=== PATIENT | female | born 1950 | race Caucasian/White ===

== ENCOUNTER → 2018-01-04 08:09 | Outpatient (CLI) | payer MEDICARE, OTHER, SELFPAY ==
--- NOTE | 2018-01-04 08:15 | RAD_ITS ---
STUDY: X-RAY - ESOPHAGUS (BARIUM SWALLOW) WITH FLUOROSCOPY REASON FOR EXAM: Female, 67 years old. Dysphagia. Hiatal hernia. TECHNIQUE: 15 view(s) of the esophagus were obtained following swallowing of barium. FLUOROSCOPY TIME (if supplied): (0:37) minutes/seconds COMPARISON: None. FINDINGS: There is no demonstrated esophageal foreign body. There is no demonstrated stricture or mucosal abnormality. Normal gastroesophageal junction, without a demonstrated hiatal hernia. The patient ingested a 12 mm tablet of barium without any difficulty. There is atherosclerotic calcification of the aortic arch with tortuosity of the descending aorta. Normal visualized pulmonary parenchyma. Normal visualized osseous structures of the thorax. RAD/Esophagus Only IMPRESSION: Normal plain film x-ray examination (barium swallow) of the esophagus. Electronically Signed: Jono Venegas MD at 9:40 EST Tel [phone], Service support ,
== END ==
PROVIDERS: Family Provider Family Medicine; PCP Family Medicine; Visit Provider Otolaryngology Otolaryngology/Facial Plastic Surgery
DX: R13.10 Dysphagia, unspecified (principal)
CPT/HCPCS: 74220

== ENCOUNTER → 2018-04-07 09:43 | Outpatient (CLI) | payer MEDICARE, OTHER, SELFPAY ==
--- NOTE | 2018-04-07 14:06 | PFTCOMP ---
COMPLETE PULMONARY FUNCTION TEST INTERPRETATION Brief HPI: Patient is a 67 year old female, currently under the care of myself, who presents to [facility] for complete pulmonary function tests secondary to diagnosis of abnormal PFT. Respiratory therapist reports good effort and reproducible results. Interpretation: Forced expiration spirometry shows no large airways obstructive ventilatory defect with an FEV1 of 102% predicted. There is no significant bronchodilator response by ATS criteria. Spirograms are of good quality and plateau normally. The respiratory flow volume loop shows a normal pattern. Lung volumes by body plethysmography show a normal total lung capacity at 4.44 L, 100% predicted. All other lung volumes are within normal limits. Diffusion capacity by carbon monoxide is at the lower limit of normal at 66% predicted. The airway resistance is elevated. Compared to previous pulmonary function tests from 09/15/2017, there has been no significant change. Impression: These pulmonary function tests are grossly within normal limits. Lung function has been stable over the last 6 months.
--- NOTE | 2018-04-07 14:09 | PFTCOMP_ITS ---
COMPLETE PULMONARY FUNCTION TEST INTERPRETATION Brief HPI: Patient is a 67 year old female, currently under the care of myself, who presents to [facility] for complete pulmonary function tests secondary to diagnosis of abnormal PFT. Respiratory therapist reports good effort and reproducible results. Interpretation: Forced expiration spirometry shows no large airways obstructive ventilatory defect with an FEV1 of 102% predicted. There is no significant bronchodilator response by ATS criteria. Spirograms are of good quality and plateau normally. The respiratory flow volume loop shows a normal pattern. Lung volumes by body plethysmography show a normal total lung capacity at 4.44 L , 100% predicted. All other lung volumes are within normal limits. Diffusion capacity by carbon monoxide is at the lower limit of normal at 66% predicted. The airway resistance is elevated. Compared to previous pulmonary function tests from 09/15/2017, there has been no significant change. Impression: These pulmonary function tests are grossly within normal limits. Lung function has been stable over the last 6 months.
== END ==
PROVIDERS: Family Provider Family Medicine; PCP Family Medicine; Visit Provider Internal Medicine Critical Care Medicine
DX: R94.2 Abnormal results of pulmonary function studies (principal)
CPT/HCPCS: 94060; 94726; 94729

== ENCOUNTER → 2018-07-28 14:54 | Outpatient (CLI) | payer MEDICARE, OTHER, SELFPAY | PROVIDERS: Family Provider Family Medicine; PCP Family Medicine; Visit Provider Orthopaedic Surgery | DX: M25.551 Pain in right hip (principal) | CPT/HCPCS: 73502 ==

== ENCOUNTER 2018-08-25 08:30 | Outpatient (RCR) | payer MEDICARE, OTHER, SELFPAY ==
--- NOTE | 2018-07-29 12:50 | HP.PTEVAL ---
Patient's Visit Information VERONICA ZULUAGA is a 67 year old F referred to Physical Therapy by Roula Torres DO with a diagnosis of RIGHT PROXIMAL LATERAL LEG PAIN/ITB.. Date of Evaluation: 07/29/18 Physical Therapist: Elise Hirsch - Visit Plan Frequency: 2-3x /Week Duration: 4-6 Weeks Plan: US TO LUMBAR/SI REGION TENDER AREAS. CP/MH NEEDED. POSTURE CORRECTION/STRENGTHENING, INSTRUCTION IN APPROPRIATE BODY MECHANICS AND ACTIVITY MODIFICATIONS. CORE STRENGTHENING. RUBIN LE ROM, STRETCHING AND STRENGTHENING (ESPECIALLY RIGHT LE). ITB STICK ROLL OUT. HEP INSTRUCTION INCLUDING FOAM ROLL. - Subjective Subjective: Work/Leisure: RETIRED. 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 Disability: NO. Present symptoms: RUBIN LBP, RIGHT BUTTOCK, HIP AND THIGH. PATIENT DENIES RUBIN LE NUMBNESS OR TINGLING. (CHRONIC RUBIN KNEE PAIN TOO L>R). Present since: ABOUT 3 MONTHS AGO AND WORSENING. RUBIN LOW BACK PAIN WITH PROLONGED STANDING AND THAT STARTED A FEW MONTHS AGO TOO. Pain Scale: WORST 8/10, LEAST 2/10. Currently: 2/10. 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 HE IN NOV 2017. 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 THIS WAS PHYSICAL WORK TOO. Symptoms at onset: FRONT OF RIGHT HIP. Worse: WALKING. THE WORST IS GOING UP OR DOWN STEPS. CARRYING GROCERIES. HIKING. BENDING. LIFTING. TRYING TO TAKE PANTS OFF. Better: SITTING. LYING DOWN WITH PILLOW UNDER RIGHT KNEE. EXCEDRIN. Disturbed sleep: YES. Previous history/Previous treatment: NO HISTORY OF LOW BACK PAIN OR PROBLEMS UNTIL A FEW MONTHS AGO. PATIENT ISN'T SURE IF BACK OR THIGH PAIN STARTED FIRST BUT SHE THINKS IT STARTED IN THE FRONT OF HER RIGHT HIP. Coughing/sneezing/straining: WHEN I COUGH IT HURTS. Gait: PATIENT REPORTS SHE HAS BEEN HAVING TROUBLE WITH HER KNEES (ESPECIALLY THE LEFT KNEE) FOR ABOUT 3 YEARS NOW AND SO SHE HAS BEEN LIMPING OFF AND ON FOR A LONG TIME BUT HER RIGHT THIGH PAIN ALSO CAUSES HER TO LIMP. Difficulty initiating urinatin: SLOW SOMETIMES. HAS HAD BLADDER TIED UP. Accidents: LONG TIME AGO. Unexplained weight loss: NO. Imaging: X-RAY YESTERDAY OF RIGHT HIP SHOWING CALCIUM BUILD UP POSSIBLY FROM OLD INJURY. PMH: SLEEPING PILL. MIGRAINES. H/O RUBIN SHOULDER PAIN AND POSSIBLE TEARS RIGHT > LEFT. CHRONIC COUGH. Recent major surgery: NONE RECENT. OTHER: HAS ONLY HAD ONE PHYSICIAN VISIT FOR THIS AND IT WAS YESTERDAY WITH DR. TORRES. - Objective Sitting/Standing Posture: POOR. STANDS WITH DECREASED WEIGHT BEARING ON RIGHT LE. Lordosis: MILDLY DECREASED. Lateral shift: NO. Relevant shift: N/A. Active Correction of posture: BETTER. Other Observations: THIS PATIENT AMBULATES INDEP''LY INTO PT LIMPING ON RUBIN LE'S WITH INCRASED TRUNK FLEXION. VERY SLOW ANTALGIC GAIT PATTERN. UNABLE TO TRANSFER FROM SIT TO STAND WITHOUT UE ASSIST. INDEP TRANSFERS ON/OFF TABLE, SIT TO SUPINE AND REVERSE, SUPINE TO PRONE AND REVERSE BUT MVMTS ARE SLOW AND GUARDED AND SHE USES HER UE TO ASSIT THE RIGHT LE. Motor deficit: RUBIN LE STRENGTH 5/5 WITH MMT'ING EXCEPT RIGHT HIP: FLEX 3-/5, ABD 3/5, EXT 3-/5. RIGHT KNEE EXT 4/5, KNEE FLEX 4/5, ANKLE DORSIFLEX 5/5. RUBIN EHL 5/5. Sensory deficit: RUBIN LE LIGHT TOUCH SENSATION IS INTACT AND SYMMETRICAL. ROM deficit: TIGHT RUBIN HS'S, GASTROC SOLEUS COMPLEX'S AND HIP FLEXORS. PAINFUL RIGHT HIP WITH ROM TESTING AND ONLY ABLE TO PASSIVELY FLEX RIGHT HIP TO ABOUT 90 DEG. SHE HAS ABOUT 5 DEG OF IR AND 25 DEG OF ER AND IT IS PAINFUL. HIP EXTENSION TO NEUTRAL. Reflexes: UNABLE TO ELICIT RUBIN LE DTR'S. Dural Signs: NEGATIVE RUBIN LE'S WITH SLUMP TEST. Lumbar mvmt loss: flex - MOD - RIGHT LOW BACK AND HIP PAIN GOING FORWARD AND COMING BACK UP. ALSO PROVOKES INCREASED LEFT KNEE PAIN. ext - KATHERIN - PROVOKES CENTRAL LBP AND RIGHT ANTERIOR PROX THIGH PAIN. R SG - MOD - PROVOKES RIGHT PROX ANTERIOR THIGH MARCELO AND CENTRAL LBP. L SG - MOD - PROVOKES RIGHT PROX ANTERIOR THIGH PAIN. Core strength: POOR. Palpation: RIGHT THIGH IS NOT TENDER TO THE TOUCH THROUGHOUT. RIGHT LATERAL HIP AND RIGHT BUTTOCK IS ALSO NOT TENDER TO PALPATION. SHE HAS MILD TENDERNESS OF L45S1 REGION AND MORE TENDERNESS OF THE RIGHT SI JOINT AND THERE IS INCREASED MUSCLE TONE OF RUBIN LUMBAR PARASPINALS. OTHER: RECOMMENDED CANE OR WALKER TO DECREASE WEIGHT BEARING AND PAIN ON RIGHT LE. - Goals Goal 1:: DECREASE C/O RIGHT BUTTOCK, HIP AND THIGH PAIN Goal Time Frame: 4-6 Weeks Goal 2:: IMPROVE PERSONAL CARE, LIFTING, WALKING, SITTING, STANDING, SLEEP, SOCIAL LIFE/RECREATIONAL, TRAVEL AND HOMEMAKING FUNCTION Goal Time Frame: 4-6 Weeks Goal 3:: INSTRUCT IN PROPHYLAXIS Goal Time Frame: 4-6 Weeks - Rehabilitation Potential Rehabilitation Potential: Fair - Anticipated Interventions Patient/Client Instruction: Educate patient on: Condition, Plan of Care, Risk Factors, Benefits of Fitness Program For the Purpose of:: To improve self management Therapeutic Exercise to Include: Strength training, Body mechanics, Postural training, Flexibilty training, Gait and locomotor training, In an aquatic setting, Passive ROM, Active ROM, Dynamic Lumbar Stabilization Comment: ITB STICK ROLL OUT. FOAM ROLL. For the Purpose of:: To decrease pain, To increase ROM, To improve muscle performance and motor function, To increase tolerance to activity/condition/position, To improve performance and independence with ADL's, To improve ability of physical actions for home/community/work/leisure, To improve gait and locomotor functions Cryotherapy (ice pack, ice massage): Yes Thermo therapy (hot pack): Yes Ultrasound (thermal/non thermal): Yes - BACK, RIGHT SI REGION AND/OR ITB NEEDED. For the Purpose of:: To decrease pain, To decrease swelling/inflammation, To increase ROM, To improve nutrient delivery to tissue Thank you for the opportunity to evaluate your patient. For Medicare and Medicare HMO plans, please review the plan of care and approve it. It will need to be FAXED BACK to us at [phone] for Medicare purposes. Please let me know if there are questions or concerns regarding this plan of care. Physician Signature: Date:
--- NOTE | 2018-08-25 09:29 | HP.PTREVAL ---
Roula Torres, DO, It has been my pleasure to treat VERONICA ZULUAGA over the last 10 visits for RIGHT PROXIMAL LATERAL LEG PAIN/ITB.. Please see the progress note below for an update on the physical therapy plan of care! Subjective: PATIENT REPORTS USING THE CANE REALLY HELPS THE PAIN AND SHE IS AFRAID TO STOP USING IT BECAUSE SHE THINKS THE PAIN WILL COME BACK BAD AGAIN. SHE REPORTS HER PAIN IS LESS NOW THAN BEFORE SHE CAME TO THERAPY BUT WITH LIMITED NORMAL ACTIVITY. PATIENT REPORTS SHE IS STILL GETTING UP TO 8/10 PAIN IN RIGHT RIGHT BUTTOCK AND HIP. INTERMITTENT LOW BACK ACHING WITH PROLONGED STANDING. HAS TO LEAN ON CART TO GROCERY SHOP. SHE CAN GET HER PAIN DOWN TO 2/10 IN THE DEEP END OF THE POOL AND SHE CAN'T DO ANYTHING ELSE TO GET THAT MUCH RELEIF. PATIENT REPORTS SHE HAS IMPROVED SINCE STARTING THERAPY BUT THINKS SHE MIGHT BE PLATEAUING. FOLLOW UP WITH DR. TORRES SCHEDULED 09/13/18. CURRENTLY SHE GETS INCREASED PAIN WHEN SHE TRIES TO DO HER HEP. Objective/Function: THIS PATIENT AMBULATES INDEP''LY INTO PT MODERATELY LIMPING ON RUBIN LE'S WITH INCRASED TRUNK FLEXION EVEN WITH THE USE OF CANE. SHE STILL HAS A VERY SLOW ANTALGIC GAIT PATTERN WITH MINIMAL IMPROVEMENT SINCE INITIAL EVAL. WITHOUT THE CANE HER LIMP ON THE RIGHT LE IS MUCH WORSE. SHE IS NOW ABLE TO TRANSFER FROM SIT TO STAND WITHOUT UE ASSIST. INDEP TRANSFERS ON/OFF TABLE, SIT TO SUPINE AND REVERSE, SUPINE TO PRONE AND REVERSE BUT MVMTS ARE SLOW AND GUARDED AND SHE USES HER UE TO ASSIT THE RIGHT LE. Motor deficit: RUBIN LE STRENGTH 5/5 WITH MMT'ING EXCEPT RIGHT HIP: FLEX 3-/5 AND TESTING GREATLY INCREASES RIGHT ANTERIOR HIP AND PROX THIGH PAIN. RIGHT KNEE EXT 4/5, KNEE FLEX 4/5, ANKLE DORSIFLEX 5/5. RUBIN EHL 5/5. Sensory deficit: RUBIN LE LIGHT TOUCH SENSATION IS INTACT AND SYMMETRICAL. ROM deficit: TIGHT RUBIN HS'S, GASTROC SOLEUS COMPLEX'S AND HIP FLEXORS. PAINFUL RIGHT HIP WITH ROM TESTING AND ONLY ABLE TO PASSIVELY FLEX RIGHT HIP TO ABOUT 98 DEG. SHE HAS ABOUT 10 DEG OF IR AND 50 DEG OF ER AND IT IS PAINFUL. HIP EXTENSION TO NEUTRAL. Dural Signs: NEGATIVE RUBIN LE'S WITH SLUMP TEST. Lumbar mvmt loss: flex - MOD - RIGHT LOW BACK AND HIP PAIN GOING FORWARD AND COMING BACK UP. DOES NOT INCREASE LEFT KNEE PAIN TODAY. ext - KATHERIN - PROVOKES SACRAL AREA PAIN. R SG - MOD - PROVOKES RIGHT PROX ANTERIOR THIGH MARCELO. L SG - MOD - PROVOKES RIGHT PROX ANTERIOR THIGH PAIN. Core strength: POOR. Palpation: RIGHT THIGH IS NOT TENDER TO THE TOUCH THROUGHOUT. RIGHT LATERAL HIP AND RIGHT BUTTOCK IS ALSO NOT TENDER TO PALPATION. SHE IS REALLY NOT TENDER IN THE LOW BACK OR RIGHT SI JOINT REGION TODAY BUT THERE IS INCREASED MUSCLE TONE OF RUBIN LUMBAR PARASPINALS. OTHER: RECOMMENDED CONTINUED USE OF CANE OR WALKER TO DECREASE WEIGHT BEARING AND PAIN ON RIGHT LE. THERE IS NO SIGNIFICANT CHANGE IN BACK OSWESTRY SCORE AND THERE ARE ONLY MINIMAL IMPROVEMENT IN OBJECTIVE TESTING TODAY. Plan Plan: RECOMMEND PHYSICIAN RE-ASSESSMENT. PATIENT MAY BENEFIT FROM FURTHER AQUATIC THERAPY IF CLEARED AFTER PHYSICIAN RE-ASSESSMENT. HOLD PT. PATEINT AGREEABLE. RECOMMEND FOLLOW UP WITH THIS PT ON LAND IF CLEARED TO RESUME PT. Goals Goal 1:: DECREASE C/O RIGHT BUTTOCK, HIP AND THIGH PAIN Goal Time Frame: 4-6 Weeks Goal 2:: IMPROVE PERSONAL CARE, LIFTING, WALKING, SITTING, STANDING, SLEEP, SOCIAL LIFE/RECREATIONAL, TRAVEL AND HOMEMAKING FUNCTION Goal Time Frame: 4-6 Weeks Goal 3:: INSTRUCT IN PROPHYLAXIS Goal Time Frame: 4-6 Weeks Anticipated Interventions Patient/Client Instruction: Educate patient on: Condition, Plan of Care, Risk Factors, Benefits of Fitness Program For the Purpose of:: To improve self management Therapeutic Exercise to Include: Strength training, Body mechanics, Postural training, Flexibilty training, Gait and locomotor training, In an aquatic setting, Passive ROM, Active ROM, Dynamic Lumbar Stabilization Comment: ITB STICK ROLL OUT. FOAM ROLL. For the Purpose of:: To decrease pain, To increase ROM, To improve muscle performance and motor function, To increase tolerance to activity/condition/position, To improve performance and independence with ADL's, To improve ability of physical actions for home/community/work/leisure, To improve gait and locomotor functions Cryotherapy (ice pack, ice massage): Yes Thermo therapy (hot pack): Yes Ultrasound (thermal/non thermal): Yes - BACK, RIGHT SI REGION AND/OR ITB NEEDED. For the Purpose of:: To decrease pain, To decrease swelling/inflammation, To increase ROM, To improve nutrient delivery to tissue Please do not hesitate to contact me at [phone] by phone or if you have questions or concerns regarding this new plan of care! Sincerely, Elise Hirsch
--- NOTE | 2019-01-19 17:01 | HP.PT.NRP ---
HP - Discharge Summary (1) - Patient Information VERONICA ZULUAGA was seen in my office for initial evaluation on 07/29/18. The following Plan of Care was established for this patient: Initial Frequency: 2-3x /Week Initial Duration: 4-6 Weeks - Anticipated Interventions Patient/Client Instruction: Educate patient on: Condition, Plan of Care, Risk Factors, Benefits of Fitness Program For the Purpose of:: To improve self management Therapeutic Exercise to Include: Strength training, Body mechanics, Postural training, Flexibilty training, Gait and locomotor training, In an aquatic setting, Passive ROM, Active ROM, Dynamic Lumbar Stabilization For the Purpose of:: To decrease pain, To increase ROM, To improve muscle performance and motor function, To increase tolerance to activity/condition/position, To improve performance and independence with ADL's, To improve ability of physical actions for home/community/work/leisure, To improve gait and locomotor functions Cryotherapy (ice pack, ice massage): Yes Thermo therapy (hot pack): Yes Ultrasound (thermal/non thermal): Yes - BACK, RIGHT SI REGION AND/OR ITB NEEDED. For the Purpose of:: To decrease pain, To decrease swelling/inflammation, To increase ROM, To improve nutrient delivery to tissue This patient was last seen in our office 08/25/18. Pertinent comments regarding their Physical therapy will appear below: This patient has not returned to Physical Therapy and is appropriate to return to MD for further follow-up as needed. At this point I will be discontinuing this patient from physical therapy. I would be happy to see this patient again in the future if found appropriate by the physician. Thank you! Elise Hirsch, PT, Cert MDT
== END 2018-08-25 19:00 | disposition home or self-care (01) ==
LOC: PT 08:30
PROVIDERS: Family Provider Family Medicine; PCP Family Medicine; Visit Provider Orthopaedic Surgery
DX: M79.604 Pain in right leg (principal); M76.31 Iliotibial band syndrome, right leg
CPT/HCPCS: 97035; 97110; 97113; 97116; 97140; 97162; 97164; 97530

== ENCOUNTER → 2018-09-07 07:04 | Outpatient (CLI) | payer MEDICARE, OTHER, SELFPAY ==
--- NOTE | 2018-09-07 07:25 | MRI_ITS ---
STUDY: MRI RIGHT HIP REASON FOR EXAM: Right hip and anterior thigh pain. TECHNIQUE: Standardized fat and water weighted pulse sequences were obtained in all 3 orthogonal planes. # of Images: 209 COMPARISON: Radiographs 07/28/2018. FINDINGS: There is mild right hip arthrosis with mild chondral thinning (proton-density sagittal image 16). There is bone edema of the lateral aspect of the right acetabulum (inversion recovery coronal images 15-19), a stress phenomenon. Normal labrum. There is a small subchondral stress fracture of the posterior superior aspect of the right femoral head with bone edema (inversion recovery coronal image 15). Normal femoral neck and intratrochanteric region. Normal gluteus minimus, medius and iliopsoas tendons and distal insertions. There is no trochanteric, iliopsoas or iliopectineal bursitis. Normal superior and inferior pubic rami. Normal pubic symphysis. Normal ischial tuberosity. Normal origin of the hamstring tendons. Normal visualized iliac wing, sacroiliac joint, and sacral ala. Normal visualized soft tissue structures of the pelvis. MRI/Lower Ext Joint Only (Routine) IMPRESSION: Small subchondral stress fracture of the right femoral head. Subchondral bone edema of the right acetabulum, a stress phenomenon. Mild right hip arthrosis. No demonstrated labral tear. Electronically Signed: Ricardo Sherman MD at 12:14 EDT Tel , Service support ,
== END ==
PROVIDERS: Family Provider Family Medicine; PCP Family Medicine; Referring Provider Orthopaedic Surgery; Visit Provider Orthopaedic Surgery
DX: M16.11 Unilateral primary osteoarthritis, right hip (principal)
CPT/HCPCS: 73721

== ENCOUNTER → 2018-09-13 08:25 | Outpatient (CLI) | payer MEDICARE, OTHER, SELFPAY ==
--- NOTE | 2018-09-13 08:23 | RAD_ITS ---
STUDY: X-RAY - LUMBAR SPINE REASON FOR EXAM: Female, 68 years old. Back pain. TECHNIQUE: 6 view(s) of the lumbar spine including lateral flexion and extension were obtained. COMPARISON: None FINDINGS: There is generalized osteopenia. Normal lumbar lordosis. There is no substantial scoliosis. There is 7 mm of anterolisthesis of L4 on L5. There is limited flexion and extension with no abnormal motion. Normal vertebral bodies and endplates. There is mild intervertebral disc space narrowing most marked at L3-4 with small osteophytes. There is diffuse uncovertebral and facet sclerosis. There is an injection granuloma in the right gluteal region. RAD/L/S Spine Comp/w Bending Views IMPRESSION: Osteopenia with moderate lumbar spondylosis as described. Limited flexion and extension with no abnormal motion. Electronically Signed: Orlando Ng MD at 10:37 EDT , Service support ,
== END ==
PROVIDERS: Family Provider Family Medicine; PCP Family Medicine; Referring Provider Orthopaedic Surgery; Visit Provider Orthopaedic Surgery
DX: M25.551 Pain in right hip (principal)
CPT/HCPCS: 72114

== ENCOUNTER → 2018-09-19 06:29 | Outpatient (CLI) | payer MEDICARE, OTHER, SELFPAY ==
--- NOTE | 2018-09-19 06:30 | MRI_ITS ---
STUDY: MRI LUMBAR SPINE WITHOUT CONTRAST REASON FOR EXAM: Female, 68 years old. Radicular syndrome, right hip and thigh pain TECHNIQUE: Standardized fat and water weighted pulse sequences were obtained in the sagittal and axial planes. COMPARISON: None FINDINGS: T12-L1: Normal endplates. Normal disc height, hydration and morphology. Normal bilateral facet joints. Normal central canal and bilateral lateral recesses. Normal bilateral intervertebral neural foramina. Normal lumbar lordosis. There is no substantial scoliosis. Normal conus medullaris that terminates at the L1-2 level. Multiple incidental vertebral body hemangiomata. L1-2: Bulging annulus without compressive sequelae. L2-3: Bulging annulus with superimposed cranially migrating left subarticular disc extrusion. Moderate left lateral recess stenosis and mild right foraminal stenosis. L3-4: Bulging annulus and bilateral facet hypertrophy with moderate to severe central canal stenosis and moderate bilateral foraminal stenoses. L4-5: Bulging annulus and bilateral facet hypertrophy with moderate central canal stenosis and bilateral foraminal stenoses. Moderate to severe bilateral lateral recess stenoses. Facet disease is associated with contact of both transiting L5 nerve roots. L5-S1: Bulging annulus and bilateral facet hypertrophy with mild central canal stenosis and moderate right and mild left foraminal stenoses. Normal visualized sacral ala. Normal visualized paraspinous soft tissue structures. MRI/Spine Lumbar (Routine) IMPRESSION: Multilevel degenerative disease as described. At L2-3, a cranially migrating left-sided disc extrusion is noted with moderate left lateral recess stenosis. Moderate to severe central canal stenosis at L3-4. Moderate to severe bilateral lateral recess stenoses at L4-5. L4-5 facet disease with contact of the bilateral transiting L5 nerve roots. Electronically Signed: Ulises Stafford MD at 7:32 EDT Tel , Service support ,
== END ==
PROVIDERS: Family Provider Family Medicine; PCP Family Medicine; Referring Provider Orthopaedic Surgery; Visit Provider Orthopaedic Surgery
DX: M54.16 Radiculopathy, lumbar region (principal)
CPT/HCPCS: 72148

== ENCOUNTER → 2018-12-29 11:00 | Outpatient (CLI) | payer MEDICARE, OTHER, SELFPAY ==
[2018-12-29 10:57] VITALS: BMI 28.8
--- NOTE | 2018-12-29 11:02 | RAD_ITS ---
STUDY: X-RAY - LEFT SHOULDER REASON FOR EXAM: Female, 68 years old. Pain. TECHNIQUE: 4 view(s) of the shoulder. COMPARISON: None. FINDINGS: Normal glenohumeral articulation. There is degenerative arthrosis of the acromioclavicular joint without inferior osseous spur formation. Normal acromion. Normal humeral head and visualized proximal humerus. The soft tissue structures are unremarkable. There is no demonstrated fracture. Normal visualized pulmonary apex. RAD/Shoulder min 2 Views IMPRESSION: Degenerative changes. No acute abnormality. Electronically Signed: Abe Allen MD at 15:56 EST , Service support ,
== END ==
PROVIDERS: Family Provider Family Medicine; PCP Family Medicine; Referring Provider Orthopaedic Surgery; Visit Provider Orthopaedic Surgery
DX: M25.512 Pain in left shoulder (principal)
CPT/HCPCS: 73030

== ENCOUNTER 2019-01-08 10:46 | Emergency (ER) | payer MEDICARE, OTHER, SELFPAY ==
[2019-01-06 11:17] VITALS: BMI 28.8
[2019-01-08 10:47] VITALS: BP 128/76; PULSE 83; RESP 18; TEMP 36.6; O2SAT 97; BMI 30.2
--- NOTE | 2019-01-08 11:42 | RAD_ITS ---
STUDY: X-RAY - RIGHT HIP REASON FOR EXAM: Female, 68 years old. Fall yesterday, right hip pain TECHNIQUE: 2 views of the hip. AP pelvis COMPARISON: None. FINDINGS: Bilateral injection granulomata noted. There are osteoarthritic changes of the femoral head with marginal osteophyte formation. There is osteoarthritic spur formation of the acetabular rim. There is mild articular joint space narrowing. Pelvic ring is intact. Pubic symphysis and sacroiliac joints are normally aligned. There are degenerative changes of the lower lumbar spine. RAD/HIP, UNI W/ Pelvis 2-3 Views IMPRESSION: No fracture or malalignment. Degenerative changes. Electronically Signed: Jamari Bartlett MD at 12:44 EST , Service support ,
--- NOTE | 2019-01-08 11:42 | RAD_ITS ---
STUDY: X-RAY - LEFT KNEE REASON FOR EXAM: Female, 68 years old. Fall yesterday on ice, left knee pain TECHNIQUE: 4 view(s) of the knee. COMPARISON: None. FINDINGS: Normal visualized distal femur. Normal visualized proximal tibia and fibula. Normal proximal tibiofibular articulation. There is moderate degenerative arthrosis of the medial femorotibial compartment with moderate joint space narrowing. Normal lateral femorotibial compartment. There is mild degenerative arthrosis of the patellofemoral articulation. There is a soft tissue prominence in the suprapatellar region suggesting a small volume joint effusion. The soft tissue structures are unremarkable. RAD/Knee 4 or More Views IMPRESSION: 1. No fracture or malalignment. 2. Small joint effusion. 3. Mild degenerative changes. Electronically Signed: Jamari Bartlett MD at 12:43 EST , Service support ,
--- NOTE | 2019-01-08 12:37 | ED.VISSUMM ---
- ER Visit Summary Date of Service: 01/08/19 Chief Complaint: Fall History of Present Illness: The patient is a 68 F presenting after fall on ice. This occurred yesterday. She fell directly onto her left knee. She did not hit her head or lose consciousness. She states she twisted and is now having right hip pain. She is able to ambulate. She has been having pain in her right hip for several months. She denies other injury. Physical Examination: Vitals are stable. Patient is afebrile. Alert no acute distress. HEENT exam is unremarkable. Neck is nontender Lungs are clear and equal bilaterally. Heart is regular rate and rhythm. Extremities left anterior knee tenderness with full range of motion. Mild right anterior hip tenderness with active full range of motion. Skin is warm and dry. No focal neurologic deficit. Remainder of exam is unremarkable. Emergency Department Course and Treatment: Left knee xray shows no fracture or malalignment. Small joint effusion. Mild degenerative changes. Right hip xray shows no fracture or malalignment. Degenerative changes. She was given Volcano x1 in the ED. Advised to follow-up with her primary care physician. Advised return to the ED for worsening complaints. Disposition: Discharge home Impression: Left knee contusion, right hip pain, status post mechanical fall This note was generated with [employer] dictation software. It may contain incorrect words, spelling, and punctuation that were not noted in review of the chart prior to signing ED Disposition - Plan for ED Patient: Instructions: ED Contusion Lower Ext Prescriptions: Hydrocodone Bitart/Apap 5-325 [Volcano 5MG-325MG] 1 tablet PO Q6H PRN PRN 3 Days #10 tablet PRN Reason: Pain Referrals: Dwight Parnell DO [Primary Care Provider] -
--- NOTE | 2019-01-08 13:44 | ED.DEP ---
ED Disposition - Plan for ED Patient: Instructions: ED Contusion Lower Ext Prescriptions: Hydrocodone Bitart/Apap 5-325 [Winigan 5MG-325MG] 1 tablet PO Q6H PRN PRN 3 Days #10 tablet PRN Reason: Pain Referrals: Dwight Parnell DO [Primary Care Provider] -
[2019-01-08] MEDS: HYDROcodone Bitartrate/Apap 5/325 Tablet PO (13:58)
[2019-01-08 14:00] VITALS: BP 158/91; PULSE 67; RESP 18; O2SAT 97
[2019-01-08 14:11] VITALS: BP 132/78; PULSE 80; RESP 16; O2SAT 98
== END 2019-01-08 14:13 | disposition home or self-care (01) ==
PROVIDERS: Emergency Provider Emergency Medicine; Family Provider Family Medicine; PCP Family Medicine
DX: S80.02XA Contusion of left knee, initial encounter (principal); M25.551 Pain in right hip; W00.9XXA Unspecified fall due to ice and snow, initial encounter; Y93.9 Activity, unspecified; Y92.9 Unspecified place or not applicable
CPT/HCPCS: 73502; 73564; 99282

== ENCOUNTER → 2019-04-13 | Outpatient (CLI) | payer MEDICARE, OTHER, SELFPAY ==
[2018-12-29 10:57] VITALS: BMI 28.8
--- NOTE | 2019-04-13 07:17 | MRI_ITS ---
STUDY: MRI LEFT SHOULDER REASON FOR EXAM: Shoulder pain and decreased range of motion for approximately 4-5 years, injury 3 years ago. TECHNIQUE: Standardized fat and water weighted pulse sequences were obtained in all 3 orthogonal planes. COMPARISON: Radiographs 12/29/2018. FINDINGS: There is supraspinatus tendinosis and a full-thickness tear of the supraspinatus tendon (T2 coronal images 15, 16; T2 sagittal image 15) measuring approximately 1.3 cm in length and width. There is infraspinatus tendinosis (T2 coronal image 9) without discrete tendon tear. There is subscapularis tendinosis (proton density axial images 8-10) without discrete tendon tear. Normal teres minor tendon. There is atrophy with partial fat replacement of the supraspinatus muscle (T2 sagittal images 1-6). There is a cyst at the infraspinatus musculotendinous junction extending into the tendon (T2 coronal images 7, 8). Normal subscapularis muscle. Normal teres minor muscle. There is a small glenohumeral joint effusion with fluid extending into the bicipital tendon sheath. There is cystic change of the greater tuberosity. Normal biceps labral complex. There is tendinosis of the intracapsular long biceps tendon (T2 coronal images 17, 18). Normal labrum. There is synovitis in the axillary bursa (T2 coronal images 9, 10). There is acromioclavicular arthrosis with a small undersurface osteophyte of the distal clavicle (T2 sagittal image 11). There is a Type II morphology (curved), with a neutral orientation. There is a small volume of subacromial-subdeltoid bursal fluid. Normal visualized coracohumeral and coracoacromial ligaments. Normal deltoid muscle. Normal trapezius muscle. MRI/Upper Ext Joint Only(Routine) IMPRESSION: Full-thickness tear and tendinosis of the supraspinatus tendon. Infraspinatus and subscapularis tendinosis. Atrophy of the supraspinatus muscle. Tendinosis of the long biceps tendon. Acromioclavicular arthrosis. Glenohumeral joint fluid communicating with the subacromial-subdeltoid bursa. Electronically Signed: Ricardo Sherman MD at 9:15 EDT Tel , Service support ,
== END | disposition home or self-care (01) ==
LOC: MRI 07:16
PROVIDERS: Family Provider Family Medicine; PCP Family Medicine; Referring Provider Orthopaedic Surgery; Visit Provider Orthopaedic Surgery
DX: M75.102 Unspecified rotator cuff tear or rupture of left shoulder, not specified as traumatic (principal); R42 Dizziness and giddiness
CPT/HCPCS: 73221

== ENCOUNTER 2019-04-25 07:33 | Day surgery (SDC) | payer MEDICARE, OTHER, SELFPAY ==
[2019-04-19 10:25] VITALS: BMI 30.2
--- NOTE | 2019-04-19 12:59 | HP_ITS ---
Intake Vital Signs 04/19/19 Body Mass Index (BMI) 30.2 Intake Visit Reasons: LEFT SHOULDER Allergies acetaminophen [From Tylenol-Codeine] Adverse Reaction (Verified 01/08/19 10:49) Vomiting codeine phosphate [From Tylenol-Codeine] Adverse Reaction (Verified 01/08/19 10:49) Vomiting Medications trazodone 100 mg tablet 200 mg PO HS 30 Days #60 tab 04/12/18 [History Confirmed 01/06/19] fluticasone propionate 50 mcg/actuation nasal spray,suspension 2 spray INTRANASAL DAILY #18.2 g 01/06/19 [Rx Confirmed 01/06/19] PFSH Medical History Sleep apnea (Chronic) Vertigo (Chronic) Allergic rhinitis (Chronic) Chronic cough (Chronic) Hiatal hernia with gastroesophageal reflux (Chronic) Abnormal pulmonary function test (Chronic) Asthma, moderate persistent (Resolved) UTI (urinary tract infection) (Acute) Pyelonephritis (Acute) Flank pain (Acute) Nausea & vomiting (Acute) Surgical History History of tubal ligation (Resolved) History of tonsillectomy (Resolved) History of cholecystectomy (Resolved) History of hysterectomy (Resolved) History of appendectomy (Resolved) Family History Mother Cancer Diabetes Father Cancer Grandfather Diabetes Grandmother Glaucoma Social History Smoking Status: Never smoker second hand exposure: No alcohol intake: never substance use type: does not use caffeine: Yes what type of physical activity do you participate in: none HPI LEFT SHOULDER: Chief Complaint: left shoulder Surgical H&P: Yes Details: Parts of this documentation were recorded by a scribe, this documentation accurately reflects the service provided and the decisions made by , Femi Bowen DO 04/19/19 0754. VERONICA ZULUAGA is a 68 year old F here today for MRI review of the shoulder and she continues to have pain with certain motions. She is trying to alter her motions to relieve pain. Patient has decreased rom and pain in all ranges. She has failed to gain rom with PT and injections. Denies numbness, tingling or other associated symptoms. Ortho Exam Left Shoulder Testing: No AROM-Forward Elevation 0-180 (80), No AROM-External Rotation at side 0-60 (50) Internal Rotation: Hip Supplemental Info 04/13/2019 MRI left shoulder: Full-thickness tear and tendinosis of anterior supraspinatus tear is near musculotendinous junction with a large footprint remaining attached to the greater tube Assessment & Plan Problems 1. Rotator cuff syndrome of left shoulder M75.102 Plan Explained that she has a torn RTC. Explained location and age of tear may prohibit it from being repairable and if so debridement of the tear would be performed, she has atrophy noted as well and that can make risk of not repairing. Explained that it may also require an open procedure and that there is a risk of retear. She will need to be in a sling for 6wks and have 6 months of recovery with rehab. She has failed all conservative care, PT , injections and rest and will consent for surgery. Demonstrated her prom exercises for post op. Reviewed the pre-operative plans with the patient. Risks and benefits of the procedure were fully explained, including but not limited to infection, neurovascular injury, continued pain, arthritis, stiffness, need for further surgery, re-injury, DVT, PE, general risks of anesthesia, and loss of limb or life. The patient understands all the risks and does wish to proceed with written consent. Follow up post op or sooner if pain, swelling, numbness or associated symptoms, or concerns develop. All questions answered. Patient in agreement of plan. Coding Level of Care Code Off vis,est,level 3 Diagnoses Rotator cuff syndrome of left shoulder M75.102 04/19/19 7062 <Electronically signed by Femi Bowen DO> Date Femi Bowen DO
--- NOTE | 2019-04-21 15:24 | EKG12_ITS ---
Test Reason : PREOP Blood Pressure : / mmHG Vent. Rate : 075 BPM Atrial Rate : 075 BPM P-R Int : 178 ms QRS Dur : 100 ms QT Int : 382 ms P-R-T Axes : 026 -40 032 degrees QTc Int : 426 ms Normal sinus rhythm Left axis deviation Low voltage QRS Poor R wave progression Abnormal ECG Confirmed by ADELE LOPEZ, STELLA ([id number]), editorial specialist HI DELGADO ([id number]) on 04/24/2019 1:35:37 PM Referred By: Femi Bowen Confirmed By:STELLA ANGULO MD
[2019-04-21 16:41] LABS: Hemoglobin 13.8 g/dl (12.0-15.0); Mean Corp Hgb Conc 34.5 g/gl (32-36); Mean Corpuscular Hgb 29.9 pg (27.0-32.0); Mean Corpuscular Volume 86.6 fL (81-99); Mean Platelet Vol. 10.1 fl (6.2-12.0); Platelet Count 216 K/mm3 (150-450); RBC Distribution Width CV 12.8 % (11.6-14.6); RBC Distribution Width SD 39.3 fl (35.1-43.9); Red Blood Count 4.62 M/mm3 (4.2-5.4); White Blood Count 6.6 K/mm3 (4.4-11.0)
[2019-04-21 16:44] LABS: Scan Indicated on CBC? Y/N NO
[2019-04-21 16:49] LABS: Hemoglobin A1c 6.8 % (4.2-6.3); International Normalized Ratio 1.1; Partial Thromboplast Time 29.5 Seconds (24.1-36.2)
[2019-04-21 17:07] LABS: AST(SGOT) 15 U/L (15-37); Alanine Aminotransfer ALT/SGPT 22 U/L (13-56); Albumin, Serum 3.7 g/dL (3.2-5.0); Alkaline Phosphatase 66 U/L (45-117); Anion Gap 7 (5-15); BUN 11 mg/dL (7-18); BUN/Creat Ratio 9.5 RATIO (10-20); Bilirubin, Direct 0.08 mg/dL (0.00-0.30); Calcium,Total 9.3 mg/dL (8.5-10.1); Chloride 104 mmol/L (98-107); Creatinine, Serum 1.16 mg/dL (0.55-1.02); EST Glomerular Filtration Rate 49 mL/min (>60); Est Glom Filt Rate - Afr Amer 60 mL/min (>60); Glucose 104 mg/dL (74-106); Potassium 4.3 mmol/L (3.5-5.1); Protein, Total 7.7 g/dL (6.4-8.2); Sodium Level 140 mmol/L (136-145)
[2019-04-25] VITALS (10 sets, daily range): BP systolic 137–175; BP diastolic 72–91; PULSE 61–80; RESP 14–116; TEMP 35.8–36.8; O2SAT 91–100; BMI 29.2
[2019-04-25 08:21] LABS: Bedside Glucose 132 mg/dL (70-110)
--- NOTE | 2019-04-25 09:50 | PCM.HP.BLA ---
History and Physical Date of Admission: 04/25/19 MR#:[id number] Name: VERONICA ZULUAGA Rep #: [id number] : 1950 Provider: Femi Bwoen DO Age/Sex: 68/F Location: [facility] [place] Status: Signed Intake Vital Signs 04/19/19 Body Mass Index (BMI) 30.2 Intake Visit Reasons: LEFT SHOULDER Allergies acetaminophen [From Tylenol-Codeine] Adverse Reaction (Verified 01/08/19 10:49) Vomiting codeine phosphate [From Tylenol-Codeine] Adverse Reaction (Verified 01/08/19 10:49) Vomiting Medications trazodone 100 mg tablet 200 mg PO HS 30 Days #60 tab 04/12/18 [History Confirmed 01/06/19] fluticasone propionate 50 mcg/actuation nasal spray,suspension 2 spray INTRANASAL DAILY #18.2 g 01/06/19 [Rx Confirmed 01/06/19] PFSH Medical History Sleep apnea (Chronic) Vertigo (Chronic) Allergic rhinitis (Chronic) Chronic cough (Chronic) Hiatal hernia with gastroesophageal reflux (Chronic) Abnormal pulmonary function test (Chronic) Asthma, moderate persistent (Resolved) UTI (urinary tract infection) (Acute) Pyelonephritis (Acute) Flank pain (Acute) Nausea & vomiting (Acute) Surgical History History of tubal ligation (Resolved) History of tonsillectomy (Resolved) History of cholecystectomy (Resolved) History of hysterectomy (Resolved) History of appendectomy (Resolved) Family History Mother Cancer Diabetes Father Cancer Grandfather Diabetes Grandmother Glaucoma Social History Smoking Status: Never smoker second hand exposure: No alcohol intake: never substance use type: does not use caffeine: Yes what type of physical activity do you participate in: none HPI LEFT SHOULDER: Chief Complaint: left shoulder Surgical H&P: Yes Details: Parts of this documentation were recorded by a scribe, this documentation accurately reflects the service provided and the decisions made by me, Femi Bowen DO 04/19/19 0754Shlomo ZULUAGA is a 68 year old F here today for MRI review of the shoulder and she continues to have pain with certain motions. She is trying to alter her motions to relieve pain. Patient has decreased rom and pain in all ranges. She has failed to gain rom with PT and injections. Denies numbness, tingling or other associated symptoms. Ortho Exam Left Shoulder Testing: No AROM-Forward Elevation 0-180 (80), No AROM-External Rotation at side 0-60 (50) Internal Rotation: Hip Supplemental Info 04/13/2019 MRI left shoulder: Full-thickness tear and tendinosis of anterior supraspinatus tear is near musculotendinous junction with a large footprint remaining attached to the greater tube Assessment & Plan Problems 1. Rotator cuff syndrome of left shoulder M75.102 Plan Explained that she has a torn RTC. Explained location and age of tear may prohibit it from being repairable and if so debridement of the tear would be performed, she has atrophy noted as well and that can make risk of not repairing. Explained that it may also require an open procedure and that there is a risk of retear. She will need to be in a sling for 6wks and have 6 months of recovery with rehab. She has failed all conservative care, PT , injections and rest and will consent for surgery. Demonstrated her prom exercises for post op. Reviewed the pre-operative plans with the patient. Risks and benefits of the procedure were fully explained, including but not limited to infection, neurovascular injury, continued pain, arthritis, stiffness, need for further surgery, re-injury, DVT, PE, general risks of anesthesia, and loss of limb or life. The patient understands all the risks and does wish to proceed with written consent. Follow up post op or sooner if pain, swelling, numbness or associated symptoms, or concerns develop. All questions answered. Patient in agreement of plan. Coding Level of Care Code Off vis,est,level 3 Diagnoses Rotator cuff syndrome of left shoulder M75.102 04/19/19 2349 <Electronically signed by Femi Bowen DO> Date Fmei Bowen DO I have re-examined the patient. There are no clinical changes since date of exam
--- NOTE | 2019-04-25 10:13 | HP.PCM_ITS ---
History and Physical Date of Admission: 04/25/19 MR#:[id number] Name: VERONICA ZULUAGA Rep #: [id number] : 1950 Provider: Femi Bowen DO Age/Sex: 68/F Location: [facility] [place] Status: Signed Intake Vital Signs 04/19/19 Body Mass Index (BMI) 30.2 Intake Visit Reasons: LEFT SHOULDER Allergies acetaminophen [From Tylenol-Codeine] Adverse Reaction (Verified 01/08/19 10:49) Vomiting codeine phosphate [From Tylenol-Codeine] Adverse Reaction (Verified 01/08/19 10:49) Vomiting Medications trazodone 100 mg tablet 200 mg PO HS 30 Days #60 tab 04/12/18 [History Confirmed 01/06/19] fluticasone propionate 50 mcg/actuation nasal spray,suspension 2 spray INTRANASAL DAILY #18.2 g 01/06/19 [Rx Confirmed 01/06/19] PFSH Medical History Sleep apnea (Chronic) Vertigo (Chronic) Allergic rhinitis (Chronic) Chronic cough (Chronic) Hiatal hernia with gastroesophageal reflux (Chronic) Abnormal pulmonary function test (Chronic) Asthma, moderate persistent (Resolved) UTI (urinary tract infection) (Acute) Pyelonephritis (Acute) Flank pain (Acute) Nausea & vomiting (Acute) Surgical History History of tubal ligation (Resolved) History of tonsillectomy (Resolved) History of cholecystectomy (Resolved) History of hysterectomy (Resolved) History of appendectomy (Resolved) Family History Mother Cancer Diabetes Father Cancer Grandfather Diabetes Grandmother Glaucoma Social History Smoking Status: Never smoker second hand exposure: No alcohol intake: never substance use type: does not use caffeine: Yes what type of physical activity do you participate in: none HPI LEFT SHOULDER: Chief Complaint: left shoulder Surgical H&P: Yes Details: Parts of this documentation were recorded by a scribe, this documentation accurately reflects the service provided and the decisions made by me, Femi Bowen DO 04/19/19 0754Shlomo ZULUAGA is a 68 year old F here today for MRI review of the shoulder and she continues to have pain with certain motions. She is trying to alter her motions to relieve pain. Patient has decreased rom and pain in all ranges. She has failed to gain rom with PT and injections. Denies numbness, tingling or other associated symptoms. Ortho Exam Left Shoulder Testing: No AROM-Forward Elevation 0-180 (80), No AROM-External Rotation at side 0-60 (50) Internal Rotation: Hip Supplemental Info 04/13/2019 MRI left shoulder: Full-thickness tear and tendinosis of anterior supraspinatus tear is near musculotendinous junction with a large footprint remaining attached to the greater tube Assessment & Plan Problems 1. Rotator cuff syndrome of left shoulder M75.102 Plan Explained that she has a torn RTC. Explained location and age of tear may prohibit it from being repairable and if so debridement of the tear would be performed, she has atrophy noted as well and that can make risk of not repairing. Explained that it may also require an open procedure and that there is a risk of retear. She will need to be in a sling for 6wks and have 6 months of recovery with rehab. She has failed all conservative care, PT , injections and rest and will consent for surgery. Demonstrated her prom exercises for post op. Reviewed the pre-operative plans with the patient. Risks and benefits of the procedure were fully explained, including but not limited to infection, neurovascular injury, continued pain, arthritis, stiffness, need for further surgery, re-injury, DVT, PE, general risks of anesthesia, and loss of limb or life. The patient understands all the risks and does wish to proceed with written consent. Follow up post op or sooner if pain, swelling, numbness or associated symptoms, or concerns develop. All questions answered. Patient in agreement of plan. Coding Level of Care Code Off vis,est,level 3 Diagnoses Rotator cuff syndrome of left shoulder M75.102 04/19/19 6459 <Electronically signed by Femi Bowen DO> Date Femi Bowen DO I have re-examined the patient. There are no clinical changes since date of exam
[2019-04-25] MEDS: Cefazolin 2 GM in 0.9% Normal Saline 100 ML IV (10:25)
[2019-04-25] MEDS: Epinephrine (1 mg/ml) 1 MG/ML VIAL (11:00)
[2019-04-25] MEDS: Bupiv/Epi 0.5% Mpf 30 ML Vial (11:00)
[2019-04-25] MEDS: Bupivacaine Mpf 0.5% 30 ML VIAL (12:04)
[2019-04-25] MEDS: Morphine 4 MG/ML Syringe (12:04)
--- NOTE | 2019-04-25 12:16 | PCM.DC.ORTHO ---
Discharge Diet: No Restrictions Additional Activity Instructions:: Leave the dressing on and intact for 48 hours. ice shoulder 15 min on and 15 mins off next 72 hrs. Then may remove and shower with warm water and antibacterial soap. But do not submerge in tub for 3 weeks. May remove sling for elbow range of motion and pendulum exercises only then replace sling. no active shoulder motion. Encourage finger and wrist range of motion. If any concerns call Dr. Bowen's office. Call your doctor if you observe: Shortness of breath, Chest pain Allergies/Adverse Reactions: Allergies acetaminophen [From Tylenol-Codeine] Adverse Reaction (Verified 04/25/19 07:54) Vomiting codeine phosphate [From Tylenol-Codeine] Adverse Reaction (Verified 04/25/19 07:54) Vomiting Medications to take at Discharge trazodone 100 mg tablet 200 mg PO HS 30 Days #60 tab 04/12/18 Biotin 1,000 mcg PO DAILY 04/21/19 Cyanocobalamin (Vitamin B-12) [Vitamin B-12] 5,000 mcg PO DAILY 04/21/19 Fluticasone Propionate [Flonase Allergy Relief] 2 spray INTRANASAL DAILY PRN 04/21/19 Oxycodone HCl/Acetaminophen [Percocet 5/325] 1 - 2 tablet PO Q4H PRN PRN 7 Days #50 tablet 04/25/19 The following prescriptions were given: Oxycodone HCl/Acetaminophen [Percocet 5/325] 1 - 2 tablet PO Q4H PRN PRN 7 Days #50 tablet PRN Reason: Pain Orders to be completed after discharge: 12 Lead EKG [[facility]] Time Frame: 04/21/19, Facility: [facility], Location: Cardiovascular Services Partial Thromboplast Time Time Frame: 04/21/19, Location: Laboratory Hemoglobin A1c Time Frame: 04/21/19, Location: Laboratory Basic Metabolic Profile (BMP) Time Frame: 04/21/19, Location: Laboratory CBC-Complete Blood Cnt No Diff Time Frame: 04/21/19, Location: Laboratory Liver Profile Time Frame: 04/21/19, Location: Laboratory Prothrombin Time w/INR Time Frame: 04/21/19, Location: Laboratory Primary Care Physician: Dwight Parnell DO [Primary Care Provider] - Test Results: Test results from this visit will be discussed in further detail at your follow-up appointment, if applicable. Please Follow Up With: Femi Bowen DO - 2 weeks
--- NOTE | 2019-04-25 12:22 | OP.PCM_ITS ---
Report of Operation Date of Procedure: 04/25/19 Description of Surgical Findings:: Preoperative diagnosis: [Left chronic rotator cuff tear supra spinatus] Postoperative diagnosis: [Full-thickness supraspinatus cuff tear with retraction and tendinopathy biceps tendinopathy, grade III chondromalacia posterior humeral head] Procedure: Arthroscopic [rotator cuff repair and biceps tenotomy] Implants: Arthrex 5.5 corkscrew medial anchor double loaded 4.5 push lock lateral anchor Anesthesia: General [with interscalane block] EBL: [25 ] cc Complications [None] Indication for procedure: This is a 68-year-old female patient with chronic rotator cuff tear she did have MRI evidence of this. Risks benefits and altern atives of the procedure were reviewed including risk of bleeding infection nerve artery tissue damage need for further surgery continued pain postoperative stiffness and need for postoperative physical therapy and continued pain and retear. Procedure: Patient was met in the preoperative holding area the operative extremity was identified by both the patient and the physician and was marked. Patient was met by anesthesia and brought back to the operating room on a wheeled cart. Patient was transferred to the operating table in the supine position. Anesthesia was started. Patient was then positioned in the beach chair configuration. Bony prominences were well-padded. The patient was prepped and draped in the usual sterile fashion. A timeout was called to ensure the proper patient procedure and extremity were being contemplated. Anatomic landmarks were palpated and marked with a marking pen. A 0.25% Marcaine with epinephrine was injected into the planned portal sites. An 11 blade scalpel was used to make a stab incision in the posterior lateral portal. Arthroscope was inserted into the glenohumeral space with ease. Inflow and outflow tubes were attached and arthroscopic visualization began. An anterior portal was established with an 18-gauge spinal needle. There was noted to be partial biceps tearing degenerative labral tearing and some grade 3 cartilage wear of th e posterior humeral head with the use of Thad scopic shaver and ArthroCare wand biceps tenotomy labral debridement were performed the retracted rotator cuff was evaluated it was mobilized on both the inferior and superior surface as it was retracted. The axillary pouch was investigated and was [free of loose bodies]. The subscapularis was small intrasubstance tearing of the upper border. The arthroscope was then repositioned into the subacromial space and a lateral portal was established. A subacromial decompression with an ArthroCare wand and shaver was performed. There was noted to be [anterior spurring of the acromion which was burred to create a flat surface. Performing an anterior acromioplasty.] [The bursal side of the rotator cuff was evaluated . We prepared the footprint of the anterior supraspinatus with a shaver and bur we did medialize the articular surface about 4 mm we then placed a 5.5 corkscrew anchor and passed for individual limbs tied to the limbs with 2 kn stacks with a knot pusher and then used these for details to secured to a lateral 4.5 push lock anchor. Excellent repair was achieved. The wound was thoroughly irrigated through the scope followed by a subacromial injection with 4 mg of morphine and 8 cc of 0.5% Marcaine plain. Suture portals were closed with 3-0 nylon arthroscopic stitches followed by Xeroform 4 x 4 ABD and a Ioban dressing. A [abduction sling and pillow] was placed. Anesthesia was reversed and patient tolerated the procedure well was and was transferred to the PACU. All counts were correct patient will follow-up in the office in 2 weeks . Patient [ may begin active elbow and wrist range of motion and pendulums of the shoulder but no active shoulder motion, dressing is to be left on for 48 hours before being changed daily after showering]
[2019-04-25 12:40] LABS: Bedside Glucose 129 mg/dL (70-110)
[2019-04-25 13:11] LABS: Bedside Glucose 150 mg/dL (70-110)
[2019-04-25] MEDS: Acetaminophen 325 MG Tablet 650 MG PO (14:58)
[2019-04-25] MEDS: oxyCODONE 5 MG Tablet PO (14:58)
== END 2019-04-25 15:38 | disposition home or self-care (01) ==
LOC: SDC 07:34 → AC 07:35
PROVIDERS: Family Provider Family Medicine; PCP Family Medicine; Referring Provider Orthopaedic Surgery; Visit Provider Orthopaedic Surgery
PROC: (CPT 29827; principal; 2019-04-25 09:00)
DX: M75.102 Unspecified rotator cuff tear or rupture of left shoulder, not specified as traumatic (principal); E10.9 Type 1 diabetes mellitus without complications; G47.30 Sleep apnea, unspecified; K44.9 Diaphragmatic hernia without obstruction or gangrene; K21.9 Gastro-esophageal reflux disease without esophagitis; Z79.899 Other long term (current) drug therapy; R94.31 Abnormal electrocardiogram [ECG] [EKG]; I10 Essential (primary) hypertension
CPT/HCPCS: 29827; 29828; 36415; 80048; 80076; 82962; 83036; 85027; 85610; 85730; 93005; J7120; C1713; J2405

== ENCOUNTER → 2019-07-19 | Outpatient (CLI) | payer MEDICARE, OTHER, SELFPAY ==
[2019-07-19 11:12] VITALS: BMI 29.2
--- NOTE | 2019-07-19 11:17 | RAD_ITS ---
STUDY: X-RAY - PELVIS AND RIGHT HIP REASON FOR EXAM: Female, 68 years old. Right hip pain TECHNIQUE: 2 views of the pelvis and hip. COMPARISON: 01/08/2019 FINDINGS: Iliac crests are excluded by collimation. Pelvic phleboliths. Progressing moderate to severe right hip osteoarthritis. Stable mild left hip osteoarthritis. No fractures or osteolytic lesions. RAD/HIP, UNI W/ Pelvis 2-3 Views IMPRESSION: Progressing moderate to severe right hip osteoarthritis. Electronically Signed: Ulises Stafford MD at 12:07 EDT Tel , Service support ,
== END | disposition home or self-care (01) ==
LOC: HPRAD 11:16
PROVIDERS: Family Provider Family Medicine; PCP Family Medicine; Referring Provider Orthopaedic Surgery; Visit Provider Orthopaedic Surgery
DX: M25.551 Pain in right hip (principal)
CPT/HCPCS: 73502

== ENCOUNTER → 2019-07-25 | Outpatient (CLI) | payer MEDICARE, OTHER, SELFPAY ==
[2019-07-21 11:08] VITALS: BMI 29.2
--- NOTE | 2019-07-25 08:32 | BD_ITS ---
STUDY: DUAL ENERGY X-RAY ABSORPTIOMETRY / DXA REASON FOR EXAM: Female, 68 years old. Early menopause. Loss of height. TECHNIQUE: Bone Mineral Density (BMD) measurements of lumbar spine and left hip were obtained. COMPARISON: None. FINDINGS: Lumbar Spine (L1-L4): g/cm2 (1.087) / T-score (-0.6) / Z-score (1.0) Findings are suggestive of normal bone density with a low fracture risk. Left Femur Total: g/cm2 (1.023) / T-score (0.1) / Z-score (1.5) Left Femoral Neck: g/cm2 (0.951) / T-score (-0.6) / Z-score (1.0) BD/Dexa Bone Density Study IMPRESSION: The patient is considered normal as outlined below according to World Ty Organization (WHO) criteria with a low fracture risk. Reference Information: The T-score is the number of standard deviations above or below the standard which is normal for young adults at their peak bone mineral density. The World Health Organization (WHO) interprets the T-scores as follows: Above -1 Normal bone density Between -1 and -2.5 Osteopenia Equal to / or below -2.5 Osteoporosis As a practical clinical guideline, osteopenia may be graded as follows: Mild -1 through -1.5 Moderate -1.6 through -2.0 Severe -2.1 through -2.4 The Z-score is the number of standard deviations above or below age-matched controls. A Z-score of less than -1.5 would be considered abnormal. References: 1. NIH Osteoporosis and Related Bone Diseases http://www.osteo.org 2. International Society for Clinical Densitometry http://www.iscd.org 3. National Osteoporosis Foundation http://www.nof.org Electronically Signed: Jono Venegas, at 14:07 EDT , Service support ,
== END | disposition home or self-care (01) ==
LOC: OPBD 08:27
PROVIDERS: Family Provider Family Medicine; PCP Family Medicine; Referring Provider Nurse Practitioner Family; Visit Provider Nurse Practitioner Family
DX: Z78.0 Asymptomatic menopausal state (principal)
CPT/HCPCS: 77080

== ENCOUNTER → 2019-07-28 09:00 | Outpatient (CLI) | payer MEDICARE, OTHER, SELFPAY ==
[2019-07-28 09:01] VITALS: BMI 29.2
[2019-07-28 12:17] LABS: Hematocrit 42.4 % (37-47); Mean Corpuscular Hgb 29.4 pg (27.0-32.0); Mean Corpuscular Volume 89.1 fL (81-99); Mean Platelet Vol. 9.9 fl (6.2-12.0); Platelet Count 208 K/mm3 (150-450); RBC Distribution Width CV 12.5 % (11.6-14.6); RBC Distribution Width SD 40.9 fl (35.1-43.9); Red Blood Count 4.76 M/mm3 (4.2-5.4); White Blood Count 6.2 K/mm3 (4.4-11.0)
[2019-07-28 12:39] LABS: Hemoglobin A1c 6.1 % (4.2-6.3)
[2019-07-28 12:56] LABS: ALB/GLOB Ratio 1.1 RATIO (0.9-2.4); AST(SGOT) 21 U/L (15-37); Alanine Aminotransfer ALT/SGPT 25 U/L (13-56); Alkaline Phosphatase 71 U/L (45-117); Anion Gap 8 (5-15); BUN 14 mg/dL (7-18); BUN/Creat Ratio 12.4 RATIO (10-20); Calcium,Total 9.3 mg/dL (8.5-10.1); Chloride 103 mmol/L (98-107); Creatinine, Serum 1.13 mg/dL (0.55-1.02); EST Glomerular Filtration Rate 51 mL/min (>60); Est Glom Filt Rate - Afr Amer 62 mL/min (>60); Globulin 3.8 g/dL (2.2-4.2); Glucose 111 mg/dL (74-106); Potassium 4.4 mmol/L (3.5-5.1); Protein, Total 7.8 g/dL (6.4-8.2); Sodium Level 140 mmol/L (136-145)
== END ==
PROVIDERS: Family Provider Family Medicine; PCP Family Medicine; Visit Provider Nurse Practitioner Family
DX: Z01.818 Encounter for other preprocedural examination (principal); I10 Essential (primary) hypertension; E11.9 Type 2 diabetes mellitus without complications; G47.30 Sleep apnea, unspecified
CPT/HCPCS: 36415; 80053; 83036; 84443; 85027

== ENCOUNTER 2019-08-08 05:17 | Inpatient (IN) | payer MEDICARE, OTHER, SELFPAY ==
[2019-07-19 11:12] VITALS: BMI 29.2
[2019-07-28 09:01] VITALS: BMI 29.2
[2019-08-01 13:07] VITALS: BP 137/90; PULSE 72; RESP 16; TEMP 37; O2SAT 98; BMI 31.2
--- NOTE | 2019-08-07 14:24 | HP.PCM_ITS ---
History and Physical Date of Admission: 08/08/19 Intake Vital Signs 07/19/19 Body Mass Index (BMI) 29.2 Intake Visit Reasons: LEFT SHOULDER Chief Complaint: Cough Allergies acetaminophen [From Tylenol-Codeine] Adverse Reaction (Verified 04/25/19 07:54) Vomiting codeine phosphate [From Tylenol-Codeine] Adverse Reaction (Verified 04/25/19 07:54) Vomiting [facility] Medical History (Updated 04/25/19 @ 12:23 by Femi Bowen DO) Sleep apnea (Chronic) Vertigo (Chronic) Allergic rhinitis (Chronic) Chronic cough (Chronic) Hiatal hernia with gastroesophageal reflux (Chronic) Abnormal pulmonary function test (Chronic) Asthma, moderate persistent (Resolved) UTI (urinary tract infection) (Acute) Pyelonephritis (Acute) Flank pain (Acute) Nausea & vomiting (Acute) Surgical History (Updated 04/25/19 @ 12:23 by Femi Bowen DO) History of tubal ligation (Resolved) History of tonsillectomy (Resolved) History of cholecystectomy (Resolved) History of hysterectomy (Resolved) History of appendectomy (Resolved) Family History (Updated 12/28/17 @ 11:07 by Jessica Musa) Mother Cancer Diabetes Father Cancer Grandfather Diabetes Grandmother Glaucoma Social History (Updated 07/19/19 @ 14:04 by Femi Bowen DO) Smoking Status: Never smoker second hand exposure: No alcohol intake: never substance use type: does not use caffeine: Yes what type of physical activity do you participate in: none HPI LEFT SHOULDER: Chief Complaint: right hip pain and left shoulder f/u Details: Parts of this documentation were recorded by a scribe, this documentation accurately reflects the service provided and the decisions made by me, Femi Bowen DO 07/19/19 1547. VERONICA ZULUAGA is a 68 year old F here today for 12 week post op left shoulder Arthroscopic rotator cuff repair and biceps tenotomy. Patient has been doing AROM but is still very limited with ROM. Denies numbness, tingling or other associated symptoms. Is having pain over her posterior shoulder. Feels that her left shoulder is not getting any better. Patient is have right groin and lateral sided hip pain with any movement of her right hip. Does have right hip MRI in system but no recent hip x-rays. Denies numbness, tingling or other associated symptoms. Ortho Exam Left Shoulder Date of Surgery: 04/25/19 Skin/Wound: No ecchymosis, No erythema, No swelling Testing: No AROM-Forward Elevation 0-180, No AROM-External Rotation at 90 0-60, No AROM-External Rotation at side 0-60, Yes PROM-Forward Elevation 0-180, Yes PROM-External Rotation at side 0-60, Yes PROM-External Rotation at 90 0-60 Supplemental Info 07/11/2019 x-ray right hip [id number] DJD Assessment & Plan Problems 1. Orthopedic aftercare Z47.89 2. Primary osteoarthritis of right hip M16.11 Plan Patient educated that she should continue to work on ROM in PT. Recommended to take Mobic daily for the inflammation. Patient educated that she can start phase 3 in PT. Patient cant have a steroid injection of the left shoulder for another 4 weeks if she is still having pain. Obtained X-rays of patient's right hip x-rays. Personally reviewed x-rays. There is no obvious fracture, dislocation, or lucency noted. Patient educated that she does have bone on bone OA of her right hip. Recommended PT which she has already tried or right RAINA. Patient wishes to discuss total hip replacement. Reviewed the pre-operative plans with the patient. Risks and benefits of the procedure were fully explained, including but not limited to infection, neurovascular injury, continued pain, arthritis, stiffness, need for further surgery, re- injury, DVT, PE, general risks of anesthesia, and loss of limb or life. The patient understands all the risks and does wish to proceed with written consent. Patient educated that she will be on blood thinners 2 weeks post op and she will have strict hip precautions for 6 weeks. Educated that she wont be able to drive until about 6 weeks post op. DOS sent for 08/08/19 Follow up in 4 weeks if still having pain of left shoulder or 2 weeks post op or sooner if pain, swelling, numbness or associated symptoms, or concerns develop. All questions answered. Patient in agreement of plan. Orders Orders: HIP, UNI W/ Pelvis 2-3 Views Today M25.551 Medications New: meloxicam (Mobic) do not take with other NSAIDs and stop 7 days prior to surgery 15 mg PO DAILY 30 tabs 1RF Coding Level of Care Code Off vis,est,level 3 Diagnoses Orthopedic aftercare Z47.89 Primary osteoarthritis of right hip M16.11 I have re-examined the patient. There are no clinical changes since date of exam
[2019-08-08] VITALS (13 sets, daily range): BP systolic 96–157; BP diastolic 44–128; PULSE 59–85; RESP 14–18; TEMP 35.6–36.9; O2SAT 96–100; BMI 31.2
[2019-08-08] MEDS: Scopolamine 1mg/72hr Patch 1 PATCH TRANSDERM. (06:07)
[2019-08-08] MEDS: Acetaminophen 500 MG Tablet 1000 MG PO ×3 (06:07→21:52)
[2019-08-08] MEDS: Gabapentin 600 MG Tablet PO (06:07)
[2019-08-08] MEDS: Lactated Ringers 1,000 ML 100 ML IV ×2 (06:24→10:27)
[2019-08-08] MEDS: Magnesium Sulfate 4gm/100mL 4 GM/100 ML IV.SOLN. IV (06:24)
[2019-08-08 06:55] LABS: Bedside Glucose 143 mg/dL (70-110)
[2019-08-08] MEDS: Cefazolin 2 GM in 0.9% Normal Saline 100 ML IV ×3 (07:27→22:56)
--- NOTE | 2019-08-08 09:39 | RAD_ITS ---
STUDY: X-RAY - PELVIS AND RIGHT HIP REASON FOR EXAM: Female, 68 years old. Total hip replacement. TECHNIQUE: 2 views of the pelvis and hip. COMPARISON: Comparison is made with prior study dated July 19, 2019. FINDINGS: The patient is status post total hip replacement. There is good alignment. Postoperative soft tissue changes. RAD/Hip Min 2 Views (Portable) IMPRESSION: Status post total hip replacement. There is good alignment. Postoperative soft tissue changes. Electronically Signed: Jono Venegas, at 13:25 EDT , Service support ,
--- NOTE | 2019-08-08 09:43 | OP.PCM_ITS ---
Report of Operation Date of Procedure: 08/08/19 Description of Surgical Findings:: Preoperative diagnosis: DJD right hip Postoperative diagnosis: Same Procedure: Right total hip arthroplasty Implants: Ringgold Accolade II stem size 2 132 degree neck angle +4 neck length 50 mm cup with 25 mm cancellous screw 32 mm ceramic head Anesthesia: Enteral EBL: 150 cc Complications: None Condition: Stable to PACU Indication for procedure: This is a... Who has had long-standing arthrosis of the hip who has failed conservative treatment and wished to undergo total hip arthroplasty. We did discuss operative versus nonoperative intervention including risks of bleeding, infection , nerve artery tissue damage, need for f urther surgery, fracture, leg length discrepancy dislocation blood clot and need for postoperative physical therapy and postoperative expectations. An informed consent was signed. Procedure: Patient was met in the preoperative holding area once again the operative extremity was identified by both patient and physician and was marked. Patient was met by anesthesia spinal was attempted but unsuccessful and converted to general. A Gorman catheter was placed patient was then positioned in the lateral decubitus position on a well-padded pegboard with an axillary roll. All bony prominences were checked and padded. The patient was prepped and draped in the usual sterile fashion. A timeout was called to ensure the proper patient procedure and extremity were being contemplated. Anatomic land sifuentes were palpated and marked for a standard posterior lateral approach. A 10 blade scalpel was used to make a posterior incision through the skin and subcutaneous tissue. In retractors were used and electrocautery was used to maintain meticulous hemostasis and dissect full-thickness flaps until the gluteal fascia was reached. The gluteal fascia was incised in line with the gluteal fibers. The bursal tissue was then freed from the underside and a Charnley retractor was placed. The fat pad was elevated off of the external rotators with electrocautery and the external rotators were dissected off of the greater trochanter including the piriformis and were tagged with #1 Ethibond for later repair. The joint capsule opened with posterior trapdoor technique. The hip was surgically dislocated. Hohmann was placed around the lesser trochanter. A neck cutting guide was used to daina the neck with a Bovie and an oscillating saw was used complete the femoral neck cut. The femoral head was then removed and sized. We then turned our attention to the acetabulum. A Bovie was used to make a perforation in the anterior joint capsule and a pointed Hohmann was placed this was repeated in the 6 o'clock position a wide alyssa was placed there. With a long handled knife the labral and pulvinar tissue were removed. We then began sequential reaming until the appropriate size was achieved. We then fit the acetabular shell in place with good technology strategist to the acetabulum. We then proceeded to place a posterior superior screw by drilling first measuring and inserting the screw. We then inserted a trial liner. And turned our attention back to the femur at this point a femoral elevator was used. As well as a pointed wide Hohmann around the lesser trochanter and a Hohmann to help retract the gluteus medius. A box chisel was used to remove excess lateral neck followed by a canal finder and a lateralizing reamer. This was followed by sequential broaches. Attention was made of the version within the canal. Once the final broach was seated we then trialed reduced the hip it was determined that a 132 degree neck angle with a +4 neck length was the appropriate size. We then checked ability with shuck testing as well as flexion and internal rotation. then proceeded with hip extension and checked leg lengths at the knees and heels. At this point trials were removed. A posterior lipped liner was inserted to the cup. The femoral stem was inserted. We re-trialed and then proceeded to impact the femoral head onto the Nic taper. We then surgically reduce the hip check stability again and leg lengths and were satisfied. Betadine rinse was allowed to sit for 5 minutes while everyone changed their gloves. Thorough irrigation was performed. Followed by closure of the external rotators with #2 FiberWire followed by closure of gluteal fascia with #1 Ethibond. 0 Vicryl fat stitches and 2-0 Vicryl subcutaneous stitches and francisco in the skin. Dressing was applied Mepilex Ag and an abduction pillow was placed. Patient tolerated the procedure well there was no intraoperative complications all counts were correct and the patient was brought back to the PACU in stable condition
[2019-08-08] MEDS: Ondansetron 4 MG/2 ML Vial IV (13:10)
[2019-08-08] MEDS: 0.9% NaCl Peripheral Flush Adult/Peds IV (15:05)
[2019-08-08] MEDS: proMETHazine 25 MG/ML Syringe 12.5 MG IV (15:05)
[2019-08-08] MEDS: APIXABAN 2.5 MG TABLET PO ×2 (15:42→21:51)
[2019-08-08] MEDS: hydroCHLOROthiazide 6.25mg TAB 12.5 MG PO (15:43)
[2019-08-08] MEDS: Lactated Ringers 1,000 ML 125 ML IV (18:42)
[2019-08-08] MEDS: traZODone 100 MG Tablet 200 MG PO (21:51)
[2019-08-08] MEDS: Senna/Docusate Sodium 1 Tablet 2 TABLET PO (21:52)
[2019-08-09] VITALS (7 sets, daily range): BP systolic 98–140; BP diastolic 52–77; PULSE 67–77; RESP 16–18; TEMP 36.7–37.9; O2SAT 96–99
[2019-08-09] MEDS: Lactated Ringers 1,000 ML 125 ML IV (03:31)
[2019-08-09] MEDS: oxyCODONE 5 MG Tablet PO ×4 (03:36→19:50)
[2019-08-09] MEDS: Acetaminophen 500 MG Tablet 1000 MG PO ×3 (05:29→22:15)
[2019-08-09 06:16] LABS: Hematocrit 31.9 % (37-47); Mean Corp Hgb Conc 34.5 g/dL (32-36); Mean Corpuscular Hgb 30.1 pg (27.0-32.0); Mean Corpuscular Volume 87.4 fL (81-99); Mean Platelet Vol. 9.4 fl (6.2-12.0); Platelet Count 188 K/mm3 (150-450); RBC Distribution Width CV 12.2 % (11.6-14.6); Red Blood Count 3.65 M/mm3 (4.2-5.4); White Blood Count 13.2 K/mm3 (4.4-11.0)
[2019-08-09 06:35] LABS: Anion Gap 7 (5-15); BUN 10 mg/dL (7-18); BUN/Creat Ratio 10.5 RATIO (10-20); Calcium,Total 8.2 mg/dL (8.5-10.1); Chloride 102 mmol/L (98-107); Creatinine, Serum 0.95 mg/dL (0.55-1.02); EST Glomerular Filtration Rate 62 mL/min (>60); Est Glom Filt Rate - Afr Amer 75 mL/min (>60); Estimated Creatinine Clearance 43.36 ml/min; Glucose 162 mg/dL (74-106); Potassium 3.9 mmol/L (3.5-5.1); Sodium Level 138 mmol/L (136-145)
[2019-08-09] MEDS: 0.9% NaCl Peripheral Flush Adult/Peds IV ×2 (08:18→12:13)
[2019-08-09] MEDS: Senna/Docusate Sodium 1 Tablet 2 TABLET PO ×2 (09:40→22:15)
[2019-08-09] MEDS: hydroCHLOROthiazide 6.25mg TAB 12.5 MG PO (09:40)
[2019-08-09] MEDS: APIXABAN 2.5 MG TABLET PO ×2 (09:40→22:15)
--- NOTE | 2019-08-09 10:35 | CASEMGMT ---
ORION MCCONNELL Face to Face with patient for initial transition planning/care coordination assessment. ORION MCCONNELL introduced self and role at [facility]. Patient sitting in chair, alert and oriented. Patient willing to participate in assessment and is able to answer all questions appropriately. Care providers, pharmacy, and demographics verified. Patient wishes to discharge home and would like outpatient therapy setup at [facility]. Patient states she has no further needs or concerns at this time. CM to follow for discharge planning needs that may arise. PCP: Parmjit Specialists: sarai Bowen Preferred Pharmacy: [facility] Insurance: [facility], MMO Prescription Benefit: yes Living Will/HPOA: none LNOK: , grandson Living Arrangements: patient lives with and children in 2 story home with bed and bath to enter the home. Patient has lift to enter the home. Transportation: DME/HHC: Patient has shower chair and cane. Patient needs front wheeled walker. Patient has therapy at [facility] previously. ORION MCCONNELL called [facility] and scheduled appointment for Saturday 08/11 at 0900. ORION MCCONNELL will assist in setting up walker. Disposition Plan: Patient to discharge home with family support and follow-up plans in place. Anel OLSON, RN, CM
--- NOTE | 2019-08-09 11:43 | DCINST_ITS ---
Discharge Diet: No Restrictions Weight Bearing Status: Weight bearing as tolerated Call your doctor if you observe: Fever of 101 or Higher, Shortness of breath, Chest pain Additional Instructions: Begin daily showering warm water antibacterial soap postop day #3 and then daily. Change dressing daily until no drainage for 2 consecutive days then may leave open to air. Follow hip precautions as reviewed by hospital physical therapist. Call with any concerns Allergies/Adverse Reactions: Allergies codeine phosphate [From Tylenol-Codeine] Adverse Reaction (Verified 08/01/19 13:04) Vomiting Medications to take at Discharge trazodone 100 mg tablet 200 mg PO HS 30 Days #60 tab 04/12/18 Fluticasone Propionate [Flonase Allergy Relief] 2 spray INTRANASAL DAILY PRN 04/21/19 Acetaminophen [Tylenol] 1,000 mg PO Q8 #100 tab 08/09/19 Apixaban [Eliquis] 2.5 mg PO BID #42 tab 08/09/19 Oxycodone [Oxyir] 2.5 - 10 mg PO Q4H PRN PRN #60 tablet 08/09/19 Primary Care Physician: Dwight Parnell DO [Primary Care Provider] - Test Results: Test results from this visit will be discussed in further detail at your follow- up appointment, if applicable. Please Follow Up With: Femi Bowen DO - 2 weeks
--- NOTE | 2019-08-09 11:48 | PCM.PN.ORT ---
Subjective: Seen and examined doing okay. Nausea and vomiting last night improved after Zofran and Phenergan none today feeling fatigued slight lightheadedness when ambulating with PT. - Physical Exam General: Alert, Oriented x3, Cooperative, No apparent distress Extremities: - - Dressing clean dry and intact compartment soft thigh and calf neurovascular intact EHL tibialis anterior gastrocsoleus intact sensation light touch 2 out of 4 pedal pulse Vital Signs Temp Pulse Resp BP Pulse Ox 98.8 F 68 16 98/52 L 96 08/09/19 09:39 08/09/19 09:45 08/09/19 09:39 08/09/19 09:39 08/09/19 09:39 Oxygen Flow Rate (L/min) 6 Oxygen Delivery Method Room Air Weight: 165 lb 9.074 oz Body Mass Index (BMI) 31.2 Finger Stick Blood Glucose 139 Intake and Output for Last 24 Hours 08/07/19 08/08/19 08/09/19 23:59 23:59 23:59 Intake Total 3504.17 / 4504.17 2570.84 / 2570.84 Output Total 1475 / 2425 2300 / 2300 Balance 2029.17 / 2079.17 270.84 / 270.84 Laboratory Tests Past 24 Hrs 08/09/19 08/09/19 06:00 06:00 WBC 13.2 H RBC 3.65 L Hgb 11.0 L Hct 31.9 L MCV 87.4 MCH 30.1 MCHC 34.5 RDW Std Deviation 39.0 RDW Coeff of Anju 12.2 Plt Count 188 MPV 9.4 Sodium 138 Potassium 3.9 Chloride 102 Carbon Dioxide 29.0 Anion Gap 7 BUN 10 Creatinine 0.95 Estim Creat Clear Calc 43.36 Est GFR (MDRD) Af Amer 75 Est GFR (MDRD) Non-Af 62 BUN/Creatinine Ratio 10.5 Glucose 162 H Calcium 8.2 L Medical Necessity - Tobacco Use Smoking Status: Never smoker Tobacco Use: Non-smoker Assessment/Plan All Active Problems (Last Reviewed 07/21/19 @ 11:07 by Caroline Terry) History of tubal ligation (Resolved) History of tonsillectomy (Resolved) History of cholecystectomy (Resolved) History of hysterectomy (Resolved) History of appendectomy (Resolved) Asthma, moderate persistent (Resolved) UTI (urinary tract infection) (Acute) Pyelonephritis (Acute) Flank pain (Acute) Nausea & vomiting (Acute) Postop day #1 right total hip arthroplasty Low blood pressure will continue IV fluids until tomorrow recheck H&H in a.m. Nausea resolved DC planning home health care tomorrow DVT prophylaxis Madie ENGs SHELLI patel
[2019-08-09] MEDS: Lactated Ringers 1,000 ML 100 ML IV ×2 (12:14→22:17)
--- NOTE | 2019-08-09 14:30 | CASEMGMT ---
ORION MCCONNELL received script for FWW. ORION MCCONNELL updated patient and provided list of DME companies and prefers [employer]. Ref[place] [facility] and arranged for walker to be delivered tomorrow to patient's room prior to discharge.
[2019-08-09] MEDS: traZODone 100 MG Tablet 200 MG PO (22:15)
[2019-08-10 01:29] VITALS: BP 111/54; PULSE 77; RESP 18; TEMP 36.8; O2SAT 97
[2019-08-10] MEDS: oxyCODONE 5 MG Tablet PO ×4 (01:29→13:31)
[2019-08-10] MEDS: Acetaminophen 500 MG Tablet 1000 MG PO ×2 (05:47→13:31)
[2019-08-10 06:59] LABS: Hematocrit 30.9 % (37-47); Hemoglobin 10.3 g/dL (12.0-15.0); Mean Corp Hgb Conc 33.3 g/dL (32-36); Mean Corpuscular Hgb 29.7 pg (27.0-32.0); Mean Platelet Vol. 9.8 fl (6.2-12.0); Platelet Count 171 K/mm3 (150-450); RBC Distribution Width CV 13.1 % (11.6-14.6); RBC Distribution Width SD 42.5 fl (35.1-43.9); Red Blood Count 3.47 M/mm3 (4.2-5.4); White Blood Count 10.6 K/mm3 (4.4-11.0)
--- NOTE | 2019-08-10 09:06 | NURSING ---
Dr. Bowen called and this nurse asked if we could leave IV out since it went bad and pt was possibly leaving today. Informed of recent BP. Order to leave IV out.
[2019-08-10 09:30] VITALS: BP 103/55; PULSE 76; PULSE 77; RESP 18; TEMP 36.9; O2SAT 98
[2019-08-10] MEDS: APIXABAN 2.5 MG TABLET PO (09:30)
[2019-08-10] MEDS: Senna/Docusate Sodium 1 Tablet 2 TABLET PO (09:30)
--- NOTE | 2019-08-10 13:30 | CASEMGMT ---
OROIN CM in to patient room to confirm delivery of walker. Walker was delivered to patient's room and is using it with therapy. Patient voiced no further needs or concerns for discharge.
[2019-08-10 14:44] VITALS: BP 106/56; PULSE 85; RESP 16; TEMP 37.1; O2SAT 95
== END 2019-08-10 16:05 | disposition home or self-care (01) | DRG 470 ==
LOC: ACINP 05:18 → MS3 08-09 09:56
PROVIDERS: Admitting Provider Orthopaedic Surgery; Family Provider Family Medicine; PCP Family Medicine; Referring Provider Orthopaedic Surgery; Visit Provider Orthopaedic Surgery
PROC: 0SR90JZ Replacement of Right Hip Joint with Synthetic Substitute, Open Approach (ICD-10-PCS; CPT 27130; principal; 2019-08-08 07:05)
DX: M16.11 Unilateral primary osteoarthritis, right hip (principal); Z98.890 Other specified postprocedural states
CPT/HCPCS: 36415; 73502; 80048; 82962; 85027; 87081; 97110; 97116; 97162; 97166; 97530; 97535; C1776; J7120; A4216; J2405

== ENCOUNTER → 2019-09-11 12:00 | Outpatient (CLI) | payer MEDICARE, OTHER, SELFPAY ==
[2019-08-21 09:20] VITALS: BMI 31.2
--- NOTE | 2019-09-11 12:08 | RAD_ITS ---
STUDY: X-RAY - PELVIS AND RIGHT HIP REASON FOR EXAM: Female, 69 years old. Pain TECHNIQUE: 3 views of the pelvis and hip. COMPARISON: None. FINDINGS: There is a non-specific bowel gas pattern. Normal visualized soft tissue structures. There is narrowing with cortical sclerosis and osteophyte formation of the sacroiliac joint consistent with degenerative osteoarthritic changes. Normal bilateral superior and inferior pubic rami. Normal pubic symphysis. Normal bilateral ischial tuberosities. Replaced right hip joint demonstrates anatomic alignment. No plain film evidence of hardware complication, failure, or acute traumatic abnormality. RAD/HIP, UNI W/ Pelvis 2-3 Views IMPRESSION: Replaced right hip joint free of complication, no acute abnormalities noted Electronically Signed: Efraín Hermosillo MD at 14:52 EDT , Service support ,
== END ==
PROVIDERS: Family Provider Family Medicine; PCP Family Medicine; Referring Provider Orthopaedic Surgery; Visit Provider Orthopaedic Surgery
DX: M25.551 Pain in right hip (principal)
CPT/HCPCS: 73502

== ENCOUNTER 2019-11-03 08:30 | Outpatient (RCR) | payer MEDICARE, OTHER, SELFPAY ==
[2019-05-09 09:43] VITALS: BMI 29.2
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
--- NOTE | 2019-06-16 09:34 | HP.PTREVAL ---
BILL Solares, It has been my pleasure to treat VERONICA ZULUAGA over the last 9 visits for L rot cuff repair. Please see the progress note below for an update on the physical therapy plan of care! Subjective: Pt reports no pain at this time since she has started wearing her brace again. Objective/Function: L shoulder pain 0/10. L shoulder AROM: flex= 55, abd= 50, ER= 10, IR= moderately limited Plan Plan: Phase 2 rot cuff ex's Goals Goal 1:: Decrease L shoulder pain x 50% to aid with sleep Goal Time Frame: 4-6 Weeks Goal Progress: Progressing Goal 2:: Increase L shoulder ROM flex and ext x 40 degrees to aid with overhead activity Goal Time Frame: 4-6 Weeks Goal Progress: Progressing Goal 3:: Increase L shoulder strength x 1 grade to aid with IADL's Goal Time Frame: 4-6 Weeks Goal Progress: Progressing Goal 4:: I with hEP Goal Time Frame: 4-6 Weeks Goal Progress: Progressing Anticipated Interventions Patient/Client Instruction: Educate patient on: Condition, Plan of Care For the Purpose of:: To improve self management Therapeutic Exercise to Include: Strength training, Endurance training, Flexibilty training, Passive ROM, Active ROM, Scapular Strength/Stabilization For the Purpose of:: To decrease pain, To increase ROM, To improve muscle performance and motor function Please do not hesitate to contact me at [phone] by phone or if you have questions or concerns regarding this new plan of care! Sincerely, Florentino Fountain, PT, ATC
--- NOTE | 2019-07-21 10:35 | HP.PTREVAL ---
BILL Solares, It has been my pleasure to treat VERONICA ZULUAGA over the last 21 visits for L rot cuff repair. Please see the progress note below for an update on the physical therapy plan of care! Subjective: No pain this date Objective/Function: L shoulder pain ranges 0-4/10. L shoulder ROM: flex= 135, abd= 135, ER= 40, IR WNL. L shoulder MMT: 3/5 and painful with testing. Progressing well toward Rx goals Plan Plan: Cont with phase 3 rot cuff Goals Goal 1:: Decrease L shoulder pain x 50% to aid with sleep Goal Time Frame: 4-6 Weeks Goal Progress: Progressing Goal 2:: Increase L shoulder ROM flex and ext x 40 degrees to aid with overhead activity Goal Time Frame: 4-6 Weeks Goal Progress: Progressing Goal 3:: Increase L shoulder strength x 1 grade to aid with IADL's Goal Time Frame: 4-6 Weeks Goal Progress: Progressing Goal 4:: I with hEP Goal Time Frame: 4-6 Weeks Goal Progress: Progressing Anticipated Interventions Patient/Client Instruction: Educate patient on: Condition, Plan of Care For the Purpose of:: To improve self management Therapeutic Exercise to Include: Strength training, Endurance training, Flexibilty training, Passive ROM, Active ROM, Scapular Strength/Stabilization For the Purpose of:: To decrease pain, To increase ROM, To improve muscle performance and motor function Please do not hesitate to contact me at [phone] by phone or if you have questions or concerns regarding this new plan of care! Sincerely, Florentino Fountain, PT, ATC
--- NOTE | 2019-08-11 13:45 | HP.PTEVAL2_ITS ---
Patient's Visit Information VERONICA ZULUAGA is a 68 year old F referred to Physical Therapy by BILL Solares with a diagnosis of R RAINA. Date of Evaluation: 08/11/19 Physical Therapist: Anders Moody DPT - Visit Plan Frequency: 2-3x /Week Duration: 4-6 Weeks Plan: Start with ROM exercises as tolerated, Initiate isometric exercises. Progress to functional exercises adn gait progression as tolerated. May use ice for pain control. - Subjective Findings: Pt. is here today for her initial evaluation with diagnosis of R RAINA. DOS: 08/08/19 with posterior/lateral approach. Pt. reports getting home from hospital last night. She has been able to walk in home with minimal issues. She reports having 5/10 pain this date. She slept last night in reclining chair for comfort. She is wearing her compression stockings as indicated. She denies N/T, no fever, no chills, no dyspnea. Pt. is doing exercises as indicated, including isometrics and circulation exercises. Pt is to see physician in 2 weeks for follow up. Pt. is having some increased L shoulder pain, she has a RTC repair ~3 months prior and is now using her arm more with her crutches. Pt. is hopeful to get back to all recreational activities without limitations. - Pain L hip Intensity: 5 Pain Intensity Range: 3, 6 - Objective Objective: POSTURE: Pt. has slight flexed posture in stance with use of FWW to off load RLE. Pt. tends to keep LLE in hip ER in stance. PALPATION: Pt. has aquacell bandage in place without signs of drainage or infection. Pt. has tenderness at anterior thigh. Negative alyssa's signs. NEURO: Normal throughout. ROM: R hip- PROM: flexion 90deg, abd 30deg, ext 10deg. Tightness noted in HS. MMT: RLE- ankle 5/5 throughout; knee- ext 4/5, flexion 4/5 mild increase NW; hip- flexion- 3-/5 with SLR, abd 3/5 and 3/5. Core strength- poor+. GAIT: Pt. is able to ambulate throughout gym ~350' BRAN. Pt. has heavy use of UEs on AD. Pt. has slight step through pattern on RLE. Pt. has decreased knee flexion on R side as well. STIARS: Pt. is able to complete 4 steps with step to pattern with use of BHR with laoding LLE only. - Goals Goal 1:: Pt. to be I with HEP. Goal Time Frame: 4-6 Weeks Goal 2:: Pt. to have increase R HIP ROM to precautions without increased symptoms. Goal Time Frame: 4-6 Weeks Goal 3:: Pt. to ambulate with least restrictive device unlimited distances w ithout increase in symptoms and normal gait pattern. Goal Time Frame: 4-6 Weeks Goal 4:: Pt. to having increased RLE strength by 1/2 grade of all effected musculature. Goal Time Frame: 4-6 Weeks Goal 5:: Pt. to sleep throughout the night without increase in symptoms. Goal Time Frame: 4-6 Weeks Goal 6:: Pt. to negotiate 1 flight of steps with 1 HR with reciprocal pattern withotu increase in symptoms. - Rehabilitation Potential Physical Therapy Diagnosis: Pt. has signs and symptoms consistent with hypompobility, weakness, difficulty with gait and increased pain after having R RAINA. Pt. would benefit from PT to work on the above limiations progressing back to all recreational and ADLs household work without limitations. Rehabilitation Potential: Excellent - Anticipated Interventions Patient/Client Instruction: Educate patient on: Condition, Plan of Care, Risk Factors, Benefits of Fitness Program For the Purpose of:: To facilitate caregiver knowledge, To improve self management, To prevent re-injury, To improve ability to perform tasks related to life management, To improve tolerance to ADL's Therapeutic Exercise to Include: Strength training, Power training, Endurance training, Balance training, Body mechanics, Postural training, Flexibilty training, Gait and locomotor training, Passive ROM, Dynamic Lumbar Stabilization For the Purpose of:: To decrease pain, To decrease swelling/inflammation, To increase ROM, To improve nutrient delivery to tissue, To improve muscle performance and motor function, To improve ability to perform ADL's, To increase tolerance to activity/condition/position, To improve ability of physical actions for home/community/work/leisure, To improve gait and locomotor functions, To improve health of tissue, To decrease soft tissue restriction, To increase flexibility/ROM, To improve endurance, To improve balance, To improve safety with gait, To assume or resume ADL's, To improve safety Cryotherapy (ice pack, ice massage): Yes For the Purpose of:: To decrease pain, To decrease swelling/inflammation, To increase ROM Thank you for the opportunity to evaluate your patient. For Medicare and Medicare HMO plans, please review the plan of care and approve it. It will need to be FAXED BACK to us at [phone] for Medicare purposes. For Medicare only, by signing this I certify the plan of care. Please let me know if there are questions or concerns regarding this plan of care. Physician Signature: Date:
--- NOTE | 2019-09-11 11:57 | HP.PTRE(2)_ITS ---
BILL Solares, It has been my pleasure to treat VERONICA ZULUAGA over the last 12 visits for R RAINA 08/08 (post approach).. Please see the progress note below for an update on the physical therapy plan of care! Subjective: Pt. arrives today. I had difficulty with gait, walking back to treatment area. Pt. lacks a lot of extension during gait. Pt. reports ahving increased pain, but did not report a large change since falling ~12 days ago. Pt. reports 3-4/10 pain in R lateral/posterior hip this date. Objective/Function/Assessment: Pt. is able to ambulate with single point cane. She lacks hip extension during gait on R side. Pt. reprots increased pain during stance phase of gait. Pt. reports pain at lateral/posterior hip. Pt. reports I don't feel like this is muscular. Pt. did fall ~12 days ago. I think, like I told her before when she fell a follow up with her physician would be a good idea. She is walking on her hip, but with her fall I would recommend a follow up. Plan Plan: Focus on pain controll, ambulation and functional movements. I sent her back to her physician after having a fall ~12 days ago. Goals - Goals Goal 1:: Pt. to be I with HEP. Goal Time Frame: 4-6 Weeks Goal 2:: Pt. to have increase R HIP ROM to precautions without increased symptoms. Goal Time Frame: 4-6 Weeks Goal 3:: Pt. to ambulate with least restrictive device unlimited distances without increase in symptoms and normal gait pattern. Goal Time Frame: 4-6 Weeks Goal 4:: Pt. to having increased RLE strength by 1/2 grade of all effected musculature. Goal Time Frame: 4-6 Weeks Goal 5:: Pt. to sleep throughout the night without increase in symptoms. Goal Time Frame: 4-6 Weeks Goal 6:: Pt. to negotiate 1 flight of steps with 1 HR with reciprocal pattern withotu increase in symptoms. Anticipated Interventions Patient/Client Instruction: Educate patient on: Condition, Plan of Care, Risk Factors, Benefits of Fitness Program For the Purpose of:: To facilitate caregiver knowledge, To improve self management, To prevent re-injury, To improve ability to perform tasks related to life management, To improve tolerance to ADL's Therapeutic Exercise to Include: Strength training, Power training, Endurance training, Balance training, Body mechanics, Postural training, Flexibilty kayleigh michael, Gait and locomotor training, Passive ROM, Dynamic Lumbar Stabilization For the Purpose of:: To decrease pain, To decrease swelling/inflammation, To increase ROM, To improve nutrient delivery to tissue, To improve muscle performance and motor function, To improve ability to perform ADL's, To increase tolerance to activity/condition/position, To improve ability of physical actions for home/community/work/leisure, To improve gait and locomotor functions, To improve health of tissue, To decrease soft tissue restriction, To increase flexibility/ROM, To improve endurance, To improve balance, To improve safety with gait, To assume or resume ADL's, To improve safety Cryotherapy (ice pack, ice massage): Yes For the Purpose of:: To decrease pain, To decrease swelling/inflammation, To increase ROM Please do not hesitate to contact me at [phone] by phone or if you have questions or concerns regarding this new plan of care! Sincerely, Anders Moody DPT
--- NOTE | 2019-11-06 07:08 | HP.PT.NRP(2) ---
HP - Discharge Summary (2) - Patient Information VERONICA ZULUAGA was seen in my office for initial evaluation on 08/11/19. The following Plan of Care was established for this patient: Initial Frequency: 2-3x /Week Initial Duration: 4-6 Weeks Plan from Re-Evaluation: Focus on pain controll, ambulation and functional movements. Pt wondering if we should go back to 30min appt only to work hip and d/c shoudler chart? talk to PT about this next visit. - Anticipated Interventions Patient/Client Instruction: Educate patient on: Condition, Plan of Care, Risk Factors, Benefits of Fitness Program For the Purpose of:: To facilitate caregiver knowledge, To improve self management, To prevent re-injury, To improve ability to perform tasks related to life management, To improve tolerance to ADL's Therapeutic Exercise to Include: Strength training, Power training, Endurance training, Balance training, Body mechanics, Postural training, Flexibilty training, Gait and locomotor training, Passive ROM, Dynamic Lumbar Stabilization For the Purpose of:: To decrease pain, To decrease swelling/inflammation, To increase ROM, To improve nutrient delivery to tissue, To improve muscle performance and motor function, To improve ability to perform ADL's, To increase tolerance to activity/condition/position, To improve ability of physical actions for home/community/work/leisure, To improve gait and locomotor functions, To improve health of tissue, To decrease soft tissue restriction, To increase flexibility/ROM, To improve endurance, To improve balance, To improve safety with gait, To assume or resume ADL's, To improve safety Cryotherapy (ice pack, ice massage): Yes For the Purpose of:: To decrease pain, To decrease swelling/inflammation, To increase ROM This patient was last seen in our office . Pertinent comments regarding their Physical therapy will appear below: Pt. was treated for her R RAINA. Pt. is in no longer need of PT and will be DC from PT at this point in time. At this point I will be discontinuing this patient from physical therapy. I would be happy to see this patient again in the future if found appropriate by the physician. Thank you! OSCAR FerraroT
== END 2019-11-03 19:00 | disposition home or self-care (01) ==
LOC: PT 08:30
PROVIDERS: Family Provider Family Medicine; PCP Family Medicine; Referring Provider Physician Assistant; Visit Provider Physician Assistant
DX: Z98.890 Other specified postprocedural states (principal)
CPT/HCPCS: 73502; 97110; 97116; 97140; 97161; 97530

== ENCOUNTER 2019-12-01 08:30 | Outpatient (RCR) | payer MEDICARE, OTHER, SELFPAY ==
[2019-10-23 09:22] VITALS: BMI 31.2
--- NOTE | 2019-12-04 09:44 | HP.PTREVAL ---
BILL Solares, It has been my pleasure to treat VERONICA ZULUAGA over the last 44 visits for L shoulder RTC repair, with subsequent tendonitis/inflammation. Please see the progress note below for an update on the physical therapy plan of care! Subjective: Pt. reports that she is still having pain at medial boarder of L scapulea, L infraspinatus region and teres minor region, but also has symptoms that radiated to lateral aspect of her shoulder. Pt. reports worst pain is with crossing her arms adn with reaching out. Pt. reports I just can not get comfortable. Objective/Function: Pt. continues to be PTT at medial boarder of scapulea, infraspinatus muscle belly and along teres minor. Pt. reports having lateral deltoid like symptoms, but not painful to the touch. Pt. has marked weakness wtih flexion and abduction, but does not result in symptoms. Pt. has greatest increase in symptoms with bearhug like motions. Pt. denies N/T. At this point in time we have used modalities for pain control, we have does stretching, joint mobilizations and shoulder stability exercises. She reports beign compliant, but is not progressing as expected. After talking with her we decided to go back to physician at this point in time. Plan Plan: Refer back to physician due to limited progress. Goals Goal 1:: Pt. to be I with HEP. Goal Time Frame: 2-4 Weeks Goal Progress: Progressing Goal 2:: Pt. to have full L shoulder AROM without increase in symptoms. Goal Time Frame: 4-6 Weeks Goal Progress: Progressing Goal 3:: Pt. to sleep throughout the night without increase in symptoms. Goal Time Frame: 4-6 Weeks Goal Progress: Progressing Goal 4:: Pt. to have increased strength of LUE by 1/2 grade of all effected musculature. Goal Time Frame: 4-6 Weeks Goal Progress: Progressing Goal 5:: Pt. to resume all recreational activities and ADLs with 0-1/10 pain in L shoulder. Goal Time Frame: 4-6 Weeks Goal Progress: Not Progressing Anticipated Interventions Patient/Client Instruction: Educate patient on: Condition, Plan of Care, Risk Factors, Benefits of Fitness Program For the Purpose of:: To improve decision making, To facilitate caregiver knowledge, To improve self management, To prevent re-injury, To improve ability to perform tasks related to life management, To improve tolerance to ADL's Therapeutic Exercise to Include: Strength training, Power training, Body mechanics, Postural training, Flexibilty training, Passive ROM, Active ROM For the Purpose of:: To decrease pain, To decrease swelling/inflammation, To increase ROM, To improve nutrient delivery to tissue, To increase oxygenation perfusion, To improve muscle performance and motor function, To improve ability to perform ADL's Ultrasound (thermal/non thermal): Yes For the Purpose of:: To decrease pain, To decrease swelling/inflammation, To increase ROM Please do not hesitate to contact me at [phone] by phone or if you have questions or concerns regarding this new plan of care! Sincerely, OSCAR FerraroT
== END 2019-12-01 19:00 | disposition home or self-care (01) ==
LOC: PT 08:30
PROVIDERS: Family Provider Family Medicine; PCP Family Medicine; Referring Provider Physician Assistant; Visit Provider Physician Assistant
DX: Z98.890 Other specified postprocedural states (principal)
CPT/HCPCS: 97035; 97110; 97140

== ENCOUNTER → 2020-08-21 | Outpatient (CLI) | payer MEDICARE, OTHER, SELFPAY ==
[2020-08-21 17:22] VITALS: BMI 31.2
[2020-08-22 10:34] LABS: Bacteria 0 SEEN /hpf (None Seen); Mucous, Urine 0 SEEN /hpf (<or=2+)
[2020-08-22 12:50] LABS: Color, Urine Yellow (Yellow); Glucose, Dipstick Normal (Normal); Ketone-Dipstick Negative (Negative); Leukocyte Esterase-Dipstick 500 /ul (Negative); Nitrite-Dipstick Negative (Negative); Occult Blood-Urine 50 /ul (Negative); Protein-Dipstick 15 mg/dl (Negative); Urine Bilirubin Dipstick Negative (Negative); Urine Clarity Sl. Cloudy (Clear); Urine Urobilinogen Normal (Normal); Urine pH 6.5 (5.0 - 8.0)
[2020-08-22 13:02] LABS: Red Blood Cells-Urine 0 SEEN /hpf (0-5); Squamous Epithelial Cells - UA 5-10 SEEN /hpf (5-10); White Blood Cells 50-100 SEEN /hpf (0-5)
== END | disposition home or self-care (01) ==
LOC: LABSPEC 08-22 10:33
PROVIDERS: PCP Family Medicine; Referring Provider Nurse Practitioner Family; Visit Provider Nurse Practitioner Family
DX: N39.0 Urinary tract infection, site not specified (principal)
CPT/HCPCS: 81001; 87086; 87088; 87186

== ENCOUNTER 2020-10-01 07:46 | Day surgery (SDC) | payer MEDICARE, OTHER, SELFPAY ==
[2020-09-02 08:16] VITALS: BMI 31.2
[2020-10-01] VITALS (7 sets, daily range): BP systolic 141–162; BP diastolic 70–83; PULSE 67–90; RESP 16–18; TEMP 36.3–36.9; O2SAT 98–100; BMI 30.4
--- NOTE | 2020-10-01 | GASB_PTH ---
PATIENT: VERONICA ZULUAGA GERALDINE LOC: EN U#:[id number] AGE/SX: 70/F ROOM: RE10/01/[address]: Dr. Solomon Spence MD : 1950 BED: DIS: 10/01/2020 SPEC #: [id number] RECD: 10/01/20 10:56 STATUS: BERTRAM HEIKE #: [id number] TICO: 10/01/20 00:[address]: Solomon Spence DEPT: SURGICAL PATHOLOGY RECD BY: Gaurang Rodriguez ENTERED: 10/01/20 10:57 SP TYPE: Gastric Bx OTHR DR: Dr. Dwight Parnell DO Tissues: A - Gastric mucous membrane B - Gastric mucous membrane C - Descending colon D - Rectum, NOS Procedures: Special Stain Group II Surgery Specimen Level IV Alcian Blue/PAS (control) HEADER OPERATION: Colonoscopy, EGD ([facility]) PRE-OP DIAGNOSIS: Screen for colon cancer; GERD; esophagitis TISSUE SUBMITTED: A - Antrum biopsy for H. pylori and path, B - GE junction biopsy, C - Descending colon polyp, D - Rectum biopsy MICROSCOPIC DIAGNOSIS A. Antrum, biopsy: Mild gastritis. See microscopic description and comment. B. GE junction, biopsy: Fragments of gastroesophageal mucosa with mild chronic inflammation. Intestinal metaplasia (goblet cell metaplasia) is not identified. See comment. C. Descending colon polyp, biopsy: Tubular adenoma. D. Rectum, biopsy: Fragments of colonic mucosa with mild hemorrhage. Negative for colitis. SJ:hadley 10/02/20 COMMENT A. The results of immunohistochemistry for Helicobacter pylori will be reported separately ([id number]). B. Alcian blue/PAS stain with matched control is used in the evaluation of the specimen. MICROSCOPIC DESCRIPTION Slides are reviewed. A. The specimen shows fragments of gastric mucosa with chronic inflammatory cell infiltrates in the lamina propria consisting of lymphocytes and plasma cells, consistent with mild chronic gastritis. GROSS DESCRIPTION A - Received in fixative is one container labeled with the patient's name and designated antrum biopsy. The specimen consists of two irregular fragments of light marcano soft tissue that in aggregate measure 1.2 x 0.2 x 0.1 cm. The specimen is totally submitted in one cassette. B - Received in fixative is one container labeled with the patient's name and designated GE junction biopsy. The specimen consists of two irregular fragments of light marcano soft tissue that in aggregate measure 0.4 x 0.2 x 0.1 cm. The specimen is totally submitted in one cassette. C - Received in fixative is one container labeled with the patient's name and designated descending colon polyp. The specimen consists of a piece of marcano-pink polyp measuring 0.5 x 0.5 x 0.2 cm. The specimen is totally submitted in one cassette. D - Received in fixative is one container labeled with the patient's name and designated rectum biopsy. The specimen consists of multiple irregular fragments of light marcano soft tissue that in aggregate measure 0.4 x 0.3 x 0.1 cm. The specimen is totally submitted in one cassette. / SJ:rg 10/01/20 TC:1 CPT: 57876 x4, 58790
--- NOTE | 2020-10-01 06:00 | HP_ITS ---
Intake Vital Signs 09/02/20 BMI 31.2 09/02/20 Height 5 ft 2.5 in 09/02/20 Weight: 160 lb 09/02/20 BMI 28.8 09/02/20 BP 162/83 H 09/02/20 Blood Pressure Location Rt brachial 09/02/20 Position Sitting 09/02/20 Respiration 18 Intake Visit Reasons: CSCOPE, BLOATING Chief Complaint: bloating,gerd Millinery Blocker Required: No Is patient in pain?: No Allergies codeine phosphate [From Tylenol-Codeine] Adverse Reaction (Verified 09/02/20 08:16) Vomiting Medications trazodone 100 mg tablet 200 mg PO HS 30 Days #60 tab 04/12/18 [History Confirmed 09/02/20] Fluticasone Propionate [Flonase Allergy Relief] 2 spray INTRANASAL DAILY PRN 04/21/19 [History Confirmed 09/02/20] meloxicam 15 mg tablet 15 mg PO DAILY #30 tab 10/25/19 [Rx Confirmed 09/02/20] hydrochlorothiazide 12.5 mg tablet 12.5 mg PO DAILY #90 tab 08/29/20 [Rx Confirmed 09/02/20] omeprazole 40 mg capsule,delayed release 40 mg PO DAILY #60 cap 09/02/20 [Rx Confirmed 09/02/20] [facility] Medical History Sleep apnea (Chronic) Vertigo (Chronic) Allergic rhinitis (Chronic) Chronic cough (Chronic) Hiatal hernia with gastroesophageal reflux (Chronic) Abnormal pulmonary function test (Chronic) Asthma, moderate persistent (Resolved) UTI (urinary tract infection) (Acute) Pyelonephritis (Acute) Flank pain (Acute) Nausea & vomiting (Acute) Surgical History History of tubal ligation (Resolved) History of tonsillectomy (Resolved) History of cholecystectomy (Resolved) History of hysterectomy (Resolved) History of appendectomy (Resolved) History of right hip replacement (Acute) Family History Mother Cancer Diabetes Father Cancer Grandfather Diabetes Grandmother Glaucoma Social History (Updated 09/02/20 @ 08:[address] Solomon Spence MD) Smoking Status: Never smoker second hand exposure: No alcohol intake: never substance use type: does not use caffeine: Yes what type of physical activity do you participate in: none HPI HPI HPI: VERONICA ZULUAGA, is a 69 F who presents to the office today for HPI HPI HPI: VERONICA ZULUAGA, is a 69 F who presents to the office today for Bloating and screening colonoscopy. The patient reports that she has been having a lot of abdominal bloating and acid reflux. She was on a PPI years ago but did not continue that. She said it did mildly help. She says she has a known hiatal hernia. Patient is also due for screening colonoscopy. She denies any blood in her stool or abdominal pain beyond the bloating. She reports her last colonoscopy was over 10 years ago. She has no family history of colon cancer. ROS General General: No weight change or fatigue Cardio Cardiovascular: No murmur, pacemaker, heart disease, atrial fibrillation, high blood pressure, heart attack, heart stent, palpitations, shortness of breat with exertion or chest pain Psych Psychiatric: No depression or anxiety Resp Respiratory: No shortness of breath, Yes sleep apnea, Yes cough, No COPD, No asthma, No emphysema, No wheezing Gastro Gastrointestinal: No abdominal pain, No nausea or vomiting, No diarrhea, No constipation, No blood in stool, Yes acid reflux, No hemorrhoids, No ulcers, No gallbladder problem, No black,tarry stools Ethan Hematologic: No blood thinners Exam Const General: cooperative Orientation: alert, oriented x3 Resp Effort & Inspection: normal respiratory effort Auscultation: clear to auscultation bilaterally Cardio Rate: regular rate Rhythm: regular rhythm Heart Sounds: no murmurs GI Inspection: non-distended Palpation: soft, nontender Assessment & Plan Problems 1. Screen for colon cancer Z12.11 2. Gastroesophageal reflux disease, unspecified whether esophagitis present K21.9 Plan Patient has GERD and is need of screening colonoscopy. Plan for EGD and colonoscopy. I will also start her on omeprazole. I explained endoscopy in detail to the patient. I explained the risks including but not limited to stroke or heart attack with anesthesia, perforation of the GI tract, bleeding, infection. I explained that any of these could necessitate further emergency surgery. The patient understands and all questions were answered sufficiently. The patient wishes to proceed with procedure. Solomon Spence MD Pager: [facility] [address] [place] [address], [address] [place] [address] Office: Orders Orders: Colonoscopy Today Z12.11 EGD Today K21.9 Medications New: omeprazole 40 mg PO DAILY 60 caps 1RF Coding Level of Care Code Off vis,new,level 3 Diagnoses Screen for colon cancer Z12.11 Gastroesophageal reflux disease, unspecified whether esophagitis present K21.9 ??Esophagitis presence: esophagitis presence not specified I have re-examined the patient. There are no clinical changes since date of exam.
[2020-10-01] MEDS: Lactated Ringers 1,000 ML 100 ML IV (08:26)
[2020-10-01 08:36] LABS: Bedside Glucose 154 mg/dL (70-110)
--- NOTE | 2020-10-01 09:00 | IMM_PTH ---
PATIENT: VERONICA ZULUAGA GERALDINE LOC: EN U#:[id number] AGE/SX: 70/F ROOM: RE10/01/[address]: Dr. Solomon Spence MD : 1950 BED: DIS: 10/01/2020 SPEC #: [id number] RECD: 10/01/20 13:28 STATUS: BERTRAM REKeena #: [id number] TICO: 10/01/20 09:[address]: Solomon Spence DEPT: IMMUNOHISTOCHEMISTRY RECD BY: Emerita Magana ENTERED: 10/01/20 13:29 SP TYPE: IMMUNO OTHR DR: Dr. Dwight Parnell, DO Tissues: A - Stomach, NOS Procedures: H Pylori (initial) PHYSICIAN & INSTITUTION [place] [address] SPECIMEN INFORMATION: Tissue Source: A - Antrum biopsy Clinical Info: Screen for colon cancer, GERD, esophagitis Specimen Number: [id number] CPT code: 43018 METHODOLOGY: Deparaffinized sections of prefer/formalin-fixed tissue or PAP/DQ stained slides are incubated with monoclonal/polyclonal antibodies/oligonucleotide probes. Localization is made via biotin free immunoperoxidase method. Appropriate controls are performed and reacted as expected. Results on target cell population are indicated in the following table: RESULTS: ANTIBODY / CLONE RESULT Block A H Pylori (polyclonal) negative These tests were developed and their performance characteristics determined by [facility]. They may not have been cleared or approved by the U.S. Food and Drug Administration. The FDA has determined that such clearance or approval is not necessary. INTERPRETATION: A. Antrum biopsy: Negative for Helicobacter pylori organisms. SJ:hadley 10/02/20
--- NOTE | 2020-10-01 09:28 | OP.EGD_ITS ---
Patient Name: Katarina Hebert Procedure Date: 10/01/2020 8:52 AM Date of : 1950 Age: 70 Procedure: Upper GI endoscopy Indications: Epigastric abdominal pain, Suspected esophageal reflux Providers: Solomon Spence MD Referring MD: Solomon Spence MD Medicines: Monitored Anesthesia Care Patient Profile: This is a 70 year old female. Refer to note in patient chart for documentation of history and physical. Complications: No immediate complications. Estimated blood loss: Minimal. Procedure: Pre-Anesthesia Assessment: - Prior to the procedure, a History and Physical was performed, and patient medications and allergies were reviewed. The patient's tolerance of previous anesthesia was also reviewed. The risks and benefits of the procedure and the sedation options and risks were discussed with the patient. All questions were answered, and informed consent was obtained. Prior Anticoagulants: The patient has taken no previous anticoagulant or antiplatelet agents. After reviewing the risks and benefits, the patient was deemed in satisfactory condition to undergo the procedure. After obtaining informed consent, the endoscope was passed under direct vision. Throughout the procedure, the patient's blood pressure, pulse, and oxygen saturations were monitored continuously. The Endoscope was introduced through the mouth, and advanced to the second part of duodenum. The upper GI endoscopy was accomplished without difficulty. The patient tolerated the procedure well. Scope In: 8:57:07 AM Scope Out: 9:02:08 AM Total Procedure Duration Time 0 hours 5 minutes 1 second Findings: [place]-colored mucosa was present. Biopsies were taken with a cold forceps for histology. [Site] was. Biopsies were taken with a cold forceps in the gastric antrum for Helicobacter pylori testing. The examined duodenum was normal. Impression: - [place]-colored mucosa suspicious for short-segment Real's esophagus. Biopsied. - Normal stomach. - Normal examined duodenum. - Biopsies were taken with a cold forceps for Helicobacter pylori testing. Recommendation: - Discharge patient to home. - Resume previous diet. - Continue present medications. - Await pathology results. Procedure Code(s): --- Professional --- 84140, Esophagogastroduodenoscopy, flexible, transoral; with biopsy, single or multiple Diagnosis Code(s): --- Professional --- K22.8, Other specified diseases of esophagus R10.13, Epigastric pain CPT copyright 2017 [employer]. All rights reserved. The codes documented in this report are preliminary and upon yard rigger review may be revised to meet current compliance requirements. Solomon Spence MD 10/01/2020 9:27:46 AM This report has been signed electronically. Number of Addenda: 0 Note Initiated On: 10/01/2020 8:52 AM
--- NOTE | 2020-10-01 09:28 | OP.CCLET_ITS ---
10/01/2020 Dwight Parnell Re : Upper GI endoscopy procedure for Katarina Hebert Dear Dr. Parnell This procedure was performed on Thursday, October 01, 2020. My impressions and recommendations are as follows: Impressions : - [place]-colored mucosa suspicious for short-segment Real's esophagus. Biopsied. - Normal stomach. - Normal examined duodenum. - Biopsies were taken with a cold forceps for Helicobacter pylori testing. Recommendations : - Discharge patient to home. - Resume previous diet. - Continue present medications. - Await pathology results. My findings are described in the full procedure note, which is enclosed. If I can be of further assistance, please feel free to contact me at Doctor phone number(s): , Work: . Sincerely, Solomon Spence MD 10/01/2020 9:27:46 AM This report has been signed electronically.
--- NOTE | 2020-10-01 09:31 | OP.COLON_ITS ---
Patient Name: Katarina Hebert Procedure Date: 10/01/2020 9:04 AM Date of : 1950 Age: 70 Procedure: Colonoscopy Indications: Screening for colorectal malignant neoplasm Providers: Solomon Spence MD Referring MD: Solomon Spence MD Medicines: Monitored Anesthesia Care Patient Profile: This is a 70 year old female. Refer to note in patient chart for documentation of history and physical. Last Colonoscopy: 10 years ago. Complications: No immediate complications. Estimated blood loss: Minimal. Procedure: Pre-Anesthesia Assessment: - Prior to the procedure, a History and Physical was performed, and patient medications and allergies were reviewed. The patient's tolerance of previous anesthesia was also reviewed. The risks and benefits of the procedure and the sedation options and risks were discussed with the patient. All questions were answered, and informed consent was obtained. Prior Anticoagulants: The patient has taken no previous anticoagulant or antiplatelet agents. After reviewing the risks and benefits, the patient was deemed in satisfactory condition to undergo the procedure. After I obtained informed consent, the scope was passed under direct vision. Throughout the procedure, the patient's blood pressure, pulse, and oxygen saturations were monitored continuously. The Colonoscope was introduced through the anus and advanced to the cecum, identified by appendiceal orifice and ileocecal valve. The colonoscopy was performed without difficulty. The patient tolerated the procedure well. The quality of the bowel preparation was good. Scope In: 9:06:54 AM Scope Withdrawal Time 0 hours 8 minutes 34 seconds Scope Out: 9:20:29 AM Total Procedure Duration Time 0 hours 13 minutes 35 seconds Findings: A polyp was found in the descending colon. The polyp was removed with a hot snare. Resection and retrieval were complete. To prevent bleeding after the polypectomy, two hemostatic clips were successfully placed. There was no bleeding at the end of the procedure. A few small-mouthed diverticula were found in the sigmoid colon. A diffuse area of moderately erythematous mucosa was found in the rectum. This was biopsied with a cold forceps for histology. No additional abnormalities were found on retroflexion. Impression: - One polyp in the descending colon, removed with a hot snare. Resected and retrieved. - Diverticulosis in the sigmoid colon. - Erythematous mucosa in the rectum. Biopsied. Recommendation: - Discharge patient to home. - Resume previous diet. - Continue present medications. - Await pathology results. - Repeat colonoscopy in 5 years for surveillance. Procedure Code(s): --- Professional --- 98864, Colonoscopy, flexible; with removal of tumor(s), polyp(s), or other lesion(s) by snare technique 80212, 59, Colonoscopy, flexible; with biopsy, single or multiple Diagnosis Code(s): --- Professional --- Z12.11, Encounter for screening for malignant neoplasm of colon D12.4, Benign neoplasm of descending colon K62.89, Other specified diseases of anus and rectum K57.30, Diverticulosis of large intestine without perforation or abscess without bleeding CPT copyright 2017 [employer]. All rights reserved. The codes documented in this report are preliminary and upon edge grinder review may be revised to meet current compliance requirements. Solomon Spence MD 10/01/2020 9:30:35 AM This report has been signed electronically. Number of Addenda: 0 Note Initiated On: 10/01/2020 9:04 AM
--- NOTE | 2020-10-01 09:31 | OP.CCLET_ITS ---
10/01/2020 Dwight Parnell Re : Colonoscopy procedure for Katarina Hebert Dear Dr. Parnell This procedure was performed on Thursday, October 01, 2020. My impressions and recommendations are as follows: Impressions : - One polyp in the descending colon, removed with a hot snare. Resected and retrieved. - Diverticulosis in the sigmoid colon. - Erythematous mucosa in the rectum. Biopsied. Recommendations : - Discharge patient to home. - Resume previous diet. - Continue present medications. - Await pathology results. - Repeat colonoscopy in 5 years for surveillance. My findings are described in the full procedure note, which is enclosed. If I can be of further assistance, please feel free to contact me at Doctor phone number(s): , Work: . Sincerely, Solomon Spence MD 10/01/2020 9:30:35 AM This report has been signed electronically.
== END 2020-10-01 10:17 | disposition home or self-care (01) ==
LOC: EN 07:47 → AC 07:47
PROVIDERS: PCP Family Medicine; Referring Provider Surgery; Visit Provider Surgery
PROC: 0DJD8ZZ Inspection of Lower Intestinal Tract, Via Natural or Artificial Opening Endoscopic (ICD-10-PCS; CPT 45378; principal; 2020-10-01 08:55)
DX: Z12.11 Encounter for screening for malignant neoplasm of colon (principal); D12.4 Benign neoplasm of descending colon; K57.30 Diverticulosis of large intestine without perforation or abscess without bleeding; K29.70 Gastritis, unspecified, without bleeding; K21.9 Gastro-esophageal reflux disease without esophagitis; K22.8 Other specified diseases of esophagus; Z11.59 Encounter for screening for other viral diseases; I10 Essential (primary) hypertension; G47.30 Sleep apnea, unspecified; Z78.0 Asymptomatic menopausal state; Z87.19 Personal history of other diseases of the digestive system; Z87.440 Personal history of urinary (tract) infections; Z90.49 Acquired absence of other specified parts of digestive tract; Z79.899 Other long term (current) drug therapy
CPT/HCPCS: 43239; 45380; 45385; 82962; 87426; 88305; 88313; 88342; C9803; J7120; J2405

== ENCOUNTER → 2021-02-06 08:33 | Outpatient (CLI) | payer MEDICARE, OTHER, SELFPAY ==
[2021-01-01 09:19] VITALS: BMI 31.2
--- NOTE | 2021-02-06 08:36 | US_ITS ---
STUDY: ABDOMINAL ULTRASOUND REASON FOR EXAM: Female, 70 years old. Right upper quadrant swelling TECHNIQUE: Transabdominal ultrasound was performed with real-time and static golden scale imaging. TECHNICAL QUALITY: Limited. Examination limited due to a combination of factors including obesity and bowel gas. COMPARISON: None. FINDINGS: Liver: The liver measures 14.8 cm. There is increased echogenicity consistent with fatty infiltration. The bile ducts are within normal limits. There is hepatic color flow. The direction of portal flow is hepatopetal. There is no demonstrated mass lesion. Portal vein measurement: Gallbladder: The patient is status post cholecystectomy. Common Bile Duct (C.B.D.): The common bile duct measures 7 mm. Pancreas: Normal size of the head, body of the pancreas. The tail portion is obscured due to overlying bowel gas. There is normal echogenicity of the pancreas. There is no demonstrated pancreatic mass or cyst. Spleen: Normal size of the spleen. The spleen measures 11.8 cm x 4.1 cm x 3.9 cm. Right Kidney: Normal size of the right kidney. The right kidney measures 9.5 cm x 4.4 cm x 3.8 cm. Normal renal cortex. The right cortex measures 1 cm. There is no demonstrated renal mass or cyst. There is no right hydronephrosis. Left Kidney: Normal size of the left kidney. The left kidney measures 9.7 cm x 4.4 cm x 4.5 cm. Normal renal cortex. The left cortex measures 1.3 cm. There is no demonstrated renal mass or cyst. There is no left hydronephrosis. Aorta: Unremarkable. I.V.C.: The IVC is patent. There is no ascites. US/Abdomen Complete IMPRESSION: Fatty infiltration of the liver. Electronically Signed: Jono Venegas MD at 10:48 EDT , Service support ,
== END ==
PROVIDERS: PCP Family Medicine; Referring Provider Family Medicine; Visit Provider Family Medicine
DX: R19.07 Generalized intra-abdominal and pelvic swelling, mass and lump (principal)
CPT/HCPCS: 76700

== ENCOUNTER → 2021-03-21 | Outpatient (CLI) | payer MEDICARE, OTHER, SELFPAY ==
[2021-03-21 08:31] VITALS: BMI 31.2
[2021-03-21 08:47] LABS: Mucous, Urine 0 SEEN /hpf (<or=2+)
[2021-03-21 12:51] LABS: Color, Urine Yellow (Yellow); Glucose, Dipstick Normal (Normal); Ketone-Dipstick Negative (Negative); Leukocyte Esterase-Dipstick 500 /ul (Negative); Nitrite-Dipstick Positive (Negative); Occult Blood-Urine 150 /ul (Negative); Protein-Dipstick 30 mg/dl (Negative); Specific Gravity, Urine 1.015 (1.002-1.030); Urine Bilirubin Dipstick Negative (Negative); Urine Clarity Cloudy (Clear); Urine Urobilinogen Normal (Normal)
[2021-03-21 13:01] LABS: Red Blood Cells-Urine 0-5 SEEN /hpf (0-5); Squamous Epithelial Cells - UA 0-5 SEEN /hpf (5-10); White Blood Cells 50-100 SEEN /hpf (0-5)
[2021-03-21 13:02] LABS: Bacteria 4+ /hpf (None Seen)
== END | disposition home or self-care (01) ==
LOC: BIMLAB 08:46 → LABSPEC 08:46
PROVIDERS: PCP Family Medicine; Referring Provider Nurse Practitioner Family; Visit Provider Nurse Practitioner Family
DX: N39.0 Urinary tract infection, site not specified (principal); R30.0 Dysuria
CPT/HCPCS: 81001; 87086; 87088; 87186

== ENCOUNTER → 2021-03-24 08:58 | Outpatient (CLI) | payer MEDICARE, OTHER, SELFPAY ==
[2021-03-21 08:31] VITALS: BMI 31.2
--- NOTE | 2021-03-24 09:01 | BI_ITS ---
MAMMOGRAPHY - BILATERAL DIAGNOSTIC REASON FOR EXAM: Female, 70 years old. Right upper lateral breast pain for 6 months. PERTINENT HISTORY: Non-contributory. TECHNIQUE: Digital bilateral breast ben (3D mammographic acquisition) in the CC and MLO projections. 2-D mediolateral oblique (MLO) and craniocaudad (CC) views of both breasts were obtained. CAD: Full Field Digital Mammography with Computer Added Detection was performed. COMPARISON: Comparison is made with prior examination dated 03/21/2012. FINDINGS: Breast Composition: The breasts are almost entirely fatty. There is a new 5.3 mm well-defined nodule in the upper deep central portion of the left breast. No other significant abnormalities are identified. BI/DIAG MAMM W/CAD, BILAT IMPRESSION: 5.3 mm well-defined nodule in the upper deep central portion of the left breast. Correlation with ultrasound of both breasts is recommended for further evaluation. ASSESSMENT CATEGORY: BIRADS Category 0: Incomplete. Need additional imaging evaluation. A letter regarding these results will be sent to the patient by the facility within 30 days. Approximately 10% of breast cancers are not detected by mammography. A normal mammogram should not delay biopsy of a clinically suspicious abnormality. Electronically Signed: Jono Venegas MD at 9:56 EDT , Service support ,
--- NOTE | 2021-03-24 09:01 | US_ITS ---
STUDY: ULTRASOUND BREAST - RIGHT REASON FOR EXAM: Female, 70 years old. Pain in the right breast. TECHNIQUE: Axial and longitudinal images of the RIGHT breast were performed with a high resolution ultrasound transducer. # OF IMAGES: 37 COMPARISON: Comparison is made with prior mammogram done earlier in the day. FINDINGS: RIGHT Breast: The upper outer quadrant of the right breast was examined by ultrasound. No sonographic abnormality is seen. IMPRESSION: No sonographic abnormality is seen. ASSESSMENT CATEGORY: BIRADS Category 1: Negative. A letter regarding these results will be sent to the patient by the facility within 30 days. Electronically Signed: Jono Venegas MD at 10:48 EDT , Service support , STUDY: ULTRASOUND BREAST - LEFT REASON FOR EXAM: Female, 70 years old. Abnormal screening mammogram. TECHNIQUE: Axial and longitudinal images of the LEFT breast were performed with a high resolution ultrasound transducer. # OF IMAGES: 37 COMPARISON: Comparison is made with prior mammogram done earlier in the day. FINDINGS: LEFT Breast: The mammographic abnormality corresponds to a 3 mm x 5 mm x 5 mm well-defined hypoechoic solid nodule at the 11 o''clock position of the breast at 5 cm from nipple. A biopsy is recommended. US/Breast Limited Unilateral IMPRESSION: 3 mm x 5 mm x 5 mm well-defined hypoechoic solid nodule at the 11 o''clock position of the breast at 5 cm from nipple. A biopsy is recommended. ASSESSMENT CATEGORY: BIRADS Category 4: Suspicious - Biopsy Should Be Considered. A letter regarding these results will be sent to the patient by the facility within 30 days. Electronically Signed: Jono Venegas MD at 10:49 EDT , Service support ,
== END ==
PROVIDERS: PCP Family Medicine; Referring Provider Nurse Practitioner Family; Visit Provider Nurse Practitioner Family
DX: N64.4 Mastodynia (principal)
CPT/HCPCS: 76642; 77062; 77066; G0279

== ENCOUNTER → 2021-04-01 | Outpatient (CLI) | payer MEDICARE, OTHER, SELFPAY ==
--- NOTE | 2021-04-01 | IMM_PTH ---
PATIENT: VERONICA ZULUAGA LOC: [facility] U#:[id number] AGE/SX: 70/F ROOM: RE04/01/[address]: Dr. Solomon Spence MD : 1950 BED: DIS: 04/01/2021 SPEC #: [id number] RECD: 04/02/21 12:56 STATUS: BERTRAM REQ #: [id number] TICO: 04/01/21 00:[address]: Solomon Spence DEPT: IMMUNOHISTOCHEMISTRY RECD BY: Emerita Magana ENTERED: 04/02/21 12:57 SP TYPE: IMMUNO OTHR DR: Dr. Dwight Parnell, DO Tissues: Left breast, NOS Procedures: CALPONIN-1 (add) CK5-6 (add) CK8 (add) E-CAD (add) HER2 SHELBIE (add) KI-67 (add) P53 (add) AK (add) P40 (add) ER (initial) PHYSICIAN [facility] INSTITUTION [address] [address] SPECIMEN INFORMATION: Tissue Source: Left breast Clinical Info: Left breast mass Specimen Number: [id number] CPT code: 62363, 58433 x6, 59537 x3 METHODOLOGY: Deparaffinized sections of prefer/formalin-fixed tissue or PAP/DQ stained slides are incubated with monoclonal/polyclonal antibodies/oligonucleotide probes. Localization is made via biotin free immunoperoxidase method. Appropriate controls are performed and reacted as expected. Results on target cell population are indicated in the following table: RESULTS: ANTIBODY / CLONE RESULT E-Cad (ECH-6) positive CK8 (84qfktA69) positive Calponin-1 (OG351S) negative CK5-6 (D5 & 1684) negative P40 (BC28) negative P53 (DO-7) positive, rare cells Ki-67 (30-9) positive, low to moderate MORPHOMETRIC ANALYSIS ER (clone 6F11) >95%, strong AK (clone 16/1E2) 43%, weak Her-2Neu (clone CB11) 1+ The prognostic test for HER2 is performed on formalin-fixed paraffin embedded tissue. A 3+ (positive) staining pattern is defined as intense, homogeneous, complete, circumferential membranous staining in >10% of contiguous tumor cells. A similar weak (2+) staining pattern is interpreted as equivocal. CIERRA follow-up testing is recommended for all equivocal cases. Positivity/negativity for ER/AK is reported if > or < 1% of the tumor cells are immuno- reactive, respectively. The ASCO/CAP criteria is used for scoring. Reference: Journal of Clinical Oncology, 2013; 31:5393-0241 & 2010; 16:9110-5199. Duration of fixation: 8 Hrs; Sample Adequate: Yes. These assays have not been validated on decalcified tissues. Results should be interpreted with caution given the likelihood of false negativity on decalcified specimens. These tests were developed and their performance characteristics determined by [facility]. They may not have been cleared or approved by the U.S. Food and Drug Administration. The FDA has determined that such clearance or approval is not necessary. The above immunohistochemical/dualISH markers are ordered and reviewed by the Pathologist. INTERPRETATION: Left breast, biopsy: Invasive ductal carcinoma, nuclear grade 1. Positive for estrogen receptors (favorable prognostic indicator). Positive for progesterone receptors (favorable prognostic indicator). Negative for overexpression of MWO8icb. SJ:hadley 04/03/2021
[2021-04-01 11:28] VITALS: BMI 31.2
--- NOTE | 2021-04-01 11:30 | BRBX_PTH ---
PATIENT: VERONICA ZULUAGA GERALDINE LOC: [facility] U#:[id number] AGE/SX: 70/F ROOM: RE04/01/[address]: Dr. Solomon Spence MD : 1950 BED: DIS: 04/01/2021 SPEC #: [id number] RECD: 04/01/21 11:54 STATUS: BERTRAM REQ #: [id number] TICO: 04/01/21 11:[address]: Solomon Spence DEPT: SURGICAL PATHOLOGY RECD BY: Catarina Russell ENTERED: 04/01/21 12:33 SP TYPE: BREAST BX OTHR DR: Dr. Dwight Parnell, DO Tissues: Left breast, NOS Procedures: Surgery Specimen Level IV HEADER OPERATION: Left breast biopsy PRE-OP DIAGNOSIS: Left breast mass TISSUE SUBMITTED: Left breast tissue MICROSCOPIC DIAGNOSIS Left breast mass, core biopsy: Invasive ductal carcinoma, nuclear grade 1 (0.5 cm in greatest length). See comment. SJ:hadley 04/02/2021 COMMENT Immunohistochemistry ([id number]) supports the above diagnosis. ER/WY/Den2srm studies are being performed on sections of tumor and the results from this study will be reported separately ([id number]). MICROSCOPIC DESCRIPTION Slides are reviewed. GROSS DESCRIPTION Received in fixative is one container labeled with the patient name and designated left breast. The specimen consists of multiple elongated fragments of marcano-yellow fibroadipose tissue that in aggregate measure 1 x 0.6 x 0.1 cm. The entire specimen is submitted in one cassette. / BRYAN:hadley 04/01/21 TC:0 CPT: 36002
== END | disposition home or self-care (01) ==
LOC: LABSPEC 11:59
PROVIDERS: PCP Family Medicine; Referring Provider Surgery; Visit Provider Surgery
DX: N63.20 Unspecified lump in the left breast, unspecified quadrant (principal)
CPT/HCPCS: 88305; 88341; 88342

== ENCOUNTER → 2021-05-05 06:43 | Outpatient (CLI) | payer MEDICARE, OTHER, SELFPAY ==
[2021-04-30 10:58] VITALS: BMI 31.8
--- NOTE | 2021-05-05 06:45 | ECHOCS_ITS ---
Reason For Study: Chest Pain Procedure This was a 2D Doppler, Color Flow transthoracic echocardiogram. Technically difficult study, unable to perform STRAIN Analysis due to needed use of Definity. Exam performed in department. Left Ventricle Normal LV size. Left ventricular systolic function is normal. The estimated ejection fraction is 65 %. Stage 1 diastolic dysfunction. No regional wall motion abnormalities noted. Right Ventricle Normal RV size. Normal systolic function. Atria Normal left atrium. Normal right atrium. Mitral Valve Normal mitral valve. Tricuspid Valve Normal tricuspid valve. Aortic Valve Normal aortic valve. Pulmonic Valve The pulmonic valve is not well visualized. Great Vessels Normal aortic root. Pericardium/Pleural No pericardial effusion. Medication 22 gauge I.V. with prn adaptor inserted into left arm. Diluted definity 3ml given slow IV push to enhance endocardial definition. MMode/2D Measurements & Calculations LVIDd: 4.2 cm IVSd: 1.1 cm Ao root diam: 3.5 cm LVIDs: 2.8 cm LVPWd: 0.88 cm LA dimension: 3.3 cm FS: 33.4 % LAV(MOD-bp): 31.6 ml LA A4 area: 12.5 cm2 RA A4 area: 10.5 cm2 LAV(MOD-bp) Indexed: 17.4 ml/m2 LAV(MOD-sp2): 30.2 ml LAV(MOD-sp4): 29.0 ml Time Measurements MV dec time: 0.26 sec Doppler Measurements & Calculations MV E max avel: 61.9 cm/sec Lat Peak E' Avel: 9.7 cm/sec Med Peak E' Avel: 5.9 cm/sec MV A max avel: 95.5 cm/sec E/E' lat: 6.4 E/E' med: 10.4 MV E/A: 0.65 MV V2 max: 86.8 cm/sec MV P1/2t max avel: 57.7 cm/sec Ao V2 max: 103.3 cm/sec MV max P.0 mmHg MV P1/2t: 81.6 msec Ao max P.3 mmHg MV V2 mean: 48.3 cm/sec MV dec slope: 207.1 cm/sec2 MV mean P.1 mmHg MV V2 VTI: 18.3 cm MVA(P1/2t): 2.7 cm2 LV V1 max: 78.9 cm/sec PA V2 max: 78.0 cm/sec LV V1 max P.5 mmHg ECHO/Echo Complete W/ Contrast Interpretation Summary Normal LV size. Left ventricular systolic function is normal. The estimated ejection fraction is 65 %. Stage 1 diastolic dysfunction. Contrast injection was performed. Ordering Physician: Yvon Bonner Referring Physician: Dwight Parnell Performed By: Quentin Jarquin RCS
--- NOTE | 2021-05-05 16:36 | STRESSREP ---
Stress Test Report Exercise myocardial perfusion stress test. 70-year-old lady with a history of chest pain. Stress protocol: Resting EKG demonstrates normal sinus rhythm with a rate of 68 bpm. Resting blood pressure is 130/90 mmHg. The patient exercised according to regular Akil protocol for total duration of 4 minutes and 16 seconds. Patient completed 1 minute and 16 seconds to stage II of the Akil protocol. The maximum heart rate was 155 bpm which was 102% of max infected heart rate maximum workload was 6.1 metabolic equivalents. The patient maintained sinus rhythm throughout the recording. At rest there were no ST or T wave changes noted suggest ischemia peak exercise upsloping ST changes only were noted with did not meet the criteria for ischemia. No clinical angina was noted the test was terminated due to shortness of breath. The peak blood pressure was 190/80 mmHg. Myocardial perfusion protocol. 11.2 mCi of technetium 99m sestamibi was injected at rest. The patient exercised according to regular Akil protocol and at peak exercise 35.0 mCi of technetium 99m sestamibi was injected stress images were obtained stress and rest images were reconstructed and compared in the short axis vertical and horizontal long axis. Gated images were also obtained per Perfusion SPECT analysis: Review of the stress images demonstrated normal uptake of tracer noted in all areas of the myocardium. The resting images similarly demonstrate normal uptake of tracer noted in all areas of the myocardium. No areas of reversibility are noted suggest ischemia. No previous infarct is noted. Gated SPECT analysis: The gated ejection fraction is 73% with a normal cardiac silhouette size. Conclusion: Normal exercise myocardial perfusion stress test at a moderate workload. Preserved ejection fraction.
== END ==
PROVIDERS: PCP Family Medicine; Referring Provider Internal Medicine Cardiovascular Disease; Visit Provider Internal Medicine Cardiovascular Disease
DX: R07.9 Chest pain, unspecified (principal); G47.33 Obstructive sleep apnea (adult) (pediatric)
CPT/HCPCS: 78452; 93017; 93306; A9500; Q9957; A4216; C8929; J3490

== ENCOUNTER 2021-05-27 07:08 | Day surgery (SDC) | payer MEDICARE, OTHER, SELFPAY ==
[2021-05-12 12:46] VITALS: BMI 31.8
[2021-05-21 09:36] LABS: Hematocrit 38.2 % (37-47); Hemoglobin 13.1 g/dL (12.0-15.0); Mean Corp Hgb Conc 34.3 g/dL (32-36); Mean Corpuscular Hgb 30.2 pg (27.0-32.0); Mean Platelet Vol. 9.5 fl (6.2-12.0); Platelet Count 232 K/mm3 (150-450); RBC Distribution Width CV 12.4 % (11.6-14.6); RBC Distribution Width SD 39.9 fl (35.1-43.9); Red Blood Count 4.34 M/mm3 (4.2-5.4); White Blood Count 9.4 K/mm3 (4.4-11.0)
[2021-05-21 10:00] LABS: Anion Gap 5 (5-15); BUN 13 mg/dL (7-18); BUN/Creat Ratio 11.6 RATIO (10-20); Calcium,Total 9.2 mg/dL (8.5-10.1); Chloride 103 mmol/L (98-107); Creatinine, Serum 1.12 mg/dL (0.55-1.02); EST Glomerular Filtration Rate 51 mL/min (>60); Est Glom Filt Rate - Afr Amer 62 mL/min (>60); Glucose 147 mg/dL (74-106); Potassium 4.1 mmol/L (3.5-5.1); Sodium Level 135 mmol/L (136-145)
[2021-05-27] VITALS (10 sets, daily range): BP systolic 115–169; BP diastolic 78–102; PULSE 72–87; RESP 16–18; TEMP 36.3–36.8; O2SAT 95–100; BMI 31.6
--- NOTE | 2021-05-27 | AXNB_PTH ---
PATIENT: VERONICA ZULUAGA GERALDINE [place]: [facility] [place][id number] AGE/SX: 70/F ROOM: RE05/27/[address]: Dr. Solomon Spence MD : 1950 BED: DIS: 05/27/2021 SPEC #: [id number] RECD: 05/27/21 11:21 STATUS: BERTRAM REKeena #: [id number] TICO: 05/27/21 00:[address]: Solomon Spence DEPT: SURGICAL PATHOLOGY RECD BY: Emerita Magana ENTERED: 05/27/21 12:37 SP TYPE: AX NODE BX OTHR DR: Dr. Dwight Parnell, DO Tissues: A - Axillary lymph node, NOS B - Left breast, NOS Procedures: Frozen Section (charge) Surgery Specimen Level IV Surgery Specimen Level V HEADER OPERATION: Stereotactic wire localization partial mastectomy with SN biopsy and frozen section PRE-OP DIAGNOSIS: Left breast ductal carcinoma TISSUE SUBMITTED: A ? Left axillary sentinel lymph nodes (FS at 1118), B ? Left breast mass FROZEN SECTION DIAGNOSIS A. Left axillary sentinel lymph nodes, biopsy: Three out of three lymph nodes negative for carcinoma. AM: 05/27/2021 MICROSCOPIC DIAGNOSIS A. Left axillary sentinel lymph nodes, biopsy: Three out of three lymph nodes negative for carcinoma. B. Left breast mass, lumpectomy: Invasive ductal carcinoma. See cancer checklist below. AM: 05/30/2021 COMMENT INVASIVE BREAST CANCER SUMMARY Procedure: Excision with wire guidance Specimen: Type: Partial breast Size: 8 x 3 x 2.5 cm Laterality: Left breast Invasive Tumor: Size: 0.6 x 0.5 x 0.3 cm Focality: Single focus of carcinoma Histologic type: Invasive ductal carcinoma. Histologic grade ([place] grade): Glandular/tubular differentiation score: 2 Nuclear pleomorphism score: 2 Mitotic count score: 1 Overall grade: 1 (score of 5) Ductal Carcinoma In Situ: Present Estimated quantification: 1.5 mm Number of blocks: 1 of 12 blocks Architectural pattern: Cribriform Nuclear grade: 1 Necrosis: Not present Lobular Carcinoma In Situ: Not present Tumor extension: Skin: No skin present. Nipple: No nipple present. Skeletal muscle: No skeletal muscle present. Margins: Distance of invasive carcinoma: 2 mm from inferior margin. Distance of in situ carcinoma from closest margin: 1.5 mm from inferior margin. Lymph Nodes: Total number of sentinel lymph nodes: 3 Total number of lymph nodes examined: 3 No evidence of macrometastases, micrometastases or isolated tumor cells. See specimen ?A? Treatment Effect: Unknown Lymphvascular invasion: Not identified Additional Pathologic Findings: Biopsy cavity Ancillary Studies: Previously performed ([id number]) ER: >95%, strong intensity MT: 43%, weak intensity Cfq9rdw: 1+ (negative by IHC) Microcalcifications: Not identified Clinical History: Mass of breast PATHOLOGIC STAGE: pT1b N0 Mx The above summary is in compliance with [employer] (CAP) Cancer Protocols Checklist and [place] Joint Committee on Cancer (AJCC), Staging Manual, 8th Ed. Immunohistochemistry ([id number]) supports the above diagnosis. Case has been reviewed in consultation with Dr. Guzman who concurs with the above diagnosis. IDC:[id number] MICROSCOPIC DESCRIPTION Slides are reviewed. GROSS DESCRIPTION A - Received fresh for frozen section consultation labeled with the patient's name is a specimen designated left axillary sentinel lymph nodes. The specimen consists of an irregular fragment of marcano-yellow fibrofatty tissue measuring 4 x 3 x 1 cm. Dissection reveals three nodules resembling lymph nodes and ranging in size from 2 to 3 cm in greatest dimension. The nodules are serially sectioned and totally submitted in four blocks as follows: 1 - one nodule, bisected, 2 - one nodule, bisected, 3 & 4 - one nodule, serially sectioned. B - Received fresh for OR consultation labeled with the patient's name is a specimen designated left breast mass. The specimen consists of a wire-guided oriented lumpectomy specimen measuring 8 x 3 x 2.5 cm and weighing 22.8 gm. The specimen is differentially inked as follows: anterior - yellow, posterior - black, superior - blue, inferior - green, medial - red and lateral - orange. Serial sections reveal a 6 mm biopsy cavity located 0.8 cm from its closest (superior) margin of excision. No mass lesions are identified. The gross findings are discussed with the surgeon intraoperatively. The remainder of the breast parenchyma is yellow and fatty. No other lesions are identified. The specimen is serially sectioned along its narrow axis and totally submitted in 12 cassettes after additional fixation. / AM:hadley 05/28/21 TC:0 CPT: 42284, 53515, 31706 ADDENDUM ADDENDUM ADDENDUM ADDENDUM ADDENDUM ADDENDUM ADDENDUM ADDENDUM 06/26/2021 11:03 ADDENDUM 06/26/2021 11:03 ADDENDUM 06/26/2021 11:03 ADDENDUM 06/26/2021 11:03 ADDENDUM 06/26/2021 11:03 An order for Oncotype testing was received from Dr. Villafuerte. This necessitated case review, block and slide selection by pathologist at [facility]. Breast Cancer Recurrence Score = 18 Results of the complete Oncotype testing ([employer] report) are viewable in EMR under: Reports - Pathology - Lab Pathology Report, Scanned.
--- NOTE | 2021-05-27 | IMM_PTH ---
PATIENT: VERONICA ZULUAGA LOC: [facility] – [place] U#:[id number] AGE/SX: 70/F ROOM: RE05/27/[address]: Dr. Solomon Spence MD : 1950 BED: DIS: 05/27/2021 SPEC #: [id number] RECD: 05/30/21 12:48 STATUS: BERTRAM REQ #: [id number] TICO: 05/27/21 00:[address]: Solomon Spence DEPT: IMMUNOHISTOCHEMISTRY RECD BY: Emerita Magana ENTERED: 05/30/21 12:49 SP TYPE: IMMUNO OTHR DR: Dr. Dwight Parnell, DO Tissues: A - Axillary lymph node, NOS Procedures: CK7 (add) Pankeratin (initial) Pankeratin (add) PHYSICIAN & INSTITUTION [place] [id number] SPECIMEN INFORMATION: Tissue Source: A ? Left axillary sentinel lymph node Clinical Info: Left breast ductal carcinoma Specimen Number: [id number] A1-A4 CPT code: 15535, 15428 x7 METHODOLOGY: Deparaffinized sections of prefer/formalin-fixed tissue or PAP/DQ stained slides are incubated with monoclonal/polyclonal antibodies/oligonucleotide probes. Localization is made via biotin free immunoperoxidase method. Appropriate controls are performed and reacted as expected. Results on target cell population are indicated in the following table: RESULTS: ANTIBODY / CLONE RESULT Block A1 AE1-3 (AE1/AE3/PCK26) negative CK7 (OV-TL12/30) negative Block A2 AE1-3 (AE1/AE3/PCK26) negative CK7 (OV-TL12/30) negative Block A3 AE1-3 (AE1/AE3/PCK26) negative CK7 (OV-TL12/30) negative Block A4 AE1-3 (AE1/AE3/PCK26) negative CK7 (OV-TL12/30) negative These tests were developed and their performance characteristics determined by [facility]. They may not have been cleared or approved by the U.S. Food and Drug Administration. The FDA has determined that such clearance or approval is not necessary. The above immunohistochemical/dualISH markers are ordered and reviewed by the Pathologist. INTERPRETATION: A. Left axillary sentinel lymph node, biopsy: Three out of three lymph nodes negative for carcinoma. AM:hadley 06/02/2021
--- NOTE | 2021-05-27 08:00 | NM_ITS ---
PROCEDURE: NUCLEAR MEDICINE Injection [place] Node - LEFT breast(s). REASON FOR EXAM: Female, 70 years old. Left breast cancer. TECHNIQUE: [place] node localization using radionuclide methods of the LEFT breast(s) was performed following subcutaneous administration of 1.1 mCi of of sulfur colloid Tc-99m. COMPARISON STUDIES : Comparison is made with prior mammogram dated 03/24/2021. FINDINGS: 1.1 mCi of technetium labeled sulfur colloid was injected subcutaneously in 4 equal aliquots at the biopsy site. NM/Lymph Node Injection Only IMPRESSION: Injection of 1.1 mCi M labeled sulfur colloid subcutaneously in 4 equal aliquots at the biopsy site. Electronically Signed: Jono Venegas MD at 8:28 EDT , Service support ,
[2021-05-27] MEDS: Lactated Ringers 1,000 ML 100 ML IV (08:01)
--- NOTE | 2021-05-27 08:54 | PCM.HP.BLA ---
History and Physical Date of Admission: 05/27/21 Intake Vital Signs 05/12/21 12:46 05/12/21 12:46 Height 5 ft 2.5 in Weight: 177 lb 6 oz BMI 31.9 31.8 BP 160/95 H Blood Pressure Location Rt brachial Position Sitting Respiration 18 Pulse 85 Pulse Source NIBP Temp 98.1 F Temp Source Temporal Pulse Oximetry (%) 96 Oxygen Delivery Method room air Intake Visit Reasons: DISCUSS SURGERY Chief Complaint: discuss breast path/surgery Religious Education Director Required: No Is patient in pain?: No Allergies nitrofurantoin [From Macrobid] Allergy (Mild, Verified 05/12/21 12:46) rash codeine phosphate [From Tylenol-Codeine] Adverse Reaction (Verified 05/12/21 12:46) Vomiting Is last menstrual period known: No Post menopausal: Yes Patient : No PFSH Medical History Abdominal bloating Abnormal pulmonary function test Acute serous otitis media of left ear Allergic rhinitis Asthma, moderate persistent Breast pain, right Chronic cough Dysuria Essential (primary) hypertension Eyelid myokymia Flank pain Hiatal hernia with gastroesophageal reflux History of trigger finger Nausea & vomiting Pyelonephritis Spondylolisthesis at L4-L5 level Trochanteric bursitis of right hip UTI (urinary tract infection) Vertigo Surgical History History of appendectomy History of cholecystectomy History of hysterectomy History of right hip replacement History of tonsillectomy History of tubal ligation Hx of laparoscopy Hx of shoulder surgery Status post trigger finger release Family History Mother Cancer Diabetes Father Cancer Grandfather Diabetes Grandmother Glaucoma Social History Smoking Status: Never smoker second hand exposure: No alcohol intake: never substance use type: does not use caffeine: Yes what type of physical activity do you participate in: none HPI HPI HPI: VERONICA ZULUAGA, is a 70 F who presents to the office today for follow-up after cardiac work-up for left breast cancer. Patient still reports she is having the chest pain but this is been ruled out is noncardiac. Patient does not have any other new complaints. ROS General General: No weight change or fatigue HEENT HEENT: No difficulty swallowing Endo Endocrine: No thyroid disease Breast Breast: Yes abnormal US; No breast pain Musc Musculoskeletal: No back problems or arthritis Cardio Cardiovascular: No pacemaker, heart disease, atrial fibrillation, high blood pressure, heart attack, heart stent, palpitations or chest pain Psych Psychiatric: No depression or anxiety Resp Respiratory: No shortness of breath, No cough, No COPD, No asthma and No emphysema Gastro Gastrointestinal: No abdominal pain, No nausea or vomiting, No diarrhea, No constipation, No blood in stool, No acid reflux, No hemorrhoids, No ulcers, No gallbladder problem and No black,tarry stools Ethan Hematologic: No blood thinners Exam Const General: cooperative Orientation: alert and oriented x3 HENMT Head: normal to inspection Neck Neck: normal visual inspection and full ROM Chest Chest palpation & inspection: normal inspection of the chest Resp Effort & Inspection: normal respiratory effort Auscultation: clear to auscultation bilaterally Cardio Rate: regular rate Rhythm: regular rhythm GI Inspection: non-distended Palpation: soft and nontender Skin General: no rashes or lesions noted Neuro General: patient alert and patient oriented x3 Extrem General: full ROM Psych Appearance: grossly normal Mental Status: mental status grossly normal Assessment and Plan Assessment and Plan (1) Breast cancer, left: Status: Acute Qualifiers: Breast location: unspecified site of breast Estrogen receptor status: positive Patient sex: female Qualified Code(s): C50.912 - Malignant neoplasm of unspecified site of left female breast; Z17.0 - Estrogen receptor positive status [ER+] Plan - Dr. Solomon Spence MD: The patient has left breast cancer and requires surgery. She went through a cardiac work-up for her chest pain and this was negative. She was given clearance for surgery. I discussed partial mastectomy with the patient in detail. I discussed the risks including not limited to bleeding, infection, nerve injury or lymphedema, positive margins requiring reresection. I discussed the procedure as well and I discussed blue dye injection as well as sentinel lymph node biopsy. Patient understands and all of her questions were answered. Patient decided to proceed with left partial mastectomy with sentinel lymph node biopsy and injection of nuclear radiotracer and blue dye. Solomon Spence MD Pager: [facility] [address] [place] [address], [address] [place] [phone] Office: I have seen and reexamined the patient. The patient notes that he was recently on a trip and was diagnosed with UTI. Patient reports frequency with no flushing or fever. No pain on urination. Patient will begin her antibiotics today. Assessment & Plan Assessment/Plan (1) Breast cancer, left: QUALIFIERS: Breast location: unspecified site of breast Estrogen receptor status: positive Patient sex: female Qualified Code(s): C50.912 - Malignant neoplasm of unspecified site of left female breast; Z17.0 - Estrogen receptor positive status [ER+]
--- NOTE | 2021-05-27 09:45 | BI_ITS ---
SURGICAL BREAST SPECIMEN RADIOGRAPH CLINICAL: Document presence of mass in biopsy specimen. FINDINGS: Specimen shows presence of mass. Electronically Signed: Jono Venegas MD at 12:09 EDT , Service support , BI/Breast Biopsy Specimen
[2021-05-27] MEDS: Cefazolin 2 GM in 0.9% Normal Saline 100 ML IV (10:35)
[2021-05-27] MEDS: 0.9% Normal Saline (Pres. free 10 ML Vial (10:50)
[2021-05-27] MEDS: Isosulfan Blue 1% 5 ML Vial (10:50)
[2021-05-27] MEDS: Bupivacaine 0.5% PF 10 ML VIAL (11:38)
--- NOTE | 2021-05-27 12:15 | PCM.OPRPT ---
Problems Associated Problem List Diagnoses (1) Breast cancer, left: Report of Operation Date of Procedure: 05/27/21 Pre-Operative Diagnosis: Left breast cancer Post-Operative Diagnosis: Same Surgery/Procedure Performed:: 1. Stereotactic guided wire localization of left breast mass 2. Injection of blue dye 3. Left partial mastectomy 4. Left axillary sentinel lymph node biopsy Specimen's removed: 1. Left breast mass 2. Left axillary lymph nodes Description of Procedure: Patient was brought to the stereotactic room and the stereotactic table is used to localize the left breast mass. After stereotactic images were obtained the computer was programmed and the skin was prepped and injected with local anesthetic. The needle was placed into the breast mass and stereotactic images were used to confirm placement. The wire was then left in the breast mass and the needle was removed. Mammography was obtained the patient was brought to the operating room. Once in the operating room, general anesthesia was induced. The left breast was injected in the retromammary space with 5 cc of Lymphazurin and 10 cc of saline. The breast was massaged. The left breast and axilla were prepped in the normal sterile fashion. Next the axillary region was injected with local anesthetic and incision was made. It was deepened to the axillary fascia which was incised. Blue lymph nodes were identified and they were radioactive. These were dissected free using clips and sharp dissection. The 10-second count was over 4900 for this lymph node cluster. The axilla was inspected and there were no further radioactive or blue lymph nodes in the axilla. Hemostasis was obtained using clips. The axilla was packed and the lymph node contents were sent for frozen section. Frozen section came back negative. The superior portion of the breast was marked and injected with local anesthetic. An incision was made over the wire. Flaps were raised using electrocautery and the breast mass and wire were removed after being dissected free using electrocautery. Hemostasis was good. The mass was oriented and marked and sent for mammography. Mammography showed the clip and the entire wire present. It was then sent for pathology which showed good margins. The cavity was irrigated and suctioned dry and closed with interrupted 3-0 Vicryl sutures and a running 4-0 Monocryl suture in the same fashion the axillary incision was closed with interrupted 4-0 Vicryls and running 4-0 Monocryl suture. Glue was applied to both incisions and the patient was taken to PACU in stable condition. Admit VTE Documentation VTE Mechan Device Prophylaxis: SCD's
--- NOTE | 2021-05-27 12:21 | EX.PCM.DISCH ---
Discharge Instructions Procedure Breast Surgery Diet Discharge Diet: No restrictions Activity Discharge Activity: May Not Drive (for 2-3 days or while taking narcotic pain medications.) May shower in (days): 1 Lifting Restrictions: 10 lbs for 1 week Dressing / Incision Call your doctor if your incision/area has: Continuous Slow Oozing, Sudden Increased Bleeding, Increased Pain/ Swelling, Increased Redness, Foul Smelling Discharge and Swelling at the incision site Call your doctor if you observe: Fever of 101 or Higher Suture Line Care: Avoid Pulling/Pushing Cleanse incision/area with: Soap & Water Follow Up Care Please Follow Up With: Solomon Spence MD When: Please call to schedule 2 week follow up appointment. [phone] Test Results: Test results from this visit will be discussed in further detail at your follow-up appointment, if applicable. Discharge Plan Admission Attending Provider: Solomon Spence Primary Care Provider: Dwight Parnell Discharge Orders/Prescriptions Prescriptions: New oxycodone-acetaminophen [Percocet] 5-325 mg tablet 1 - 2 tab PO Q6H PRN (Reason: pain) 5 Days Qty: 20 RF: 0 No Action trazodone 100 mg tablet 200 mg PO HS 30 Days Qty: 60 RF: 0 meloxicam [Mobic] 15 mg tablet 15 mg PO DAILY Qty: 30 RF: 4 cranberry 500 mg capsule 1,500 mg PO DAILY RF: 0 fluticasone propionate 9.9 ML spray,suspension 2 spray INTRANASAL DAILY PRN (Reason: Nasal Congestion) RF: 0 omeprazole 40 mg capsule,delayed release(DR/EC) 40 mg PO DAILY RF: 0 hydrochlorothiazide 12.5 mg tablet 12.5 mg PO DAILY Qty: 90 RF: 3 Referrals / Follow Up: Dwight Parnell DO [Primary Care Provider] - Disposition Disposition (needs filled in before D/C Order can be placed): Home, Self Care
== END 2021-05-27 14:30 | disposition home or self-care (01) ==
LOC: SDC 07:09 → AC 07:10
PROVIDERS: Anesthesiology; PCP Family Medicine; Referring Provider Surgery; Visit Provider Surgery
PROC: (CPT 19301; principal; 2021-05-27 09:45)
DX: C50.912 Malignant neoplasm of unspecified site of left female breast (principal); Z17.0 Estrogen receptor positive status [ER+]; R59.0 Localized enlarged lymph nodes; I10 Essential (primary) hypertension; G47.33 Obstructive sleep apnea (adult) (pediatric); M19.90 Unspecified osteoarthritis, unspecified site; K21.9 Gastro-esophageal reflux disease without esophagitis; J45.40 Moderate persistent asthma, uncomplicated; Z87.19 Personal history of other diseases of the digestive system; Z87.440 Personal history of urinary (tract) infections; Z79.899 Other long term (current) drug therapy
CPT/HCPCS: 00400; 19301; 38525; 19281; 36415; 38792; 76098; 80048; 85027; 87426; 88305; 88307; 88331; 88341; 88342; A9541; C9803; J7120; J2405; J3490; Q9968

== ENCOUNTER → 2021-06-17 12:59 | Outpatient (CLI) | payer MEDICARE, OTHER, SELFPAY ==
[2021-06-16 15:52] VITALS: BMI 32.1
--- NOTE | 2021-06-17 13:20 | RAD_ITS ---
STUDY: X-RAY CHEST REASON FOR EXAM: Female, 70 years old. BREAST CANCER TECHNIQUE: PA and lateral views of the chest. COMPARISON: None. FINDINGS: Surgical clips are seen in the left axillary region. The lungs are clear and expanded. There is no demonstrated pleural abnormality. Normal size heart. Normal mediastinum and lilia. Normal visualized pulmonary arteries. There is atherosclerotic calcification of the aortic arch with tortuosity. There are diffuse degenerative changes of the visualized thoracic spine. Normal visualized ribs, clavicles, and shoulders. There is no demonstrated abnormality of the visualized soft tissue structures of the upper abdomen. RAD/Chest PA and Lateral IMPRESSION: No acute abnormality is seen. Electronically Signed: Jono Venegas MD at 21:54 EDT , Service support ,
== END ==
PROVIDERS: PCP Family Medicine; Referring Provider Internal Medicine Medical Oncology; Visit Provider Internal Medicine Medical Oncology
DX: C50.212 Malignant neoplasm of upper-inner quadrant of left female breast (principal); Z17.0 Estrogen receptor positive status [ER+]
CPT/HCPCS: 71046

== ENCOUNTER → 2021-08-26 | Outpatient (CLI) | payer MEDICARE, OTHER, SELFPAY ==
[2021-08-26 12:06] LABS: Color, Urine Yellow (Yellow); Glucose, Dipstick Normal (Normal); Ketone-Dipstick Negative (Negative); Leukocyte Esterase-Dipstick 500 /ul (Negative); Nitrite-Dipstick Negative (Negative); Occult Blood-Urine 10 /ul (Negative); Protein-Dipstick Negative (Negative); Specific Gravity, Urine 1.015 (1.002-1.030); Urine Bilirubin Dipstick Negative (Negative); Urine Clarity Sl. Cloudy (Clear); Urine Urobilinogen Normal (Normal)
== END | disposition home or self-care (01) ==
LOC: LABSPEC 11:26
PROVIDERS: PCP Family Medicine; Referring Provider Family Medicine; Visit Provider Family Medicine
DX: N39.0 Urinary tract infection, site not specified (principal)
CPT/HCPCS: 81002; 87077; 87086; 87088; 87186

== ENCOUNTER → 2021-10-23 08:44 | Outpatient (CLI) | payer MEDICARE, OTHER, SELFPAY ==
--- NOTE | 2021-10-23 08:46 | US_ITS ---
STUDY: ULTRASOUND BREAST - LEFT REASON FOR EXAM: Female, 71 years old. Left breast pain. TECHNIQUE: Axial and longitudinal images of the LEFT breast were performed with a high resolution ultrasound transducer. # OF IMAGES: 23 COMPARISON: Comparison is made with prior mammogram done earlier in the day as well as prior sonogram of the left breast dated 03/24/2021. FINDINGS: LEFT Breast: The area of the lumpectomy site was examined by ultrasound. There is evidence of a post lumpectomy scarring. No other abnormality is seen. US/Breast Limited Unilateral IMPRESSION: The localized area of pain corresponds to the lumpectomy site. ASSESSMENT CATEGORY: BIRADS Category 2: Benign. A letter regarding these results will be sent to the patient by the facility within 30 days. Electronically Signed: Jono Venegas MD at 15:10 EST , Service support ,
--- NOTE | 2021-10-23 08:46 | BI_ITS ---
MAMMOGRAPHY - UNILATERAL DIAGNOSTIC: LEFT BREAST REASON FOR EXAM: Female, 71 years old. Left breast pain/tenderness. PERTINENT HISTORY: Personal history of breast cancer. Prior left lumpectomy and radiation treatment. TECHNIQUE: Digital unilateral breast ben (3D mammographic acquisition) in the CC and MLO projections. 2-D mediolateral oblique (MLO) and craniocaudad (CC) views of both breasts were obtained. CAD: Full Field Digital Mammography with Computer Added Detection was performed. COMPARISON: Comparison is made with prior mammogram dated 03/24/2021. FINDINGS: Breast Composition: The breasts are almost entirely fatty. There are no dominant masses or suspicious calcifications. Since prior study, the patient underwent lumpectomy of the previously seen nodular density in the deep upper central portion of the left breast. Postoperative architectural distortion and scarring is seen at the operative site. Surgical clips are seen in the left axillary region. No other significant abnormalities are identified. BI/DIAG MAMM W/CAD, UNILAT IMPRESSION: Status post lumpectomy with postoperative changes as described. Correlation with ultrasound is recommended. ASSESSMENT CATEGORY: BIRADS Category 0: Incomplete. Need additional imaging evaluation. A letter regarding these results will be sent to the patient by the facility within 30 days. Approximately 10% of breast cancers are not detected by mammography. A normal mammogram should not delay biopsy of a clinically suspicious abnormality. Electronically Signed: Jono Venegas MD at 9:29 EST , Service support ,
== END ==
PROVIDERS: PCP Family Medicine; Referring Provider Internal Medicine Medical Oncology; Visit Provider Internal Medicine Medical Oncology
DX: C50.212 Malignant neoplasm of upper-inner quadrant of left female breast (principal); Z17.0 Estrogen receptor positive status [ER+]
CPT/HCPCS: 76642; 77061; 77065; G0279

== ENCOUNTER → 2021-11-03 09:22 | Outpatient (CLI) | payer MEDICARE, OTHER, SELFPAY ==
[2021-11-03 10:45] LABS: Hepatitis B Surface Antibody Non-Reactive
[2021-11-04 03:07] LABS: HEPATITIS B SURFACE AG Negative (Negative); Hepatitis A IgM Antibody Negative (Negative); Hepatitis B Core AB IgM Negative (Negative)
[2021-11-04 15:28] LABS: Hep C Antibodies <0.1 s/co ratio (0.0-0.9); Hepatitis A AB, Total Negative (Negative)
== END ==
PROVIDERS: PCP Family Medicine; Referring Provider Dermatology Pediatric Dermatology; Visit Provider Dermatology Pediatric Dermatology
DX: L66.8 Other cicatricial alopecia (principal); L82.1 Other seborrheic keratosis; Z08 Encounter for follow-up examination after completed treatment for malignant neoplasm; L71.8 Other rosacea; Z85.3 Personal history of malignant neoplasm of breast
CPT/HCPCS: 36415; 80074; 86706; 86708

== ENCOUNTER 2022-03-02 09:53 | Outpatient (CLI) | payer MEDICARE, OTHER, SELFPAY ==
[2022-03-02 09:56] LABS: Mucous, Urine 0 SEEN /hpf (<or=2+)
[2022-03-02 12:22] LABS: Color, Urine Yellow (Yellow); Glucose, Dipstick Normal (Normal); Ketone-Dipstick Negative (Negative); Leukocyte Esterase-Dipstick 500 /ul (Negative); Nitrite-Dipstick Positive (Negative); Occult Blood-Urine 150 /ul (Negative); Protein-Dipstick 30 mg/dl (Negative); Urine Bilirubin Dipstick Negative (Negative); Urine Clarity Sl. Cloudy (Clear); Urine Urobilinogen Normal (Normal)
[2022-03-02 12:39] LABS: Bacteria 2+ /hpf (None Seen); Red Blood Cells-Urine 10-25 SEEN /hpf (0-5); Squamous Epithelial Cells - UA 0-5 SEEN /hpf (5-10); White Blood Cells 25-50 SEEN /hpf (0-5)
== END 2022-03-02 23:59 | disposition home or self-care (01) ==
LOC: LABSPEC 09:54
PROVIDERS: PCP Family Medicine; Visit Provider Nurse Practitioner Family
DX: N39.0 Urinary tract infection, site not specified (principal); N64.4 Mastodynia
CPT/HCPCS: 81001; 87077; 87086; 87088; 87186

== ENCOUNTER 2022-03-10 12:07 | Outpatient (CLI) | payer MEDICARE, OTHER, SELFPAY ==
--- NOTE | 2022-03-10 09:07 | LES_PTH ---
PATIENT: VERONICA ZULUAGA LOC: [facility] U#:[id number] AGE/SX: 71/F ROOM: RE03/10/[address]: Dr. Virgil Jaimes DDS : 1950 BED: DIS: 03/10/2022 SPEC #: [id number] RECD: 03/10/22 11:52 STATUS: BERTRAM REKeena #: [id number] TICO: 03/10/22 09:[address]: Virgil Jaimes DEPT: SURGICAL PATHOLOGY RECD BY: Catarina Russell ENTERED: 03/10/22 12:20 SP TYPE: Lesion OTHR DR: Dr. Dwight Parnell, DO Tissues: Skin of lip, NOS Procedures: Special Stain Group I Surgery Specimen Level IV GMS Stain (control) HEADER OPERATION: Biopsy PRE-OP DIAGNOSIS: Several year growth lower lip TISSUE SUBMITTED: Lip biopsy MICROSCOPIC DIAGNOSIS Lip, biopsy: A piece of squamous mucosa with focal ulceration and associated acute inflammation. Focal acanthosis and pseudoepitheliomatous hyperplasia. Subepithelial fibrosis consistent with irritation fibroma. Negative for malignancy. See comment. BRYAN:hadley 03/11/2022 COMMENT Special stain for fungi is negative for organisms; matched control is appropriate. Correlation with clinical findings and appropriate follow up are necessary. MICROSCOPIC DESCRIPTION Slides are reviewed. GROSS DESCRIPTION Received in fixative is one container labeled with the patient's name and designated lip. The specimen consists of a piece of marcano, indurated mucosal tissue measuring 0.5 x 0.5 x 0.2 cm. The specimen is inked and submitted entirely in one cassette. / BRYAN:hadley 03/10/2022 TC:5 CPT: 15099, 13927
== END 2022-03-10 23:59 | disposition home or self-care (01) ==
LOC: LABSPEC 12:13
PROVIDERS: PCP Family Medicine; Referring Provider Dentist Oral and Maxillofacial Surgery; Visit Provider Dentist Oral and Maxillofacial Surgery
DX: L90.5 Scar conditions and fibrosis of skin (principal); L85.8 Other specified epidermal thickening
CPT/HCPCS: 88305; 88312

== ENCOUNTER → 2022-03-25 | Outpatient (CLI) | payer MEDICARE, OTHER, SELFPAY ==
--- NOTE | 2022-03-25 07:45 | BI_ITS ---
MAMMOGRAPHY - BILATERAL SCREENING REASON FOR EXAM: Female, 71 years old. Routine annual screening examination. PERTINENT HISTORY: Personal history of breast cancer. Prior left lumpectomy and radiation. TECHNIQUE: Digital bilateral breast patric (3D mammographic acquisition) in the CC and MLO projections. 2-D mediolateral oblique (MLO) and craniocaudad (CC) views of both breasts were obtained. CAD: Full Field Digital Mammography with Computer Added Detection was performed. COMPARISON: Comparison is made with prior study dated 03/24/2021 and 10/23/2021. FINDINGS: Breast Composition: The breasts are almost entirely fatty. There are no dominant masses or suspicious calcifications. The patient is status post lumpectomy in the upper central portion of the left breast with resultant postoperative scarring. Surgical clips are also seen in the left axillary region. There is been no change. No other significant abnormalities are identified. There has been no significant change since the prior study. BI/SCRN MAMM (CAD)W/PATRIC BILAT IMPRESSION: Stable bilateral screening mammogram. Yearly follow-up mammogram recommended. (A) ASSESSMENT CATEGORY: BIRADS Category 2: Benign. A letter regarding these results will be sent to the patient by the facility within 30 days. Approximately 10% of breast cancers are not detected by mammography. A normal mammogram should not delay biopsy of a clinically suspicious abnormality. [id number] Electronically Signed: Jono Venegas MD at 8:57 EDT ,
== END | disposition home or self-care (01) ==
LOC: OPBI 07:44
PROVIDERS: PCP Family Medicine; Referring Provider Student in an Organized Health Care Education/Training Program; Visit Provider Student in an Organized Health Care Education/Training Program
DX: Z12.31 Encounter for screening mammogram for malignant neoplasm of breast (principal)
CPT/HCPCS: 77063; 77067

== ENCOUNTER → 2022-04-07 | Outpatient (CLI) | payer MEDICARE, OTHER, SELFPAY | END | disposition home or self-care (01) | LOC: LABSPEC 08:47 | PROVIDERS: PCP Family Medicine; Referring Provider Family Medicine; Visit Provider Family Medicine | DX: N39.0 Urinary tract infection, site not specified (principal) | CPT/HCPCS: 87086; 87088; 87186 ==

== ENCOUNTER → 2022-07-03 | Outpatient (CLI) | payer MEDICARE, OTHER, SELFPAY ==
--- NOTE | 2022-07-03 08:03 | MRI_ITS ---
STUDY: MRI RIGHT KNEE WITH AND WITHOUT CONTRAST REASON FOR EXAM: Abnormal radiograph, right knee pain for 8 to 10 years, history of breast cancer. TECHNIQUE: Standardized fat and water weighted pulse sequences were obtained in all 3 orthogonal planes before and after intravenous administration of 15 mL of Clariscan. COMPARISON: Radiographs 06/24/2022. FINDINGS: There is a radial tear at the root of the posterior horn of the medial meniscus (T2 coronal image 11; T2 sagittal images 14, 15). There is peripheral subluxation of the medial meniscus and chondrocalcinosis within the body of the medial meniscus accounting for the calcification on the radiographs. There is arthrosis of the medial femorotibial compartment with chondral thinning of the medial femoral condyle (T2 sagittal image 17). Normal medial femoral condyle and tibial plateau. Normal medial collateral ligamentous complex (MCL). Normal distal semimembranosus, gracilis and semitendinosus tendons. Normal lateral meniscus. Normal hyaline cartilage of the lateral femorotibial compartment. Normal lateral femoral condyle and tibial plateau. Normal proximal tibiofibular articulation. Normal lateral collateral (fibular) ligament. Normal popliteus tendon. Normal biceps femoris tendon. Normal anterior cruciate ligament (ACL). Normal posterior cruciate ligament (PCL). Normal congruent patellofemoral articulation. There is arthrosis of the patellofemoral compartment with chondral thinning (T2 sagittal image 10). Normal medial and lateral patellar retinaculum. Normal quadriceps tendon. There is mild proximal patellar tendinosis (T2 sagittal images 10, 11). Normal Hoffa''s fat pad. There is a minimal volume of fluid in the knee joint. There is a small lobulated ganglion cyst adjacent to the origin of the medial gastrocnemius (T2 axial image 10) measuring 1 cm in AP dimension without associated contrast enhancement. The otherwise visualized osseous structures are unremarkable without demonstrated focus of contrast enhancement. MRI/Lower Ext Joint Only W/WO Cont IMPRESSION: Radial tear at the root of the posterior horn of the medial meniscus, and chondrocalcinosis within the body of the medial meniscus. Arthrosis of the medial femorotibial and patellofemoral compartments. Mild proximal patellar tendinosis. Small ganglion cyst adjacent to the origin of the medial gastrocnemius. No demonstrated osseous lesion. Electronically Signed: Ricardo Sherman MD at 9:43 EDT ,
[2022-07-03 08:35] LABS: CREATININE FINGERSTICK < 0.9 mg/dL (0.55-1.02); EGFR FINGERSTICK > 60.0000 mL/min (>60)
== END | disposition home or self-care (01) ==
LOC: MRI 08:03
PROVIDERS: PCP Family Medicine; Visit Provider Orthopaedic Surgery
DX: C50.912 Malignant neoplasm of unspecified site of left female breast (principal); M89.9 Disorder of bone, unspecified
CPT/HCPCS: 73723; A9575; A4216

== ENCOUNTER 2022-07-27 22:51 | Emergency (ER) | payer MEDICARE, OTHER, SELFPAY ==
[2022-07-27 22:53] VITALS: BP 161/93; PULSE 83; RESP 20; TEMP 37.1; O2SAT 98; BMI 31.4
--- NOTE | 2022-07-27 22:58 | EDS_ITS ---
HPI History of Present Illness Chief Complaint: Syncope Informant: patient Onset/Context/Timing Onset: Today Context: Sudden Onset Timing: Continuous Quality: Weakness Location: Generalized Worsened by: Argument with daughter Relieved by: Nothing Narrative Narrative: Patient presents with near syncopal episode that began today. Patient states she got into an argument with her daughter alfredo. Patient states that after her daughter walked away, she felt weak all over. Patient states she fell but did not lose consciousness. Patient states she still feels weak at this time. Patient admits to some mild pain in her chest. Patient also admits to a chronic cough but denies any shortness of breath. Patient admits to a mild headache. Patient denies any visual changes. Patient denies any sore throat. Patient denies any nausea or vomiting. Patient denies any diaphoresis. Prior similar symptoms: Yes PFSH [facility] Medical History Abdominal bloating Abnormal pulmonary function test Acute serous otitis media of left ear Allergic rhinitis Arthritis Asthma, moderate persistent Breast pain, right Cancer Cardiology follow-up encounter Chest pain Chronic cough CPAP (continuous positive airway pressure) dependence Dermatitis Difficulty swallowing Dysuria Essential (primary) hypertension Eyelid myokymia Flank pain Gastric reflux Hiatal hernia with gastroesophageal reflux History of edema History of hiatal hernia History of stress test History of trigger finger History of ulceration Hx of echocardiogram Hypertension Migraine headache Nausea & vomiting Non-smoker Pyelonephritis Shortness of breath on exertion Spondylolisthesis at L4-L5 level Syncope Trochanteric bursitis of right hip UTI (urinary tract infection) Vertigo Wears glasses Home Medications fluticasone propionate 50 mcg/actuation nasal spray,suspension 2 spray intranasal DAILY PRN Nasal Congestion 04/21/19 [History Last Taken Unknown] cranberry 500 mg capsule 1,500 mg PO DAILY 04/30/21 [History Last Taken Unknown] hydrochlorothiazide 12.5 mg tablet 12.5 mg PO DAILY #90 tabs 09/01/21 [Rx Last Taken Unknown] anastrozole 1 mg tablet 1 mg PO DAILY #90 tabs 09/16/21 [Rx Last Taken Unknown] trazodone 100 mg tablet 200 mg PO HS SLEEP 30 days #60 tabs 10/14/21 [History Last Taken Unknown] triamcinolone acetonide 0.025 % topical ointment 1 applic topical BID PRN Dermatitis #454 grams 10/24/21 [Rx Last Taken Unknown] omeprazole 40 mg capsule,delayed release See Rx Instructions .Route .COMPLEX #90 CAPSULES 03/16/22 [Rx Last Taken Unknown] cephalexin 500 mg capsule 500 mg PO Q6 #12 CAPSULES 07/28/22 [Rx Last Taken Unknown] Allergy/AdvReac Type Severity Reaction Status Date / Time nitrofurantoin Allergy Mild rash Verified 07/27/22 22:56 [From Macrobid] codeine phosphate AdvReac Vomiting Verified 07/27/22 22:56 [From Tylenol-Codeine] Family History Mother Cancer Diabetes Father Cancer Grandfather Diabetes Grandmother Glaucoma Surgical History History of appendectomy History of cholecystectomy History of hysterectomy History of right hip replacement History of tonsillectomy History of tubal ligation Hx of colonoscopy Hx of laparoscopy Hx of shoulder surgery Status post trigger finger release Social History Smoking Status: Never smoker second hand exposure: No alcohol intake: never substance use type: does not use caffeine: Yes what type of physical activity do you participate in: none ROS ROS ED Constitutional Constitutional ED: Denies chills or fever(s) Eyes Eyes: Denies blurry vision or change in vision ENT ENT ED: Denies rhinorrhea or sore throat Cardiovascular Cardiovascular: Reports chest pain; Denies palpitations Respiratory/Chest Respiratory/Chest: Reports cough; Denies dyspnea Gastrointestinal Gastrointestinal: Denies nausea or vomiting Genitourinary Genitourinary ED: Denies dysuria or hematuria Musculoskeletal Musculoskeletal: Denies back pain or neck pain Integumentary Denies abscess or rash Neurologic Neurologic: Reports headache(s) and weakness Allergic/Immunologic Allergic/Immunologic ED: Denies mouth swelling or urticaria EXAM Physical Exam Const Vital Signs: 07/27/22 22:53 07/27/22 22:57 07/27/22 23:23 Temperature 98.7 F Temperature Source Temporal Pulse Rate 83 Pulse Rate [Lying] 78 Pulse Rate [Sitting (for 1 minute prior to obtaining)] 87 Pulse Rate [Standing (for 1 minute prior to obtaining)] 88 Respiratory Rate 20 H Respiratory Effort Normal Blood Pressure 161/93 H Blood Pressure [Lying] 154/90 H Blood Pressure [Sitting (for 1 minute prior to obtaining)] 134/96 H Blood Pressure [Standing (for 1 minute prior to obtaining)] 125/79 H Blood Pressure Mean 115 Blood Pressure Mean [Lying] 111 Blood Pressure Mean [Sitting (for 1 minute prior to obtaining)] 108 Blood Pressure Mean [Standing (for 1 minute prior to obtaining)] 94 Pulse Ox 98 Oxygen Delivery Method Room Air Positive well nourished and well developed General Appearance ED: well developed and NAD HEENT Reports moist mucous membranes Neck supple and no JVD Resp normal respiratory effort and clear to auscultation bilaterally Cardio regular rate, regular rhythm and no murmurs GI normal to inspection, nondistended, normoactive bowel sounds and non-tender Palpation: soft Extremity normal to inspection General Extremety ED: Negative for edema or tenderness General Extremity: Negative for edema Neuro oriented x3, CN's II-XII intact bilaterally and no sensory deficits noted Sensorium / Orientation: alert Motor Exam: strength 5/5 throughout Psych mental status grossly normal Skin no rashes or lesions noted MDM MDM MDM Narrative Medical decision making narrative: Patient was given IV fluids. CBC was within normal limits. Comprehensive metabolic profile showed a slightly elevated glucose of 276 was otherwise within normal limits. BGT was 269. CT scan of the brain was obtained. There is no acute intracranial abnormality. This was interpreted by the radiologist and reviewed by myself. PA and lateral chest x-ray was obtained. There are 2 views. On my interpretation, lung berry are clear. There is normal cardiac silhouette. Bony thorax is normal. There is no acute process noted. Radiologist also interpreted the x-ray and agrees. EKG was obtained. On my interpretation, it showed a normal sinus rhythm with a rate of 70. CT interval, QRS interval, and QTc intervals were all normal. There is borderline left axis deviation at -26. There are no acute ST or T wave changes. Urinalysis shows a leukocyte esterase of 500 with 10-25 white blood cells and 1+ bacteria. Urine culture was ordered. Patient was given a dose of Keflex here. Patient is given a prescription for Keflex. Patient was instructed to drink plenty of fluids. Patient was instructed to follow-up with her primary care physician in 5 to 7 days. Patient understood and was agreeable with the plan. All questions were answered. Lab Data Attestation: I reviewed the patient's lab results. Labs: Laboratory Results - last 24 hr 07/27/22 07/27/22 07/27/22 23:15 23:15 23:19 WBC 7.9 RBC 4.42 Hgb 13.5 Hct 38.1 MCV 86.2 MCH 30.5 MCHC 35.4 RDW Std Deviation 39.0 RDW Coeff of Anju 12.3 Plt Count 220 MPV 9.4 Immature Gran % (Auto) 1.800 H Neut % (Auto) 66.4 Lymph % (Auto) 20.4 Storey % (Auto) 8.3 Eos % (Auto) 2.2 Baso % (Auto) 0.9 Absolute Neuts (auto) 5.2 Absolute Lymphs (auto) 1.60 Nucleated RBC % 0 Sodium 137 Potassium 3.5 Chloride 99 Carbon Dioxide 28.0 Anion Gap 10 BUN 13 Creatinine 1.13 H Estim Creat Clear Calc 36.64 Est GFR (MDRD) Af Amer 61 Est GFR (MDRD) Non-Af 51 L BUN/Creatinine Ratio 11.5 Glucose 276 H Calcium 9.7 Total Bilirubin 0.20 AST 16 ALT 30 Alkaline Phosphatase 70 Troponin I High Sens 5 Total Protein 7.2 Albumin 3.5 Globulin 3.7 Albumin/Globulin Ratio 0.9 Urine Color Urine Clarity Urine pH Ur Specific [place] Urine Protein Urine Glucose (UA) Urine Ketones Urine Occult Blood Urine Nitrite Urine Bilirubin Urine Urobilinogen Ur Leukocyte Esterase Urine RBC Urine WBC Ur Squamous Epith Cells Urine Bacteria Urine Mucus POC Glucose 269 H 07/27/22 23:20 WBC RBC Hgb Hct MCV MCH MCHC RDW Std Deviation RDW Coeff of Anju Plt Count MPV Immature Gran % (Auto) Neut % (Auto) Lymph % (Auto) [place] % (Auto) Eos % (Auto) Baso % (Auto) Absolute Neuts (auto) Absolute Lymphs (auto) Nucleated RBC % Sodium Potassium Chloride Carbon Dioxide Anion Gap BUN Creatinine Estim Creat Clear Calc Est GFR (MDRD) Af Amer Est GFR (MDRD) Non-Af BUN/Creatinine Ratio Glucose Calcium Total Bilirubin AST ALT Alkaline Phosphatase Troponin I High Sens Total Protein Albumin Globulin Albumin/Globulin Ratio Urine Color Yellow Urine Clarity Clear Urine pH 6.0 Ur Specific [place] 1.015 Urine Protein Negative Urine Glucose (UA) Normal Urine Ketones Negative Urine Occult Blood 25 H Urine Nitrite Negative Urine Bilirubin Negative Urine Urobilinogen Normal Ur Leukocyte Esterase 500 H Urine RBC 0-5 SEEN Urine WBC 10-25 SEEN Ur Squamous Epith Cells 0 SEEN Urine Bacteria 1+ Urine Mucus 0 SEEN POC Glucose Radiography Chest X-Ray - ED: 2 View, Read by ED Physician, Read by Radiologist and No Acute Disease Diagnostic Testing: Clinical Impression(s) from Imaging Studies Brain CT 07/27/22 23:00 IMPRESSION: No acute abnormal intracranial finding. Electronically Signed: Azam Braun MD at 0:07 EDT , Chest X-Ray 07/27/22 23:50 IMPRESSION: No acute abnormal cardiopulmonary finding. Electronically Signed: Azam Braun MD at 0:10 EDT , EKG Initial EKG: Attestation: I personally reviewed and interpreted this EKG as follows: Interpretation: Sinus Rhythm (70) and No Acute Injury Pattern Prior EKG tracings: available for review Prior: Unchanged (03/26/2021) Discharge Plan Triage Chief Complaint: Syncope ED Provider: Eusebio Rice Dx/Rx/DC Orders Clinical Impression: Near syncope, UTI (urinary tract infection) Instructions: ED Near-Fainting, Uncertain Cause, ED Cystitis Female Adult Prescriptions: New cephalexin [cephalexin] 500 mg capsule 500 mg PO Q6 Qty: 12 0RF No Action trazodone 100 mg tablet 200 mg PO HS 30 Days Qty: 60 cranberry 500 mg capsule 1,500 mg PO DAILY Rx Instructions: administer with meals fluticasone propionate 9.9 ML spray,suspension 2 spray INTRANASAL DAILY PRN (Reason: Nasal Congestion) Rx Instructions: administer into each nostril hydrochlorothiazide 12.5 mg tablet 12.5 mg PO DAILY Qty: 90 3RF anastrozole 1 mg tablet 1 mg PO DAILY Qty: 90 3RF triamcinolone acetonide 0.025 % ointment 1 applic topical BID PRN (Reason: Dermatitis) Qty: 454 1RF omeprazole 40 mg capsule,delayed release(DR/EC) See Rx Instructions .ROUTE .COMPLEX Qty: 90 1RF Dose Instruction: TAKE 1 CAPSULE BY MOUTH ONCE DAILY Rx Instructions: TAKE 1 CAPSULE BY MOUTH ONCE DAILY Primary Care Provider: Dwight Parnell Referrals: Dwight Parnell, [Primary Care Provider] - 5-7 Days Disposition Disposition: Home, Self Care
--- NOTE | 2022-07-27 23:00 | CT_ITS ---
STUDY: CT BRAIN WITHOUT CONTRAST REASON FOR EXAM: Female, 71 years old. Headache RADIATION DOSAGE (If Supplied By Facility): CTDIvol = ( 44.99 ) mGy, DLP = ( 779.24 ) mGycm TECHNIQUE: Transaxial CT imaging of the brain was performed without administration of intravenous contrast material. Individualized dose optimization techniques were used for this CT. COMPARISON: No relevant priors. FINDINGS: Normal soft tissue structures. Normal calvarium. Normal size ventricles and extra-axial spaces for the patient''s age. Normal white matter tracts of the cerebral hemispheres. Normal basal ganglia and thalami. Normal brainstem. Normal cerebellum. There is no intracranial hemorrhage. There are no findings of an acute ischemic infarction. Normal visualized paranasal sinuses. CT/Brain/Head without Contrast IMPRESSION: No acute abnormal intracranial finding. Electronically Signed: Azam Braun MD at 0:07 EDT ,
[2022-07-27] MEDS: 0.9% Normal Saline 1,000 ML 1000 ML IV (23:22)
[2022-07-27 23:23] VITALS: BP 125/79; BP 134/96; BP 154/90; PULSE 78; PULSE 87; PULSE 88
[2022-07-27 23:31] LABS: Color, Urine Yellow (Yellow); Glucose, Dipstick Normal (Normal); Ketone-Dipstick Negative (Negative); Leukocyte Esterase-Dipstick 500 /ul (Negative); Mucous, Urine 0 SEEN /hpf (<or=2+); Nitrite-Dipstick Negative (Negative); Occult Blood-Urine 25 /ul (Negative); Protein-Dipstick Negative (Negative); Specific Gravity, Urine 1.015 (1.002-1.030); Squamous Epithelial Cells - UA 0 SEEN /hpf (5-10); Urine Bilirubin Dipstick Negative (Negative); Urine Clarity Clear (Clear); Urine Urobilinogen Normal (Normal)
[2022-07-27 23:39] LABS: Absolute Neutrophil Count 5.2 X10^3/uL (2.0-7.7); Basophil# 0.07 X10^3/uL; Basophil% 0.9 % (0-1); Eosinophil# 0.17 X10^3/uL; Eosinophils% 2.2 % (0-5); Hematocrit 38.1 % (37-47); Hemoglobin 13.5 g/dL (12.0-15.0); Lymphocyte % 20.4 % (19-41); Mean Corp Hgb Conc 35.4 g/dL (32-36); Mean Corpuscular Hgb 30.5 pg (27.0-32.0); Mean Corpuscular Volume 86.2 fL (81-99); Mean Platelet Vol. 9.4 fl (6.2-12.0); Monocyte# 0.65 X10^3/uL; Monocyte% 8.3 % (0-10); NRBC Flagged by Analyzer 0 % (0-5); Neutrophil # 5.23 X10^3/uL (2.7-7.7); Neutrophil % 66.4 % (47-70); Platelet Count 220 K/mm3 (150-450); RBC Distribution Width CV 12.3 % (11.6-14.6); Red Blood Count 4.42 M/mm3 (4.2-5.4); White Blood Count 7.9 K/mm3 (4.4-11.0)
[2022-07-27 23:39] LABS: Bacteria 1+ /hpf (None Seen); Red Blood Cells-Urine 0-5 SEEN /hpf (0-5); White Blood Cells 10-25 SEEN /hpf (0-5)
[2022-07-27 23:40] LABS: ALB/GLOB Ratio 0.9 RATIO (0.9-2.4); AST(SGOT) 16 U/L (15-37); Alanine Aminotransfer ALT/SGPT 30 U/L (13-56); Albumin, Serum 3.5 g/dL (3.2-5.0); Alkaline Phosphatase 70 U/L (45-117); Anion Gap 10 (5-15); BUN 13 mg/dL (7-18); BUN/Creat Ratio 11.5 RATIO (10-20); Calcium,Total 9.7 mg/dL (8.5-10.1); Chloride 99 mmol/L (98-107); Creatinine, Serum 1.13 mg/dL (0.55-1.02); EST Glomerular Filtration Rate 51 mL/min (>60); Est Glom Filt Rate - Afr Amer 61 mL/min (>60); Estimated Creatinine Clearance 36.64 ml/min; Globulin 3.7 g/dL (2.2-4.2); Glucose 276 mg/dL (74-106); Potassium 3.5 mmol/L (3.5-5.1); Protein, Total 7.2 g/dL (6.4-8.2); Sodium Level 137 mmol/L (136-145); Troponin-I HS 5 pg/mL (3.0-54.0)
[2022-07-27 23:46] LABS: Bedside Glucose 269 mg/dL (74-106)
--- NOTE | 2022-07-27 23:50 | RAD_ITS ---
STUDY: X-RAY CHEST REASON FOR EXAM: Female, 71 years old. Cough TECHNIQUE: PA and lateral views of the chest. COMPARISON: 06/17/2021 FINDINGS: Left chest wall surgical clips and left shoulder suture anchor noted. The lungs are clear and expanded. There is no demonstrated pleural abnormality. Normal size heart. Normal mediastinum and lilia. Normal visualized pulmonary arteries. Aortic arch calcification. There is no demonstrated abnormality of the visualized soft tissue structures of the upper abdomen. RAD/Chest PA and Lateral IMPRESSION: No acute abnormal cardiopulmonary finding. Electronically Signed: Azam Braun MD at 0:10 EDT ,
[2022-07-27] MEDS: Cephalexin 500 MG Capsule PO (23:57)
[2022-07-28 01:03] VITALS: PULSE 82; RESP 18; O2SAT 99
== END 2022-07-28 01:40 | disposition home or self-care (01) ==
PROVIDERS: Emergency Provider Emergency Medicine; PCP Family Medicine; Visit Provider Emergency Medicine
DX: N39.0 Urinary tract infection, site not specified (principal); I10 Essential (primary) hypertension; R05.3 Chronic cough; J45.40 Moderate persistent asthma, uncomplicated; K21.9 Gastro-esophageal reflux disease without esophagitis; Z87.440 Personal history of urinary (tract) infections; Z79.899 Other long term (current) drug therapy; R55 Syncope and collapse
CPT/HCPCS: 70450; 71046; 80053; 81001; 82962; 84484; 85025; 87086; 87088; 93005; 96360; 99285; J7030; A4216

== ENCOUNTER 2022-08-04 10:19 | Outpatient (RCR) | payer MEDICARE, OTHER, SELFPAY ==
--- NOTE | 2022-08-04 17:35 | HP.SP.EVAL ---
History - History Date of Eval: 08/04/22 Medical Diagnosis (from RX): Dysphagia, unspecified (R13.10) Date of Onset of Diagnosis: 07/16/2022 Previous speech therapy: No Other Relevant Medical History/Diagnoses/Surgery: PMH: asthma moderate, breast cancer, hiatal hernia, chronic cough, dysphagia, HTN, GERD, nausea, vomiting, UTI. The patient reports difficulty swallowing for 2-3 years characterized by sensation of food getting caught in her throat and coughing with liquids, especially if her head is rotated to either side. More recently, pills have been getting caught in her throat, giving her the sensation of burning in her throat. She requires frequent liquid washes at meals to clear food. She clears medications with use of food or liquids Smoking Status: Never smoker Hx Smoking: No Hx Tobacco Use: No - Pain Is pain an issue with your current prescribed condition?: No Patient Allergies - Allergies Allergies nitrofurantoin [From Macrobid] Allergy (Mild, Verified 08/04/22 10:57) rash codeine phosphate [From Tylenol-Codeine] Adverse Reaction (Verified 08/04/22 10:57) Vomiting Subjective Dysphagia - Symptoms Reported Symptoms/Problems with: Coughing, Choking, Difficulty Swallowing Solids, Difficulty Swallowing Liquids, Difficulty Swallowing Pills, Food gets stuck - Current Diet Solids Current Diet: Regular - Current Diet Liquids Current Liquids: Thin Objective Dysphagia - Thin Liquids Administred via: Cup, Straw Oral Transit: Delay > 1 seconds Bolus clearance: fully cleared Cough: weak reflexive cough, throat clear Comments: Coughing following 2/4 trials by straw. Throat clear following sequential sips via cup. Cough following 1 sip by cup when used as liquid wash for solids. - Pureed Administered via: Spoon Oral Preparation: WNL Oral Transit: WNL Cough: throat clear Comments: throat clear following 1 bite, sensation of phlegm in throat after 2 bites - Regular Oral Preparation: WNL Oral Transit: Delay > 1 seconds Cough: weak reflexive cough Comments: cough following 1 bite when liquid wash was utilized, sensation of pharyngeal retention prior to use of liquid wash - Swallowing Impairment Contributing Factors to Swallowing Impairment: Delayed Swallow Initiation Other: Sensation of pharyngeal retention of solids - Impact Impact on Safety & Functioning: Risk for Aspiration - Recommendations Modified Barium Swallow/Cookie Swallow Recommended: Yes Swallowing Treatment: Yes - Diet Texture Recommendations Solids: Regular (Level 7) Liquids: Thin (Level 0) - Safety Saftey Precautions/Swallowing Recommendations (Check all that Apply): Upright Position at Least 30 Minutes After Meals, Small Sips & Bites when Eating, No Straw, Alternate Liquids & Solids - Results Swallowing Within Normal Limits: No Swallowing Diagnosis: Oropharyngeal Phase Dysphagia (R13.12) Additional: Mild-moderate Objective Oral Motor - Oral Status Dentition: Missing Teeth - Labial Impairment: WNL - Lingual Impairment: WNL - Jaw Impairment: WNL Opening Measurement: 46mm - Respiratory Status Respiratory Status: Room Air [employer] - V Trigeminal Nerve V Trigeminal Nerve Response: Intact - VII Facial Nerve VII Facial Nerve Result: Intact - X Vagus Nerve X Vagus Nerve Result: Impaired Comment:: Palate asymmetrical with R sided weakness - XII Hypoglossal Nerve XII Hypoglossal Nerve Result: Intact Swallowing Performance Scale - Swallowing Performance Scale Swallowing Performance Scale Result: 4 Mild to Moderate FOIS - Functional Oral Intake Scale Total oral diet with multiple consistencies, but requiring special preparation or compensations: Level 5 SP Oncology PSS-HN - PSS-HN Test Normalcy of Diet: Full diet (liquid assist) Scale Result:: 90 Public Eating: No restrictions of place, food or companions-eats out any opportunity Public eating scale: 100 Understandability of Speech: Always understandable Understandability of Speech Scale: 100 Other - Other EAT-10 -: 16 Plan - Plan Plan: Will recommend the patient for outpatient dysphagia therapy to address mild-moderate oropharyngeal dysphagia. Plan to implement oropharyngeal exercise program, train in strategies to decrease aspiration risk, provide ongoing assessment of diet tolerance, and further evaluate dysphagia with MBSS to objectively assess concerns for aspiration and swallow dysfunction. Without skilled ST services, the patient is at risk for aspiration and aspiration related illness. - Recommendations MBS: Yes Treatment Warranted: Yes Treatment Warranted: Dysphagia - Progress Prognosis: Good - Frequency Frequency: TBD after MBSS 08/13/22 Duration: 2-4 Months - Goals that are Established Determination:: Goals will be added/modified as deemed necessary and appropriate. Therapy will be discontinued when results of re-evaluation indicate therapy is no longer needed or lack of progress has been documented. - Goal #1-5 Goal #1: The patient will participate in MBS study to objectively assess swallow function and provide recommendations for safest, least restrictive diet and compensatory strategies to reduce risk for aspiration. Goal #2: The patient will consume least restrictive diet textures without overt s/s of aspiration with minimal verbal cues to decrease risk for aspiration. Goal #3: The patient will complete an oropharyngeal exercise program with minimal verbal cues to improve strength, ROM, and coordination of swallowing mechanism. Goal #4: The patient will demonstrate use or verbalize awareness of compensatory strategies to decrease risk for aspiration with minimal verbal cues. Education - Patient Instruction Patient Education: Diagnosis, Treatment Plan, Goals, Safety Precautions, Diet Level, Home Exercise Program Other Education: Recommend Le, Ivis, and Effortful X5-10 reps, 3-5X daily Person Taught: Patient Teaching Method: Discussion, Demonstration, Handout, Teach back Response to teaching: Return demonstration, Verbalize understanding, Reinforcement needed
--- NOTE | 2022-10-27 15:25 | HP.SP.DC ---
ST Discharge Summary - Discharged: Discharge: The patient was evaluated by speech therapy for dysphagia 08/04/2022. She was recommended for MBSS. MBSS 08/13/2022 revealed oropharyngeal swallow function WNL and esophageal dysphagia. No further dysphagia therapy warranted, pt referred for GI consult.
== END 2022-08-04 19:00 | disposition home or self-care (01) ==
LOC: SP 10:19
PROVIDERS: PCP Family Medicine; Referring Provider Student in an Organized Health Care Education/Training Program; Visit Provider Student in an Organized Health Care Education/Training Program
DX: R13.12 Dysphagia, oropharyngeal phase (principal)
CPT/HCPCS: 92610

== ENCOUNTER → 2022-08-13 | Outpatient (CLI) | payer MEDICARE, OTHER, SELFPAY ==
--- NOTE | 2022-08-13 10:48 | ST.MBS ---
Modified Barium Swallow - Patient Information Study Date: 08/13/22 Study Time: 10:00 Direct Billable Minutes: 75 Total Minutes procedure & reportin Diagnosis: Dysphagia (R13.10) Referring Physician: Tera Stout Reason for Referral: Objectively assess swallow function, risk for aspiration, and determine recommendations for least restrictive diet textures and compensatory strategies to improve safety of swallow. Medical History: PMH: asthma moderate, breast cancer, hiatal hernia, chronic cough, dysphagia, HTN, GERD, nausea, vomiting, UTI. The patient reports difficulty swallowing for 2-3 years characterized by sensation of food getting caught in her throat and coughing with liquids, especially if her head is rotated to either side. More recently, pills have been getting caught in her throat, giving her the sensation of burning in her throat. She requires frequent liquid washes at meals to clear food. She clears medications with use of food or liquid washes. Pt was evaluated at bedside by speech therapy on 08/04/2022 to objectively assess aspiration risk due to coughing with liquids and solids during evaluation. Current Diet Ordered: Regular textures / Thin liquids Dentition: WNL Mental Status: WNL Respiratory Status: Oxygenating on Room Air - Penetration-Aspiration Scale Penetration-Aspiration Scale: OBJECTIVE ASSESSMENT OF SWALLOW FUNCTION (QUANTITATIVE ? PER TRIAL): PENETRATION / ASPIRATION SCALE ([place]): 1 = does not enter airway 2 = enters airway/above vocal folds/ejected 3 = enters airway/above vocal folds/not ejected 4 = enters airway/contacts vocal folds/ejected 5 = enters airway/contacts vocal folds/not ejected 6 = enters airway/below vocal folds/ejected 7 = enters airway/below vocal folds/not ejected despite effort 8 = enters airway/below vocal folds/no effort VIDEOFLOROSCOPIC SCALE SCORE ([place]): Grade I = aspiration of material that has penetrated into the laryngeal vestibule, intact cough reflex Grade II = aspiration < 10 % of the bolus, intact cough reflex Grade III = aspiration of < 10 % of the bolus, reduced cough reflex or aspiration of > 10 % of the bolus, intact cough reflex Grade IV = aspiration of > 10 % of the bolus, reduced cough reflex - Penetration-Aspiration Scale Score Thin Liquid via teaspoon Result: 1= does not enter airway Thin Liquid via teaspoon Trial 2 Result: 1= does not enter airway Thin Liquid via large single sip from cup Result: 1= does not enter airway Thin Liquid via sequential sips from cup Result: 1= does not enter airway [place] Thick Liquid via small single sip from cup Result: 1= does not enter airway [place] Thick Liquid via small single sip from cup Result: 1= does not enter airway Pudding via teaspoon with esophageal screen Result: 1= does not enter airway Comment: [employer] provided thin liquid wash, which somewhat cleared esophageal retention; however, some barium contrast remained in the patient's mid esophagus. 1/2 Cookie Result: 1= does not enter airway Thin Liquid via single sip from straw Result: 1= does not enter airway Barium Tablet with water Result: 1= does not enter airway - Oral Phase Labial Seal: No Labial Escape Tongue Control During Bolus Hold: Posterior escape of less than half of bolus Bolus Preparation/Mastication: Timely and efficient chewing and mashing Bolus Transport/Lingual Motion: Brisk tongue motion Oral Residue: Trace residue lining oral structures - Pharyngeal Phase Initiation of Pharyngeal Swallow: Bolus head at posterior laryngeal surgace of epiglottis Soft Palate Elevation: No bolus between soft palate and pharyngeal wall Laryngeal Elevation: Comp. Superior move thyroid cart w/comp. apprx arytenoid cart-epig pet Anterior Hyoid Excursion: Complete anterior movement Epiglottic Movement: Complete inversion Laryngeal Vestibule Closure at Height of Swallow: Complete; no air/contrast in laryngeal vestibule Pharyngeal Stripping Wave: Present - complete Pharyngoesophageal Segment Opening: Complete distension and complete duration; no obstruction of flow Tongue Base Retraction: Narrow column of contrast between tongue base & post. pharyngeal wall Pharyngeal Residue: Trace residue within or on pharyngeal structures - Esophageal Phase Esophageal Clearance: Esophageal retention w/ retrograde flow below pharyngoesophageal seg. - Treatment Strategies Effects of treatment strategies attemped:: Liquid wash (X2) = effective in clearing medication through esophagus. Liquid wash (X1) = somewhat effective in clearing pudding contrast from esophagus. - Diagnosis/Impression Diagnosis: Esophageal phase dysphagia (R13.14) Impression: Oropharyngeal swallow function grossly WNL. Mild posterior loss of large sips of liquids to the posterior surface of the epiglottis prior to swallow onset. She maintained excellent airway closure during the swallow across all trials and demonstrated no laryngeal penetration/aspiration. The esophageal phase was marked by esophageal retention of pudding with retrograde flow to mid and upper esophagus. This retention, somewhat cleared with a liquid wash. She required 2 liquid washes to clear barium tablet from the esophagus. - Recommendations Diet: Regular Textures, Thin Liquids Compensatory Strategies: Small Bites - chew thoroughly, Small Sips, Slow Rate, Alternate bites/solids and sips/liquids - 1:2 ratio, Sitting upright, Remain sitting upright for 30 minutes after PO intake Recommend Repeat Modified Barium Swallow: No Need for Skilled Speech Therapy Services: No Comment: Pt has oropharyngeal swallow function grossly WNL. No further dysphagia therapy warranted. Recommended Referrals: GI Consult Education Completed: 1. Described result of evaluation., 2. Pt understands evaluation & agrees with goals and treatment plan. - Status Active ST Patient: Active - Contact Information [facility] Speech Therapy:: Sharon Berman M.A. [facility] Speech-Language Pathologist [facility] [id number] [place] [address] [email or web address] [phone] 08/13/22 10:50
== END | disposition home or self-care (01) ==
LOC: RAD 10:13
PROVIDERS: PCP Family Medicine; Referring Provider Student in an Organized Health Care Education/Training Program; Visit Provider Student in an Organized Health Care Education/Training Program
DX: R13.10 Dysphagia, unspecified (principal)
CPT/HCPCS: 74230; 92611

== ENCOUNTER → 2022-09-17 | Outpatient (CLI) | payer MEDICARE, OTHER, SELFPAY ==
[2022-09-17 12:40] LABS: Color, Urine Yellow (Yellow); Glucose, Dipstick Normal (Normal); Ketone-Dipstick 5 mg/dl (Negative); Leukocyte Esterase-Dipstick 500 /ul (Negative); Nitrite-Dipstick Negative (Negative); Occult Blood-Urine 150 /ul (Negative); Protein-Dipstick 100 mg/dl (Negative); Urine Bilirubin Dipstick Negative (Negative); Urine Clarity Cloudy (Clear); Urine Urobilinogen 1 mg/dl (Normal)
[2022-09-17 13:06] LABS: White Blood Cells >100 SEEN /hpf (0-5)
[2022-09-17 13:07] LABS: Bacteria 3+ /hpf (None Seen); Mucous, Urine RARE /hpf (<or=2+); Red Blood Cells-Urine 0-5 SEEN /hpf (0-5); Squamous Epithelial Cells - UA 0-5 SEEN /hpf (5-10)
== END | disposition home or self-care (01) ==
LOC: LABSPEC 10:30
PROVIDERS: PCP Family Medicine; Referring Provider Physician Assistant; Visit Provider Physician Assistant
DX: N39.0 Urinary tract infection, site not specified (principal); R35.0 Frequency of micturition
CPT/HCPCS: 81001; 87077; 87086; 87088; 87186

== ENCOUNTER 2022-09-29 11:24 | Emergency (ER) | payer MEDICARE, OTHER, SELFPAY ==
[2022-09-29 11:26] VITALS: BP 158/95; PULSE 104; RESP 18; TEMP 35.5; O2SAT 96; BMI 23.3
--- NOTE | 2022-09-29 11:42 | EKG12_ITS ---
Test Reason : SYNCOPE Blood Pressure : / mmHG Vent. Rate : 085 BPM Atrial Rate : 085 BPM P-R Int : 172 ms QRS Dur : 092 ms QT Int : 376 ms P-R-T Axes : 022 -25 027 degrees QTc Int : 447 ms Normal sinus rhythm Poor R wave progression Confirmed by ADELE LOPEZ, STELLA ([id number]), image editor SARAH LOPEZ ([id number]) on 09/30/2022 11:14:19 AM Referred By: RODRICK Confirmed By:STELLA ANGULO MD
--- NOTE | 2022-09-29 11:59 | EDS_ITS ---
HPI History of Present Illness Chief Complaint: Syncope Informant: patient Onset/Context/Timing Onset: Today Context: Sudden Onset Timing: Intermittent Current Severity: Gone Maximum Severity: Mild Narrative Narrative: 72-year-old female history of hypertension and breast cancer for which she had a lumpectomy. Patient states that she has episodes of syncope and near syncope with stress. She is at least 5 these. She is unremarkable for no specific cause. She has no cardiac history. Today she was admitted very stressful situation she is adopted 14-year-old daughter at home and there is some family discourse. Today they were meeting with children services. She somatomedin was over she felt very stressed when she went to stand up she went down. Denies any injuries. She is unsure if she was completely unconscious or just near syncope. She denies any chest pain. She did not feel any fast or slow heart rate or palpitations. She was not short of breath. No abdominal pain. She is recently had URI symptoms secondary to RSV. Prior similar symptoms: Yes Recent Illness/Hospitalization: No PFSH PFSH Medical History Abdominal bloating Abnormal pulmonary function test Acute serous otitis media of left ear Allergic rhinitis Arthritis Asthma, moderate persistent Breast pain, right Cancer Cardiology follow-up encounter Chest pain Chronic cough CPAP (continuous positive airway pressure) dependence Dermatitis Difficulty swallowing Dysuria Essential (primary) hypertension Eyelid myokymia Flank pain Gastric reflux Hiatal hernia with gastroesophageal reflux History of edema History of hiatal hernia History of stress test History of trigger finger History of ulceration Hx of echocardiogram Hypertension Migraine headache Nausea & vomiting Non-smoker Pyelonephritis Shortness of breath on exertion Spondylolisthesis at L4-L5 level Syncope Trochanteric bursitis of right hip UTI (urinary tract infection) Vertigo Wears glasses Home Medications fluticasone propionate 50 mcg/actuation nasal spray,suspension 2 spray intranasal DAILY PRN Nasal Congestion 04/21/19 [History Last Taken Unknown] hydrochlorothiazide 12.5 mg tablet 12.5 mg PO DAILY #90 tabs 09/01/21 [Rx Last Taken Unknown] trazodone 100 mg tablet 200 mg PO HS SLEEP 30 days #60 tabs 10/14/21 [History Last Taken Unknown] triamcinolone acetonide 0.025 % topical ointment 1 applic topical BID PRN Dermatitis #454 grams 10/24/21 [Rx Last Taken Unknown] omeprazole 40 mg capsule,delayed release See Rx Instructions .Route .COMPLEX #90 CAPSULES 03/16/22 [Rx Last Taken Unknown] tamoxifen 20 mg tablet 20 mg PO DAILY #90 tabs 09/01/22 [Rx Last Taken Unknown] pentoxifylline 400 mg tablet,extended release 400 mg PO TID #270 tabs 09/21/22 [Rx Last Taken Unknown] vitamin E mixed 1,000 unit capsule 1,000 unit PO DAILY #90 caps 09/21/22 [Rx Last Taken Unknown] Allergy/AdvReac Type Severity Reaction Status Date / Time nitrofurantoin Allergy Mild rash Verified 09/29/22 11:26 [From Macrobid] codeine phosphate AdvReac Vomiting Verified 09/29/22 11:26 [From Tylenol-Codeine] Family History Mother Cancer Diabetes Father Cancer Grandfather Diabetes Grandmother Glaucoma Surgical History History of appendectomy History of cholecystectomy History of hysterectomy History of right hip replacement History of tonsillectomy History of tubal ligation Hx of colonoscopy Hx of laparoscopy Hx of shoulder surgery Status post trigger finger release Social History Smoking Status: Never smoker second hand exposure: No alcohol intake: never substance use type: does not use caffeine: Yes what type of physical activity do you participate in: none ROS ROS ED ROS Narrative URI symptoms. Review of Systems ROS Unobtainable: Denies due to encephalopathy Constitutional Constitutional ED: Denies chills or fever(s) Eyes Eyes: Denies blurry vision ENT ENT ED: Denies ear pain Cardiovascular Cardiovascular: Denies chest pain Respiratory/Chest Respiratory/Chest: Reports cough; Denies dyspnea Gastrointestinal Gastrointestinal: Denies abdominal pain, constipation, diarrhea, melena, nausea or vomiting Genitourinary Genitourinary ED: Denies dysuria or hematuria Musculoskeletal Musculoskeletal: Denies arthralgias Integumentary Denies abscess Neurologic Neurologic: Denies headache(s) Psychiatric Psychiatric: Denies anxiety Endocrine Endocrinology: Denies cold intolerance Hematologic/Lymphatic Hematologic/Lymphatic: Reports none Allergic/Immunologic Allergic/Immunologic ED: Denies mouth swelling or tongue swelling EXAM Physical Exam Narrative Exam Narrative: Well-appearing 72-year-old female. Vital signs stable afebrile. Pulse ox 96% on room air no hypoxia. H EENT exam unremarkable atraumatic. Pupils are round reactive light. Extra motions are intact. Normal speech. No facial droop. Moist mucous membranes. Neck nontender no lymphadenopathy. Lungs clear to auscultation. Heart regular rhythm no murmur. Abdomen soft nontender. Moving all 4 extremities. 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 Dorsi plantarflexion intact. Neurologic exam is normal. NIH is 0. Const Vital Signs: 09/29/22 11:26 Temperature 96 F L Temperature Source Temporal Pulse Rate 104 H Respiratory Rate 18 Blood Pressure 158/95 H Blood Pressure Mean 116 Pulse Ox 96 Oxygen Delivery Method Room Air Positive well nourished and well developed; Negative for obese, cachectic, contractures or unkempt General Appearance ED: well developed and NAD; Negative for unkempt, cachectic, contractures, cyanotic or diaphoretic Nutritional Appearance: Negative for cachectic or obese HEENT Reports moist mucous membranes; Denies dry mucous membranes Negative for trauma or tenderness Mouth ED: No dry mucous membranes Mouth: No dry mucous membranes Eyes PERRL and EOMs intact bilaterally General Eye ED: Negative for pale conjunctiva or scleral icterus Neck no lymphadenopathy, supple and no JVD General: Negative for tenderness Lymph Lymphatic: Negative for other Chest Wall inspection of chest normal and palpation of chest normal Chest: Negative for other Resp normal respiratory effort and clear to auscultation bilaterally Effort and Inspection: Negative for retractions or pain with movement Auscultation: Negative for rales, rhonchi or wheezes Cardio regular rate, regular rhythm, S1 normal heart sound, S2 normal heart sound and no murmurs Palpation: Negative for palpable S3 Rate: Negative for bradycardia Rhythm: Negative for abnormal rhythm GI normal to inspection, nondistended, normoactive bowel sounds, non-tender, non- distended and no masses Inspection: Negative for abdominal distention Auscultation: normoactive bowel sounds Palpation: soft; Negative for tender or guarding Back/Spine no CVA tenderness Cervical Spine: Negative for cervical spine tenderness Thoracic Spine / Upper Back: Negative for thoracic spinal tenderness Lumbar Spine / Lower Back: Negative for lumbar spinal tenderness Extremity normal to inspection General Extremety ED: Negative for edema or tenderness General Extremity: Negative for edema Neuro oriented x3, CN's II-XII intact bilaterally and no sensory deficits noted Sensorium / Orientation: alert; Negative for orientation impaired, lethargic or stuporous Motor Exam: strength 5/5 throughout Psych mental status grossly normal Appearance: Negative for unkempt Attitude: No agitated Mood & Affect: Negative for depressed, anxious or tearful Skin no rashes or lesions noted, no wounds and skin turgor normal General Skin Exam: elasticity normal Lesions: No lesion noted Rashes: No rashes noted Trauma: Negative for abrasion Wounds: Negative for wounds noted MDM MDM MDM Narrative Medical decision making narrative: 72-year-old female brief near syncopal episode with a stressful situation. Her exam is completely normal. She has no cardiac history. She has been worked up for this in the past. She had no preceding symptoms other than a recent URI. Clinically is not dehydrated. EKG unremarkable. She will be discharged home. Rhythm Strip Rhythm Strip: Sinus Rhythm Rate: 85 Ectopy: None Discharge Plan Triage Chief Complaint: Syncope ED Provider: Dennis Ch Dx/Rx/DC Orders Clinical Impression: Near syncope, Breast cancer, left Instructions: ED Dizziness or Syncope ... Prescriptions: No Action trazodone 100 mg tablet 200 mg PO HS 30 Days Qty: 60 pentoxifylline 400 mg tablet extended release 400 mg PO TID Qty: 270 1RF Rx Instructions: must administer with a meal/food vitamin E mixed 1,000 unit capsule 1,000 unit PO DAILY Qty: 90 1RF Rx Instructions: take 1 tab PO daily tamoxifen 20 mg tablet 20 mg PO DAILY Qty: 90 0RF fluticasone propionate 9.9 ML spray,suspension 2 spray INTRANASAL DAILY PRN (Reason: Nasal Congestion) Rx Instructions: administer into each nostril hydrochlorothiazide 12.5 mg tablet 12.5 mg PO DAILY Qty: 90 3RF triamcinolone acetonide 0.025 % ointment 1 applic topical BID PRN (Reason: Dermatitis) Qty: 454 1RF omeprazole 40 mg capsule,delayed release(DR/EC) See Rx Instructions .ROUTE .COMPLEX Qty: 90 1RF Dose Instruction: TAKE 1 CAPSULE BY MOUTH ONCE DAILY Rx Instructions: TAKE 1 CAPSULE BY MOUTH ONCE DAILY Primary Care Provider: Dwight Parnell Referrals: Dwight Parnell, DO [Primary Care Provider] - As Needed Activity Restrictions/Additional Instructions: Plenty of fluids and rest. Follow-up with your doctor return if worse. Disposition Disposition: Home, Self Care
== END 2022-09-29 12:20 | disposition home or self-care (01) ==
PROVIDERS: Emergency Provider Emergency Medicine; PCP Family Medicine; Visit Provider Emergency Medicine
DX: R55 Syncope and collapse (principal); C50.912 Malignant neoplasm of unspecified site of left female breast; I10 Essential (primary) hypertension
CPT/HCPCS: 93005; 99284

== ENCOUNTER 2022-10-26 16:08 | Outpatient (CLI) | payer MEDICARE, OTHER, SELFPAY ==
--- NOTE | 2022-10-26 16:10 | US_ITS ---
EXAM: US RETROPERITONEAL LIMITED, RENAL CLINICAL INDICATION: UTI TECHNIQUE: Limited grayscale and color Doppler sonographic evaluation of the retroperitoneum was performed. This report was created using [employer] report [employer] technology. COMPARISON: None. FINDINGS: RIGHT KIDNEY: The right kidney measures 9.7 x 4.7 x 5.1 cm. The right renal cortex measures 1.5 cm. No hydronephrosis. No shadowing calculus. No perinephric collection is demonstrated. LEFT KIDNEY: The left kidney measures 10.2 x 5.1 x 4.7 cm. Left renal cortex measures 1.1 cm. No hydronephrosis. No shadowing calculus. No perinephric collection is demonstrated. BLADDER: The bladder wall is 2 mm. The bladder measures 7.8 x 7.0 x 8.4 cm from line 238 mL. There are bilateral ureteral jets. Postvoid the bladder measures 3.6 x 2.6 x 4.4 cm for a postvoid volume of 30 mL. On the post void images there is a questionable linear area of increased echogenicity in the bladder wall some distal acoustic shadowing possibly representing air in the bladder wall. US/Kidney and Bladder IMPRESSION: Questionable air within the anterior bladder wall. No other acute abnormalities are identified. If indicated further evaluation with CT scan may be beneficial. Electronically Signed: Pankaj Rosario MD at 0:01 EST ,
== END 2022-10-26 23:59 | disposition home or self-care (01) ==
LOC: US 16:09
PROVIDERS: PCP Family Medicine; Referring Provider Urology; Visit Provider Urology
DX: N39.0 Urinary tract infection, site not specified (principal)
CPT/HCPCS: 76770

== ENCOUNTER → 2023-02-11 | Outpatient (CLI) | payer MEDICARE, OTHER, SELFPAY ==
--- NOTE | 2023-02-11 08:17 | CT_ITS ---
STUDY: CT ABDOMEN AND PELVIS WITH CONTRAST REASON FOR EXAM: Female, 72 years old. Abd pain, unintented wt loss -- oral and iv. History of left breast cancer and prior left lumpectomy. RADIATION DOSAGE (If Supplied By Facility): CTDIvol = ( 19.67 ) mGy, DLP = ( 901.35 ) mGycm TECHNIQUE: Transaxial images were obtained from the dome of the diaphragm to the symphysis pubis with oral contrast. Oral and amp; IV Readi-CAT and amp; 100mL Isovue-370 was administered. Sagittal and coronal images were reconstructed. Individualized dose optimization techniques were used for this CT. COMPARISON: Comparison is made with prior study dated December 09, 2015. FINDINGS: The visualized lung bases are unremarkable. The visualized portions of the heart are within normal limits. There is decreased attenuation of the liver consistent with steatosis. The gallbladder is not visualized most likely secondary to prior cholecystectomy. Normal spleen. Normal pancreas. Normal bilateral adrenal glands. Normal right kidney. Normal left kidney. Normal visualized stomach. Normal small intestine. There are multiple colonic diverticula consistent with diverticulosis. There are surgical clips in the region of the appendix consistent with a prior appendectomy. Normal abdominal aorta. Normal inferior vena cava. Normal retroperitoneum. Normal urinary bladder. There is absence of the uterus consistent with a prior hysterectomy. Stable small anterior pelvic wall hernia containing fat. There are degenerative changes of the visualized lumbar spine. Prior right total hip replacement. CT/Abdomen/Pelvis WITH Contrast IMPRESSION: Diffuse fatty infiltration of the liver. Findings suggestive of prior cholecystectomy. Sigmoid diverticulosis. Electronically Signed: Jono Venegas MD at 15:28 EDT ,
[2023-02-11 08:55] LABS: CREATININE FINGERSTICK 1.2 mg/dL (0.55-1.02)
== END | disposition home or self-care (01) ==
LOC: CT 08:16
PROVIDERS: PCP Family Medicine; Referring Provider Nurse Practitioner Adult Health; Visit Provider Nurse Practitioner Adult Health
DX: Z01.812 Encounter for preprocedural laboratory examination (principal); R10.9 Unspecified abdominal pain; R63.4 Abnormal weight loss
CPT/HCPCS: 74177; Q9967

== ENCOUNTER → 2023-02-22 | Outpatient (CLI) | payer MEDICARE, OTHER, SELFPAY ==
--- NOTE | 2023-02-22 09:17 | US_ITS ---
STUDY: ABDOMINAL ULTRASOUND - ELASTOGRAPHY REASON FOR VISIT: Female, 72 years old. Fatty infiltration of the liver. TECHNIQUE: Liver stiffness measurements were obtained on a [employer] (acquired by [employer] in 2014) RS 85 ultrasound machine using a CA 1-7 probe following the SRU guidelines. 3 measurements were obtained using a 2-D-SWE method. TheIQR/M was 24 % suggesting a quality data set. TECHNICAL QUALITY: Adequate. COMPARISON: Comparison is made with prior study done earlier in the day. FINDINGS: Liver: Fatty infiltration of the liver. Median liver stiffness measured 13.5 kPa. US/Elastography Parenchyma/Organ IMPRESSION: Liver stiffness measures 13.5 kPa compatible with F3-F4 (Moderate to severe liver fibrosis) Metavir score. Electronically Signed: Jono Venegas MD at 14:53 EDT ,
--- NOTE | 2023-02-22 09:22 | US_ITS ---
STUDY: ABDOMINAL ULTRASOUND - RIGHT UPPER QUADRANT REASON FOR VISIT: Female, 72 years old fatty liver TECHNIQUE: Ultrasound evaluation of the right upper quadrant was performed with real-time and static golden-scale imaging. TECHNICAL QUALITY: Adequate. COMPARISON: Comparison is made with prior CT scan of abdomen and pelvis dated February 11, 2023 and prior sonogram of the upper quadrant dated February 06, 2021. FINDINGS: Liver: The liver measures 14.3 cm. There is increased echogenicity consistent with fatty infiltration. The bile ducts are within normal limits. There is hepatic color flow. The direction of portal flow is hepatopetal. There is no demonstrated mass lesion. Gallbladder: The patient is status post cholecystectomy. Common Bile Duct (C.B.D.): The common bile duct measures 4.3 mm. Pancreas: Normal size of the head, body and tail of the pancreas. There is normal echogenicity of the pancreas. There is no demonstrated pancreatic mass or cyst. Right Kidney: Normal size of the right kidney. The right kidney measures 9.2 cm x 5.2 cm x 4.6 cm. Normal renal cortex. The right cortex measures 1.4 cm. There is no demonstrated renal mass or cyst. There is no right hydronephrosis. US/Abdomen Limited IMPRESSION: Fatty infiltration of the liver. Status post cholecystectomy cystectomy. Electronically Signed: Jono Venegas MD at 14:52 EDT ,
== END | disposition home or self-care (01) ==
LOC: US 09:16
PROVIDERS: PCP Family Medicine; Visit Provider Nurse Practitioner Adult Health
DX: K76.0 Fatty (change of) liver, not elsewhere classified (principal)
CPT/HCPCS: 76705; 76981

== ENCOUNTER 2023-03-25 08:12 | Day surgery (SDC) | payer MEDICARE, OTHER, SELFPAY ==
[2023-03-25 08:33] VITALS: BP 134/66; PULSE 67; RESP 18; TEMP 36.3; O2SAT 98; BMI 26.9
[2023-03-25] MEDS: Lactated Ringers 1,000 ML 15 ML IV (08:42)
--- NOTE | 2023-03-25 08:52 | PCM.HP.BLA ---
History and Physical Date of Admission: 03/25/23 72 F who presents to the office today to establish with GI for dysphagia. Referred by radiation oncologist Dr Stout who treats her for hx breast cancer. She recalls difficulty swallowing started at least 12 yrs ago. Rice is especially problematic, feels like it sticks in distal esophagus. Doesn't eat much meat but that can stick too. No emergency room visits for food bolus. Can choke on liquids if she turns her head when drinking. Heartburn is controlled with omeprazole 40 mg daily. MBSS 6 months ago showed normal oropharyngeal function, but positive for esophageal retention and retrograde flow. EGD in 2019 was suspicious for Real's, but bxs were negative. She reports being told she had a hiatal hernia many yrs ago. Has a chronic discomfort in the epigastrium. She has eaten less in last few months, lost about 30 lbs unintentionally in last yr, says never had a great appetite, denies early satiety. No nausea or vomiting. Can have some constipation then followed by loose stool. No melena or hematochezia. 07/2022 MBSS: normal oropharyngeal swallow function; The esophageal phase was marked by esophageal retention of pudding with retrograde flow to mid and upper esophagus. This retention, somewhat cleared with a liquid wash. She required 2 liquid washes to clear barium tablet from the esophagus. 09/2020 Dr. Spence EGD and colonoscopy.? EGD was suspicious for short segment Real's.? Biopsies were negative for Real's, positive for mild gastritis.? Colonoscopy 1 polyp (tubular adenoma) in the descending colon, diverticulosis in the sigmoid colon, erythema in the rectum (negative for colitis). ROS Const Constitutional: Positive for weight change; No fatigue ENT ENT: Positive for difficulty swallowing Gastro GI: Positive for constipation, diarrhea, heartburn and difficulty swallowing; No abdominal pain, belching, bloating, change in bowel habits, change in stool character, coffee ground emesis, cramping, feeling full early, excessive flatus, incontinent of stools, Vomiting blood/hematemesis, Blood in stool, loose stools, Black,tarry stools, nausea/dyspepsia, pain with swallowing, vomiting or other Musc Musculoskeletal: Positive for stiffness and Arthritis; No joint pain Skin Skin: No yellowing of the eye or itchy eyes Psych Psychiatric: Positive for anxiety and Positive for depression Endo Endocrine: Positive for weight change; No fatigue Aller/Imm Allergy/Immunologic: No itchy eyes Ethan/Lymp Hematologic/Lymphatic: No easy bleeding or easy bruising Exam Const General: cooperative, healthy appearing and comfortable Nutritional Appearance: overweight Orientation: alert, awake and oriented x3 Eyes Sclera: sclerae normal Resp Effort & Inspection: normal respiratory effort GI Inspection: normal to inspection Palpation: soft, no hepatosplenomegaly, no masses and tender in the epigastrum Neuro Speech: speech normal Gait: normal gait Psych Mood: euthymic mood Quality Reporting Tobacco Screening ([facility] 138) Smoking Status: Never smoker Assessment and Plan Assessment and Plan (1) Difficulty swallowing: ?Status:?Chronic ?Plan: 72 yo female with difficulty swallowing, epigastric pain, GERD, unintentional weight loss Will get CT abd pel w/ oral and IV contrast; will call her with result Will get EGD to eval for esophageal stricture, Real's or other; f/u in office 2 wks later Continue omeprazole 40 mg daily (2) Abdominal pain: ?Status:?Acute ?Plan: see above (3) Unintentional weight loss: ?Status:?Acute ?Plan: see above ? ? ? Orders: Orders Abdomen/Pelvis WITH Contrast Today R10.9 - Unspecified abdominal pain, R63.4 - Abnormal weight loss ? Medications: New omeprazole 40 mg? PO QAM 90 caps 3RF ? ? Discontinued omeprazole ?? Discontinued Reason:? Duplicate Order ?TAKE 1 CAPSULE BY MOUTH ONCE DAILY 90 CAPSULES 1RF ? ? I have examined the patient and the H&P has been reviewed. There are no clinical changes since date of exam.
--- NOTE | 2023-03-25 09:30 | IMM_PTH ---
PATIENT: VERONICA ZULUAGA LOC: EN U#:[id number] AGE/SX: 72/F ROOM: RE03/25/[address]: Dr. Torres Carpio DO : 1950 BED: DIS: 03/25/2023 SPEC #: [id number] RECD: 03/25/23 13:54 STATUS: BERTRAM REQ #: [id number] TICO: 03/25/23 09:[address]: Torres Carpio DEPT: IMMUNOHISTOCHEMISTRY RECD BY: Emerita Magana ENTERED: 03/25/23 13:54 SP TYPE: IMMUNO OTHR DR: Dr. Dwight Parnell, DO Tissues: B - Stomach, NOS Procedures: H Pylori (initial) PHYSICIAN [facility] INSTIT[facility] [address] [address] SPECIMEN INFORMATION: Tissue Source: B ? Antrum biopsy Clinical Info: Difficulty swallowing, abdominal pain, unintentional weight loss Specimen Number: [id number] CPT code: 42048 METHODOLOGY: Deparaffinized sections of prefer/formalin-fixed tissue or PAP/DQ stained slides are incubated with monoclonal/polyclonal antibodies/oligonucleotide probes. Localization is made via biotin free immunoperoxidase method. Appropriate controls are performed and reacted as expected. Results on target cell population are indicated in the following table: RESULTS: ANTIBODY / CLONE RESULT Block B H Pylori (polyclonal) negative These tests were developed and their performance characteristics determined by [facility]. They may not have been cleared or approved by the U.S. Food and Drug Administration. The FDA has determined that such clearance or approval is not necessary. The above immunohistochemical/dualISH markers are ordered and reviewed by the Pathologist. INTERPRETATION: B. Antrum, biopsy: Negative for Helicobacter pylori organisms. SJ:hadley 03/26/2023
--- NOTE | 2023-03-25 09:30 | EGD_PTH ---
PATIENT: VERONICA ZULUAGA LOC: EN U#:[id number] AGE/SX: 72/F ROOM: RE03/25/[address]: Dr. Torres Carpio DO : 1950 BED: DIS: 03/25/2023 SPEC #: [id number] RECD: 03/25/23 10:41 STATUS: BERTRAM HEIKE #: [id number] TICO: 03/25/23 09:[address]: Torres Carpio DEPT: SURGICAL PATHOLOGY RECD BY: Kisha Jerez ENTERED: 03/25/23 12:18 SP TYPE: EGD BIOPSY ANTONETTE DR: Dr. Dwight Parnell DO Tissues: A - COLON BIOPSY B - COLON BIOPSY C - Esophagus, NOS Procedures: Surgery Specimen Level IV HEADER OPERATION: E[place] ([facility] [place] PRE-OP DIAGNOSIS: Difficulty swallowing, abdominal pain, unintentional weight loss TISSUE SUBMITTED: A ? Greater curvature biopsy, B ? Antrum for H. pylori and path, C ? Distal esophagus biopsy MICROSCOPIC DIAGNOSIS A. Greater curvature, biopsy: Minimal gastritis. See microscopic description. B. Antrum, biopsy: Mild gastritis. See microscopic description and comment. C. Distal esophagus, biopsy: Fragments of gastroesophageal mucosa with chronic inflammation. Intestinal metaplasia (goblet cell metaplasia) not identified. See comment. SJ:hadley 03/26/2023 COMMENT B. The results of immunohistochemistry for Helicobacter pylori will be reported separately ([id number]). C. Alcian blue/PAS stain with matched control is used in the evaluation of the specimen. The specimen predominantly consists of gastric mucosa. MICROSCOPIC DESCRIPTION Slides are reviewed. A. The specimen shows fragments of gastric mucosa with chronic inflammatory cell infiltrates in the lamina propria consisting of lymphocytes and plasma cells, consistent with minimal chronic gastritis. B. The specimen shows fragments of gastric mucosa with chronic inflammatory cell infiltrates in the lamina propria consisting of lymphocytes and plasma cells, consistent with mild chronic gastritis. GROSS DESCRIPTION A - Received in fixative is one container labeled with the patient's name and designated greater curvature stomach. The specimen consists of two irregular fragments of light marcano soft tissue that in aggregate measure 0.6 x 0.5 x 0.1 cm. The specimen is totally submitted in one cassette. B - Received in fixative is one container labeled with the patient's name and designated antrum biopsy. The specimen consists of multiple irregular fragments of light marcano soft tissue that in aggregate measure 1.0 x 0.3 x 0.1 cm. The specimen is totally submitted in one cassette. C - Received in fixative is one container labeled with the patient's name and designated distal esophagus biopsy. The specimen consists of two irregular fragments of light marcano soft tissue that in aggregate measure 0.7 x 0.3 x 0.1 cm. The specimen is totally submitted in one cassette. / AM:hadley 03/25/2023 TC:3 CPT: 75842 x3, 98569
[2023-03-25 09:53] VITALS: BP 117/66; BP 134/66; PULSE 63; RESP 16; TEMP 36.7; O2SAT 97
[2023-03-25 09:55] VITALS: BP 115/81; BP 134/66; PULSE 70; RESP 16; O2SAT 97
--- NOTE | 2023-03-25 09:57 | OP.EGD_ITS ---
Patient Name: Katarina Hebert Procedure Date: 03/25/2023 9:27 AM Date of : 1950 Age: 72 Procedure: Upper GI endoscopy Indications: Dysphagia Providers: Torres Caripo DO Referring MD: Torres Carpio DO Medicines: Monitored Anesthesia Care Patient Profile: This is a 72 year old female. Refer to note in patient chart for documentation of history and physical. Patient has symptoms. Complications: No immediate complications. Procedure: Pre-Anesthesia Assessment: - Prior to the procedure, a History and Physical was performed, and patient medications and allergies were reviewed. The risks and benefits of the procedure and the sedation options and risks were discussed with the patient. All questions were answered and informed consent was obtained. Patient identification and proposed procedure were verified by the physician in the pre-procedure area. Mental Status Examination: alert and oriented. Airway Examination: normal oropharyngeal airway and neck mobility. Respiratory Examination: clear to auscultation. CV Examination: normal. Prophylactic Antibiotics: The patient does not require prophylactic antibiotics. Prior Anticoagulants: The patient has taken no previous anticoagulant or antiplatelet agents. ASA Grade Assessment: II - A patient with mild systemic disease. After reviewing the risks and benefits, the patient was deemed in satisfactory condition to undergo the procedure. The anesthesia plan was to use monitored anesthesia care (MAC). Immediately prior to administration of medications, the patient was re-assessed for adequacy to receive sedatives. The heart rate, respiratory rate, oxygen saturations, blood pressure, adequacy of pulmonary ventilation, and response to care were monitored throughout the procedure. The physical status of the patient was re-assessed after the procedure. After obtaining informed consent, the endoscope was passed under direct vision. Throughout the procedure, the patient's blood pressure, pulse, and oxygen saturations were monitored continuously. The Endoscope was introduced through the mouth, and advanced to the second part of duodenum. The upper GI endoscopy was accomplished without difficulty. The patient tolerated the procedure well. 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 The examined esophagus was moderately tortuous. A moderate Schatzki ring was found in the lower third of the esophagus. A guidewire was placed and the scope was withdrawn. Dilation was performed with a Savary dilator with no resistance at 45 Fr. The dilation site was examined and showed moderate improvement in luminal narrowing. Estimated blood loss was minimal. A small hiatal hernia was present. The Z-line was irregular and was found 37 cm from the incisors. Biopsies were taken with a cold forceps for histology. Verification of patient identification for the specimen was done. Estimated blood loss was minimal. Patchy mild inflammation characterized by erosions and erythema was found on the greater curvature of the stomach and in the gastric antrum. Biopsies were taken with a cold forceps for histology. Verification of patient identification for the specimen was done. Biopsies were taken with a cold forceps for histology. Verification of patient identification for the specimen was done. Estimated blood loss was minimal. The second portion of the duodenum was normal. Impression: - Ectopic gastric mucosa in the upper third of the esophagus. - Tortuous esophagus. - Moderate Schatzki ring. Dilated. - Small hiatal hernia. - Z-line irregular, 37 cm from the incisors. Biopsied. - Gastritis. Biopsied. - Normal second portion of the duodenum. Recommendation: - Discharge patient to home. - Resume previous diet. - Continue present medications. - Await pathology results. Procedure Code(s): --- Professional --- 03963, Esophagogastroduodenoscopy, flexible, transoral; with insertion of guide wire followed by passage of dilator(s) through esophagus over guide wire 28249, 59, Esophagogastroduodenoscopy, flexible, transoral; with biopsy, single or multiple CPT copyright 2017 [employer]. All rights reserved. The codes documented in this report are preliminary and upon winding machine operator review may be revised to meet current compliance requirements. Torres Carpio DO 03/25/2023 9:57:24 AM This report has been signed electronically. Number of Addenda: 0 Note Initiated On: 03/25/2023 9:27 AM
--- NOTE | 2023-03-25 09:58 | OP.CCLET_ITS ---
03/25/2023 Dwight Parnell Re : Upper GI endoscopy procedure for Katarina Hebert Dear Dr. Parnell This procedure was performed on March. My impressions and recommendations are as follows: Impressions : - Ectopic gastric mucosa in the upper third of the esophagus. - Tortuous esophagus. - Moderate Schatzki ring. Dilated. - Small hiatal hernia. - Z-line irregular, 37 cm from the incisors. Biopsied. - Gastritis. Biopsied. - Normal second portion of the duodenum. Recommendations : - Discharge patient to home. - Resume previous diet. - Continue present medications. - Await pathology results. My findings are described in the full procedure note, which is enclosed. If I can be of further assistance, please feel free to contact me at . Sincerely, Torres Carpio, 03/25/2023 9:57:24 AM This report has been signed electronically.
[2023-03-25 10:00] VITALS: BP 111/69; BP 134/66; PULSE 64; RESP 16; O2SAT 95
[2023-03-25 10:07] VITALS: BP 115/70; BP 134/66; PULSE 61; RESP 16; TEMP 37.1; O2SAT 96
[2023-03-25 10:37] VITALS: BP 134/66
== END 2023-03-25 10:41 | disposition home or self-care (01) ==
LOC: EN 08:13 → AC 08:14
PROVIDERS: PCP Family Medicine; Referring Provider Family Medicine; Visit Provider Internal Medicine Gastroenterology
PROC: 0DJ08ZZ Inspection of Upper Intestinal Tract, Via Natural or Artificial Opening Endoscopic (ICD-10-PCS; CPT 43235; principal; 2023-03-25 09:25)
DX: R13.10 Dysphagia, unspecified (principal); K44.9 Diaphragmatic hernia without obstruction or gangrene; K29.70 Gastritis, unspecified, without bleeding; R63.4 Abnormal weight loss; K21.9 Gastro-esophageal reflux disease without esophagitis; R10.9 Unspecified abdominal pain
CPT/HCPCS: 43248; 43239; 88305; 88342; J7120

== ENCOUNTER → 2023-03-29 | Outpatient (CLI) | payer MEDICARE, OTHER, SELFPAY ==
--- NOTE | 2023-03-29 07:51 | BI_ITS ---
MAMMOGRAPHY - BILATERAL SCREENING REASON FOR EXAM: Female, 72 years old. Routine annual screening examination. PERTINENT HISTORY: Personal history of breast cancer. Prior left lumpectomy. TECHNIQUE: Digital bilateral breast patric (3D mammographic acquisition) in the CC and MLO projections. 2-D mediolateral oblique (MLO) and craniocaudad (CC) views of both breasts were obtained. CAD: Full Field Digital Mammography with Computer Added Detection was performed. COMPARISON: Comparison is made with prior study of March 25, 2022. FINDINGS: Breast Composition: The breasts are almost entirely fatty. There are no dominant masses or suspicious calcifications. Knee patient is status post lumpectomy in the upper central portion of the right breast. Postoperative changes are seen although there are less conspicuous at this time. Residual breast deformity is seen. Surgical clips are seen in the left axilla. No other significant abnormalities are identified. There has been no significant change since the prior study. BI/SCRN MAMM (CAD)W/PATRIC BILAT IMPRESSION: Stable bilateral screening mammogram. Yearly follow-up mammogram recommended. (A) ASSESSMENT CATEGORY: BIRADS Category 2: Benign. A letter regarding these results will be sent to the patient by the facility within 30 days. Approximately 10% of breast cancers are not detected by mammography. A normal mammogram should not delay biopsy of a clinically suspicious abnormality. [id number] Electronically Signed: Jono Venegas MD at 9:00 EDT ,
== END | disposition home or self-care (01) ==
LOC: OPBI 07:50
PROVIDERS: PCP Family Medicine; Referring Provider Internal Medicine Medical Oncology; Visit Provider Internal Medicine Medical Oncology
DX: Z12.31 Encounter for screening mammogram for malignant neoplasm of breast (principal); C50.912 Malignant neoplasm of unspecified site of left female breast
CPT/HCPCS: 77063; 77067

== ENCOUNTER 2023-04-08 11:11 | Outpatient (CLI) | payer MEDICARE, OTHER, SELFPAY ==
[2023-04-08 12:04] LABS: Absolute Lymphocyte Count 1.54 X10^3/uL (0.83-4.51); Absolute Neutrophil Count 4.2 X10^3/uL (2.0-7.7); Basophil# 0.06 X10^3/uL; Basophil% 0.9 % (0-1); Eosinophil# 0.42 X10^3/uL; Eosinophils% 6.3 % (0-5); Hematocrit 39.4 % (37-47); Hemoglobin 13.1 g/dL (12.0-15.0); Lymphocyte # 1.54 X10^3/ul (0.83-4.51); Mean Corp Hgb Conc 33.2 g/dL (32-36); Mean Corpuscular Hgb 29.6 pg (27.0-32.0); Mean Corpuscular Volume 88.9 fL (81-99); Mean Platelet Vol. 9.7 fl (6.2-12.0); NRBC Flagged by Analyzer 0 % (0-5); Neutrophil # 4.22 X10^3/uL (2.7-7.7); Neutrophil % 62.9 % (47-70); Platelet Count 193 K/mm3 (150-450); RBC Distribution Width CV 11.9 % (11.6-14.6); RBC Distribution Width SD 38.3 fl (35.1-43.9); Red Blood Count 4.43 M/mm3 (4.2-5.4); White Blood Count 6.7 K/mm3 (4.4-11.0)
[2023-04-08 12:05] LABS: Erythrocyte Sedimentation Rate 4 mm/hr (0-30)
[2023-04-08 12:10] LABS: International Normalized Ratio 1.1; Prothrombin Time (Protime)PT. 13.7 SECONDS (11.7-14.9)
[2023-04-08 12:49] LABS: ALB/GLOB Ratio 0.9 RATIO (0.9-2.4); AST(SGOT) 15 U/L (15-37); Alanine Aminotransfer ALT/SGPT 19 U/L (13-56); Albumin, Serum 3.2 g/dL (3.2-5.0); Alkaline Phosphatase 49 U/L (45-117); Anion Gap 7 (5-15); BUN 13 mg/dL (7-18); BUN/Creat Ratio 13.8 RATIO (10-20); CRP < 2.90 mg/L (0.0-3.0); Calcium,Total 8.6 mg/dL (8.5-10.1); Chloride 105 mmol/L (98-107); Creatinine, Serum 0.94 mg/dL (0.55-1.02); EST Glomerular Filtration Rate 62 mL/min (>60); Est Glom Filt Rate - Afr Amer 75 mL/min (>60); Ferritin 181 ng/mL (8-252); Globulin 3.5 g/dL (2.2-4.2); Glucose 160 mg/dL (74-106); LDH 168 U/L (84-246); Protein, Total 6.7 g/dL (6.4-8.2); Sodium Level 137 mmol/L (136-145)
[2023-04-08 13:16] LABS: HIV - WCH Non-Reactive (Nonreactive)
[2023-04-09 16:09] LABS: Anti-Centromere B Ab <0.2 AI (0.0-0.9); Anti-Chromatin <0.2 AI (0.0-0.9); Anti-Jo <0.2 AI (0.0-0.9); Anti-Mitochondrial AB <20.0 Units (0.0-20.0); Anti-Scleroderma-70 AB <0.2 AI (0.0-0.9); Anti-dsDNA Ab <1 IU/mL (0-9); RNP Ab 0.3 AI (0.0-0.9); SJOGREN'S Anti-SS-A test < 0.2 AI (0.0-0.9); SJOGREN'S Anti-SS-B test < 0.2 AI (0.0-0.9); Smith Ab <0.2 AI (0.0-0.9)
[2023-04-10 20:07] LABS: AFP, Tumor Marker 3.3 ng/mL (0.0-9.2); Angiotensin Convert Enzyme 38 U/L (14-82); Anti-Smooth Muscle ABS 3 Units (0-19); Ceruloplasmin 26.5 mg/dL (19.0-39.0); Copper, Serum or Plasma 129 ug/dL (80-158); Cytoplasmic Ab (C-ANCA) <1:20 titer (Neg:<1:20); HEPATITIS B SURFACE AG Negative (Negative); Haptoglobin 112 mg/dL (42-346); Hep C Antibodies Non Reactive (Non Reactive); Hepatitis A IgM Antibody Negative (Negative); Hepatitis B Core AB IgM Negative (Negative); Perinuclear Ab (P-ANCA) <1:20 titer (Neg:<1:20)
== END 2023-04-08 23:59 | disposition home or self-care (01) ==
LOC: LAB 11:14
PROVIDERS: PCP Family Medicine; Referring Provider Nurse Practitioner Adult Health; Visit Provider Nurse Practitioner Adult Health
DX: K76.0 Fatty (change of) liver, not elsewhere classified (principal); K74.00 Hepatic fibrosis, unspecified; R73.01 Impaired fasting glucose; R14.0 Abdominal distension (gaseous); R63.4 Abnormal weight loss
CPT/HCPCS: 36415; 80053; 80074; 82105; 82140; 82164; 82390; 82525; 82728; 83010; 83036; 83516; 83615; 85025; 85610; 85652; 86140; 86225; 86235; 86256; 86703

== ENCOUNTER 2023-04-30 08:41 | Day surgery (SDC) | payer MEDICARE, OTHER, SELFPAY ==
[2023-04-30 09:09] VITALS: BP 121/84; PULSE 70; RESP 16; TEMP 36.6; O2SAT 99
[2023-04-30] MEDS: Lidocaine Jelly 2% 20 ML Syringe (URO-JET) 1 APPLIC (09:20)
== END 2023-04-30 09:35 | disposition home or self-care (01) ==
PROVIDERS: PCP Family Medicine; Referring Provider Internal Medicine Gastroenterology; Visit Provider Internal Medicine Gastroenterology
PROC: F00ZJWZ Instrumental Swallowing and Oral Function Assessment using Swallowing Equipment (ICD-10-PCS; CPT 43235; principal; 2023-04-30 08:55)
DX: K21.9 Gastro-esophageal reflux disease without esophagitis (principal)
CPT/HCPCS: 91010

== ENCOUNTER → 2023-07-28 | Outpatient (CLI) | payer MEDICARE, OTHER, SELFPAY ==
[2023-07-28 12:33] LABS: Color, Urine Yellow (Yellow); Glucose, Dipstick Normal (Normal); Ketone-Dipstick Negative (Negative); Leukocyte Esterase-Dipstick 100 /ul (Negative); Nitrite-Dipstick Negative (Negative); Occult Blood-Urine 25 /ul (Negative); Protein-Dipstick 30 mg/dl (Negative); Specific Gravity, Urine 1.005 (1.002-1.030); Urine Bilirubin Dipstick Negative (Negative); Urine Clarity Sl. Cloudy (Clear); Urine Urobilinogen Normal (Normal)
== END | disposition home or self-care (01) ==
LOC: LABSPEC 11:01
PROVIDERS: PCP Family Medicine; Visit Provider Family Medicine
DX: R30.9 Painful micturition, unspecified (principal)
CPT/HCPCS: 81002; 87086; 87088

== ENCOUNTER → 2023-09-07 | Outpatient (CLI) | payer MEDICARE, OTHER, SELFPAY ==
--- NOTE | 2023-09-07 13:58 | CT_ITS ---
CT RIGHT LOWER EXTREMITY WITH 3-D IMAGING CLINICAL INDICATION: Templating for right TKA. TECHNIQUE: Axial CT images of the right lower extremity (including right hip, right knee, and right ankle was performed without IV contrast material. Coronal and sagittal reformats were provided. RADIATION DOSAGE (If Supplied By Facility): CTDIvol = ( 17.72 ) mGy, DLP = ( 1210.81 ) mGycm COMPARISON: Right knee radiographs dated 08/04/2023. FINDINGS: Bones: There is a right hip arthroplasty with no periprosthetic fracture or periprosthetic fluid collection. 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 There is tricompartment degenerative arthrosis of the right knee, most pronounced in the medial femorotibial compartment where there is moderate joint space narrowing. Unremarkable right ankle joint. Osseous structures are normal without evidence of fracture or dislocation. No lytic or blastic osseous masses. Soft Tissues: There is chondrocalcinosis of the medial and lateral menisci of the right knee. There is a small knee joint effusion. The deep soft tissue structures are unremarkable. The superficial soft tissues are unremarkable without evidence of edema, hematoma, or foreign body. CT/Extremity Lower without Contra IMPRESSION: Tricompartment degenerative arthrosis of the right knee, most pronounced in the medial femorotibial compartment. Chondrocalcinosis of the medial and lateral menisci of the right knee. Small right knee joint effusion. Electronically Signed: Hamilton Dill MD at 15:53 EDT ,
== END | disposition home or self-care (01) ==
LOC: CT 13:57
PROVIDERS: PCP Family Medicine; Referring Provider Orthopaedic Surgery; Visit Provider Orthopaedic Surgery
DX: M17.11 Unilateral primary osteoarthritis, right knee (principal)
CPT/HCPCS: 73700

== ENCOUNTER → 2023-09-23 | Outpatient (CLI) | payer MEDICARE, OTHER, SELFPAY ==
[2023-09-23 11:18] LABS: Mucous, Urine 0 SEEN /hpf (<or=2+)
[2023-09-23 12:21] LABS: Color, Urine Yellow (Yellow); Glucose, Dipstick Normal (Normal); Ketone-Dipstick Negative (Negative); Leukocyte Esterase-Dipstick 100 /ul (Negative); Nitrite-Dipstick Negative (Negative); Occult Blood-Urine 10 /ul (Negative); Protein-Dipstick 15 mg/dl (Negative); Specific Gravity, Urine 1.025 (1.002-1.030); Urine Bilirubin Dipstick Negative (Negative); Urine Clarity Sl. Cloudy (Clear); Urine Urobilinogen Normal (Normal)
[2023-09-23 12:46] LABS: Bacteria 1+ /hpf (None Seen); Red Blood Cells-Urine 0-5 SEEN /hpf (0-5); Squamous Epithelial Cells - UA 0-5 SEEN /hpf (5-10); White Blood Cells 10-25 SEEN /hpf (0-5)
== END | disposition home or self-care (01) ==
LOC: BIMLAB 10:09
PROVIDERS: PCP Family Medicine; Visit Provider Family Medicine
DX: R30.0 Dysuria (principal)
CPT/HCPCS: 81001; 87086; 87088

== ENCOUNTER → 2023-10-01 | Outpatient (CLI) | payer MEDICARE, OTHER, SELFPAY ==
[2023-10-01 12:47] LABS: Color, Urine Yellow (Yellow); Glucose, Dipstick Normal (Normal); Ketone-Dipstick Negative (Negative); Leukocyte Esterase-Dipstick 500 /ul (Negative); Nitrite-Dipstick Negative (Negative); Occult Blood-Urine 25 /ul (Negative); Protein-Dipstick 15 mg/dl (Negative); Specific Gravity, Urine 1.015 (1.002-1.030); Urine Bilirubin Dipstick Negative (Negative); Urine Clarity Sl. Cloudy (Clear); Urine Urobilinogen Normal (Normal); Urine pH 6.5 (5.0 - 8.0)
== END | disposition home or self-care (01) ==
LOC: LABSPEC 08:10
PROVIDERS: PCP Family Medicine; Referring Provider Family Medicine; Visit Provider Family Medicine
DX: R30.0 Dysuria (principal)
CPT/HCPCS: 81002

== ENCOUNTER 2023-10-05 08:35 | Inpatient (IN) | payer MEDICARE, OTHER, SELFPAY ==
--- NOTE | 2023-09-23 08:41 | EKG12_ITS ---
Test Reason : PRE OP Blood Pressure : / mmHG Vent. Rate : 066 BPM Atrial Rate : 066 BPM P-R Int : 168 ms QRS Dur : 090 ms QT Int : 418 ms P-R-T Axes : 058 -27 066 degrees QTc Int : 438 ms Normal sinus rhythm Low voltage QRS Borderline ECG Confirmed by DENIA LOPEZ, BENNY ([id number]), editor map JEAN PAUL CORREA ([id number]) on 10/04/2023 8:04:50 AM Referred By: CAROLYN Confirmed By:LEILA LOZA MD
[2023-09-23 09:13] LABS: Absolute Lymphocyte Count 1.99 X10^3/uL (0.83-4.51); Absolute Neutrophil Count 2.8 X10^3/uL (2.0-7.7); Basophil# 0.05 X10^3/uL; Basophil% 0.9 % (0-1); Eosinophil# 0.28 X10^3/uL; Eosinophils% 5.1 % (0-5); Hematocrit 40.6 % (37-47); Hemoglobin 13.4 g/dL (12.0-15.0); Lymphocyte # 1.99 X10^3/ul (0.83-4.51); Lymphocyte % 36.2 % (19-41); Mean Corpuscular Hgb 29.5 pg (27.0-32.0); Mean Corpuscular Volume 89.4 fL (81-99); Mean Platelet Vol. 9.3 fl (6.2-12.0); Monocyte# 0.38 X10^3/uL; Monocyte% 6.9 % (0-10); NRBC Flagged by Analyzer 0 % (0-5); Neutrophil # 2.78 X10^3/uL (2.7-7.7); Neutrophil % 50.5 % (47-70); Platelet Count 213 K/mm3 (150-450); RBC Distribution Width CV 13.2 % (11.6-14.6); RBC Distribution Width SD 42.7 fl (35.1-43.9); Red Blood Count 4.54 M/mm3 (4.2-5.4); White Blood Count 5.5 K/mm3 (4.4-11.0)
[2023-09-23 09:22] LABS: Prothrombin Time (Protime)PT. 13.1 SECONDS (11.7-14.9)
[2023-09-23 09:23] LABS: Partial Thromboplast Time 25.5 Seconds (24.1-36.2)
[2023-09-23 09:37] LABS: Anion Gap 5 (5-15); BUN 18 mg/dL (7-18); BUN/Creat Ratio 16.1 RATIO (10-20); Chloride 104 mmol/L (98-107); Creatinine, Serum 1.12 mg/dL (0.55-1.02); EST Glomerular Filtration Rate 51 mL/min (>60); Est Glom Filt Rate - Afr Amer 62 mL/min (>60); Glucose 141 mg/dL (74-106); Magnesium 2.4 mg/dL (1.6-2.6); Potassium 3.8 mmol/L (3.5-5.1); Sodium Level 136 mmol/L (136-145)
[2023-09-23 09:47] LABS: Hemoglobin A1c 6.7 % (3.8-5.6)
[2023-09-24 04:07] LABS: Fructosamine 263 umol/L (0-285)
[2023-10-05] VITALS (9 sets, daily range): BP systolic 105–149; BP diastolic 55–75; PULSE 76–94; RESP 16–18; TEMP 36.1–37.1; O2SAT 97–100; BMI 27.3
[2023-10-05] MEDS: Magnesium 1 GM over 15 mins IV (09:44)
[2023-10-05] MEDS: Acetaminophen 500 MG Tablet 1000 MG PO ×2 (09:45→17:14)
[2023-10-05] MEDS: Gabapentin 600 MG Tablet PO (09:45)
[2023-10-05] MEDS: Lactated Ringers 1,000 ML 15 ML IV (09:45)
[2023-10-05] MEDS: Scopolamine 1mg/72hr Patch 1 PATCH TD (09:45)
--- NOTE | 2023-10-05 09:47 | HP.PCM_ITS ---
History and Physical Date of Admission: 10/05/23 [facility] [address] [place] [address] OFFICE VISIT Date of Service: 08/04/23 MR#: [id number] Acct: [id number] Name: VERONICA ZULUAGA GERALDINE Rep #: [id number] : 1950 Provider: Dr. Femi Bowen DO Age/Sex: 72/F Location: [facility] Status: Signed Intake Vital Signs 06/02/2309:49 07/28/2310:34 08/04/2313:02 Height 5 ft 2 in 5 ft 2 in 5 ft 2 in Weight: 146 lb 147 lb 8 oz BMI 26.6 26.9 BP 114/68 Blood Pressure Location Rt brachial Position Sitting Respiration 16 Pulse 51 L Pulse Source Monitor Temp 97.9 F Temp Source Temporal Pulse Oximetry (%) 95 Oxygen Delivery Method room air Intake Visit Reasons: BL KNEES Chief Complaint: BL knees Accompanied by: Self Is patient in pain?: Yes Allergies nitrofurantoin [From Macrobid] Allergy (Mild, Verified 07/28/23 10:29) rashcodeine phosphate [From Tylenol-Codeine] Adverse Reaction (Verified 07/28/23 10:29) Vomiting Medications fluticasone propionate 50 mcg/actuation nasal spray,suspension 2 spray intranasal DAILY PRN Nasal Congestion 04/21/19 [History Confirmed 08/04/23] trazodone 100 mg tablet 200 mg PO HS SLEEP 30 days #60 tabs 10/14/21 [History Confirmed 08/04/23] hydrochlorothiazide 12.5 mg tablet 12.5 mg PO DAILY #90 tabs 10/29/22 [Rx Confirmed 08/04/23] lorazepam 0.5 mg tablet (Ativan) 0.5 mg PO BID PRN anxiety #30 tabs 10/29/22 [Rx Confirmed 08/04/23] tamoxifen 20 mg tablet 20 mg PO DAILY #90 tabs 12/16/22 [Rx Confirmed 08/04/23] omeprazole 40 mg capsule,delayed release 40 mg PO QAM #90 caps 02/02/23 [Rx Confirmed 08/04/23] pioglitazone 30 mg tablet 30 mg PO DAILY #30 tabs 07/13/23 [Rx Confirmed 08/04/23] sertraline 100 mg tablet 100 mg PO DAILY #90 tabs 07/16/23 [Rx Confirmed 08/04/23] cephalexin 500 mg capsule 500 mg PO Q8H #21 caps 07/28/23 [Rx Confirmed 08/04/23] PFSH Medical History Abdominal bloating Abnormal pulmonary function test Acute serous otitis media of left ear Allergic rhinitis Arthritis Asthma, moderate persistent Breast pain, right Cancer Cardiology follow-up encounter Chest pain Chronic cough CPAP (continuous positive airway pressure) dependence Dermatitis Difficulty chewing Difficulty swallowing Dysuria Essential (primary) hypertension Eyelid myokymia Flank pain Frequent UTI Gastric reflux Hiatal hernia with gastroesophageal reflux History of edema History of hiatal hernia History of stress test History of trigger finger History of ulceration Hx of echocardiogram Hypertension Migraine headache Nausea & vomiting Non-smoker Post-menopausal Pyelonephritis Shortness of breath on exertion Sleep apnea Spondylolisthesis at L4-L5 level Syncope Trochanteric bursitis of right hip UTI (urinary tract infection) Vertigo Wears glasses Surgical History History of appendectomy History of cholecystectomy History of hysterectomy History of right hip replacement History of tonsillectomy History of tubal ligation Hx of colonoscopy Hx of laparoscopy Hx of partial mastectomy Hx of shoulder surgery Status post trigger finger release Family History Mother Cancer DiabetesFather CancerGrandfather DiabetesGrandmother Glaucoma Social History Smoking Status: Never smoker second hand exposure: No alcohol intake: never substance use type: does not use caffeine: Yes what type of physical activity do you participate in: none HPI BL KNEES Details: Parts of this documentation were recorded by a scribe, this documentation accurately reflects the service provided and the decisions made by me, Dr. Femi Bowen, 08/04/23 0815. VERONICA ZULUAGA is a 72 year old F here today for BL knee pain that she has been dealing with for many years but this flare has lasted for about the last 3-4 months. She last had BL knee steroid injections 06/2022 which was helpful until 3-4 months ago. She states that the right knee has been giving out on her for about 1 month. Left knee doesn't give out on her. She states that the right knee is worse than the left because of the giving out of the right knee. She has been wearing a compression knee sleeve on the right knee which is somewhat helpful. Denies any new injuries to the knees. Denies any painful mechanical knee pain but she does have crepitation of the knees at times. Denies any past surgery of the knees. Ortho Exam General General: Yes no acute distress Neurologic: Yes alert and Yes oriented x3 Psychologic: Yes reasonable and appropriate Right Knee Skin/Wound: Yes CDI, No erythema and No swelling Homans Sign: No Knee ROM: Yes ROM-Extension -20 to 0 and No ROM-Flexion 0-140 (120) Examination: Yes Med jt line tenderness Stability: NML: Anterior Drawer, NML: Posterior Drawer, NML: Valgus 0 and NML: Valgus 30 Patella Translation: 1 KNEE: ecchymosis anterior lateral knee no joint effusion neurovascularly intact 2/4 pulses Left Knee Skin/Wound: No ecchymosis, No erythema and No swelling Knee ROM: Yes ROM-Extension -20 to 0 and Yes ROM-Flexion 0-140 (120) Examination: Yes med jt line tenderness, No Crepitus, No Pain with flexion, No TTP Pes Anserine and No Illiotibial band tenderness Patella Translation: 1 Head: Normocephalic Atraumatic Chest: symmetrical rise, non-labored breathing, no audible wheeze Abdomen: no guarding, non-rigid Office Procedures Ortho Injections Injections Yes Knee Left Details: Obtained consent for injection. Under sterile conditions, injected the patients left knee with a 10cc cocktail of 8cc bupivacaine and 2cc kenalog. The patient tolerated the injection well without any noted complication. Patient should call our office if redness develops, pain worsens or if they have any concerns. Office Meds Depo-Medrol 40 mg/mL suspension for injection Performing Provider: Femi Bowen DO Performing Location: [facility] Administered by: Femi Bowen DO on 08/04/23 13:42 Dose Route Admin Location Dispensed Lot Number Expiration Date NDC Website Programmer 40 mg intra-articular left knee 1 mL [id number] 02/20/25 3645-0268-02 [facility] Supplemental Info 08/04/2023 x-ray right knee: Moderate approaching severe medial joint space narrowing slight varus deformity 08/04/2023 x-ray left knee: there is advanced medial compartment narrowing [id number], moderate patellofemoral arthrosis 07/03/2022 MRI right knee: Radial tear posterior horn medial meniscus, chondrocalcinosis of the body of the medial meniscus with meniscal subluxation medial compartment arthrosis joint space narrowing, arthrosis of the patellofemoral compartment 06/24/2022 x-ray right knee: Medial joint space narrowing there is chondrocalcinosis of the medial and lateral meniscus mild, there is a geographic lesion of the distal femur that is lytic it is located within the intercondylar notch area only seen on AP view 06/24/2022 x-ray left knee: Severe medial joint space narrowing, there is degenerative spurring of the patellofemoral joint with mild subchondral cystic changes of the patella and trochlea 07/03/2022 MRI right knee: Radial tear root posterior horn medial meniscus with chondrocalcinosis there is arthrosis of the medial and patellofemoral compartments Coding Level of Care Code Off vis,est,level 3 Diagnoses Primary osteoarthritis of both knees M17.0 Osteoarthritis type: primary CPT Codes slab lifting engineer.knee ([id number]) Assessment and Plan Assessment and Plan (1) Osteoarthritis of knees, bilateral: Status: Acute Qualifiers: Osteoarthritis type: primary Qualified Code(s): M17.0 - Bilateral primary osteoarthritis of knee Orders: Orders Knee 4 or More Views Today M25.561 - Pain in right knee, M25.562 - Pain in left knee Knee 4 or More Views Today M25.561 - Pain in right knee, M25.562 - Pain in left knee Referrals BMV Disability Parking M17.0 - Bilateral primary osteoarthritis of knee Plan Obtained X-rays of patient's BL knees. Personally reviewed x-rays. There is no obvious fracture, dislocation, or lucency noted. Patient educated that she has OA of the BL knees worse over the medial compartments. Educated that she also has a medial meniscus tear of the right knee. Treatment options are do nothing or bracing or NSAIDs or steroid injection or viscosupplementation or TKA. She wishes to proceed with left knee steroid injection and RIGHT TKA. Risks, benefits and alternatives of surgery reviewed including but not limited to bleeding, infection, nerve, artery and/or tissue damage, fracture, VTE, mechanical feel of the knee, continued pain, stiffness and expected post- operative course. She wishes to proceed with right TKA in mid September. Patient educated that she will need dental clearance from [facility] prior to proceeding with replacement. Educated on IOVERA treatment and she wishes to proceed with IOVERA if covered by insurance. Will request admission for surgery. Recovery period is around 3 months but can take up to 2 years to fully recover. Follow up for IOVERA treatment or sooner if pain, swelling, numbness or associated symptoms, or concerns develop. All questions answered. Patient in agreement of plan. Tentative surgery date October 12, 2023 requesting admission secondary to advanced age and multiple medical comorbidities including diabetes mellitus, panic attacks liver fibrosis recurrent UTIs hypertension, difficulty swallowing and moderate asthma. 08/04/23 1343 <Electronically signed by Femi Bowen DO> Date Femi Bowen DO I have examined the patient and the H&P has been reviewed. There are no clinical changes since date of exam.
[2023-10-05] MEDS: Cefazolin 2 GM in 0.9% Normal Saline (100mL Bag) 100 ML IV (10:51)
[2023-10-05] MEDS: dexAMETHasone 10 MG/ML Vial IV (11:05)
[2023-10-05] MEDS: TXA 1000mg in NS100 100ml (IVPB at Incision) 660 MG IV (11:05)
--- NOTE | 2023-10-05 11:10 | KNEE_PTH ---
PATIENT: VERONICA ZULUAGA GERALDINE LOC: MS3 U#:[id number] AGE/SX: 73/F ROOM: TN316 RE10/05/[address]: Dr. Femi Bowen DO : 1950 BED: 1 DIS: 10/08/2023 SPEC #: [id number] RECD: 10/05/23 13:50 STATUS: BERTRAM HEIKE #: [id number] TICO: 10/05/23 11:[address]: Femi Bowen DEPT: SURGICAL PATHOLOGY RECD BY: Catarina Russell ENTERED: 10/05/23 14:25 SP TYPE: TOTAL KNEE OTHR DR: Dr. Dwight Parnell, DO Tissues: Knee, NOS Procedures: Decalcification bone/plaque Surgery Specimen Level IV HEADER OPERATION: ERAS, right total knee replacement robotic arm assist PRE-OP DIAGNOSIS: Osteoarthritis right knee TISSUE SUBMITTED: Bone and tissue right knee MICROSCOPIC DIAGNOSIS Bone and tissue of right knee, total knee resection: Severe degenerative joint disease. AM:hadley 10/08/2023 MICROSCOPIC DESCRIPTION Slides are reviewed. GROSS DESCRIPTION Received is one container designated bone and tissue right knee. The specimen consists of multiple fragments of marcano-yellow bone measuring in aggregate 15.0 x 12.0 x 2.0 cm. Also in the specimen container are multiple fragments of yellow-white soft tissue measuring in aggregate 4.0 x 4.0 x 0.8 cm. A number of bony fragments contain articular surfaces consistent with tibial plateau and femoral condyle and displaying prominent osteophyte formation, eburnation and bone erosion. Automobile Dealer sections are submitted in two cassettes as follows: 1 - soft tissue, 2 - bone after decalcification. / AM:hadley 10/05/2023 TC:5 [facility]: [id number], [id number]
[2023-10-05] MEDS: TXA 1000mg in NS100 100ml (IVPB at Closure) 660 MG IV (11:29)
[2023-10-05] MEDS: dexAMETHasone 4 MG/ML Vial (12:40)
[2023-10-05] MEDS: Bupivacaine 0.5% PF 10 ML VIAL (12:40)
[2023-10-05] MEDS: 0.9% Normal Saline (Pres. free 10 ML Vial (12:40)
[2023-10-05] MEDS: Epinephrine (1 mg/ml) 1 MG/ML VIAL (12:40)
--- NOTE | 2023-10-05 13:05 | OP.PCM_ITS ---
Operative Report Date of Procedure: 10/05/23 Preoperative diagnosis: Right knee DJD Postoperative diagnosis: Same Procedure: Right total knee arthroplasty CT guided Robotic Assisted Implant: [place] triathlon press fit, femoral component size2, tibial baseplate size 3, asymmetric patella size 32, polyethylene X3 size 9 CS Anesthesia: Spinal with adductor canal block Tourniquet time: 12 minutes at 300 mmHg Complications: None Condition: Stable to PACU Estimated blood loss: 175 cc Software Packaging Engineer Ambrocio Clark. My physician executive assistant to general counsel was a vital part of this case. He was important in appropriate retraction during the case, and protection of soft tissues during procedure. His intimate knowledge of the case and my steps aided in safe and expedient completion of the procedure as well as appropriate position of the extremity during the case. He was also vital in assisting with closure under my direct supervision. Indication for procedure: This is a 73-year-old female with long standing degenerative joint disease of the knee who has failed conservative treatment and wished to proceed with elective total knee arthroplasty. Risk benefits and alternatives were reviewed including; risk of bleeding, infection, nerve artery and tissue damage, continued pain, postoperative stiffness, venous thromboembolism, need for postoperative rehabilitation, mechanical feel to the knee, and expected postoperative course. The pre- operative CT and templating was performed with component sizing. Procedure: The patient was met in the preoperative holding area. The operative extremity was identified by both patient and physician and was marked. Patient was met by anesthesia. An adductor canal block was placed by anesthesia post operatively the patient was brought back to the operating room on a wheeled cart and transferred to the operating table in the supine position. Anesthesia was started. A well-padded tourniquet was placed on the operative extremity. The patient was prepped and draped in the usual sterile fashion. A timeout was called to ensure the proper patient procedure and extremity were being contemplated. An esmarch was used to exsanguinate the extremity. The tourniquet was inflated. A 10 blade scalpel was used to make a midline incision down through the skin and subcutaneous tissue. Skin retractors placed. Bovie and Aquamantis were used to perform meticulous hemostasis. full-thickness flaps were elevated medial and lateral along the joint capsule. A deep blade scalpel was used to perform a medial parapatellar arthrotomy. The knee was brought to full extension. A bovie was used to release the soft tissues off the most proximal aspect of the medial tibial plateau, a three-quarter inch curved osteotome was also used in this process. The infrapatellar fat pad was excised. The suprapatellar fat pad was excised partially anteriorolateraly and portion the anterioromedial pad was elevated from the femur. At this point our intra- articular femoral array was placed at a 45 degree angle proximal and posterior to the medial epicondyle. femoral checkpoint was placed at this time. Our ti bial array was placed greater than 1 hands breath below the incision at a 20 degree angle stab incisions were made with a 15 blade scalpel and pins were placed and attached to the tibial array , tibial checkpoint was placed in the proximal tibial metaphysis. Tourniquet was let down. At this point registration sifuentes were taken throughout the knee . Once the knee was registered we then tensioned the medial and lateral ligaments in extension and 90 degrees of flexion. We then used these numbers to adjust our components within parameters to balance the knee in both flexion and extension once this was done on our monitor we then proceeded with using the robotic arm to make our tibial plateau cut, anterior and posterior chamfer and distal femur cuts. we removed the cut fragments with the use of a bovie and Jayna, we did use a lamina pharmaceutical sales specialist to insure we visualized and removed all posterior osteophytes and at this time also used the Aquamantis on the posterior joint capsule. we then trialed and achieved the desired plan with a well-balanced knee. we used the green probe to daina the corresponding tibial rotation based on our CT template. Lug holes were drilled in the femur the tibia preparation was completed with the appropriate sized base plate pinned based on previous rotation daina. An appropriate sized fin punch was used on the tibia and 4 corner drill was used for the press fit component and the patella was prepared by first using a caliper to ensure sufficient bone stock and a patellar reamer to remove the desired amount of bone. lug holes drilled for an asymmetric poly. We then brought the knee through range of motion with excellent patellar tracking. We thoroughly irrigated the knee. Trial components were removed a posterior capsular injection was preformed with our standard cocktail. In addition the aqua Mantis was also used to aid in hemostasis. Betadine rinse was allowed to sit and washed out completely. Components were press-fit into place. Aricept rinse was then used followed by several more liters of irrigation after it was allowed to sit. The joint capsule was closed with #1 Ethibond [id number] followed by Vicryl in the subcutaneous tissues with francisco in the skin. Arrays and checkpoints were removed prior to closure all counts were correct stab incisions were closed with a staple standard dressing in the form of Mepilex AG for the main incision and a small Mepilex over the pin holes. Thigh-high SHELLI hose applied over top of dressing. Patient tolerated the procedure well and was directed to PACU in stable condition . There were no intraoperative complications.
--- NOTE | 2023-10-05 13:25 | RAD_ITS ---
STUDY: X-RAY - RIGHT KNEE REASON FOR EXAM: Female, 73 years old. Post op -- AP and Lateral xray of operative knee in PACU TECHNIQUE: 2 view(s) of the knee. COMPARISON: Comparison is made with prior study dated August 04, 2023. FINDINGS: Normal visualized distal femur. Normal visualized proximal tibia and fibula. Normal proximal tibiofibular articulation. The patient is status post right total knee replacement. There is good alignment. Postoperative soft tissue changes. RAD/Knee 1 or 2 Views IMPRESSION: Status post right total knee replacement. There is good alignment. Postoperative soft tissue changes. Electronically Signed: Jono Venegas MD at 14:19 EST ,
[2023-10-05] MEDS: Cefazolin 1 GM/50 ML BAG IV ×2 (14:00→22:19)
[2023-10-05] MEDS: oxyCODONE 5 MG Tablet PO (19:11)
[2023-10-05] MEDS: 0.9% Saline Lock 10 ML Syringe IV (19:12)
[2023-10-05] MEDS: 0.9% Normal Saline (1000mL) 1,000 ML 125 ML IV (20:48)
[2023-10-05] MEDS: traZODone 100 MG Tablet 200 MG PO (21:00)
[2023-10-05] MEDS: Senna/Docusate Sodium 1 Tablet 2 TABLET PO (21:00)
[2023-10-06] MEDS: oxyCODONE 5 MG Tablet PO ×5 (00:40→22:27)
[2023-10-06] MEDS: Acetaminophen 500 MG Tablet 1000 MG PO ×3 (05:21→22:40)
[2023-10-06] MEDS: Cefazolin 1 GM/50 ML BAG IV (05:22)
[2023-10-06] MEDS: 0.9% Normal Saline (1000mL) 1,000 ML 125 ML IV ×3 (05:22→22:46)
[2023-10-06] MEDS: Ondansetron 4 MG/2 ML Vial IV ×2 (06:10→22:26)
[2023-10-06 06:36] VITALS: BP 169/91; PULSE 92; RESP 16; TEMP 36.8; O2SAT 97
[2023-10-06 08:45] LABS: Hematocrit 34.1 % (37-47); Hemoglobin 11.6 g/dL (12.0-15.0); Mean Corpuscular Hgb 29.7 pg (27.0-32.0); Mean Corpuscular Volume 87.2 fL (81-99); Mean Platelet Vol. 9.6 fl (6.2-12.0); Platelet Count 195 K/mm3 (150-450); RBC Distribution Width CV 12.7 % (11.6-14.6); RBC Distribution Width SD 40.2 fl (35.1-43.9); Red Blood Count 3.91 M/mm3 (4.2-5.4)
[2023-10-06 09:10] LABS: Anion Gap 9 (5-15); BUN 8 mg/dL (7-18); BUN/Creat Ratio 9.3 RATIO (10-20); Calcium,Total 7.9 mg/dL (8.5-10.1); Chloride 97 mmol/L (98-107); Creatinine, Serum 0.86 mg/dL (0.55-1.02); EST Glomerular Filtration Rate 69 mL/min (>60); Est Glom Filt Rate - Afr Amer 83 mL/min (>60); Estimated Creatinine Clearance 46.77 ml/min; Glucose 182 mg/dL (74-106); Potassium 4.4 mmol/L (3.5-5.1); Sodium Level 130 mmol/L (136-145)
[2023-10-06] MEDS: APIXABAN 2.5 MG TABLET (WCH) PO ×2 (09:28→22:41)
[2023-10-06] MEDS: hydroCHLOROthiazide 12.5mg 12.5 MG PO (09:28)
[2023-10-06] MEDS: Pantoprazole Sodium 40 MG Tablet PO (09:28)
[2023-10-06] MEDS: Pioglitazone Hydrochloride 30 MG Tablet PO (09:28)
[2023-10-06] MEDS: Senna/Docusate Sodium 1 Tablet 2 TABLET PO ×2 (09:28→22:40)
[2023-10-06 10:28] VITALS: BP 154/79; PULSE 80; RESP 18; TEMP 36.6; O2SAT 98
--- NOTE | 2023-10-06 10:36 | PCM.PN.ORT ---
Subjective Subjective Seen and examined. Complain of pain in the right knee does not feel it is adequately controlled with the 10 mg of oxycodone. Denies fevers chills nausea vomit shortness of breath or chest pain. Did have nausea vomiting postoperatively but is improved now. Objective Data Objective Data Vital Signs: Vital Signs Temp Pulse Resp BP Pulse Ox O2 Del Method O2 Flow Rate 97.8 F 80 18 154/79 H 98 Room Air 4 10/06/23 10:28 10/06/23 10:28 10/06/23 10:28 10/06/23 10:28 10/06/23 10:28 10/06/23 10:28 10/05/23 14:00 Oxygen Flow Rate (L/min) 4 Oxygen Delivery Method Room Air Weight: 149 lb 11.102 oz Body Mass Index (BMI) 27.3 Intake & Output: Intake and Output for Last 24 Hours 10/04/23 10/05/23 10/06/23 23:59 23:59 23:59 Intake Total 1889.92 / 1889.92 818.75 / 818.75 Output Total 450 / 450 Balance 1889.92 / 1889.92 368.75 / 368.75 Lab / Micro Data 10/06/23 08:00 10/06/23 08:00 Labs: Laboratory Results - last 24 hr 10/06/23 08:00: WBC 17.0 H, RBC 3.91 L, Hgb 11.6 L, Hct 34.1 L, MCV 87.2, MCH 29.7, MCHC 34.0, RDW Std Deviation 40.2, RDW Coeff of Anju 12.7, Plt Count 195, MPV 9.6, Sodium 130 L, Potassium 4.4, Chloride 97 L, Carbon Dioxide 24.0, Anion Gap 9, BUN 8, Creatinine 0.86, Estim Creat Clear Calc 46.77, Est GFR (MDRD) Af Amer 83, Est GFR (MDRD) Non-Af 69, BUN/Creatinine Ratio 9.3 L, Glucose 182 H, Calcium 7.9 L Micro: Microbiology 09/23/23 08:33 Swab (Method) Nasal Screen MRSA/MSSA - Final Radiography Diagnostic Testing: Radiology Impression Knee X-Ray 10/05/23 13:25 IMPRESSION: Status post right total knee replacement. There is good alignment. Postoperative soft tissue changes. Electronically Signed: Jono Venegas MD at 14:19 EST , Physical Exam Const alert, oriented x3 and no apparent distress General Appearance: cooperative Extremity Extremity Narrative: Right leg dressing clean dry intact neurovascular intact EHL tibialis anterior gastrocsoleus intact station to light touch 2 out of 4 pedal pulse Assessment & Plan Assessment/Plan (1) S/P total knee arthroplasty: QUALIFIERS: Laterality: right Qualified Code(s): Z96.651 - Presence of right artificial knee joint PLAN: Plan Postop day #1 right total knee arthroplasty PT OT weightbearing as tolerated encourage knee range of motion Dressing to remain on for 5 days postop then removed prior to first dressing change Increase oxycodone to up to 15 mg every 4 hours as needed pain Needs to demonstrate safety with stairs with physical therapy Possible DC home tomorrow
--- NOTE | 2023-10-06 11:51 | CASEMGMT ---
ORION MCCONNELL Assessment: Face to Face with pt for initial transition planning/care coordination assessment. ORION MCCONNELL introduced self and role at [facility], pt voices understanding and consents to assessment. Pt is A&O x4 and answers all questions appropriately at this time. Pt lying in bed in no distress. She just got back from bathroom with the SUMMER CHILD CAREGIVER. Care providers, pharmacy, and demographics verified/updated. Admitting Dx: R TKR PCP:Parmjit Specialists:Andrés, ortho; Christo, onc; lizzy Stout onc Preferred Pharmacy: [facility] Insurance: [facility], MMO Prescription Benefit: yes LNOK: Selam Hebert, ; Selam Hebert Jr, son Living Arrangements: Pt lives with in a two story home with FFSU and 5+6 steps to enter with a rail. Pt reports she was I in ADL's prior to surgery. She states her recently had back surgery and may not be able to assist much for her. Pt denies concerns at home. Transportation: Pt drives self and denies concerns with transportation. Pt has friends and family who is able to provide transportation. DME:grab bars in the tub/shower; shower chair, FWW, rollator, toilet side rails HHC/SNF: Pt denies hx of Pt states no concerns with going home at time of dc. She has outpt therapy set up at [facility] on Wednesday. Pt states no further concerns/needs. CM to follow. Advised pt to ask CM if any further question/concerns/needs arise, voices understanding. Pt Goal: Home with outpt therapy already set up Plan: Home with outpt therapy already set up
[2023-10-06 13:49] VITALS: BP 165/84; PULSE 86; RESP 18; TEMP 36.8; O2SAT 98
[2023-10-06 18:13] VITALS: BP 139/85; PULSE 87; RESP 18; TEMP 37; O2SAT 98
[2023-10-06 22:19] VITALS: BP 116/72; PULSE 115; RESP 16; TEMP 37.5; O2SAT 97
[2023-10-06] MEDS: traZODone 100 MG Tablet 200 MG PO (22:40)
--- NOTE | 2023-10-06 23:10 | NURSING ---
22:20 primary rn called via call light for conveyor line battery charger and another staff to come in room, pt slid self off bed to floor attempting to take self to bathroom; 22:30 primary rn, conveyor line battery charger assessed pt, denies hitting head, denies any new injury or pain to operative leg, rt leg straight out on floor; pt reports she didn't call and thought she get self to bathroom; negative assessment; gait belt placed on pt and primary rn, conveyor line battery charger and supervisor dock assisted to stand with walker and use bathroom; 22:40 pt agreed to have attends and purewick placed due to concern of voiding herself, but to call and staff will assist her to bathroom; reminded her to always wait for assist, pt agrees. bed exit on for safety 22:47 notified nursing tank shop supervisor 23:10 Dr. Bowen notified
[2023-10-06 23:29] VITALS: BP 152/78; PULSE 89; RESP 16; TEMP 37.1; O2SAT 98
[2023-10-07 05:03] VITALS: BP 134/79; PULSE 86; RESP 16; TEMP 36.5; O2SAT 95
[2023-10-07] MEDS: Acetaminophen 500 MG Tablet 1000 MG PO ×3 (05:13→22:15)
--- NOTE | 2023-10-07 05:37 | NURSING ---
This RN checked vitals at 0500 this morning, VS stable. This RN continues to monitor patient throughout the night because at 2218 (10/06), this RN walked into the patient's room to check a beeping IV. This RN found patient sitting on the floor with right leg straight out in front of her. Patient reports that she slid out of bed, but did not hit her head or bend her right leg backwards. She reports that she was trying to get out of bed to go to the bathroom. This RN put on the call light for charge nurse who came in and assessed patient with this RN. Check shift findings for findings. Assisted to the bathroom and then back into bed. Reinforced use of call light and importance of not getting up without help. Placed brief and purewick to help with urgency. Patient remains stable throughout night.
[2023-10-07 06:26] LABS: Hematocrit 29.8 % (37-47); Hemoglobin 10.7 g/dL (12.0-15.0); Mean Corp Hgb Conc 35.9 g/dL (32-36); Mean Corpuscular Hgb 30.5 pg (27.0-32.0); Mean Corpuscular Volume 84.9 fL (81-99); Platelet Count 156 K/mm3 (150-450); RBC Distribution Width CV 12.8 % (11.6-14.6); RBC Distribution Width SD 39.3 fl (35.1-43.9); Red Blood Count 3.51 M/mm3 (4.2-5.4); White Blood Count 11.9 K/mm3 (4.4-11.0)
[2023-10-07] MEDS: Pioglitazone Hydrochloride 30 MG Tablet PO (08:50)
[2023-10-07] MEDS: Senna/Docusate Sodium 1 Tablet 2 TABLET PO ×2 (08:50→22:15)
[2023-10-07] MEDS: hydroCHLOROthiazide 12.5mg 12.5 MG PO (08:51)
[2023-10-07] MEDS: APIXABAN 2.5 MG TABLET (WCH) PO ×2 (08:51→22:15)
[2023-10-07] MEDS: Pantoprazole Sodium 40 MG Tablet PO (08:52)
[2023-10-07] MEDS: 0.9% Normal Saline (500mL Bag) 500 ML 999 ML IV (09:40)
[2023-10-07 10:45] VITALS: BP 117/78; PULSE 88; RESP 17; TEMP 36.8; O2SAT 99
[2023-10-07 10:47] VITALS: PULSE 93
[2023-10-07] MEDS: oxyCODONE 5 MG Tablet PO (13:10)
--- NOTE | 2023-10-07 13:12 | PCM.PN.ORT ---
Subjective Subjective Patient seen and examined. Complain of significant pain in her right knee. She is having difficulty with physical therapy still requiring 1 full assist. Patient had a slip getting out of bed landing on her buttocks last evening did not injure her knee. Does have nausea, has been on oxycodone 15 mg every 4. Objective Data Objective Data Vital Signs: Vital Signs Temp Pulse Resp BP Pulse Ox O2 Del Method O2 Flow Rate 98.3 F 93 17 117/78 99 Room Air 4 10/07/23 10:45 10/07/23 10:47 10/07/23 10:45 10/07/23 10:45 10/07/23 10:45 10/07/23 10:45 10/05/23 14:00 Oxygen Flow Rate (L/min) 4 Oxygen Delivery Method Room Air Weight: 149 lb 11.102 oz Body Mass Index (BMI) 27.3 Intake & Output: Intake and Output for Last 24 Hours 10/05/23 10/06/23 10/07/23 23:59 23:59 23:59 Intake Total 1889.92 / 1889.92 2720.83 / 2720.83 1216.67 / 1216.67 Output Total 450 / 450 601 / 601 Balance 1889.92 / 1889.92 2270.83 / 2270.83 615.67 / 615.67 Lab / Micro Data 10/07/23 06:00 10/06/23 08:00 Labs: Laboratory Results - last 24 hr 10/07/23 06:00: WBC 11.9 H, RBC 3.51 L, Hgb 10.7 L, Hct 29.8 L, MCV 84.9, MCH 30.5, MCHC 35.9 D, RDW Std Deviation 39.3, RDW Coeff of Anju 12.8, Plt Count 156, MPV 9.0 Micro: Microbiology 09/23/23 08:33 Swab (Method) Nasal Screen MRSA/MSSA - Final Physical Exam Const alert, oriented x3 and no apparent distress General Appearance: cooperative Extremity Extremity Narrative: Right leg dressing clean dry intact neurovascular intact EHL tibialis anterior gastrocsoleus intact station to light touch 2 out of 4 pedal pulse Assessment & Plan Assessment/Plan (1) Postoperative hypotension: (2) S/P total knee arthroplasty: QUALIFIERS: Laterality: right Qualified Code(s): Z96.651 - Presence of right artificial knee joint PLAN: Plan Patient had hypotension and dizziness earlier this a.m. she did receive normal saline bolus bolus and increase fluids to 125, pressures doing better now she is asymptomatic now. Complaining of significant pain in right knee on oxycodone 5 mg every 4 Will add Toradol 30 mg IV every 6 for up to 4 doses, to new 1000 mg Tylenol Q8 Patient is not safe for discharge home, reassess tomorrow for discharge home versus possible rehab TCU. Terrell ordered patient instructed to request medication when feeling nauseous.
[2023-10-07] MEDS: 0.9% Normal Saline (1000mL) 1,000 ML 125 ML IV ×2 (13:25→20:42)
[2023-10-07 14:25] VITALS: BP 133/69; PULSE 87; RESP 17; TEMP 37.4; O2SAT 95
--- NOTE | 2023-10-07 16:02 | CASEMGMT ---
ORION CM in to pt. room to discuss her plan for discharge since she had a fall last night. Pt. states she is doing well and just feeling very tired. Pt. states she is not sure if she still wants home with [facility] or if she may need to be placed. She states she prefers to wait and speak with Dr. Bowen tomorrow morning to decide. Pt. denies having any additional questions/concerns at this time.
[2023-10-07 20:00] VITALS: BP 125/71; PULSE 93; RESP 16; TEMP 37.5; O2SAT 98
[2023-10-07] MEDS: Ondansetron 4 MG/2 ML Vial IV (20:21)
[2023-10-07] MEDS: Ketorolac 30 MG/ML Syringe 15 MG IV (20:21)
[2023-10-07] MEDS: traZODone 100 MG Tablet 200 MG PO (22:15)
[2023-10-08 02:42] VITALS: BP 153/72; PULSE 88; RESP 16; TEMP 36.3; O2SAT 100
[2023-10-08] MEDS: Ketorolac 30 MG/ML Syringe 15 MG IV (06:31)
[2023-10-08] MEDS: Acetaminophen 500 MG Tablet 1000 MG PO ×2 (06:31→14:31)
[2023-10-08] MEDS: 0.9% Normal Saline (1000mL) 1,000 ML 125 ML IV (06:31)
[2023-10-08 07:01] LABS: Hemoglobin 9.9 g/dL (12.0-15.0); Mean Corp Hgb Conc 34.1 g/dL (32-36); Mean Corpuscular Hgb 29.8 pg (27.0-32.0); Mean Corpuscular Volume 87.3 fL (81-99); Mean Platelet Vol. 9.3 fl (6.2-12.0); Platelet Count 154 K/mm3 (150-450); RBC Distribution Width SD 41.2 fl (35.1-43.9); Red Blood Count 3.32 M/mm3 (4.2-5.4); White Blood Count 8.7 K/mm3 (4.4-11.0)
[2023-10-08 08:02] VITALS: BP 119/62; PULSE 87; RESP 16; TEMP 36.7; O2SAT 98
[2023-10-08] MEDS: Senna/Docusate Sodium 1 Tablet 2 TABLET PO (08:07)
[2023-10-08] MEDS: hydroCHLOROthiazide 12.5mg 12.5 MG PO (08:07)
[2023-10-08] MEDS: Pioglitazone Hydrochloride 30 MG Tablet PO (08:08)
[2023-10-08] MEDS: APIXABAN 2.5 MG TABLET (WCH) PO (08:08)
[2023-10-08] MEDS: Pantoprazole Sodium 40 MG Tablet PO (08:09)
[2023-10-08 09:17] VITALS: O2SAT 98
[2023-10-08 12:17] VITALS: BP 118/77; PULSE 91; RESP 16; TEMP 37; O2SAT 99
--- NOTE | 2023-10-08 13:09 | DCINST_ITS ---
Discharge Instructions Diet Discharge Diet: No restrictions Activity Weight Bearing Status: Full weight bearing Dressing / Incision Call your doctor if you observe: Shortness of breath and Chest pain Additional Dressing/Incision Instructions:: Ice and elevate lower extremities 2 weeks while not ambulating. Ambulation is encouraged. Weight bearing as tolerated. Use assistive devise for stability. Encourage FULL knee extension and flexion 1 time EVERY time you get up and down and MULTIPLE times per day. No showering until 72 hours after surgery. Begin showering postop day #3. Remove the dressing prior to shower and gently wash with warm water and antibacterial soap then pat dry and place abdominal pad (or plain gauze) and SHELLI hose over top. This is to be done daily. Do not submerge for 3 weeks. If not showering daily after the initial 72 hours then you must clean incision and change dressing daily. Do not allow animals near the incision area. Keep clean. Follow anti-coagulation recommendations as prescribed. Do not take any NSAIDs while on blood thinner. Do not take any additional narcotic pain medication other than what was prescribed on your surgery day without discussing with physician. Narcotic medication can be addictive. Do not drink alcohol while taking narcotics. Supplement narcotic prescription with acetaminophen 1000 mg 4 times a day. Start physical therapy. If you are not currently scheduled for physical therapy or you are unsure of appointment time please call office [facility] to arrange. Call Dr. Bowen with any concerns. Follow Up Care Please Follow Up With: Femi Bowen DO When: 2 weeks Test Results: Test results from this visit will be discussed in further detail at your follow- up appointment, if applicable. Discharge Plan Admission Admit Date/Time: 10/05/23 08:35 Primary Reason for Your Visit: Right total knee arthroplasty Attending Provider: Femi Bowen Primary Care Provider: Dwight Parnell Discharge Orders/Prescriptions Prescriptions: New acetaminophen 500 mg Tablet 1,000 mg PO Q6H Qty: 100 0RF Eliquis 5 mg Tablet 2.5 mg PO BID Qty: 28 0RF oxycodone 5 mg Tablet 5 - 15 mg PO Q4H PRN PRN (Reason: Pain Score 4-10) 7 Days Qty: 60 0RF ondansetron 4 mg tablet,disintegrating 4 mg PO Q6H PRN (Reason: nausea and vomiting) Qty: 5 0RF Continued trazodone 100 mg tablet 200 mg PO HS 30 Days Qty: 60 hydrochlorothiazide 12.5 mg tablet 12.5 mg PO DAILY Qty: 90 3RF lorazepam [Ativan] 0.5 mg tablet 0.5 mg PO BID PRN (Reason: anxiety) Qty: 30 1RF pioglitazone 30 mg tablet 30 mg PO DAILY Qty: 30 6RF sertraline 100 mg tablet 100 mg PO QHS Qty: 90 1RF omeprazole 40 mg capsule,delayed release(DR/EC) 40 mg PO QAM Qty: 90 3RF fluticasone propionate 9.9 ML spray,suspension 2 spray INTRANASAL DAILY PRN (Reason: Nasal Congestion) Rx Instructions: administer into each nostril vitamin E (dl, acetate) 450 mg (1,000 unit) capsule 900 mg PO DAILY Patient Comments: TAKE 1 CAPSULE BY MOUTH EVERY DAY Held tamoxifen 20 mg tablet 20 mg PO DAILY Qty: 90 3RF Hold Instructions: Resume on 10/27/23. Other Ambulatory Orders: 12 Lead EKG (Routine) Timeframe: [id number] Location: None Selected Ordered By: Dr. Femi Bowen Referrals / Follow Up: Dwight Parnell DO [Primary Care Provider] - Disposition Disposition (needs filled in before D/C Order can be placed): Home, Self Care
--- NOTE | 2023-10-08 13:15 | DS.PCM_ITS ---
Providers Date of Admission: 10/05/23 Primary Care Physician: Dr. Dwight Parnell, DO Reason For Visit: Right Total Knee Replacement [place] Diagnosis Discharge Diagnosis (1) Postoperative hypotension: Status: Acute Code(s): I95.81 - Postprocedural hypotension (2) S/P total knee arthroplasty: Status: Acute Code(s): Z96.659 - Presence of unspecified artificial knee joint Qualifiers: Laterality: right Qualified Code(s): Z96.651 - Presence of right artificial knee joint Plan Patient had hypotension and dizziness earlier this a.m. she did receive normal saline bolus bolus and increase fluids to 125, pressures doing better now she is asymptomatic now. Complaining of significant pain in right knee on oxycodone 5 mg every 4 Will add Toradol 30 mg IV every 6 for up to 4 doses, to new 1000 mg Tylenol Q8 Patient is not safe for discharge home, reassess tomorrow for discharge home versus possible rehab TCU. Terrell ordered patient instructed to request medication when feeling nauseous. Medications at Discharge Home Medications fluticasone propionate 50 mcg/actuation nasal spray,suspension 2 spray intranasal DAILY PRN Nasal Congestion 04/21/19 trazodone 100 mg tablet 200 mg PO HS SLEEP 30 days #60 tabs 10/14/21 hydrochlorothiazide 12.5 mg tablet 12.5 mg PO DAILY HYPERTENSION #90 tabs 10/29/22 lorazepam 0.5 mg tablet (Ativan) 0.5 mg PO BID PRN anxiety #30 tabs 10/29/22 tamoxifen 20 mg tablet 20 mg PO DAILY CANCER #90 tabs 12/16/22 pioglitazone 30 mg tablet 30 mg PO DAILY LIVER #30 tabs 07/13/23 vitamin E (dl, acetate) 450 mg (1,000 unit) capsule 900 mg PO DAILY SUPPLEMENT 09/22/23 omeprazole 40 mg capsule,delayed release 40 mg PO QAM GERD #90 caps 09/23/23 sertraline 100 mg tablet 100 mg PO QHS ANXIETY #90 tabs 09/23/23 acetaminophen 500 mg tablet 1,000 mg (2 x 500 mg) PO Q6H #100 tabs 10/08/23 apixaban 5 mg tablet (Eliquis) 2.5 mg (1/2 x 5 mg) PO BID #28 tabs 10/08/23 ondansetron 4 mg disintegrating tablet 4 mg PO Q6H PRN nausea and vomiting #5 tabs 10/08/23 oxycodone 5 mg tablet 5 - 15 mg (1 - 3 x 5 mg) PO Q4H PRN PRN Pain Score 4-10 7 days #60 tabs 10/08/23 Hospital Course Operations total knee replacement Summary of Care Provided Hospital Course: Who has long history of 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 Patient underwent the aformentioned procedure on the admission date without any intraoperative complications. Patient did receive pre-and postoperative antibiotics which were discontinued within 23 hours postoperatively. Patient did receive spinal anesthesia as well as an adductor canal block postope ratively. pain was controlled with IV and transition to p.o. pain medication Patient will be discharged home with oxycodone and will continue Tylenol as well. Patient had minimal intraoperative blood loss and 2gm tranexamic acid was administered there was no need for postoperative blood transfusion Patients vital signs remained stable. She did develop some postoperative hypotension which need to be treated with bolus of normal saline and some IV fluids then her blood pressures returned quickly. She did have issues with pain control and was increased from oxycodone 5-10 to up to 15 mg . On postop day #2 where pain so was not adequately controlled Toradol was added 30 mg every 6 hours and this dramatically improved her pain , she felt she was good to be discharged home on postop day #3 she was also seen by physical therapy who deemed that she was much improved according to nursing deemed safe for discharge from therapy standpoint . patient was started on both mechanical and chemical DVT per prophylaxis postoperatively in the form of SCDs SHELLI hose and Eliquis 2.5 mg twice daily for which she will continue for 2 additional weeks post hospital discharge. thigh high shelli hose placed over top of the meplix silver dressing. This should be removed 72 hrs post operatively and showering begun daily at that time with warm water and antibacterial soap. not to submerge for 3 weeks. To change dressing daily after first dressing change. Patient will follow-up in the office in 2 weeks. No intrahospital complications. Weight / BMI Weight Weight: 149 lb 11.102 oz Body Mass Index (BMI) 27.3 ABG / Lab / Microbiology Data 10/08/23 06:30 10/06/23 08:00 Laboratory: Laboratory Results - last 24 hr 10/08/23 06:30: WBC 8.7, RBC 3.32 L, Hgb 9.9 L, Hct 29.0 L, MCV 87.3, MCH 29.8, MCHC 34.1 D, RDW Std Deviation 41.2, RDW Coeff of Anju 13.0, Plt Count 154, MPV 9.3 Microbiology: Microbiology 09/23/23 08:33 Swab (Method) Nasal Screen MRSA/MSSA - Final D/C Instructions Discharge Diet: No restrictions Weight Bearing Status: Full weight bearing Call your doctor if you observe: Shortness of breath and Chest pain Additional Dressing/Incision Instructions: Ice and elevate lower extremities 2 weeks while not ambulating. Ambulation is encouraged. Weight bearing as tolerated. Use assistive devise for stability. Encourage FULL knee extension and flexion 1 time EVERY time you get up and down and MULTIPLE times per day. No showering until 72 hours after surgery. Begin showering postop day #3. Remove the dressing prior to shower and gently wash with warm water and antibacterial soap then pat dry and place abdominal pad (or plain gauze) and SHELLI hose over top. This is to be done daily. Do not submerge for 3 weeks. If not showering daily after the initial 72 hours then you must clean incision and change dressing daily. Do not allow animals near the incision area. Keep clean. Follow anti-coagulation recommendations as prescribed. Do not take any NSAIDs while on blood thinner. Do not take any additional narcotic pain medication other than what was prescribed on your surgery day without discussing with physician. Narcotic medication can be addictive. Do not drink alcohol while taking narcotics. Supplement narcotic prescription with acetaminophen 1000 mg 4 times a day. Start physical therapy. If you are not currently scheduled for physical therapy or you are unsure of appointment time please call office [facility] to arrange. Call Dr. Bowen with any concerns. Please Follow Up With: Femi Bowen DO When: 2 weeks Meaningful Use Info Meaningful Use Diagnoses (Choose all that apply): None applicable Discharge Plan Admission Admit Date/Time: 10/05/23 08:35 Primary Reason for Your Visit: Right total knee arthroplasty Attending Provider: Femi Bowen Primary Care Provider: Dwight Parnell Discharge Orders/Prescriptions Prescriptions: New acetaminophen 500 mg Tablet 1,000 mg PO Q6H Qty: 100 0RF Eliquis 5 mg Tablet 2.5 mg PO BID Qty: 28 0RF oxycodone 5 mg Tablet 5 - 15 mg PO Q4H PRN PRN (Reason: Pain Score 4-10) 7 Days Qty: 60 0RF ondansetron 4 mg tablet,disintegrating 4 mg PO Q6H PRN (Reason: nausea and vomiting) Qty: 5 0RF Continued trazodone 100 mg tablet 200 mg PO HS 30 Days Qty: 60 hydrochlorothiazide 12.5 mg tablet 12.5 mg PO DAILY Qty: 90 3RF lorazepam [Ativan] 0.5 mg tablet 0.5 mg PO BID PRN (Reason: anxiety) Qty: 30 1RF pioglitazone 30 mg tablet 30 mg PO DAILY Qty: 30 6RF sertraline 100 mg tablet 100 mg PO QHS Qty: 90 1RF omeprazole 40 mg capsule,delayed release(DR/EC) 40 mg PO QAM Qty: 90 3RF fluticasone propionate 9.9 ML spray,suspension 2 spray INTRANASAL DAILY PRN (Reason: Nasal Congestion) Rx Instructions: administer into each nostril vitamin E (dl, acetate) 450 mg (1,000 unit) capsule 900 mg PO DAILY Patient Comments: TAKE 1 CAPSULE BY MOUTH EVERY DAY Held tamoxifen 20 mg tablet 20 mg PO DAILY Qty: 90 3RF Hold Instructions: Resume on 10/27/23. Other Ambulatory Orders: 12 Lead EKG (Routine) Timeframe: [id number] Location: None Selected Ordered By: Dr. Femi Bowen Referrals / Follow Up: Dwight Parnell DO [Primary Care Provider] - Disposition Disposition (needs filled in before D/C Order can be placed): Home, Self Care
[2023-10-08 13:43] VITALS: BP 132/71; PULSE 108; RESP 17; TEMP 37.2; O2SAT 98
[2023-10-08] MEDS: Magnesium Hydroxide 30 ML UDC PO (13:49)
--- NOTE | 2023-10-08 13:51 | NURSING ---
voided in toilet prior to bladder scan
--- NOTE | 2023-10-08 14:36 | CASEMGMT ---
ORION Mcconnell did singleton check for Eliquis at [facility] Retail pharmacy. Pharmacists states they applies a free trial card so the cot is $0.00. Pt. has order in for D/C. ORION MCCONNELL in to pt. room to discuss needs t D/C. Pt. states she was supposed to go to [facility] for outpatient therapy but she has changes her mind and now prefers to have C for PT/OT. She states she does not need SN. ORION MCCONNELL informed pt. we will get her a HHC list to choose an agency from. Pt. informed she is being D/C'd on Eliquis and that it was sent to [facility] retail pharmacy with a $0.00 cost d/t the free trail card. pt. voices understanding and states that her oxy will need to be at [facility] because it will likely cost her less there. Pt. states her ride will not be here till 4:30 pm to get her. pt denies having any additional needs at this time. Pt. denies having any further questions/concerns at this time.
--- NOTE | 2023-10-08 15:05 | CASEMGMT ---
Addendum entered by Amalia Ag 10/08/23 15:19: Received tc back from [facility], they are able to accept pt for SOC tomorrow. Notified pt of this information. TC to [facility] pharmacy and the total cost of pt meds is approx $14, pt aware. Original Note: RN CM into pt room, pt lying in bed and pharmacist just left room. Pt states she is interested in HHC. Pt is agreeable to [facility], patient was provided a list of HHC providers including quality and resource use data and consistent with the patient?s preferred geographic region, medical needs, and insurance network were provided from the [employer] Guide. Pt chose 1. [facility] and [place] for second choice as this is where her gets his HHC through. TC to [facility], left message with intake. Will await returned call.
--- NOTE | 2023-10-08 15:08 | PHA.DC_ITS ---
Pharmacy [facility] has performed discharge medication reconciliation and counseling for this patient. The patient was counseled on the following discharge medications and changes in medications for homegoing were reviewed. 1. TYLENOL 2. COLACE 3. ELIQUIS 4. ZOFRAN 5. OXYCODONE The Reason for Use, instructions for use, and potential side effects were reviewed for all new medications. The patient's questions regarding all of their medications were answered. The patient was able to verbally demonstrate an understanding of their discharge medications. The patient's discharge medication list was reviewed for discrepancies and discrepancies were resolved. Patient was counselled by Curt Joseph PharmD Candidate Medications at Discharge Home Medications fluticasone propionate 50 mcg/actuation nasal spray,suspension 2 spray intranasal DAILY PRN Nasal Congestion 04/21/19 trazodone 100 mg tablet 200 mg PO HS SLEEP 30 days #60 tabs 10/14/21 hydrochlorothiazide 12.5 mg tablet 12.5 mg PO DAILY HYPERTENSION #90 tabs 10/29/22 lorazepam 0.5 mg tablet (Ativan) 0.5 mg PO BID PRN anxiety #30 tabs 10/29/22 tamoxifen 20 mg tablet 20 mg PO DAILY CANCER #90 tabs 12/16/22 pioglitazone 30 mg tablet 30 mg PO DAILY LIVER #30 tabs 07/13/23 vitamin E (dl, acetate) 450 mg (1,000 unit) capsule 900 mg PO DAILY SUPPLEMENT 09/22/23 omeprazole 40 mg capsule,delayed release 40 mg PO QAM GERD #90 caps 09/23/23 sertraline 100 mg tablet 100 mg PO QHS ANXIETY #90 tabs 09/23/23 acetaminophen 500 mg tablet 1,000 mg (2 x 500 mg) PO Q6H #100 tabs 10/08/23 apixaban 5 mg tablet (Eliquis) 2.5 mg (1/2 x 5 mg) PO BID #28 tabs 10/08/23 docusate sodium 100 mg capsule (Colace) 100 mg PO BID #30 caps 10/08/23 ondansetron 4 mg disintegrating tablet 4 mg PO Q6H PRN nausea and vomiting #5 tabs 10/08/23 oxycodone 5 mg tablet 5 - 15 mg (1 - 3 x 5 mg) PO Q4H PRN PRN Pain Score 4-10 7 days #60 tabs 10/08/23
[2023-10-08 15:42] VITALS: RESP 16; O2SAT 98
== END 2023-10-08 16:57 | disposition home health service (06) | DRG 470 ==
LOC: ACINP 08:36 → MS3 10-06 08:51
PROVIDERS: Admitting Provider Orthopaedic Surgery; PCP Family Medicine; Referring Provider Orthopaedic Surgery; Visit Provider Orthopaedic Surgery
PROC: 0SRC0JZ Replacement of Right Knee Joint with Synthetic Substitute, Open Approach (ICD-10-PCS; CPT 27447; principal; 2023-10-05 10:40)
DX: M17.0 Bilateral primary osteoarthritis of knee (principal); I10 Essential (primary) hypertension; I95.81 Postprocedural hypotension; S83.241A Other tear of medial meniscus, current injury, right knee, initial encounter; Z96.651 Presence of right artificial knee joint; Z79.899 Other long term (current) drug therapy
CPT/HCPCS: 36415; 73560; 80048; 82985; 83036; 83735; 85025; 85027; 85610; 85730; 86850; 86900; 86901; 87081; 88305; 88311; 93005; 94668; 97110; 97116; 97162; 97166; 97530; 97535; 99252; C1776; J7030; J7040; J7120; A4216; G0463; J2405; J3475; J3490

== ENCOUNTER 2023-12-23 09:00 | Outpatient (RCR) | payer MEDICARE, OTHER, SELFPAY ==
--- NOTE | 2023-11-10 09:26 | HP.PTEVAL_ITS ---
Patient's Visit Information Visit Information Visit Information: VERONICA ZULUAGA is a 73 year old F referred to Physical Therapy by Dr. Femi Bowen DO with a diagnosis of S/P R TKR 10/05/23. Date of Evaluation: 11/02/23 Physical Therapist: Elise Hirsch, PT, Cert MDT Visit Plan Frequency: 2-3x /Week Duration: 4-6 Weeks Plan: RESTORE FULL R KNEE EXTENSION AND KNEE FLEXION TO 120 DEG. IMPROVE STRENGTH IN QUADS, HS'S AND HIPS IN OPEN AND CLOSED CHAINS. FUNCTIONAL MOBILITY TRAINING WITH GAIT, STAIRS AND TRANSFERS. Subjective Subjective: Work/Leisure: RETIRED. I LOVE TO SEW . PATIENT REPORTS SHE ALSO LIKES TO COOK AND VISIT WITH HER KIDS AND GRANDKIDS. Present symptoms: R KNEE PAIN. SOME INTERMITTENT R DURAN SHOOTING PAIN. NO LONGER BUCKLING SINCE SURGERY. Pain Scale: WORST 4/10, LEAST 0/10 Currently: 1/10 Is it getting better, worse or staying the same: GETTING BETTER Commenced as a result of: ARTHRITIS Symptoms at onset: PAIN AND BUCKLING. Worse: SITTING WITH KNEE BENT AND DOWN TOO LONG. PROLONGED WEIGHTBEARING. ICE. Better: LYING DOWN, RUBBING IT. Disturbed sleep: SOMETIMES Previous history/Previous treatment: NO PRIOR SURGERY ON THIS KNEE. TRIED INJECTIONS BEFORE SURGERY. Treatment this episode: TKR R 10/05/23. HOME PT FOR 3 WEEKS. Gait: USING THE CANE LESS AND LESS AT HOME BUT USES IT IF SHE GETS UP AT NIGHT TO GO TO THE BATHROOM. TAKES CANE IF SHE GOES OUT OF THE HOUSE. ONE FALL 2 WEEKS AFTER SURGERY. STATES SHE BENT DOWN TO PICK SOMETHING UP WHILE ON THE WALKER AND LOST HER BALANCE AND FELL BUT DIDN'T FALL ON HER KNEE AND DIDN'T GET HURT. ALSO REPORTS SHE FELL IN THE HOSPITAL AFTER SURGERY WHEN SHE TRIED TO GET UP ON HER OWN TO GO TO THE BATHROOM - REACHED FOR WALKER AND FELL - FELL ON LEFT SIDE AND DID NOT GET HURT. Bowel or Bladder Dysfunction: CONSTIPATION. TAKING STOOL SOFTENER. WILL CONTACT PHYSICIAN NEEDED. Accidents: NO Unexplained weight loss: YES. HAS LOST ABOUT 7 LBS SINCE HOME FROM THE HOSPITAL DUE TO LOSS OF APPETITE. THIS PT RECOMMENDED PATIENT NOTIFY HER PCP DUE TO THIS GOING ON BEFORE SURGERY TOO. DUE TO PATIENT ALSO REPORTING DECREASED BOWEL MVMTS AGAIN THIS PT RECOMMENDED SHE CALL HER PCP. PATIENT AGREEABLE. PMH/Recent major surgery: BREAST CA 3 YEARS AGO TREATED WITH SURGERY AND RADIATION. FATTY LIVER DZ. HTN. ANXIETY. Pain R knee: Pain Intensity (Out of 10): 4 Comment: on meds Objective Objective: GAIT: THIS PATIENT AMBULATES INDEP'LY INTO PT TODAY WITH A CANE, DECREASED CADANCE AND A MILD LIMP ON THE RLE. NO LOB. SHE IS NOT DEPENDENT ON THE CANE. WOMAC score: 54/96 TU.01 SEC WITH CANE R knee flexion AROM: 107 degrees R knee ext AROM: -8 DEG R knee flex MMT; 3-/5 R knee ext MMT 3-/5 R hip MMT 3+/5 R ankle MMT 5/5 L MMT: L HIP 4/5, KNEE 4/5, ANKLE 5/5. Sensory deficit: DECREASED LIGHT TOUCH R KNEE COMPAIRED TO L WITH TESTING. OTHER: 30 SEC STS TEST - 6 WITH ONE HAND ON CHAIR AND ONE HAND ON KNEE. INCREASES R KNEE PAIN. GIRTH PATELLA: 38 CM GIRTH 6 SUPRAPATELLAR: 43.5 CM Palpation: R LE INCISIONS LOOK GOOD WITHOUT ANY OPEN AREAS OR SIGNS OF INFECTION. TREATMENT: REVIEWED HEP AND CHECKED TECHNIQUE X 10 REPS: HEEL SLIDES IN CHAIR, SINK EX'S, SUPINE: AP'S, HS'S, QS'S, SLR'S, SEATED LAQ'S. AND STANDING STEP UPS. PATIENT DEMO'S GOOD EX RETURN TODAY. Balance/Special Test Scores WOMAC Total Score: 54 WOMAC Percentatge: 43.7500 Goals Goal 1:: PATIENT WILL BE INDEP WITH HEP Goal Time Frame: 4-6 Weeks Goal 2:: PATIENT WILL HAVE DECREASED EDEMA IN RLE SYMMETRICAL TO L SIDE Goal Time Frame: 2-4 Weeks Goal 3:: PATIENT WILL HAVE INCREASED R KNEE ROM TO AT LEAST 0-120 DEG Goal Time Frame: 4-6 Weeks Goal 4:: PATIENT WILL HAVE INCREASED RLE STRENGTH TO 5/5 THROUGHOUT TO ALLOW FOR INCREASED STABILITY WITH ALL ACTIVITIES. Goal Time Frame: 4-6 Weeks Goal 5:: PATIENT WILL HAVE NORMALIZED GAIT PATTERN ON LEVEL SURFACES WITHOUT AD. Goal Time Frame: 4-6 Weeks Goal 6:: PATIENT WILL BE ABLE TO ASCEND AND DESCEND STEPS RECIPROCALLY WITH ONE HR WITHOUT LIMITATIONS. Goal Time Frame: 4-6 Weeks Rehabilitation Potential Physical Therapy Diagnosis: PATIENT HAS SIGNS AND SYMPTOMS CONSISTENT WITH R TKA. SHE HAS SUBSEQUENT HYPOMOBILITY, WEAKNESS, DIFFICULTY WALKING AND INCREASED PAIN. SHE WOULD BENEFIT FROM PT TO ADDRESS THE ABOVE LIMITATIONS TO PROGRESS BACK TO ALL RECREATIONAL ACTIVITIES WITHOUT LIMITATIONS. Rehabilitation Potential: Good Anticipated Interventions Patient/Client Instruction: Educate patient on: Condition, Plan of Care and Risk Factors For the Purpose of:: To improve self management Therapeutic Exercise to Include: Strength training, Flexibilty training, Gait and locomotor training and Neuromotor development For the Purpose of:: To decrease pain, To improve muscle performance and motor function, To increase tolerance to activity/condition/position, To improve ability of physical actions for home/community/work/leisure, To improve gait and locomotor functions and To increase flexibility/ROM Cryotherapy (ice pack, ice massage): Yes For the Purpose of:: To decrease pain and To decrease swelling/inflammation Text: Thank you for the opportunity to evaluate your patient. For Medicare and Medicare HMO plans, please review the plan of care and approve it. It will need to be FAXED BACK to us at [phone] for Medicare purposes. For Medicare only, by signing this I certify the plan of care. Please let me know if there are questions or concerns regarding this plan of care. Physician Sig nature: Date:
--- NOTE | 2023-12-01 12:15 | HP.PTEVAL2 ---
Patient's Visit Information Visit Information Visit Information: VERONICA ZULUAGA is a 73 year old F referred to Physical Therapy by Dr. Femi Bowen DO with a diagnosis of . Date of Evaluation: Physical Therapist: Elise Hirsch PT, Cert MDT Anticipated Interventions text: Thank you for the opportunity to evaluate your patient. For Medicare and Medicare HMO plans, please review the plan of care and approve it. It will need to be FAXED BACK to us at [phone] for Medicare purposes. For Medicare only, by signing this I certify the plan of care. Please let me know if there are questions or concerns regarding this plan of care. Physician Signature: Date:
--- NOTE | 2023-12-01 12:15 | HP.PTREVAL ---
Re-Evaluation Intro: Dr. Femi Bowen, DO, It has been my pleasure to treat VERONICA ZULUAGA over the last 11 visits for S/P R TKR 10/05/23. Please see the progress note below for an update on the physical therapy plan of care! Subjective Subjective: PATIENT REPORTS HER KNEE IS DOING A LOT BETTER. DOESN'T FEEL TIGHT. PATIENT PATIENT STATES SHE APPRECIATES WHAT WE HAVE DONE FOR HER BUT SHE DOESN'T WANT TO KEEP COMING TO THERAPY AND SHE WILL KEEP DOING HER EX'S AT HOME. PATIENT REPORTS SHE HAS BEEN USING HER R FOOT TO SEW WITHOUT DIFFICULTY. ALSO REPORTS IT HAS BEEN GETTING EASIER TO GET UP AND DOWN FROM A CHAIR. Objective Objective/Function: PATIENT WAS SEEN TODAY FOR RE-ASSESSMENT OF PROGRESS TOWARD THE SET PT GOALS AND THE NEED FOR FURTHER PHYSICAL THERAPY VS READINESS FOR DISCHARGE. PATIENT IS DOING REALLY WELL WITH PT BUT COULD BENEFIT FROM MORE STRENGTHENING. AFTER EXAM AND DISCUSSION SHE IS AGREEABLE. UPON EXAM TODAY: GAIT: THIS PATIENT AMBULATES INDEP'LY INTO PT TODAY WITH A CANE, GOOD CADANCE , EVEN WT BEARING TIME RUIBN LE'S AND IS NOT DEPENDENT ON CANE. WOMAC score: 31/96 TU.75 SEC WITHOUT AD. 30 STS TEST - 8 WITH HANDS ON KNEES. R knee flexion AROM: 124 degrees R knee ext AROM: FULL EXTENSION R knee flex MMT; 4-/5 R knee ext MMT 4-/5 R hip MMT 4-/5 R ankle MMT 5/5 L MMT: L HIP 4/5, KNEE 4/5, ANKLE 5/5. GIRTH PATELLA: 37 CM GIRTH 6 SUPRAPATELLAR: 43.5 CM Palpation: R LE INCISIONS LOOK GOOD WITHOUT ANY OPEN AREAS OR SIGNS OF INFECTION. STEPS: ASCENDS AND DESCENDS WITH ONE HR RECIP WITH LIMP ON R LE. Plan Plan Plan: CONTINUE PT 2X'S A WK X 3 WKS. HEP INSTRUCTION DECREASE R KNEE PAIN IMPROVE STRENGTH IN QUADS, HS'S AND HIPS IN OPEN AND CLOSED CHAINS. FUNCTIONAL MOBILITY TRAINING WITH GAIT, STAIRS AND TRANSFERS. Balance/Gait/Functional tests Balance/Special Test Scores Lower Extremity Functional Score: 39 WOMAC Total Score: 31 WOMAC Percentage: 66.3100 Goals Goals Goal 1:: PATIENT WILL BE INDEP WITH HEP Goal Time Frame: 4-6 Weeks Goal Progress: Progressing Goal 2:: PATIENT WILL HAVE DECREASED EDEMA IN RLE SYMMETRICAL TO L SIDE Goal Time Frame: 2-4 Weeks Goal Progress: Progressing Goal 3:: PATIENT WILL HAVE INCREASED R KNEE ROM TO AT LEAST 0-120 DEG Goal Time Frame: 4-6 Weeks Goal Progress: Goal Met Goal 4:: PATIENT WILL HAVE INCREASED RLE STRENGTH TO 5/5 THROUGHOUT TO ALLOW FOR INCREASED STABILITY WITH ALL ACTIVITIES. Goal Time Frame: 4-6 Weeks Goal Progress: Progressing Goal 5:: PATIENT WILL HAVE NORMALIZED GAIT PATTERN ON LEVEL SURFACES WITHOUT AD. Goal Time Frame: 4-6 Weeks Goal Progress: Goal Met Goal 6:: PATIENT WILL BE ABLE TO ASCEND AND DESCEND STEPS RECIPROCALLY WITH ONE HR WITHOUT LIMITATIONS. Goal Time Frame: 4-6 Weeks Goal Progress: Progressing Anticipated Interventions Anticipated Interventions Patient/Client Instruction: Educate patient on: Condition, Plan of Care and Risk Factors For the Purpose of:: To improve self management Therapeutic Exercise to Include: Strength training, Flexibilty training, Gait and locomotor training and Neuromotor development For the Purpose of:: To decrease pain, To improve muscle performance and motor function, To increase tolerance to activity/condition/position, To improve ability of physical actions for home/community/work/leisure, To improve gait and locomotor functions and To increase flexibility/ROM Cryotherapy (ice pack, ice massage): Yes For the Purpose of:: To decrease pain and To decrease swelling/inflammation Re-Evaluation Ending Re-evaluation ending: Please do not hesitate to contact me at [phone] by phone or if you have questions or concerns regarding this new plan of care! Sincerely, Elise Hirsch PT, Cert MDT
--- NOTE | 2023-12-23 10:02 | HP.PTDCSUM ---
Discharge Summary D/C summary: It has been my pleasure to treat VERONICA ZULUAGA referred by Dr. Femi Bowen DO, with the diagnosis of S/P R TKR 10/05/23 for a total of 16 visit(s). Discharge Date: 12/01/23 Please see the following information for a summary of their discharge status. Subjective Subjective: PATIENT REPORTS HAVING FOLLOW UP WITH DR. BOWEN WEDNESDAY AND HE SAID EVERYTHING LOOKS GOOD. FOLLOW UP WITH X-RAY PLANNED IN ONE YEAR. PATIENT REPORTS SHE WOULD LIKE TO HAVE HIM TO HER L KNEE THIS SUMMER. PATIENT REPORTS SHE IS REALLY HAPPY WITH HER PROGRESS OVER-ALL SO FAR AND WANTS TO CONTINUE ON HER OWN AT THIS POINT. Pain R knee: Pain Intensity (Out of 10): 4 Overall Improvement % Improvement: 75 Objective Objective/Function: PATIENT WAS SEEN TODAY FOR RE-ASSESSMENT OF PROGRESS TOWARD THE SET PT GOALS AND THE NEED FOR FURTHER PHYSICAL THERAPY VS READINESS FOR DISCHARGE. UPON EXAM TODAY: INDEP GAIT WITHOUT AD. WOMAC score: 29 R knee flexion AROM: 124 degrees R knee ext AROM: FULL EXTENSION R knee flex MMT; 5/5 R knee ext MMT 5/5 R hip MMT 4/5 R ankle MMT 5/5 GIRTH PATELLA: 37 CM GIRTH 6 SUPRAPATELLAR: 44.5 CM Palpation: R LE INCISIONS LOOK GOOD WITHOUT ANY OPEN AREAS OR SIGNS OF INFECTION. STEPS: ASCENDS AND DESCENDS WITH ONE HR RECIP WITH LIMP ON R LE. GOOD PATELLAR MOBILITY. Goals Goal 1:: PATIENT WILL BE INDEP WITH HEP Goal Progress: Goal Met Goal 2:: PATIENT WILL HAVE DECREASED EDEMA IN RLE SYMMETRICAL TO L SIDE Goal Progress: Progressing Goal 3:: PATIENT WILL HAVE INCREASED R KNEE ROM TO AT LEAST 0-120 DEG Goal Progress: Goal Met Goal 4:: PATIENT WILL HAVE INCREASED RLE STRENGTH TO 5/5 THROUGHOUT TO ALLOW FOR INCREASED STABILITY WITH ALL ACTIVITIES. Goal Progress: Progressing Goal 5:: PATIENT WILL HAVE NORMALIZED GAIT PATTERN ON LEVEL SURFACES WITHOUT AD. Goal Progress: Goal Met Goal 6:: PATIENT WILL BE ABLE TO ASCEND AND DESCEND STEPS RECIPROCALLY WITH ONE HR WITHOUT LIMITATIONS. Goal Progress: Progressing Plan Plan: D/C D/C Information d/c sentence: If there are questions or concerns regarding this patient's physical therapy, please feel free to call me at [phone]. Thank you for the referral of this patient. Sincerely, Elise Hirsch, PT, Cert MDT Balance/Gait/Functional tests Balance/Special Test Scores Lower Extremity Functional Score: 46 WOMAC Total Score: 29 WOMAC Percentage: 69.8000 Improvement % Improvement: 75
== END 2023-12-23 19:00 | disposition home or self-care (01) ==
LOC: PT 09:00
PROVIDERS: PCP Family Medicine; Referring Provider Orthopaedic Surgery; Visit Provider Orthopaedic Surgery
DX: M17.0 Bilateral primary osteoarthritis of knee (principal); Z96.651 Presence of right artificial knee joint
CPT/HCPCS: 97110; 97162; 97164; 97530

== ENCOUNTER → 2024-03-30 | Outpatient (CLI) | payer MEDICARE, OTHER, SELFPAY ==
--- NOTE | 2024-03-30 09:21 | BI_ITS ---
MAMMOGRAPHY - BILATERAL SCREENING REASON FOR EXAM: Female, 73 years old. Routine annual screening examination. PERTINENT HISTORY: Personal history of breast cancer. Prior left lumpectomy. TECHNIQUE: Digital bilateral breast patric (3D mammographic acquisition) in the CC and MLO projections. 2-D mediolateral oblique (MLO) and craniocaudad (CC) views of both breasts were obtained. CAD: Full Field Digital Mammography with Computer Added Detection was performed. COMPARISON: Comparison is made with prior study dated March 29, 2023 and March 25, 2022. FINDINGS: Breast Composition: The breasts are almost entirely fatty. There are no dominant masses or suspicious calcifications. The patient is status post lumpectomy in the upper deep central portion of the left breast with resultant postoperative scarring. There is also evidence of surgical clips in the left axilla. No other significant abnormalities are identified. There has been no significant change since the prior study. BI/SCRN MAMM (CAD)W/PATRIC BILAT IMPRESSION: Stable bilateral screening mammogram. Yearly follow-up mammogram recommended. (A) ASSESSMENT CATEGORY: BIRADS Category 2: Benign. A letter regarding these results will be sent to the patient by the facility within 30 days. Approximately 10% of breast cancers are not detected by mammography. A normal mammogram should not delay biopsy of a clinically suspicious abnormality. [id number] Electronically Signed: Jono Venegas MD at 10:22 EDT ,
== END | disposition home or self-care (01) ==
LOC: OPBI 09:20
PROVIDERS: PCP Family Medicine; Referring Provider Student in an Organized Health Care Education/Training Program; Visit Provider Student in an Organized Health Care Education/Training Program
DX: Z12.31 Encounter for screening mammogram for malignant neoplasm of breast (principal); C50.912 Malignant neoplasm of unspecified site of left female breast
CPT/HCPCS: 77063; 77067

== ENCOUNTER → 2024-06-01 | Outpatient (CLI) | payer MEDICARE, OTHER, SELFPAY ==
--- NOTE | 2024-06-01 07:56 | CT_ITS ---
CT LEFT LOWER EXTREMITY WITH 3-D IMAGING CLINICAL INDICATION: templating for Left TKA TECHNIQUE: Axial CT images of the LEFT lower extremity was performed without IV contrast material. Coronal and sagittal reformats as well as 3D reformats were provided. The protocol utilizes one or more of the following dose reduction techniques: automated exposure control, adjustment of mA and/or kV according to patient size,and/or use of iterative reconstruction technique. RADIATION DOSAGE (If Supplied By Facility): CTDIvol = ( 18.67 ) mGy, DLP = ( 1207.76 ) mGycm COMPARISON: No relevant prior comparison study available FINDINGS: Bones: Imaging of the left hip joint was obtained. There is a mild degree of joint space narrowing. Subchondral cystic changes are seen in the lateral aspect of the acetabulum. Imaging of the left knee joint was obtained. Moderate degree of joint space narrowing involving the medial compartment of the knee joint with degenerative spur formation of the distal medial femoral condyle and medial tibial plateau. Soft Tissues: Tiny joint effusion. Imaging of the ankle joint was obtained. No abnormality is seen. The superficial soft tissues are unremarkable without evidence of edema, hematoma, or foreign body. CT/Extremity Lower without Contra IMPRESSION: Moderate degree of disc space narrowing involving the medial compartment of the knee joint with degenerative spur formation of the distal medial femoral condyle and medial tibial plateau. Electronically Signed: Jono Venegas MD at 14:27 EDT ,
== END | disposition home or self-care (01) ==
LOC: CT 07:52
PROVIDERS: PCP Family Medicine; Referring Provider Orthopaedic Surgery; Visit Provider Orthopaedic Surgery
DX: M17.0 Bilateral primary osteoarthritis of knee (principal)
CPT/HCPCS: 73700

== ENCOUNTER 2024-07-04 09:53 | Inpatient (IN) | payer MEDICARE, OTHER, SELFPAY ==
[2024-06-20 16:31] LABS: Partial Thromboplast Time 25.9 Seconds (24.1-36.2)
[2024-06-20 16:48] LABS: Magnesium 1.8 mg/dL (1.6-2.6)
[2024-06-22 04:08] LABS: Fructosamine 293 umol/L (0-285)
[2024-07-04] VITALS (16 sets, daily range): BP systolic 100–151; BP diastolic 53–140; PULSE 73–83; RESP 14–20; TEMP 36.2–36.9; O2SAT 95–100; BMI 28.5
--- NOTE | 2024-07-04 | KNEE_PTH ---
PATIENT: VERONICA ZULUAGA GERALDINE LOC: MS3 U#:[id number] AGE/SX: 73/F [place] [facility] [place]: Dr. Femi Bowen DO : 1950 BED: 1 DIS: 07/05/2024 SPEC #: [id number] RECD: 07/04/24 12:20 STATUS: BERTARM REKeena #: [id number] TICO: 07/04/24 00:[address]: Femi Bowen DEPT: SURGICAL PATHOLOGY RECD BY: Gaurang Rodriguez ENTERED: 07/04/24 12:21 SP TYPE: TOTAL KNEE OTHR DR: Dr. Dwight Parnell DO Tissues: Knee, NOS Procedures: Decalcification bone/plaque Surgery Specimen Level IV HEADER OPERATION: Left total knee replacement robotic arm assist PRE-OP DIAGNOSIS: Primary osteoarthritis of left knee, status post total right knee replacement TISSUE SUBMITTED: Left bone and soft tissue MICROSCOPIC DIAGNOSIS Bone and tissue of left knee, total knee resection: Consistent with severe degenerative joint disease. AM: 07/07/2024 MICROSCOPIC DESCRIPTION Slides are reviewed. GROSS DESCRIPTION Received is one container designated bone and soft tissue left knee. The specimen consists of multiple fragments of marcano-yellow bone measuring in aggregate 10.5 x 10.0 x 3.0 cm. No soft tissue is identified. A number of bony fragments contain articular surfaces consistent with tibial plateau and femoral condyle and displaying prominent osteophyte formation, eburnation and bone erosion. Cloth Winder Machine Operator sections are submitted in one cassette after decalcification. / BRYAN. 07/04/2024 TC:5 CPT: 30968, 29171
[2024-07-04] MEDS: Magnesium 2 GM for ERAS IV (06:18)
[2024-07-04] MEDS: Lactated Ringers 1,000 ML 15 ML IV (06:18)
[2024-07-04] MEDS: Acetaminophen 500 MG Tablet 1000 MG PO ×3 (06:19→20:39)
[2024-07-04] MEDS: Scopolamine 1mg/72hr Patch 1 PATCH TD (06:19)
[2024-07-04] MEDS: Gabapentin 600 MG Tablet PO (06:19)
[2024-07-04 06:52] LABS: Bedside Glucose 166 mg/dL (74-106)
--- NOTE | 2024-07-04 07:26 | HP.PCM_ITS ---
History and Physical Date of Admission: 07/04/24 [facility] [address] [place] [address] OFFICE VISIT Date of Service: 05/15/24 MR#: [id number] Acct: [id number] Name: VERONICA ZULUAGA GERALDINE Rep #: [id number] : 1950 Provider: Dr. Femi Bowen DO Age/Sex: 73/F Location: [facility] [place] Status: Signed Intake Vital Signs 01/19/2413:21 05/15/2408:36 Height 5 ft 2 in 5 ft 2 in Weight: 148 lb 156 lb 6 oz BMI 27.1 28.5 BP 138/72 H Blood Pressure Location Rt brachial Position Sitting Respiration 16 Pulse 74 Pulse Source Monitor Temp 98.6 F Temp Source Temporal Pulse Oximetry (%) 99 Oxygen Delivery Method room air Intake Visit Reasons: LEFT KNEE Accompanied by: Self Is patient in pain?: Yes Allergies nitrofurantoin (From Macrobid) Allergy (Mild, Verified 05/15/24 08:42) rashcodeine phosphate (From Tylenol-Codeine) Adverse Reaction (Verified 05/15/24 08:42) Vomiting Medications ?Medication ?Instructions ?Recorded ?Confirmed ?Type fluticasone propionate 50 2 spray intranasal DAILY PRN Nasal 04/21/19 05/15/24 History mcg/actuation nasal Congestion spray,suspension trazodone 100 mg tablet 200 mg PO HS SLEEP 30 days #60 tabs 10/14/21 05/15/24 History pioglitazone 30 mg tablet 30 mg PO DAILY LIVER #30 tabs 07/13/23 05/15/24 Rx vitamin E (dl, acetate) 450 mg 900 mg PO DAILY SUPPLEMENT 09/22/23 05/15/24 History (1,000 unit) capsule omeprazole 40 mg capsule,delayed 40 mg PO QAM GERD #90 caps 09/23/23 05/15/24 Rx release ibuprofen 600 mg tablet 600 mg PO TID PRN pain #90 tabs 10/22/23 05/15/24 Rx hydrochlorothiazide 12.5 mg tablet 12.5 mg PO DAILY HYPERTENSION #90 01/19/24 05/15/24 Rx tabs lorazepam 0.5 mg tablet (Ativan) 0.5 mg PO BID PRN anxiety #30 tabs 01/19/24 05/15/24 Rx sertraline 100 mg tablet 100 mg PO QHS ANXIETY #90 tabs 01/19/24 05/15/24 Rx tamoxifen 20 mg tablet 20 mg PO DAILY CANCER #90 tabs 03/21/24 05/15/24 Rx Have you fallen in the past year?: No (not asked required to answer to complete chart ) PFSH Medical History Post-menopausal Frequent UTI Difficulty chewing Sleep apnea Dermatitis Wears glasses Cancer Arthritis Migraine headache Syncope Difficulty swallowing History of hiatal hernia History of ulceration Gastric reflux Non-smoker CPAP (continuous positive airway pressure) dependence Shortness of breath on exertion History of edema Hypertension Hx of echocardiogram History of stress test Cardiology follow-up encounter Chest pain Essential (primary) hypertension History of trigger finger Breast pain, right Dysuria Abdominal bloating Eyelid myokymia Acute serous otitis media of left ear Spondylolisthesis at L4-L5 level Trochanteric bursitis of right hip Vertigo Allergic rhinitis Chronic cough Hiatal hernia with gastroesophageal reflux Abnormal pulmonary function test Asthma, moderate persistent Nausea & vomiting Flank pain Pyelonephritis UTI (urinary tract infection) Surgical History Status post right knee replacement Hx of partial mastectomy Hx of colonoscopy Status post trigger finger release Hx of shoulder surgery Hx of laparoscopy History of right hip replacement History of tubal ligation History of tonsillectomy History of cholecystectomy History of hysterectomy History of appendectomy Family History Mother Cancer DiabetesFather CancerGrandfather DiabetesGrandmother Glaucoma Social History Smoking Status: Never smoker second hand exposure: No alcohol intake: never substance use type: does not use caffeine: Yes what type of physical activity do you participate in: none HPI LEFT KNEE Details: This documentation accurately reflects the service provided and the decisions made by me, Dr. Femi Bowen, DO 05/15/24 7348. Part of today?s visit was documented by [ ], acting as scribe. VERONICA ZULUAGA is a 73 year old F here today for bilateral knee pain knee pain. Patient did have a right TKA on 10/05/23 and she states that she still has pain in that knee but doesn't know if it is from compensating for the left knee. Patient had a left knee steroid injection on 08/04/23 which didn't give her any relief. The pain in her right knee is over her anterior knee, wraps around medially into her anterior thigh. She denies any injury. Her pain in the left knee is on the medial side. She states that her left knee has given out on her before. She does have mechanical symptoms in left knees. Denies injury or previous surgery on left knee. She occasionally takes Ibuprofen for the pain. She does wear a sleeve on the left knee. She denies any family history of lupus or RA. Ortho Exam General General: Yes no acute distress Neurologic: Yes alert and Yes oriented x3 Psychologic: Yes reasonable and appropriate Right Knee Skin/Wound: Yes CDI, No erythema, No ecchymosis and No swelling Knee ROM: Yes ROM-Extension -20 to 0 and Yes ROM-Flexion 0-140 (130) Stability: NML: Valgus 0, NML: Valgus 30, NML: Varus 0 and NML: Varus 30 Patella Translation: 1 KNEE: no quad defect, ttp quad, no edema Left Knee Skin/Wound: Yes CDI, No ecchymosis, No erythema and No swelling Knee ROM: Yes ROM-Extension -20 to 0 and Yes ROM-Flexion 0-140 (130) Examination: Yes med jt line tenderness and No Lat jt line tenderness Stability: NML: Anterior Drawer, NML: Posterior Drawer, NML: Valgus 0, NML: Valgus 30, NML: Varus 0 and NML: Varus 30 Patella Translation: 1 KNEE: medial pain with valgus stress. Head: Normocephalic Atraumatic Chest: symmetrical rise, non-labored breathing, no audible wheeze Abdomen: no guarding, non-rigid Supplemental Info 05/15/2024 x-ray left knee: Advanced medial compartment narrowing there is spurring noted moderate patellofemoral arthrosis 05/15/2024 x-ray right knee: Status post total knee arthroplasty without sign of concern. 11/12/2023 x-ray right knee: Status post press-fit total knee arthroplasty with good implant position and interfaces 08/04/2023 x-ray right knee: Moderate approaching severe medial joint space narrowing slight varus deformity 08/04/2023 x-ray left knee: there is advanced medial compartment narrowing [id number], moderate patellofemoral arthrosis 07/03/2022 MRI right knee: Radial tear posterior horn medial meniscus, chondrocalcinosis of the body of the medial meniscus with meniscal subluxation medial compartment arthrosis joint space narrowing, arthrosis of the patellofemoral compartment 06/24/2022 x-ray right knee: Medial joint space narrowing there is chondrocalcinosis of the medial and lateral meniscus mild, there is a geographic lesion of the distal femur that is lytic it is located within the intercondylar notch area only seen on AP view 06/24/2022 x-ray left knee: Severe medial joint space narrowing, there is degenerative spurring of the patellofemoral joint with mild subchondral cystic changes of the patella and trochlea 07/03/2022 MRI right knee: Radial tear root posterior horn medial meniscus with chondrocalcinosis there is arthrosis of the medial and patellofemoral compartments Coding Level of Care Code Off vis,est,level 4 Diagnoses Primary osteoarthritis of left knee M17.12 Osteoarthritis type: primary Status post total right knee replacement Z96.651 Laterality: right Assessment and Plan Assessment and Plan (1) Degenerative joint disease of knee, left: Status: Acute Qualifiers: Osteoarthritis type: primary Qualified Code(s): M17.12 - Unilateral primary osteoarthritis, left knee (2) S/P total knee arthroplasty: Status: Acute Qualifiers: Laterality: right Qualified Code(s): Z96.651 - Presence of right artificial knee joint Orders: Orders Knee 3 Views Today Z96.651 - Presence of right artificial knee joint Knee 4 or More Views Today M17.0 - Bilateral primary osteoarthritis of knee Plan Spoke with her about her right knee and explained that it may take up to 2 years to fully heal from a total knee arthroplasty. She may use topical anti- inflammatories and continue with strengthening. Explained her options- bracing, total knee arthroplasty, physical therapy, oral anti-inflammatories. She has failed treatment of steroid and viscosupplementation injection, she wanted to proceed with a total knee arthroplasty. She will need to stop her tamoxifen 3 weeks prior and 3 weeks post surgery. Risks, benefits and alternatives of surgery reviewed including but not limited to bleeding, infection, nerve, artery and/or tissue damage, fracture, VTE, mechanical feel of the knee, continued pain, stiffness and expected post- operative course. Spoke with her about the iovera procedure which she is not interested in. Recommended an inpatient procedure due to stairs to get into her home and her is unable to care for her. Follow up for 2 week post op or sooner if pain, swelling, numbness or associated symptoms, or concerns develop. All questions answered. Patient in agreement of plan. Clinical Quality Measures Falls Risk Screening/Assistive Devices Have you fallen in the past year?: No (not asked required to answer to complete chart ) 05/15/24 1101 <Electronically signed by Femi Bowen DO> Date Femi Bowen DO I have examined the patient and the H&P has been reviewed. There are no clinical changes since date of exam.
[2024-07-04] MEDS: Cefazolin 2 GM in 0.9% Normal Saline (100mL Bag) 100 ML IV (07:30)
[2024-07-04] MEDS: dexAMETHasone 10 MG/ML Vial IV (07:45)
[2024-07-04] MEDS: TXA 1000mg in NS100 100ml (IVPB at Incision) 660 MG IV (07:45)
[2024-07-04] MEDS: TXA 1000mg in NS100 100ml (IVPB at Closure) 660 MG IV (08:04)
[2024-07-04] MEDS: Bupivacaine 0.5% PF 10 ML VIAL (08:08)
[2024-07-04] MEDS: Epinephrine (1 mg/ml) 1 MG/ML VIAL (08:09)
[2024-07-04] MEDS: dexAMETHasone 4 MG/ML Vial (08:09)
[2024-07-04] MEDS: 0.9% Normal Saline (Pres. free 10 ML Vial (08:09)
--- NOTE | 2024-07-04 09:47 | RAD_ITS ---
STUDY: X-RAY - LEFT KNEE REASON FOR EXAM: Female, 73 years old. Post op -- AP and Lateral xray of operative knee in PACU TECHNIQUE: 2 view(s) of the knee. COMPARISON: Comparison is made with prior study dated May 15, 2024. FINDINGS: Normal visualized distal femur. Normal visualized proximal tibia and fibula. Normal proximal tibiofibular articulation. The patient is status post left total knee replacement. There is good alignment. Postoperative soft tissue changes. RAD/Knee 1 or 2 Views IMPRESSION: Status post left total knee replacement. There is good alignment. Postoperative soft tissue changes. Electronically Signed: Jono Venegas MD at 10:27 EDT ,
--- NOTE | 2024-07-04 09:54 | OP.PCM_ITS ---
Operative Report Date of Procedure: 07/04/24 Preoperative diagnosis: Left knee DJD Postoperative diagnosis: Same Procedure: Left total knee arthroplasty CT guided Robotic Assisted Implant: Edil triathlon press fit, femoral component size3, tibial baseplate size 3, asymmetric patella size 32, polyethylene X3 size 9 CS Anesthesia: Spinal with adductor canal block Tourniquet time: 12 minutes at 300 mmHg Complications: None Condition: Stable to PACU Estimated blood loss: 175 cc Sales Representative Uniforms Ambrocio Clark. My physician visitor services information assistant was a vital part of this case. He was important in appropriate retraction during the case, and protection of soft tissues during procedure. His intimate knowledge of the case and my steps aided in safe and expedient completion of the procedure as well as appropriate position of the extremity during the case. He was also vital in assisting with closure under my direct supervision. Indication for procedure: This is a 73-year-old female with long standing degenerative joint disease of the knee who has failed conservative treatment and wished to proceed with elective total knee arthroplasty. Risk benefits and alternatives were reviewed including; risk of bleeding, infection, nerve artery and tissue damage, continued pain, postoperative stiffness, venous thromboembolism, need for postoperative rehabilitation, mechanical feel to the knee, and expected postoperative course. The pre- operative CT and templating was performed with component sizing. Procedure: The patient was met in the preoperative holding area. The operative extremity was identified by both patient and physician and was marked. Patient was met by anesthesia. An adductor canal block was placed by anesthesia postop eratively the patient was brought back to the operating room on a wheeled cart and transferred to the operating table in the supine position. Anesthesia was started. A well-padded tourniquet was placed on the operative extremity. The patient was prepped and draped in the usual sterile fashion. A timeout was called to ensure the proper patient procedure and extremity were being contemplated. An esmarch was used to exsanguinate the extremity. The tourniquet was inflated. A 10 blade scalpel was used to make a midline incision down through the skin and subcutaneous tissue. Skin retractors placed. Bovie and Aquamantis were used to perform meticulous hemostasis. full-thickness flaps were elevated medial and lateral along the joint capsule. A deep blade scalpel was used to perform a medial parapatellar arthrotomy. The knee was brought to full extension. A bovie was used to release the soft tissues off the most proximal aspect of the medial tibial plateau, a three-quarter inch curved osteotome was also used in this process. The infrapatellar fat pad was excised. The suprapatellar fat pad was excised partially anteriorolateraly and portion the anterioromedial pad was elevated from the femur. At this point our intra- articular femoral array was placed at a 45 degree angle proximal and posterior to the medial epicondyle. femoral checkpoint was placed at this time. Our tib ial array was placed partially intra incisional 1 stab incision was made for the inferior pin with a 15 blade scaple, and pins were placed and attached to the tibial array , tibial checkpoint was placed in the proximal tibial metaphysis. Tourniquet was let down. At this point registration sifuentes were taken throughout the knee . Once the knee was registered we then tensioned the medial and late ral ligaments in extension and 90 degrees of flexion. We then used these numbers to adjust our components within parameters to balance the knee in both flexion and extension once this was done on our monitor we then proceeded with using the robotic arm to make our tibial plateau cut, anterior and posterior chamfer and distal femur cuts. we removed the cut fragments with the use of a bovie and Jayna, we did use a lamina sulfonator operator to insure we visualized and removed all posterior osteophytes and at this time also used the Aquamantis on the posterior joint capsule. we then trialed and achieved the desired plan with a well-balanced knee. we used the green probe to daina the corresponding tibial rotation based on our CT template. Lug holes were drilled in the femur the tibia preparation was completed with the appropriate sized base plate pinned based on previous rotation daina. An appropriate sized fin punch was used on the tibia and 4 corner drill was used for the press fit component and the patella was prepared by first using a caliper to ensure sufficient bone stock and a patellar reamer to remove the desired amount of bone. lug holes drilled for an asymmetric poly. We then brought the knee through range of motion with excellent patellar tracking. We thoroughly irrigated the knee. Trial components were removed a posterior capsular injection was preformed with our standard cocktail. In addition the aqua Mantis was also used to aid in hemostasis. Betadine rinse was allowed to sit and washed out completely. Components were press-fit into place. Aricept rinse was then used followed by several more liters of irrigation after it was allowed to sit. The joint capsule was closed with #1 Ethibond [id number] in the upper part of the arthrotomy and #1 Vicryl in the lower part of the arthrotomy. , Followed by 2-0 Vicryl in the subcutaneous tissues with francisco in the skin. Arrays and checkpoints were removed prior to closure all counts were correct stab incisions were closed with a staple standard dressing in the form of Mepilex AG for the main incision and a small Mepilex over the pin holes. Thigh-high SHELLI hose applied over top of dressing. Patient tolerated the procedure well and was directed to PACU in stable condition . There were no intraoperative complications.
--- NOTE | 2024-07-04 10:18 | PCM.POST.ANE ---
Anesthesia: Postop Eval I Current Vital Signs Temperature: 97.6 F Pulse Rate: 80 Blood Pressure: 151/140 Respiratory Rate: 14 Pulse Ox: 98 Oxygen Delivery Method: Room Air Assessment Airway patent: Yes Spontaneous unlabored respirations: Yes Mental status: Awake and Calm nausea: No Vomiting: No Anesthesia Complication: No Fluid Hydration Crystalloid volume administer (ml): 1,200 Total IV fluid infused: 1,200 Progress Note Anesthesia document: Postop Eval 1 completed: Yes
[2024-07-04] MEDS: Lactated Ringers 1,000 ML 125 ML IV (10:24)
[2024-07-04] MEDS: Senna/Docusate Sodium 1 Tablet 2 TABLET PO ×2 (11:43→20:39)
[2024-07-04] MEDS: APIXABAN 2.5 MG TABLET (WCH) PO ×2 (11:43→20:38)
[2024-07-04] MEDS: hydroCHLOROthiazide 12.5mg 12.5 MG PO (11:43)
--- NOTE | 2024-07-04 12:13 | POSTOPAN2_ITS ---
Anesthesia Postop Eval I Sum Postop Eval Completion status Anesthesia document: Postop Eval 1 completed: Yes Anesthesia Postop Eval I Summary Anesthesia Postop Eval I Summary: Anesthesia Postop Eval I: Assessment Summary Airway patent Yes 07/04/24 10:19 [email or web address] Spontaneous unlabored Yes 07/04/24 10:19 [email or web address] [email or web address] respirations Mental status Awake,Calm 07/04/24 10:19 [email or web address] nausea No 07/04/24 10:19 [email or web address] Vomiting No 07/04/24 10:19 [email or web address] Anesthesia Postop Eval I: Fluid Summary Crystalloid volume administer 1,200 07/04/24 10:19 [email or web address] (ml) Colloids volume administered ( ml) Blood Product volume administered (ml) Total IV fluid infused 1,200 07/04/24 10:19 [email or web address] Anesthesia Postop Eval I: Summary Notes Anesthesia Complication No 07/04/24 10:19 [email or web address] Anesthesia Complication Comment: Post-operative progress note Anesthesia: Postop Eval II Evaluation Mental status: Awake Pain Level: 0 nausea: No Vomiting: No
--- NOTE | 2024-07-04 12:13 | PCM.POSTANE2 ---
Anesthesia Postop Eval I Sum Postop Eval Completion status Anesthesia document: Postop Eval 1 completed: Yes Anesthesia Postop Eval I Summary Anesthesia Postop Eval I Summary: Anesthesia Postop Eval I: Assessment Summary Airway patent Yes 07/04/24 10:19 [email or web address] Spontaneous unlabored Yes 07/04/24 10:19 [email or web address] respirations Mental status Awake,Calm 07/04/24 10:19 [email or web address] nausea No 07/04/24 10:19 [email or web address] Vomiting No 07/04/24 10:19 [email or web address] Anesthesia Postop Eval I: Fluid Summary Crystalloid volume administer 1,200 07/04/24 10:19 [email or web address] (ml) Colloids volume administered ( ml) Blood Product volume administered (ml) Total IV fluid infused 1,200 07/04/24 10:19 [email or web address] Anesthesia Postop Eval I: Summary Notes Anesthesia Complication No 07/04/24 10:19 [email or web address] Anesthesia Complication Comment: Post-operative progress note Anesthesia: Postop Eval II Evaluation Mental status: Awake Pain Level: 0 nausea: No Vomiting: No
[2024-07-04] MEDS: Cefazolin 1 GM/50 ML BAG IV ×2 (13:07→20:39)
[2024-07-04] MEDS: oxyCODONE 5 MG Tablet PO ×2 (13:07→20:40)
[2024-07-04] MEDS: 0.9% Normal Saline (1000mL) 1,000 ML 125 ML IV ×2 (13:09→20:40)
[2024-07-04] MEDS: traZODone 100 MG Tablet 200 MG PO (20:39)
[2024-07-04] MEDS: Sertraline 100 MG Tablet PO (20:40)
[2024-07-05 00:49] VITALS: BP 103/66; PULSE 70; RESP 16; TEMP 36.2; O2SAT 95
[2024-07-05 04:26] VITALS: BP 110/70; PULSE 88; RESP 16; TEMP 36.2; O2SAT 98
[2024-07-05] MEDS: 0.9% Normal Saline (1000mL) 1,000 ML 125 ML IV (04:29)
[2024-07-05] MEDS: Cefazolin 1 GM/50 ML BAG IV (04:30)
[2024-07-05] MEDS: Acetaminophen 500 MG Tablet 1000 MG PO ×2 (04:30→14:21)
[2024-07-05 06:43] LABS: Hematocrit 27.1 % (37-47); Hemoglobin 9.1 g/dL (12.0-15.0); Mean Corp Hgb Conc 33.6 g/dL (32-36); Mean Corpuscular Volume 89.4 fL (81-99); Mean Platelet Vol. 9.5 fl (6.2-12.0); Platelet Count 171 K/mm3 (150-450); RBC Distribution Width CV 12.4 % (11.6-14.6); RBC Distribution Width SD 39.9 fl (35.1-43.9); Red Blood Count 3.03 M/mm3 (4.2-5.4); White Blood Count 10.9 K/mm3 (4.4-11.0)
[2024-07-05 07:02] LABS: Anion Gap 6 (5-15); BUN 10 mg/dL (7-18); BUN/Creat Ratio 10.2 RATIO (10-20); Calcium,Total 8.2 mg/dL (8.5-10.1); Chloride 104 mmol/L (98-107); Creatinine, Serum 0.98 mg/dL (0.55-1.02); EST Glomerular Filtration Rate 59 mL/min (>60); Est Glom Filt Rate - Afr Amer 71 mL/min (>60); Estimated Creatinine Clearance 47.81 ml/min; Glucose 166 mg/dL (74-106); Potassium 4.2 mmol/L (3.5-5.1); Sodium Level 136 mmol/L (136-145)
[2024-07-05] MEDS: Pantoprazole Sodium 40 MG Tablet PO (07:30)
[2024-07-05] MEDS: Senna/Docusate Sodium 1 Tablet 2 TABLET PO (07:30)
[2024-07-05] MEDS: oxyCODONE 5 MG Tablet PO ×2 (07:32→11:16)
[2024-07-05 08:46] VITALS: BP 101/66; PULSE 75; RESP 16; TEMP 36.6; O2SAT 98
--- NOTE | 2024-07-05 10:50 | CCN.REFER ---
RN CM Assessment: RN CM to room to meet with pt for initial transition planning/care coordination assessment. RN CM introduced self and role at [facility], pt voices understanding and consents to assessment. Pt is A&O and answers all questions appropriately at this time. Pt lying in bed in no distress. She does report being painful and RN is aware. She just finished working w/therapy. Pt states she does feel well enough, though, to answer questions/talk to this RN CM. Care providers, pharmacy, and demographics verified/updated. Strata: 2 PCP: Dr Dwight Parnell Specialists: Dr Bowen, ortho; Dr Villafuerte, onc; Dr Stout, rad onc, Dr LayGI Preferred Pharmacy: [facility] Insurance: [facility] [place] Prescription Benefit: yes LNOK: Sealm Hebert, ; Selam Hebert Jr, son. Pt has total of 7 living adult childen. Living Arrangements: Pt lives with in a two story home with FFSU and 5+6 steps to enter with a rail. Pt reports she was I in ADL's prior to surgery. She states her is not be able to assist her in the home, stating she actually assists him. Her son can come assist and herself if needed. She also has a friend that comes about 3 x's/week to assist w/home mgnt tasks. Pt denies concerns at home. Transportation: Pt drives self and denies concerns with transportation. Pt has friends and family who is able to provide transportation. She also plans to utilize [facility] van transport for OP appts @ . DME:grab bars in the tub/shower; 2 shower chairs, FWW, rollator, toilet side rails. She has a PAP, but has not used it for about 3 yrs. HHC/SNF: Pt denies hx of SNF. Has had [facility] HHC in the past. Pt plans to do OP therapy @ [facility], which has been set up, as well as [facility] van transport and 1st appt is scheduled for this Wednesday. Pt states no concerns with going home at time of dc. CM to follow. Advised pt to ask CM if any further question/concerns/needs arise, voices understanding. Plan: Home with outpt therapy already set up
--- NOTE | 2024-07-05 10:55 | CASEMGMT ---
ORION CM Assessment: RN CM to room to meet with pt for initial transition planning/care coordination assessment. RN CM introduced self and role at [facility], pt voices understanding and consents to assessment. Pt is A&O and answers all questions appropriately at this time. Pt lying in bed in no distress. She does report being painful and RN is aware. She just finished working w/therapy. Pt states she does feel well enough, though, to answer questions/talk to this RN CM. Care providers, pharmacy, and demographics verified/updated. Strata: 2 PCP: Dr Dwight Parnell Specialists: Dr Bowen, ortho; Dr Villafuerte, onc; Dr Stout, rad onc, Dr LayGI Preferred Pharmacy: [facility] Insurance: [facility] [place] Prescription Benefit: yes LNOK: Selam Hebert, ; Selam Hebert Jr, son. Pt has total of 7 living adult childen. Living Arrangements: Pt lives with in a two story home with FFSU and 5+6 steps to enter with a rail. Pt reports she was I in ADL's prior to surgery. She states her is not be able to assist her in the home, stating she actually assists him. Her son can come assist and herself if needed. She also has a friend that comes about 3 x's/week to assist w/home mgnt tasks. Pt denies concerns at home. Transportation: Pt drives self and denies concerns with transportation. Pt has friends and family who is able to provide transportation. She also plans to utilize [facility] van transport for OP appts @ . DME:grab bars in the tub/shower; 2 shower chairs, FWW, rollator, toilet side rails. She has a PAP, but has not used it for about 3 yrs. HHC/SNF: Pt denies hx of SNF. Has had [facility] HHC in the past. Pt plans to do OP therapy @ [facility], which has been set up, as well as [facility] van transport and 1st appt is scheduled for this Wednesday. Pt states no concerns with going home at time of dc. CM to follow. Advised pt to ask CM if any further question/concerns/needs arise, voices understanding. Plan: Home with outpt therapy already set up [facility] OLSON RN, CM
--- NOTE | 2024-07-05 10:55 | CASEMGMT ---
Addendum entered by Stanton Wright 07/05/24 12:52: Per DEDRICK Olvera, plan is now for pt to go to [facility] AT [facility]. Call placed to Robbie @ [employer] and to Lorraine @ Call center for [facility] Van transport and they were both notified to cancel appts on Wednesday. Original Note: RN CM Assessment: RN CM to room to meet with pt for initial transition planning/care coordination assessment. RN CM introduced self and role at [facility], pt voices understanding and consents to assessment. Pt is A&O and answers all questions appropriately at this time. Pt lying in bed in no distress. She states she just finished working w/therapy and is painful, but willing to talk w/RN CM. Care providers, pharmacy, and demographics verified/updated. Strata: 2 PCP: Dr Dwight Parnell Specialists: Dr Bowen, ortho; Dr Villafuerte, onc; Dr Stout, lizzy onc, Dr Laly [place] Pharmacy: [facility] Insurance: [facility] Prescription Benefit: yes LNOK: Selam Hebert, ; Selam Hebert Jr, son Living Arrangements: Pt lives with in a two story home with FFSU and 5+6 steps to enter with a rail. Pt reports she was I in ADL's prior to surgery. Pt states her is not able to assist her in the home, in fact, she assists her w/some care. Son able to assist w/ while she is away. Pt has friend that comes 3 x's/week that assists w/home mgnt tasks. Therapy has worked w/pt on stairs today. Transportation: Pt drives self and denies concerns with transportation. Pt has friends and family who is able to provide transportation. DME:grab bars in the tub/shower; 2 shower chairs, FWW, rollator, toilet side rails. Pt also has a PAP, but has not worn it for about 3 yrs. HHC/SNF: Pt denies hx of SNF. Has had [facility] HHC in the past. Pt states no concerns with going home at time of dc. She has outpt therapy set up at [facility] on Wednesday w/[facility] van transport already set up. . Pt states no further concerns/needs. CM to follow. Advised pt to ask CM if any further question/concerns/needs arise, voices understanding. Plan: Home with outpt therapy already set up [facility] JONESN RN CM
[2024-07-05 11:28] VITALS: BP 107/50; PULSE 72; RESP 16; TEMP 36.9; O2SAT 97
--- NOTE | 2024-07-05 12:32 | PN.ORTHO_ITS ---
Subjective Subjective Patient seen and examined, complain of pain operative knee although she is ambulating well with physical therapy she has multiple steps at home and family and her have significant Cerner concerned about being discharged home. And she did have a hard time after her last total joint and just sat around most of the time. Objective Data Objective Data Vital Signs: Vital Signs Temp Pulse Resp BP Pulse Ox O2 Del Method O2 Flow Rate 98.4 F 72 16 107/50 L 97 Room Air 4 07/05/24 11:28 07/05/24 11:28 07/05/24 11:28 07/05/24 11:28 07/05/24 11:28 07/05/24 11:28 07/04/24 11:28 Oxygen Flow Rate (L/min) 4 Oxygen Delivery Method Room Air Weight: 156 lb Body Mass Index (BMI) 28.5 Intake & Output: Intake and Output for Last 24 Hours 07/03/24 07/04/24 07/05/24 23:59 23:59 23:59 Intake Total 3371.50 / 3371.50 2670.83 / 2670.83 Balance 3371.50 / 3371.50 2670.83 / 2670.83 Lab / Micro Data 07/05/24 06:17 07/05/24 06:17 Labs: Laboratory Results - last 24 hr 07/05/24 06:17: WBC 10.9, RBC 3.03 L, Hgb 9.1 L, Hct 27.1 L, MCV 89.4, MCH 30.0, MCHC 33.6, RDW Std Deviation 39.9, RDW Coeff of Anju 12.4, Plt Count 171, MPV 9.5, Sodium 136, Potassium 4.2, Chloride 104, Carbon Dioxide 26.0, Anion Gap 6, BUN 10, Creatinine 0.98, Estim Creat Clear Calc 47.81, Est GFR (MDRD) Af Amer 71, Est GFR (MDRD) Non-Af 59 L, BUN/Creatinine Ratio 10.2, Glucose 166 H, C alcium 8.2 L Micro: Microbiology 06/20/24 15:34 Swab (Method) Nasal Screen MRSA/MSSA - Final Physical Exam Const alert, oriented x3 and no apparent distress General Appearance: cooperative Extremity Extremity Narrative: Left lower extremity dressing clean dry and intact compartment soft neurovascular intact EHL tibialis anterior gastrocsoleus Assessment & Plan Assessment/Plan (1) S/P total knee arthroplasty: QUALIFIERS: Laterality: right Qualified Code(s): Z96.651 - Presence of right artificial knee joint PLAN: Plan Postop day #1 left total knee arthroplasty PT OT weightbearing as tolerated Pain control will increase to 15 mg of oxycodone every 4 hours as needed DVT prophylaxis SCDs SHELLI hose Eliquis 2.5 mg twice daily for 2 weeks Patient would benefit from rehab before returning home significant debility after last surgery and multiple steps at home DC to rehab
--- NOTE | 2024-07-05 12:36 | PCM.DC ---
Discharge Instructions Activity Weight Bearing Status: Weight bearing as tolerated Dressing / Incision Call your doctor if you observe: Shortness of breath and Chest pain Additional Dressing/Incision Instructions:: Ice and elevate lower extremities 2 weeks while not ambulating. Ambulation is encouraged. Weight bearing as tolerated. Use assistive devise for stability. Encourage FULL knee extension and flexion 1 time EVERY time you get up and down and MULTIPLE times per day. No showering until 72 hours after surgery. Begin showering postop day #7. Remove the dressing prior to shower and gently wash with warm water and antibacterial soap then pat dry and place abdominal pad (or plain gauze) and SHELLI hose over top. This is to be done daily. Do not submerge for 3 weeks. after the initial dressing change then you must clean incision and change dressing daily. Do not allow animals near the incision area. Keep clean. Follow anti-coagulation recommendations as prescribed. Do not take any NSAIDs while on blood thinner. Do not take any additional narcotic pain medication other than what was prescribed on your surgery day without discussing with physician. Narcotic medication can be addictive. Do not drink alcohol while taking narcotics. Supplement narcotic prescription with acetaminophen 1000 mg 4 times a day. Start physical therapy. If you are not currently scheduled for physical therapy or you are unsure of appointment time please call office [facility] to arrange. Call Dr. Bowen with any concerns. Follow Up Care Please Follow Up With: Femi Bowen DO When: 2 weeks Test Results: Test results from this visit will be discussed in further detail at your follow-up appointment, if applicable. Discharge Plan Admission Admit Date/Time: 07/04/24 05:33 Primary Reason for Your Visit: Left total knee arthroplasty Attending Provider: Femi Bowen Primary Care Provider: Dwight Parnell Discharge Orders/Prescriptions Prescriptions: New acetaminophen 500 mg tablet 1,000 mg PO Q6H Qty: 90 0RF oxycodone 5 mg tablet 5 - 15 mg PO Q4H PRN (Reason: pain) 7 Days Qty: 60 0RF Eliquis 2.5 mg tablet 2.5 mg PO BID Qty: 28 0RF Continued trazodone 100 mg tablet 200 mg PO HS 30 Days Qty: 60 sertraline 100 mg tablet 100 mg PO QHS Qty: 90 1RF hydrochlorothiazide 12.5 mg tablet 12.5 mg PO DAILY Qty: 90 3RF lorazepam [Ativan] 0.5 mg tablet 0.5 mg PO BID PRN (Reason: anxiety) Qty: 30 1RF omeprazole 40 mg capsule,delayed release(DR/EC) 40 mg PO QAM Qty: 90 3RF fluticasone propionate 9.9 ML spray,suspension 2 spray INTRANASAL DAILY PRN (Reason: Nasal Congestion) Rx Instructions: administer into each nostril vitamin E (dl, acetate) 450 mg (1,000 unit) capsule 900 mg PO DAILY Patient Comments: TAKE 1 CAPSULE BY MOUTH EVERY DAY cranberry-B.mcmqukkv-A-Fv phos 480 mg-20 mg- 100million cell tablet 1 tab PO DAILY Tart Hidalgo [id number] mg capsule 1 cap PO DAILY Probiotic Acidophilus 250 million cell capsule 500 mmu cells PO DAILY tamoxifen 20 mg tablet 20 mg PO DAILY Qty: 90 3RF Discontinued ibuprofen 600 mg tablet 600 mg PO TID PRN (Reason: pain) Qty: 90 0RF Other Ambulatory Orders: Prothrombin Time w/INR (Routine) Timeframe: [id number] Facility: [facility] - Location: Laboratory Ordered By: Dr. Femi Bowen Referrals / Follow Up: Dwight Parnell DO [Primary Care Provider] - Disposition Disposition (needs filled in before D/C Order can be placed): [facility] Facility
--- NOTE | 2024-07-05 12:43 | TREXTCAR_ITS ---
Diet Diet Order/Speech Therapy: 07/04/24 12:59 Diet: Regular - General Wound(s) LEFT KNEE: Wound Type: Surgical Incision Therapies Weight Bearing: Full weight bearing Physical Therapy: Eval and Treat Occupational Therapy: Eval and Treat Problem/Diagnosis (1) S/P total knee arthroplasty: Status: Acute Code(s): Z96.659 - Presence of unspecified artificial knee joint Plan Postop day #1 left total knee arthroplasty PT OT weightbearing as tolerated Pain control will increase to 15 mg of oxycodone every 4 hours as needed DVT prophylaxis SCDs SHELLI hose Eliquis 2.5 mg twice daily for 2 weeks Patient would benefit from rehab before returning home significant debility after last surgery and multiple steps at home DC to rehab Allergies/Procedures Done in Hospital Allergies nitrofurantoin (From Macrobid) Allergy (Mild, Verified 07/04/24 06:00) rash codeine phosphate (From Tylenol-Codeine) Adverse Reaction (Verified 07/04/24 06:00) Vomiting Type of Care/Length of Stay Estimated LOS: Convalescent Care Less Than 30 days Type of Care Needed: Skilled Rehab Potential: Good Prognosis: Good Additional Orders/Day of Discharge Day of Discharge: 07/05/24 Follow Up Care Please Follow Up With: Femi Bowen DO When: 2 weeks Discharge Plan Admission Admit Date/Time: 07/04/24 05:33 Primary Reason for Your Visit: Left total knee arthroplasty Attending Provider: Femi Bowen Primary Care Provider: Dwight Parnell Discharge Orders/Prescriptions Prescriptions: New acetaminophen 500 mg tablet 1,000 mg PO Q6H Qty: 90 0RF oxycodone 5 mg tablet 5 - 15 mg PO Q4H PRN (Reason: pain) 7 Days Qty: 60 0RF Eliquis 2.5 mg tablet 2.5 mg PO BID Qty: 28 0RF Continued trazodone 100 mg tablet 200 mg PO HS 30 Days Qty: 60 sertraline 100 mg tablet 100 mg PO QHS Qty: 90 1RF hydrochlorothiazide 12.5 mg tablet 12.5 mg PO DAILY Qty: 90 3RF lorazepam [Ativan] 0.5 mg tablet 0.5 mg PO BID PRN (Reason: anxiety) Qty: 30 1RF omeprazole 40 mg capsule,delayed release(DR/EC) 40 mg PO QAM Qty: 90 3RF fluticasone propionate 9.9 ML spray,suspension 2 spray INTRANASAL DAILY PRN (Reason: Nasal Congestion) Rx Instructions: administer into each nostril vitamin E (dl, acetate) 450 mg (1,000 unit) capsule 900 mg PO DAILY Patient Comments: TAKE 1 CAPSULE BY MOUTH EVERY DAY cranberry-B.qekaoagg-D-Ep phos 480 mg-20 mg- 100million cell tablet 1 tab PO DAILY Tart Hidalgo [id number] mg capsule 1 cap PO DAILY Probiotic Acidophilus 250 million cell capsule 500 mmu cells PO DAILY tamoxifen 20 mg tablet 20 mg PO DAILY Qty: 90 3RF Discontinued ibuprofen 600 mg tablet 600 mg PO TID PRN (Reason: pain) Qty: 90 0RF Other Ambulatory Orders: Prothrombin Time w/INR (Routine) Timeframe: [id number] Facility: [facility] [place] - Location: Laboratory Ordered By: Dr. Femi Bowen Referrals / Follow Up: Dwight Parnell DO [Primary Care Provider] - Disposition Disposition (needs filled in before D/C Order can be placed): [facility] S/P total knee arthroplasty Qualifiers: Laterality: right Qualified Code(s): Z96.651 - Presence of right artificial knee joint
--- NOTE | 2024-07-05 12:44 | DS.PCM_ITS ---
Providers Date of Admission: 07/04/24 Primary Care Physician: Dr. Dwight Parnell, DO Reason For Visit: ERAS Left Total Knee Replacement Ro Diagnosis Discharge Diagnosis (1) S/P total knee arthroplasty: Status: Acute Code(s): Z96.659 - Presence of unspecified artificial knee joint Qualifiers: Laterality: right Qualified Code(s): Z96.651 - Presence of right artificial knee joint Plan Postop day #1 left total knee arthroplasty PT OT weightbearing as tolerated Pain control will increase to 15 mg of oxycodone every 4 hours as needed DVT prophylaxis SCDs SHELLI hose Eliquis 2.5 mg twice daily for 2 weeks Patient would benefit from rehab before returning home significant debility after last surgery and multiple steps at home DC to rehab Medications at Discharge Home Medications fluticasone propionate 50 mcg/actuation nasal spray,suspension 2 spray intranasal DAILY PRN Nasal Congestion 04/21/19 trazodone 100 mg tablet 200 mg PO HS SLEEP 30 days #60 tabs 10/14/21 vitamin E (dl, acetate) 450 mg (1,000 unit) capsule 900 mg PO DAILY SUPPLEMENT 09/22/23 omeprazole 40 mg capsule,delayed release 40 mg PO QAM GERD #90 caps 09/23/23 hydrochlorothiazide 12.5 mg tablet 12.5 mg PO DAILY HYPERTENSION #90 tabs 01/19/24 lorazepam 0.5 mg tablet (Ativan) 0.5 mg PO BID PRN anxiety #30 tabs 01/19/24 sertraline 100 mg tablet 100 mg PO QHS ANXIETY #90 tabs 01/19/24 tamoxifen 20 mg tablet 20 mg PO DAILY CANCER #90 tabs 03/21/24 Lactobacillus acidophilus 250 million cell capsule (Probiotic Acidophilus) 500 mmu cells PO DAILY SUPPLEMENT 06/14/24 cranberry-B.wfooeizok-R-Ta phos 480 mg-20 mg-100 million cell tablet 1 tab PO DAILY SUPPLEMENT 06/14/24 vit C 30 mg-s.molbey 250 mg-celery seed 75 mg-grape seed extrt capsule (Tart Mobley) 1 cap PO DAILY SUPPLEMENT 06/14/24 acetaminophen 500 mg tablet 1,000 mg (2 x 500 mg) PO Q6H #90 tabs 07/05/24 apixaban 2.5 mg tablet (Eliquis) 2.5 mg PO BID #28 tabs 07/05/24 oxycodone 5 mg tablet 5 - 15 mg (1 - 3 x 5 mg) PO Q4H PRN pain 7 days #60 tabs 07/05/24 Hospital Course Operations total knee replacement Summary of Care Provided Hospital Course: Who has long history of 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 Patient underwent the aformentioned procedure on the admission date without any intraoperative complications. Patient did receive pre-and postoperative antibiotics which were discontinued within 23 hours postoperatively. Patient did receive [spinal anesthesia as well as an adductor canal block postoperatively]. pain was controlled with IV and transition to p.o. pain medication, however she did require increased to 15 mg of oxycodone for pain control. patient will be discharged to rehab with oxycodone and will continue Tylenol as well. Patient had minimal intraoperative blood loss and 2gm tranexamic acid was administered there was no need for postoperative blood transfusion Patients vital signs remained stable. Patient was started on both mechanical and chemical DVT per prophylaxis postoperatively in the form of SCDs SHELLI hose and [Eliquis 2.5 mg twice daily for which she will continue for 2 additional weeks post hospital discharge]. thigh high shelli hose placed over top of the meplix silver dressing. This should be removed 7 days post operatively and showering begun daily at that time with warm water and antibacterial soap. not to submerge for 3 weeks. To change dressing daily after first dressing change. Patient will follow-up in the office in 2 weeks. No intrahospital complications. Weight / BMI Weight Weight: 156 lb Body Mass Index (BMI) 28.5 ABG / Lab / Microbiology Data 07/05/24 06:17 07/05/24 06:17 Laboratory: Laboratory Results - last 24 hr 07/05/24 06:17: WBC 10.9, RBC 3.03 L, Hgb 9.1 L, Hct 27.1 L, MCV 89.4, MCH 30.0, MCHC 33.6, RDW Std Deviation 39.9, RDW Coeff of Anju 12.4, Plt Count 171, MPV 9.5, Sodium 136, Potassium 4.2, Chloride 104, Carbon Dioxide 26.0, Anion Gap 6, BUN 10, Creatinine 0.98, Estim Creat Clear Calc 47.81, Est GFR (MDRD) Af Amer 71, Est GFR (MDRD) Non-Af 59 L, BUN/Creatinine Ratio 10.2, Glucose 166 H, C alcium 8.2 L Microbiology: Microbiology 06/20/24 15:34 Swab (Method) Nasal Screen MRSA/MSSA - Final D/C Instructions Weight Bearing Status: Weight bearing as tolerated Call your doctor if you observe: Shortness of breath and Chest pain Additional Dressing/Incision Instructions: Ice and elevate lower extremities 2 weeks while not ambulating. Ambulation is encouraged. Weight bearing as tolerated. Use assistive devise for stability. Encourage FULL knee extension and flexion 1 time EVERY time you get up and down and MULTIPLE times per day. No showering until 72 hours after surgery. Begin showering postop day #7. Remove the dressing prior to shower and gently wash with warm water and antibacterial soap then pat dry and place abdominal pad (or plain gauze) and SHELLI hose over top. This is to be done daily. Do not submerge for 3 weeks. after the initial dressing change then you must clean incision and change dressing daily. Do not allow animals near the incision area. Keep clean. Follow anti- coagulation recommendations as prescribed. Do not take any NSAIDs while on blood thinner. Do not take any additional narcotic pain medication other than what was prescribed on your surgery day without discussing with physician. Narcotic medication can be addictive. Do not drink alcohol while taking narcotics. Supplement narcotic prescription with acetaminophen 1000 mg 4 times a day. Start physical therapy. If you are not currently scheduled for physical therapy or you are unsure of appointment time please call office [facility] to arrange. Call Dr. Bowen with any concerns. Please Follow Up With: Femi Bowen DO When: 2 weeks Meaningful Use Info Meaningful Use Meaningful Use Diagnoses (Choose all that apply): None applicable Ischemic Stroke Statin Dosing Therapy Reference: STATIN DOSE THERAPY REFERENCE: * Patients > 75 years receive moderate or high dose statin therapy. * Patients 75 years or YOUNGER should receive HIGH intensity statin dose unless contraindicated. You will be required to document reason for non-treatment if statin daily dose does not meet guidelines. HIGH DOSE STATIN THERAPY DAILY Atorvastatin > than or = to 40 mg Rosuvastatin > than or = to 20 mg Amlodipine + Atorvastatin > than or = to 2.5/40 mg Ezetimibe + Simvastatin 10/80 mg Simvastatin 80mg Discharge Plan Admission Admit Date/Time: 07/04/24 05:33 Primary Reason for Your Visit: Left total knee arthroplasty Attending Provider: Femi Bowen Primary Care Provider: Dwight Parnell Discharge Orders/Prescriptions Prescriptions: New acetaminophen 500 mg tablet 1,000 mg PO Q6H Qty: 90 0RF oxycodone 5 mg tablet 5 - 15 mg PO Q4H PRN (Reason: pain) 7 Days Qty: 60 0RF Eliquis 2.5 mg tablet 2.5 mg PO BID Qty: 28 0RF Continued trazodone 100 mg tablet 200 mg PO HS 30 Days Qty: 60 sertraline 100 mg tablet 100 mg PO QHS Qty: 90 1RF hydrochlorothiazide 12.5 mg tablet 12.5 mg PO DAILY Qty: 90 3RF lorazepam [Ativan] 0.5 mg tablet 0.5 mg PO BID PRN (Reason: anxiety) Qty: 30 1RF omeprazole 40 mg capsule,delayed release(DR/EC) 40 mg PO QAM Qty: 90 3RF fluticasone propionate 9.9 ML spray,suspension 2 spray INTRANASAL DAILY PRN (Reason: Nasal Congestion) Rx Instructions: administer into each nostril vitamin E (dl, acetate) 450 mg (1,000 unit) capsule 900 mg PO DAILY Patient Comments: TAKE 1 CAPSULE BY MOUTH EVERY DAY cranberry-B.afgwabin-S-Ad phos 480 mg-20 mg- 100million cell tablet 1 tab PO DAILY Tart Mobley [id number] mg capsule 1 cap PO DAILY Probiotic Acidophilus 250 million cell capsule 500 mmu cells PO DAILY tamoxifen 20 mg tablet 20 mg PO DAILY Qty: 90 3RF Discontinued ibuprofen 600 mg tablet 600 mg PO TID PRN (Reason: pain) Qty: 90 0RF Other Ambulatory Orders: Prothrombin Time w/INR (Routine) Timeframe: [id number] Facility: [facility] - Location: Laboratory Ordered By: Dr. Femi Bowen Referrals / Follow Up: Dwight Parnell DO [Primary Care Provider] - Disposition Disposition (needs filled in before D/C Order can be placed): [facility]
--- NOTE | 2024-07-05 12:54 | CASEMGMT ---
Social Work- Pt family is concerned about return home d/t large amount of steps at home. Pt typically cares for spouse, so he is unable to assist pt. Pt is agreeable to IRU referral. [facility] accepted pt. Physician and RNCM advised. ROBER Treadwell
--- NOTE | 2024-07-05 12:56 | CASEMGMT ---
Social Work Physician updated and pt is ready for discharge today.? SW met with pt and they are agreeable to discharge plan as stated above.? Pt and bedside nurse notified of discharge . Disposition:[facility]? ?? ROBER Treadwell.
--- NOTE | 2024-07-05 13:17 | PHA.DC.MR.R ---
Pharmacy [facility] Med Reconciliation Pharmacy Service has performed discharge medication reconciliation for this patient. The patient's discharge medication list was reviewed for discrepancies and discrepancies were resolved. Medications at Discharge Home Medications fluticasone propionate 50 mcg/actuation nasal spray,suspension 2 spray intranasal DAILY PRN Nasal Congestion 04/21/19 trazodone 100 mg tablet 200 mg PO HS SLEEP 30 days #60 tabs 10/14/21 vitamin E (dl, acetate) 450 mg (1,000 unit) capsule 900 mg PO DAILY SUPPLEMENT 09/22/23 omeprazole 40 mg capsule,delayed release 40 mg PO QAM GERD #90 caps 09/23/23 hydrochlorothiazide 12.5 mg tablet 12.5 mg PO DAILY HYPERTENSION #90 tabs 01/19/24 lorazepam 0.5 mg tablet (Ativan) 0.5 mg PO BID PRN anxiety #30 tabs 01/19/24 sertraline 100 mg tablet 100 mg PO QHS ANXIETY #90 tabs 01/19/24 tamoxifen 20 mg tablet 20 mg PO DAILY CANCER #90 tabs 03/21/24 Lactobacillus acidophilus 250 million cell capsule (Probiotic Acidophilus) 500 mmu cells PO DAILY SUPPLEMENT 06/14/24 cranberry-B.gehbhyggp-C-Qp phos 480 mg-20 mg-100 million cell tablet 1 tab PO DAILY SUPPLEMENT 06/14/24 vit C 30 mg-s.hidalgo 250 mg-celery seed 75 mg-grape seed extrt capsule (Tart Hidalgo) 1 cap PO DAILY SUPPLEMENT 06/14/24 acetaminophen 500 mg tablet 1,000 mg (2 x 500 mg) PO Q6H #90 tabs 07/05/24 apixaban 2.5 mg tablet (Eliquis) 2.5 mg PO BID #28 tabs 07/05/24 oxycodone 5 mg tablet 5 - 15 mg (1 - 3 x 5 mg) PO Q4H PRN pain 7 days #60 tabs 07/05/24
[2024-07-05] MEDS: Ondansetron 4 MG/2 ML Vial IV (14:21)
[2024-07-05] MEDS: LORazepam 0.5 MG Tablet PO (14:21)
[2024-07-05] MEDS: 0.9% Saline Lock 10 ML Syringe IV (14:21)
== END 2024-07-05 15:10 | disposition skilled nursing facility (03) | DRG 470 ==
PROVIDERS: Anesthesiology; Admitting Provider Orthopaedic Surgery; PCP Family Medicine; Referring Provider Orthopaedic Surgery; Visit Provider Orthopaedic Surgery
PROC: 0SRD0JZ Replacement of Left Knee Joint with Synthetic Substitute, Open Approach (ICD-10-PCS; CPT 27447; principal; 2024-07-04 07:00)
DX: M17.12 Unilateral primary osteoarthritis, left knee (principal); I10 Essential (primary) hypertension; J45.40 Moderate persistent asthma, uncomplicated; Z79.899 Other long term (current) drug therapy; Z96.651 Presence of right artificial knee joint; Z96.641 Presence of right artificial hip joint
CPT/HCPCS: 36415; 73560; 80048; 82962; 82985; 83735; 85027; 85730; 86850; 86900; 86901; 87081; 88305; 88311; 94668; 97110; 97162; 97166; 97530; 97535; C1776; J7030; J7120; A4216; J2405; J3490

== ENCOUNTER 2024-07-05 15:24 | Inpatient (IN) | payer MEDICARE, OTHER, SELFPAY ==
[2024-07-05 16:09] VITALS: BP 147/65; PULSE 77; RESP 18; TEMP 37.1; O2SAT 97; BMI 29.9
[2024-07-05 16:15] VITALS: O2SAT 97
[2024-07-05] MEDS: oxyCODONE 5 MG Tablet PO ×3 (16:51→21:29)
[2024-07-05] MEDS: LORazepam 0.5 MG Tablet PO (17:05)
[2024-07-05 17:20] VITALS: BP 147/65; PULSE 77; RESP 18; TEMP 37.1; O2SAT 97
[2024-07-05] MEDS: Acetaminophen 500 MG Tablet 1000 MG PO (21:27)
[2024-07-05] MEDS: APIXABAN 2.5 MG TABLET (WCH) PO (21:28)
[2024-07-05] MEDS: traZODone 100 MG Tablet 200 MG PO (21:28)
[2024-07-05] MEDS: Senna/Docusate Sodium 1 Tablet 2 TABLET PO (21:28)
[2024-07-05] MEDS: Sertraline 100 MG Tablet PO (21:29)
[2024-07-05] MEDS: 0.9% Saline Lock 10 ML Syringe IV (21:43)
[2024-07-05 22:00] VITALS: RESP 16; O2SAT 96
[2024-07-06] MEDS: oxyCODONE 5 MG Tablet PO ×2 (01:29→05:31)
[2024-07-06] MEDS: Acetaminophen 500 MG Tablet 1000 MG PO ×3 (05:32→20:49)
[2024-07-06 05:36] VITALS: BP 115/56; PULSE 75; RESP 16; TEMP 36.6; O2SAT 96
[2024-07-06 05:39] LABS: Absolute Neutrophil Count 9.7 X10^3/uL (2.0-7.7); Basophil# 0.04 X10^3/uL; Basophil% 0.3 % (0-1); Eosinophil# 0.02 X10^3/uL; Eosinophils% 0.2 % (0-5); Hematocrit 26.9 % (37-47); Hemoglobin 9.3 g/dL (12.0-15.0); Lymphocyte % 11.5 % (19-41); Mean Corp Hgb Conc 34.6 g/dL (32-36); Mean Corpuscular Hgb 30.1 pg (27.0-32.0); Mean Corpuscular Volume 87.1 fL (81-99); Mean Platelet Vol. 9.8 fl (6.2-12.0); Monocyte# 0.96 X10^3/uL; Monocyte% 7.9 % (0-10); NRBC Flagged by Analyzer 0 % (0-5); Neutrophil # 9.66 X10^3/uL (2.7-7.7); Platelet Count 169 K/mm3 (150-450); RBC Distribution Width CV 12.4 % (11.6-14.6); RBC Distribution Width SD 39.1 fl (35.1-43.9); Red Blood Count 3.09 M/mm3 (4.2-5.4); White Blood Count 12.2 K/mm3 (4.4-11.0)
[2024-07-06 06:14] LABS: ALB/GLOB Ratio 0.8 RATIO (0.9-2.4); AST(SGOT) 20 U/L (15-37); Alanine Aminotransfer ALT/SGPT 16 U/L (13-56); Albumin, Serum 2.8 g/dL (3.2-5.0); Alkaline Phosphatase 38 U/L (45-117); Anion Gap 7 (5-15); BUN 8 mg/dL (7-18); BUN/Creat Ratio 9.3 RATIO (10-20); Calcium,Total 8.2 mg/dL (8.5-10.1); Chloride 94 mmol/L (98-107); Creatinine, Serum 0.86 mg/dL (0.55-1.02); EST Glomerular Filtration Rate 69 mL/min (>60); Est Glom Filt Rate - Afr Amer 83 mL/min (>60); Estimated Creatinine Clearance 55.84 ml/min; Globulin 3.5 g/dL (2.2-4.2); Glucose 209 mg/dL (74-106); Magnesium 1.8 mg/dL (1.6-2.6); Phosphorus 2.1 mg/dL (2.5-4.9); Potassium 3.5 mmol/L (3.5-5.1); Protein, Total 6.3 g/dL (6.4-8.2); Sodium Level 127 mmol/L (136-145)
--- NOTE | 2024-07-06 08:50 | HP.PCM_ITS ---
HPI - General General Date of Admission: 07/05/24 Date of Service: 07/06/24 Chief Complaint: Debility due to TKA HPI Jeffrey ZULUAGA, is a 73 YO F with a PMH of breast cancer, obstructive sleep apnea, osteoarthritis, migraine cephalgia, hiatal hernia with gastroesophageal reflux, obesity, diabetes mellitus type 2, hypertension, chronic benzodiazepine use (Lorazepam 0.5 mg BID) and asthma who underwent a CT guided left total knee replacement on 07/04/[address] Bowen. Post op she was place on Eliquis for DVT prophylaxis. She c/o severe pain on 07/05/24 and Oxycodone was increased to 15 mg every 4 hours PRN which she has been taking every 4 hours. Postop hemoglobin was 9.1, down from 13.3 on 06/01/2024. Recent hemoglobin A1c was 6.7. She was transferred to the acute inpatient rehab unit at [facility] on 07/05/2024 for 3 hours of therapy daily to restore function/independence at or near her level prior to the recent surgery. Afebrile Vital signs stable Maintaining an oxygen saturation of 96 to 97% on room air while awake. Ate only 25 to 49% of her breakfast this a.m. but had 75 to 100% of supper All lab drawn this morning was personally reviewed. Hemoglobin is stable at 9.3. Sodium is low at 127 and the potassium is borderline low at 3.5. The BUN is 8 with a creatinine of 0.86 and a BUN/creatinine ratio of 9.3. Calcium corrected for hypoalbuminemia is within normal limits. Phosphorus is low at 2.1 and the magnesium is 1.8. LFTs are unremarkable. She is feeling very tired and started to nod off a couple times during our visit. She is complaining of pain in the L thigh but, denies pain in the buttock or the lateral hip/groin. [facility] Medical History (Updated 07/06/24 @ 10:[address] Solange Moore DO) Bilateral knee pain History of colon polyps History of diverticulosis Grade I diastolic dysfunction Liver fibrosis Anxiety and depression Difficulty swallowing Post-menopausal Frequent UTI Dermatitis Wears glasses Cancer Migraine headache History of ulceration Non-smoker CPAP (continuous positive airway pressure) dependence Shortness of breath on exertion Hx of echocardiogram History of stress test Cardiology follow-up encounter Essential (primary) hypertension History of trigger finger Breast pain, right Abdominal bloating Eyelid myokymia Spondylolisthesis at L4-L5 level Trochanteric bursitis of right hip Vertigo Allergic rhinitis Chronic cough Hiatal hernia with gastroesophageal reflux Abnormal pulmonary function test Asthma, moderate persistent Pyelonephritis UTI (urinary tract infection) Home Medications ?Medication ?Instructions ?Recorded ?Last Taken ?Type fluticasone propionate 50 2 spray intranasal DAILY PRN Nasal 04/21/19 Unknown History mcg/actuation nasal Congestion spray,suspension trazodone 100 mg tablet 200 mg PO HS SLEEP 30 days #60 tabs 10/14/21 07/04/24 History vitamin E (dl, acetate) 450 mg 900 mg PO DAILY SUPPLEMENT 09/22/23 Unknown History (1,000 unit) capsule omeprazole 40 mg capsule,delayed 40 mg PO QAM GERD #90 caps 09/23/23 07/03/24 Rx release hydrochlorothiazide 12.5 mg tablet 12.5 mg PO DAILY HYPERTENSION #90 01/19/24 07/03/24 Rx tabs lorazepam 0.5 mg tablet (Ativan) 0.5 mg PO BID PRN anxiety #30 tabs 01/19/24 Unknown Rx sertraline 100 mg tablet 100 mg PO QHS ANXIETY #90 tabs 01/19/24 Unknown Rx tamoxifen 20 mg tablet 20 mg PO DAILY CANCER #90 tabs 03/21/24 06/14/24 Rx Lactobacillus acidophilus 250 500 mmu cells PO DAILY SUPPLEMENT 06/14/24 Unknown History million cell capsule (Probiotic Acidophilus) cranberry-B.vxtgdzyna-T-Yy phos 1 tab PO DAILY SUPPLEMENT 06/14/24 Unknown History 480 mg-20 mg-100 million cell tablet vit C 30 mg-s.hidalgo 250 mg-celery 1 cap PO DAILY SUPPLEMENT 06/14/24 Unknown History seed 75 mg-grape seed extrt capsule (Tart Hidalgo) acetaminophen 500 mg tablet 1,000 mg (2 x 500 mg) PO Q6H pain 07/05/24 Unknown Rx #90 tabs apixaban 2.5 mg tablet (Eliquis) 2.5 mg PO BID clot prevention #28 07/05/24 Unknown Rx tabs oxycodone 5 mg tablet 5 - 15 mg (1 - 3 x 5 mg) PO Q4H 07/05/24 Unknown Rx PRN pain 7 days #60 tabs Allergy/AdvReac Type Severity Reaction Status Date / Time nitrofurantoin (From Allergy Mild rash Verified 07/04/24 06:00 Macrobid) codeine phosphate (From AdvReac Vomiting Verified 07/04/24 06:00 Tylenol-Codeine) Family History Mother Cancer Diabetes Father Cancer Grandfather Diabetes Grandmother Glaucoma Surgical History (Updated 07/06/24 @ 10:[address] Solange Moore DO) Status post left knee replacement Status post right knee replacement Hx of partial mastectomy Hx of colonoscopy Status post trigger finger release Hx of shoulder surgery Hx of laparoscopy History of right hip replacement History of tubal ligation History of tonsillectomy History of cholecystectomy History of hysterectomy History of appendectomy Social History (Updated 07/06/24 @ 10:[address] Solange Moore DO) household members: spouse and other details: 1 adopted dtr and her son still living at home. housing: house number of children: 5 Smoking Status: Never smoker second hand exposure: No alcohol intake: never substance use type: does not use caffeine: Yes what type of physical activity do you participate in: none ROS Review of Systems ROS Unobtainable: Denies due to encephalopathy, due to endotracheal tube, due to mental condition or due to mental status Constitutional Constitutional: Reports fatigue and weakness; Denies anorexia, change in weight, chills, fever(s) or night sweats Eyes Eyes: Denies blurry vision, change in vision, eye pain or loss of vision ENT HEENT: Reports dysphagia, headache(s) and other Details: She has migraines for which she sees Dr. Tony Has cough frequently with eating and drinking.. Tells me that she has had a swallowing eval in the past and everything was fine. ; Denies abnormal hearing, hearing loss, loss taste/smell, nasal congestion, odynophagia or sore throat Cardiovascular Cardiovascular: Reports dyspnea on exertion; Denies chest pain, edema, lightheadedness, orthopnea, palpitations, paroxysmal nocturnal dyspnea or syncope Respiratory/Chest Respiratory/Chest: Reports dyspnea on exertion and shortness of breath with exertion; Denies cough, dyspnea or shortness of breath at rest Gastrointestinal Gastrointestinal: Reports other Details: Last BM was on 07/03/24 does not feel constipated at this time. ; Denies abdominal pain, constipation, diarrhea, dyspepsia, hematemesis, hematochezia, nausea or vomiting Genitourinary Genitourinary: Denies dysuria, hematuria, nocturia, urinary frequency, urinary hesitancy, urinary incontinence or urinary urgency Musculoskeletal Musculoskeletal: Reports difficulty walking, joint pain, joint swelling and other Details: In addition to Left knee pain she is having pain in the Left thigh since the surgery ; Denies back pain or neck pain Integumentary Integumentary: Denies jaundice, nail changes, pruritus, rash or unusual bruising Neurologic Neurologic: Reports other Details: Having some difficulty answering my questions and staying on topic.....I suspect this is due to multiple sedating medications/overmedication. Taking Ativan BID, Trazodone 200 mg at HS and Oxycodone 15 mg every 4 hours. ; Denies confusion, disequilibrium, dizziness, focal weakness, headache(s), paresthesias, seizures or tremor(s) Psychiatric Psychiatric: Reports anxiety; Denies depression, homicidal ideation, suicidal ideation or visual hallucinations Endocrine Endocrinology: Denies change in body appearance, polydipsia or polyuria Hematologic/Lymphatic Hematologic/Lymphatic: Denies easy bleeding, easy bruising or lymphadenopathy Allergic/Immunologic Allergic/Immunologic: Denies rhinitis, eczemia or asthma Vital Signs Vital Signs Vital Signs: 07/05/24 16:09 07/05/24 16:15 07/05/24 17:20 Temperature 98.8 F 98.8 F Temperature Source Temporal Temporal Pulse Rate 77 77 Respiratory Rate 18 18 Respiratory Effort Respiratory Depth Respiratory Pattern Blood Pressure 147/65 H 147/65 H Blood Pressure Mean 92 92 Blood Pressure Source Monitor Monitor Blood Pressure Position Semi-Fowlers Semi-Fowlers Blood Pressure Location Right Arm Right Arm Pulse Ox 97 97 97 Oxygen Delivery Method Room Air Room Air Room Air 07/05/24 22:00 07/06/24 05:36 Temperature 97.8 F Temperature Source Temporal Pulse Rate 75 Respiratory Rate 16 16 Respiratory Effort Normal Non-Labored Respiratory Depth Normal Respiratory Pattern Normal Blood Pressure 115/56 L Blood Pressure Mean 75 Blood Pressure Source Monitor Blood Pressure Position Sitting Blood Pressure Location Right Arm Pulse Ox 96 96 Oxygen Delivery Method Room Air Room Air Weight Weight: 164 lb 0.383 oz Body Mass Index (BMI) 29.9 Physical Exam Const Constitutional Narrative: Very drowsy and nodding off when I am talking to her. Not able to stay on topic at times. Looks overmedicated. General Appearance: cooperative, well kempt, well developed and lethargic HEENT HEENT Narrative: MM are very dry Eyes PERRL, EOMs intact bilaterally, conjunctivae normal and no scleral icterus Eyes Narrative: No DC from the eyes and no mattering of the eyelashes. General Eye: normal appearance of both eyes Neck supple, no JVD, No nodes and no carotid bruits Chest Chest: symmetrical chest wall rise Resp Resp Narrative: Initially had a very poor inspiratory effort with marked decrease in BS's in the bases. Needed a lot of encouragement and visual cues to get her to take a deep breath. After a few deep breaths the lungs were CTA and BS's in the bases were much improved. Has not been doing the IS. No conversational dyspnea. Cardio regular rate, regular rhythm, S1 normal heart sound, S2 normal heart sound, no murmurs, no rub and no gallops Cardio Narrative: No ectopy GI normal to inspection, nondistended, normoactive bowel sounds, soft to palpation and non-tender GI Narrative: No guarding with palpation. Back/Spine no CVA tenderness General Back: Negative for mass Extremity normal capillary refill and no clubbing, cyanosis or edema Extremity Narrative: Having pain in the Left thigh with palpation. There is some spasm in the left quadriceps muscle. Skin General Skin Exam: no breakdown; Negative for jaundice Rashes: no rashes Wound Narrative: The knee incision is covered with a silver impregnates dressing that is not due to come off yet. No erythema extending beyond the dressing and blood on the dressing. Neuro CN's II-XII intact bilaterally and moves all extremities Neuro Narrative: Very drowsy and overmedicated. Psych cooperative Psych Narrative: Fla taffect. Denies any sx of depression. Taking Sertraline, Trazodone and Lorazepam. Results Lab / Micro Data 07/06/24 05:07 07/06/24 05:07 Labs: Laboratory Results - last 24 hr 07/06/24 05:07: WBC 12.2 H, RBC 3.09 L, Hgb 9.3 L, Hct 26.9 L, MCV 87.1, MCH 30.1, MCHC 34.6, RDW Std Deviation 39.1, RDW Coeff of Anju 12.4, Plt Count 169, MPV 9.8, Immature Gran % (Auto) 1.100 H, Neut % (Auto) 79.0 H, Lymph % (Auto) 11.5 L, Bulloch % (Auto) 7.9, Eos % (Auto) 0.2, Baso % (Auto) 0.3, Absolute Neuts (auto) 9.7 H, Absolute Lymphs (auto) 1.40, Nucleated RBC % 0, Sodium 127 L, Potassium 3.5, Chloride 94 L, Carbon Dioxide 26.0, Anion Gap 7, BUN 8, Creatinine 0.86, Estim Creat Clear Calc 55.84, Est GFR (MDRD) Af Amer 83, Est GFR (MDRD) Non-Af 69, BUN/Creatinine Ratio 9.3 L, Glucose 209 H, Calcium 8.2 L, Phosphorus 2.1 L, Magnesium 1.8, Total Bilirubin 0.40, AST 20, ALT 16, Alkaline Phosphatase 38 L, Total Protein 6.3 L, Albumin 2.8 L, Globulin 3.5, A lbumin/Globulin Ratio 0.8 L Assessment & Plan Assessment/Plan (1) Physical debility: (2) Status post left knee replacement: PLAN: 07/04/[address] Bowen (3) Acute blood loss as cause of postoperative anemia: (4) Hyponatremia: (5) Hypophosphatemia: (6) Drowsiness: PLAN: Suspect due to overmedication with multiple sedating medications on board. (7) Type 2 diabetes mellitus: QUALIFIERS: Diabetes mellitus care home insulin use: without care home use Diabetes mellitus complication status: without complication Qualified Code(s): E11.9 - Type 2 diabetes mellitus without complications PLAN: Diet-controlled (8) Anxiety and depression: (9) Liver fibrosis: PLAN: Due to nonalcoholic fatty infiltration of the liver. Follows with Dr. Carpio. Was placed on vitamin EE and lactulose in December 2022 and neither of these medications is currently on her drug regimen. (10) Invasive ductal carcinoma of breast: QUALIFIERS: Laterality: left Qualified Code(s): C50.912 - Malignant neoplasm of unspecified site of left female breast PLAN: Treated with lumpectomy and radiation. Currently on tamoxifen. (11) MECCA (obstructive sleep apnea): PLAN: Not compliant with CPAP and does not wear her oxygen at night. (12) Osteoarthritis of knees, bilateral: QUALIFIERS: Osteoarthritis type: primary Qualified Code(s): M17.0 - Bilateral primary osteoarthritis of knee (13) Essential (primary) hypertension: (14) Asthma, moderate persistent: QUALIFIERS: Asthma complication type: unspecified Qualified Code(s): J45.40 - Moderate persistent asthma, uncomplicated PLAN: Has an inhaler at home but does not recall the name of the inhaler. She uses this very infrequently. PLAN: Plan PLAN PT for gait stability OT for ADL's ST for evaluation Analgesics as needed Bowel protocol Fall precautions Assess for Anxiety/Depression GI prophylaxis -Protonix 40 mg p.o. daily DVT prophylaxis with apixaban 2.5 mg twice daily Follow up with Dr. Bowen and Dr. Parnell following DC from IP Rehab AM lab including CMP, CBC, Mag and Phos -all personally reviewed Start arthritis compounded pain medication to the left anterior thigh 3 times daily Discontinue oxycodone - it is making her too sleepy to do therapy effectively. Pt willing to try Tramadol so will start with 100 mg Q 6H and taper to TID early next week Supplement Phosphorous and recheck on Wednesday DC HCTZ. Check a urine urea and creat. Start an IV of NS after therapy today and recheck a BMP in the AM. Change the diet to carb control. We discussed that Oxycodone and Lorazepam are both addictive drugs. she follows with Dr. Villafuerte for hx of L breast CA......had a lumpectomy and radiation 3 years ago. She normally takes tamoxifen 20 mg daily but there is a 5% incidence of venous thromboembolism. Currently on hold. Will discuss holding Tamoxifen with Dr. Villafuerte until she is ambulatory. Carries a dx of MECCA but, not on treatment.....will check an overnight trending pulse ox. She has CPAP at home but, she does not use it....tells me that she could not get used to it. Will order an overnight trending pulse ox to see if we need to apply oxygen when she is sleeping. discuss psychotherapy with her when she is more alert. Tells me that she has been having trouble with her 15 YO adopted dtr but, did not elaborate. Charges/Coding Visit Charges Inpatient E&M: 36173 Init Hosp L2
[2024-07-06] MEDS: Lactobacillis Acidophilus 1 CAP PO (08:52)
[2024-07-06] MEDS: Vitamin E 400 UNITS Capsule 800 UNITS PO (08:52)
[2024-07-06] MEDS: hydroCHLOROthiazide 12.5mg 12.5 MG PO (08:52)
[2024-07-06] MEDS: APIXABAN 2.5 MG TABLET (WCH) PO ×2 (08:53→20:49)
[2024-07-06] MEDS: Senna/Docusate Sodium 1 Tablet 2 TABLET PO (08:53)
[2024-07-06] MEDS: Pantoprazole Sodium 40 MG Tablet PO (08:53)
[2024-07-06] MEDS: 0.9% Normal Saline (1000mL) 1,000 ML 100 ML IV ×2 (10:16→20:48)
[2024-07-06] MEDS: 0.9% Saline Lock 10 ML Syringe IV (10:16)
--- NOTE | 2024-07-06 10:56 | REHABEVAL_ITS ---
Admission Information Primary Diagnosis:: Debility secondary to left total knee replacement on 07/04/2024. Status Changes from Prescreening?: No changes Identified Actual Problem List:: Skin Intergrity, Pain, ALteration in Cmfrt, Depression, Mobility Impaired, Self Care Deficit, BP, Hypertension, Fluid Change-Dehydration and Alteration-Leisure Activ. Potential Problem List:: DVT, Bleeding, Infection, UTI, Aspiration, Falls, Skin Integrity and Depression Risk of Complications DVT: SHELLI Hose and - (Eliquis 2.5 mg twice daily) Bleeding: Monitor Lab Values, Nursing to Teach Precautions for anti-coagulation therapy., Wound, if applicable, to be assessed every shift. and Stroke patients assessed for lethargy or change in status. Infection: Clinical Staff to Monitor for S/S of infection: and S/S of infection include fever, redness, warmth, etc. Urinary Tract Infection: Monitor for frequency, burning, discomfort, or incontinence. and Nursing will obtain urine sample for urinalysis and C&S when ordered. Aspiration: Clinical staff will monitor for coughing, drooling, congestion., Speech will evaluate swallowing and dsyphasia. and Nursing will monitor patient swallowing during meals. Falls: Patient will be evaluated for Fall Precautions and Patient will be placed on Fall Precautions as indicated per protocol. Skin Breakdown: Nursing will assess skin daily using assessment tool. and Nursing will place on Skin Breakdown Precautions as indicated. Pain: Clinical staff will assess patient's pain level per protocol., Medications will be given, if needed, and the pain level reassessed. and Other methods: Massage, distraction, decrease stimulus, etc. used PRN. Plan of Care Patient requires physician specializing in physical medicine and rehab oversight to provide close medical supervision of rehab issues including: Pain Management, Sleep Problems, Bowel and Bladder, Medical and co-morbidity Management, DVT prophylaxis, Rehabilitation Leadership and Coordination of treatment team Patient needs Physical Therapy: For a minimum of 1 hour and At least 5 out of 7 days Patient needs Physical Therapy to improve:: Mobility, Strengthening, Transfers, Stretching, ROM, Endurance, Stairs, Gait and Balance Patient needs Occupational Therapy: For a minimum of 1 hour and At least 5 out of 7 days Patient needs Occupational Therapy to improve ADL's incl.: Eating, Grooming, Bathing, Dressing, Toileting, Toilet transfers, Community Reintegration, Higher functioning activities, Household tasks, Adaptive Equipment, Splinting and Other activities as determined Patient requires speech therapy: - (Speech therapy to evaluate for dysphagia.) Patient requires 24/7 Rehabilitation Nursing for: Pain Issues, Identifying and preventing risk factors, Monitoring and reporting current medical conditions, Assisting with ambulation, transfer, and all ADL's, Teaching patients about disease process and medications, Family teaching, Providing safe environment, Bowel and Bladder Issues, Skin integrity and Medication Management Patient needs Product Support Specialist/ Case Management for: Discharge Planning, Arranging Home Equipment or Services and Family Interventions Patient needs Dietary and Nutrition Services for: Adequate Nutrition, Nutritional Supplements and Nutritional Education Goals Goals Patient will remain: free from falls Patient will perform eating at: MOD I level of assist. Patient will perform bed mobility at: MOD I level of assist. Patient will complete transfers from bed to chair at: MOD I level of assist. Patient will ambulate: - (500 feet using a wheeled walker at mod I) Patient will complete upper body dressing at: MOD I level of assist. Patient will complete lower body dressing at: MOD I level of assist. (With adaptive equipment as needed to increase independence with self-care) Patient will complete toilet transfer at: MOD I level of assist. Patient will complete toileting at: MOD I level of assist. Patient will perform bathing at: MOD I level of assist. Patient will perform Tub/Shower transfer at: - (Supervision for the first 1 to 2 weeks post discharge from rehab) Patient will complete grooming at: MOD I level of assist. (While standing at the sink.) Patient will achieve: 12 stairs (Ascend/descend 12 steps using 1-2 handrails with supervision) Patient will have pain level of: of 3 or less Patient's skin will: remain intact Patient will receive: adequate nutrition. Discharge Planning Estimated Length of stay (days): 14 Anticipated D/C Destination: Home with Outpt Therapy Was Preadmission Assessment Accurate?: Yes
[2024-07-06 11:06] LABS: Urea Nitrogen, Urine 562 mg/dL (NO RANGE EST.)
[2024-07-06 11:43] LABS: AST(SGOT) 14 U/L (15-37); Alanine Aminotransfer ALT/SGPT 16 U/L (13-56); Albumin, Serum 2.8 g/dL (3.2-5.0); Alkaline Phosphatase 38 U/L (45-117); Bilirubin, Direct 0.13 mg/dL (0.00-0.30); Globulin 3.2 g/dL (2.2-4.2)
--- NOTE | 2024-07-06 14:06 | CASEMGMT ---
Social Work SW attempted to visit pt, but pt is asleep and unable to be aroused. Dr is adjusting some medications and requesting waiting until tomorrow to complete assessment. Elvira Fregoso CAMOUFLAGE SPECIALIST TELEPHONE STATION INSTALLER
[2024-07-06 14:24] LABS: Cholesterol 117 mg/dL (200); High Density Lipoprotein 43 mg/dL; Triglycerides 129 mg/dL; Very Low Density Lipoprotein 26 mg/dL (5-40)
[2024-07-06] MEDS: Na Biphos/Potassium Phosphate PACKET 1 PACKET PO ×2 (14:31→20:50)
[2024-07-06] MEDS: traMADol 50 MG Tablet 100 MG PO ×2 (17:35→23:15)
[2024-07-06 17:43] VITALS: BP 152/59; PULSE 82; RESP 16; TEMP 36.6; O2SAT 97
[2024-07-06] MEDS: Ondansetron ODT 4 MG Tablet PO (18:42)
[2024-07-06] MEDS: traZODone 100 MG Tablet 200 MG PO (20:49)
[2024-07-06] MEDS: Sertraline 100 MG Tablet PO (20:49)
[2024-07-06] MEDS: Lactulose 20 GM/30 ML UDC 10 GM PO (20:49)
[2024-07-06] MEDS: Arthritis Pain Compound 60 CLICK TUBE TOPICAL (20:53)
[2024-07-06 21:34] VITALS: PULSE 85; O2SAT 93
[2024-07-07 04:49] LABS: Anion Gap 7 (5-15); BUN 7 mg/dL (7-18); BUN/Creat Ratio 8.9 RATIO (10-20); Chloride 97 mmol/L (98-107); Creatinine, Serum 0.79 mg/dL (0.55-1.02); EST Glomerular Filtration Rate 76 mL/min (>60); Est Glom Filt Rate - Afr Amer 92 mL/min (>60); Estimated Creatinine Clearance 60.03 ml/min; Glucose 133 mg/dL (74-106); Potassium 3.2 mmol/L (3.5-5.1); Sodium Level 132 mmol/L (136-145)
[2024-07-07] MEDS: Na Biphos/Potassium Phosphate PACKET 1 PACKET PO ×3 (05:49→21:06)
[2024-07-07] MEDS: traMADol 50 MG Tablet 100 MG PO ×3 (05:51→17:07)
[2024-07-07] MEDS: Acetaminophen 500 MG Tablet 1000 MG PO ×3 (05:51→21:06)
[2024-07-07 05:55] VITALS: BP 108/55; PULSE 77; RESP 16; TEMP 37; O2SAT 94
[2024-07-07] MEDS: 0.9% Normal Saline (1000mL) 1,000 ML 100 ML IV (06:38)
[2024-07-07] MEDS: Pantoprazole Sodium 40 MG Tablet PO (08:52)
[2024-07-07] MEDS: Vitamin E 400 UNITS Capsule 800 UNITS PO (08:52)
[2024-07-07] MEDS: Lactulose 20 GM/30 ML UDC 10 GM PO ×2 (08:52→21:06)
[2024-07-07] MEDS: Lactobacillis Acidophilus 1 CAP PO (08:53)
[2024-07-07] MEDS: APIXABAN 2.5 MG TABLET (WCH) PO ×2 (08:53→21:07)
[2024-07-07] MEDS: Arthritis Pain Compound 60 CLICK TUBE TOPICAL ×3 (08:57→21:06)
--- NOTE | 2024-07-07 11:43 | PN_ITS ---
Subjective Subjective Afebrile VSS - Maintaining appropriate oxygen saturation on RA Oral intake - FOOD was eating poorly with nausea and emesis secondary to narcotics but ate 50 to 74% of her breakfast this a.m. with no nausea. FLUIDS fluid balance yesterday was +125 and overnight she was +2838. Oral fluid intake has improved. Discussed with nursing - no problems that need addressed Reviewed the THERAPY notes Medication list reviewed. All lab drawn this morning was personally reviewed. The sodium is up to 132 from 127 yesterday after IV normal saline. Potassium is 3.2 today. The BUN is 7 with a creatinine of 0.79. the fractional excretion of urea was calculated and the result is consistent with intrinsic renal disease however, the sodium is better with IV NS and the creat clearance is 60.o3 and the GFR is 76. Serum ammonia is normal at 20. She is feeling much better today. Having some pain but, manageable on the current regimen. Denies nausea. Slept well last night. No BM since the day prior to surgery. She denies chest pain, lightheadedness, cephalgia, shortness of breath, nausea/vomiting/abdominal pain, dysuria and calf tenderness. Objective Data Objective Data Vital Signs: Vital Signs Temp Pulse Resp BP Pulse Ox O2 Del Method O2 Flow Rate 98.6 F 77 16 108/55 L 94 Room Air 0 07/07/24 05:55 07/07/24 05:55 07/07/24 05:55 07/07/24 05:55 07/07/24 05:55 07/07/24 08:36 07/06/24 21:34 FiO2 21 07/07/24 08:36 Oxygen Flow Rate (L/min) 0 Oxygen Delivery Method Room Air Weight: 164 lb 0.383 oz Body Mass Index (BMI) 29.9 Intake & Output: Intake and Output for Last 24 Hours 07/05/24 07/06/24 07/07/24 23:59 23:59 23:59 Intake Total 540 / 540 1860 / 1860 4188.33 / 4188.33 Output Total 900 / 900 1735 / 1735 1350 / 1350 Balance -360 / -360 125 / 125 2838.33 / 2838.33 Lab / Micro Data 07/06/24 05:07 07/07/24 04:19 Labs: Laboratory Results - last 24 hr 07/06/24 10:49: Total Bilirubin 0.50, Direct Bilirubin 0.13, AST 14 L, ALT 16, A lkaline Phosphatase 38 L, Total Protein 6.0 L, Albumin 2.8 L, Globulin 3.2, Triglycerides 129, Cholesterol 117, LDL Cholesterol 48, VLDL Cholesterol 26, HDL Cholesterol 43 07/07/24 04:19: Sodium 132 L, Potassium 3.2 L, Chloride 97 L, Carbon Dioxide 28.0, Anion Gap 7, BUN 7, Creatinine 0.79, Estim Creat Clear Calc 60.03, Est GFR (MDRD) Af Amer 92, Est GFR (MDRD) Non-Af 76, BUN/Creatinine Ratio 8.9 L, Glucose 133 H, Calcium 8.0 L Physical Exam Const alert and no apparent distress Constitutional Narrative: Alert and appropriate today. Eating her lunch when I entered her room. Was able to do therapy today. She was able to ambulate 105 feet with a front wheeled walker with wheelchair follow this morning. She had decreased step length and height and required some cueing for increased heel strike to improve gait pattern. Making good eye contact with me today and not nodding off while I am speaking to her. HEENT Mouth: dry mucous membranes Neck supple Resp clear to auscultation bilaterally Resp Narrative: Better inspiratory effort today and better air exchange. No conversational dyspnea Cardio regular rate, regular rhythm and no gallops Cardio Narrative: No ectopy GI normal to inspection, nondistended, normoactive bowel sounds and soft to palpation GI Narrative: No guarding with palpation Extremity no calf tenderness Extremity Narrative: No ankle edema or edema of the hands. Skin General Skin Exam: no breakdown Rashes: no rashes Psych affect normal Psych Narrative: Does not seem anxious. Making good eye contact. Pleasant and appropriate. Assessment & Plan Assessment/Plan (1) Physical debility: (2) Status post left knee replacement: PLAN: 07/04/[address] Bowen (3) Acute blood loss as cause of postoperative anemia: (4) Hyponatremia: (5) Hypophosphatemia: (6) Type 2 diabetes mellitus: QUALIFIERS: Diabetes mellitus residential insulin use: without drum drier operator use Diabetes mellitus complication status: without complication Qualified Code(s): E11.9 - Type 2 diabetes mellitus without complications PLAN: Diet-controlled (7) Anxiety and depression: (8) MECCA (obstructive sleep apnea): PLAN: Not compliant with CPAP and does not wear her oxygen at night. The overnight trending pulse ox was reviewed and it shows the pulse ox to be 89% or less for 1.17% of the monitoring. there were no desaturation events. PLAN: Plan 1. Continue therapy 2. Continue the current drug regimen. Try to decrease tramadol to every 8 hours early next week. 3. Recheck a BMP, CBC and phosphorus on Wednesday. 4. Discontinue the IV normal saline after the current liter has infused. Will start salt tablets 1 g p.o. twice daily. Hydrochlorothiazide was discontinued. Blood pressure is well-controlled. Charges/Coding Visit Charges Inpatient E&M: 84939 Subs Hosp L1
[2024-07-07] MEDS: Sodium Chloride 1 GM Tablet PO ×2 (13:30→21:06)
[2024-07-07] MEDS: 0.9% Saline Lock 10 ML Syringe IV (17:11)
[2024-07-07 18:00] VITALS: BP 100/46; PULSE 79; RESP 20; TEMP 36.7; O2SAT 96
[2024-07-07] MEDS: traZODone 100 MG Tablet 200 MG PO (21:06)
[2024-07-07] MEDS: Sertraline 100 MG Tablet PO (21:07)
[2024-07-08] MEDS: traMADol 50 MG Tablet 100 MG PO ×5 (00:07→23:50)
[2024-07-08] MEDS: Acetaminophen 500 MG Tablet 1000 MG PO ×3 (05:32→21:47)
[2024-07-08] MEDS: Arthritis Pain Compound 60 CLICK TUBE TOPICAL ×3 (05:32→21:46)
[2024-07-08] MEDS: Na Biphos/Potassium Phosphate PACKET 1 PACKET PO ×3 (05:33→21:47)
[2024-07-08 05:40] VITALS: BP 146/62; PULSE 76; RESP 18; TEMP 36.7; O2SAT 96
[2024-07-08] MEDS: Vitamin E 400 UNITS Capsule 800 UNITS PO (08:36)
[2024-07-08] MEDS: APIXABAN 2.5 MG TABLET (WCH) PO ×2 (08:37→21:47)
[2024-07-08] MEDS: Pantoprazole Sodium 40 MG Tablet PO (08:37)
[2024-07-08] MEDS: Lactobacillis Acidophilus 1 CAP PO (08:37)
[2024-07-08] MEDS: Lactulose 20 GM/30 ML UDC 10 GM PO ×2 (08:37→21:46)
[2024-07-08] MEDS: Sodium Chloride 1 GM Tablet PO ×2 (08:40→21:48)
[2024-07-08 10:01] VITALS: O2SAT 96
[2024-07-08 18:00] VITALS: BP 115/59; PULSE 73; RESP 17; TEMP 37; O2SAT 97
[2024-07-08] MEDS: traZODone 100 MG Tablet 200 MG PO (21:47)
[2024-07-08] MEDS: Sertraline 100 MG Tablet PO (21:48)
[2024-07-09 06:00] VITALS: BP 149/70; PULSE 72; RESP 17; TEMP 36.9; O2SAT 97
[2024-07-09] MEDS: Arthritis Pain Compound 60 CLICK TUBE TOPICAL ×3 (06:06→21:15)
[2024-07-09] MEDS: Na Biphos/Potassium Phosphate PACKET 1 PACKET PO (06:06)
[2024-07-09] MEDS: traMADol 50 MG Tablet 100 MG PO ×4 (06:07→23:50)
[2024-07-09] MEDS: Acetaminophen 500 MG Tablet 1000 MG PO ×3 (06:07→21:16)
[2024-07-09] MEDS: Vitamin E 400 UNITS Capsule 800 UNITS PO (07:40)
[2024-07-09] MEDS: Lactulose 20 GM/30 ML UDC 10 GM PO ×2 (07:40→21:17)
[2024-07-09] MEDS: Pantoprazole Sodium 40 MG Tablet PO (07:41)
[2024-07-09] MEDS: APIXABAN 2.5 MG TABLET (WCH) PO ×2 (07:41→21:17)
[2024-07-09] MEDS: Lactobacillis Acidophilus 1 CAP PO (07:41)
[2024-07-09] MEDS: Sodium Chloride 1 GM Tablet PO ×2 (07:41→21:17)
[2024-07-09 18:00] VITALS: BP 127/73; PULSE 69; RESP 17; TEMP 36.8; O2SAT 97
[2024-07-09] MEDS: traZODone 100 MG Tablet 200 MG PO (21:16)
[2024-07-09] MEDS: Sertraline 100 MG Tablet PO (21:16)
[2024-07-10] MEDS: Acetaminophen 500 MG Tablet 1000 MG PO ×3 (05:19→21:13)
[2024-07-10] MEDS: Arthritis Pain Compound 60 CLICK TUBE TOPICAL ×3 (05:19→21:13)
[2024-07-10] MEDS: traMADol 50 MG Tablet 100 MG PO (05:22)
[2024-07-10 05:27] VITALS: BP 145/77; PULSE 75; RESP 16; TEMP 36.6; O2SAT 99
[2024-07-10 06:50] LABS: Hematocrit 24.3 % (37-47); Mean Corp Hgb Conc 32.9 g/dL (32-36); Mean Corpuscular Hgb 29.6 pg (27.0-32.0); Platelet Count 217 K/mm3 (150-450); RBC Distribution Width SD 42.5 fl (35.1-43.9); White Blood Count 5.4 K/mm3 (4.4-11.0)
[2024-07-10] MEDS: Pantoprazole Sodium 40 MG Tablet PO (07:56)
[2024-07-10] MEDS: Vitamin E 400 UNITS Capsule 800 UNITS PO (07:56)
[2024-07-10] MEDS: Sodium Chloride 1 GM Tablet PO (07:56)
[2024-07-10] MEDS: APIXABAN 2.5 MG TABLET (WCH) PO ×2 (07:56→21:14)
[2024-07-10] MEDS: Lactobacillis Acidophilus 1 CAP PO (07:57)
[2024-07-10] MEDS: Lactulose 20 GM/30 ML UDC 10 GM PO ×2 (07:57→21:14)
[2024-07-10 08:30] LABS: Anion Gap 7 (5-15); BUN 8 mg/dL (7-18); BUN/Creat Ratio 9.6 RATIO (10-20); Calcium,Total 8.7 mg/dL (8.5-10.1); Chloride 103 mmol/L (98-107); Creatinine, Serum 0.84 mg/dL (0.55-1.02); EST Glomerular Filtration Rate 71 mL/min (>60); Est Glom Filt Rate - Afr Amer 86 mL/min (>60); Estimated Creatinine Clearance 57.17 ml/min; Glucose 121 mg/dL (74-106); Phosphorus 3.2 mg/dL (2.5-4.9); Potassium 3.5 mmol/L (3.5-5.1); Sodium Level 138 mmol/L (136-145)
--- NOTE | 2024-07-10 09:32 | PCM.PROGNOTE ---
Subjective Subjective Was seen on team rounds today. Her best friend Izzy was present in the room and had many questions which were all answered. Apparently Izzy is picking up Katarina's adopted dtr this afternoon. they did not say why she is doing this or where she is picking up the dtr from. Izzy is asking for relaxation of the visiting hours policy so that she can visit when it is convenient for her. We explained that visitation can not interfere with therapy. She will call the floor in the AM and find out when Katarina has therapy and work around the therapy times. Her son showed up 1 time for a short period of time to visit and no other family has shown up. I suspect there are psychosocial problems we are unaware of. Izzy tells us that Katarina has been eating poorly since her surgery however today at lunch was the only meal that she has taken less than 75 to 100% of her plate since lunchtime 07/07/2024. Izzy also related she feels Katarina is much more anxious since admission to the hospital. Katarina has not mentioned any of this since she has been on rehab. Katarina did admit to having had mental health counselling in the past. Has been seen at [facility]......she gave the SW the name of the therapist she is seeing from [facility]. Afebrile VSS - Maintaining appropriate oxygen saturation on RA Oral intake - FOOD good FLUIDS good Discussed with nursing - When Izzy was in the room Katarina was needy and c/o not being able to do things she has been doing since admission to rehab? Reviewed the THERAPY notes Medication list reviewed. All lab from this morning was personally reviewed. Hemoglobin is 8.0, down from 9.3 on 07/06/2024. White blood cell count and platelets are within normal limits. Sodium is 138, up from 132 on 07/07/2024 and up from 127 on 07/06/2024. Potassium is 3.5 following supplementation. BUN is 8 and the creatinine is 0.84. Phosphorus is normal today at 3.2 following supplementation with Neutra-Phos. Velasquez denies lightheadedness, chest pain, cough, sore throat, shortness of breath, calf pain, dysuria, abdominal pain. She tells me that she is sleeping well at night. Does not present as being depressed. She also does not seem to be particularly anxious. She tells me her pain is well-controlled and she is doing very well in therapy and making good progress. Objective Data Objective Data Vital Signs: Vital Signs Temp Pulse Resp BP Pulse Ox O2 Del Method O2 Flow Rate 98 F 75 16 145/77 H 99 Room Air 0 07/10/24 05:27 07/10/24 05:27 07/10/24 05:27 07/10/24 05:27 07/10/24 05:27 07/10/24 05:27 07/06/24 21:34 FiO2 21 07/07/24 08:36 Oxygen Flow Rate (L/min) 0 Oxygen Delivery Method Room Air Weight: 164 lb 0.383 oz Body Mass Index (BMI) 29.9 Intake & Output: Intake and Output for Last 24 Hours 07/08/24 07/09/24 07/10/24 23:59 23:59 23:59 Intake Total 1900 / 1900 1675 / 1675 200 / 200 Output Total 2125 / 2125 1775 / 1775 450 / 450 Balance -225 / -225 -100 / -100 -250 / -250 Lab / Micro Data 07/10/24 06:35 07/10/24 06:35 Labs: Laboratory Results - last 24 hr 07/10/24 06:35: WBC 5.4, RBC 2.70 L, Hgb 8.0 L, Hct 24.3 L, MCV 90.0, MCH 29.6, MCHC 32.9, RDW Std Deviation 42.5, RDW Coeff of Anju 13.0, Plt Count 217, MPV 9.0, Sodium 138, Potassium 3.5, Chloride 103, Carbon Dioxide 28.0, Anion Gap 7, BUN 8, Creatinine 0.84, Estim Creat Clear Calc 57.17, Est GFR (MDRD) Af Amer 86, Est GFR (MDRD) Non-Af 71, BUN/Creatinine Ratio 9.6 L, Glucose 121 H, Calcium 8.7, Phosphorus 3.2 Physical Exam Const alert and no apparent distress Resp clear to auscultation bilaterally Cardio regular rate, regular rhythm and no gallops Cardio Narrative: No ectopy GI normal to inspection, nondistended, normoactive bowel sounds and soft to palpation GI Narrative: No guarding with palpation Extremity no calf tenderness Extremity Narrative: No ankle edema or edema of the hands. Skin General Skin Exam: no breakdown Rashes: no rashes Psych affect normal Psych Narrative: Does not seem anxious. Making good eye contact. Pleasant and appropriate. Assessment & Plan Assessment/Plan (1) Physical debility: (2) Status post left knee replacement: (3) Acute blood loss as cause of postoperative anemia: (4) Hyponatremia: (5) Hypophosphatemia: (6) Type 2 diabetes mellitus: QUALIFIERS: Diabetes mellitus retirement insulin use: without terminal operations supervisor use Diabetes mellitus complication status: without complication Qualified Code(s): E11.9 - Type 2 diabetes mellitus without complications PLAN: Patient denies having diabetes mellitus however her hemoglobin A1c has been as high as 7 in the past. She is currently diet controlled. (7) Anxiety and depression: (8) MECCA (obstructive sleep apnea): PLAN: Plan 1. Continue therapy 2. Decrease tramadol to 50 mg p.o. every 6 hours for a couple days and then make as needed 3. Check a hemoglobin A1c 4. Check a Hemoccult stool 5. Discontinue as needed lorazepam 6. Start BuSpar 5 mg p.o. twice daily for c/o uncontrolled anxiety 7. She has been seen at [facility] - would like to see the last few progress notes and what she is being treated for. Charges/Coding Visit Charges Inpatient E&M: 36095 Subs Hosp L2
[2024-07-10 09:57] LABS: Hemoglobin A1c 6.2 % (3.8-5.6)
--- NOTE | 2024-07-10 10:02 | SP.MBSS_ITS ---
Modified Barium Swallow Patient Information Study Date: 07/10/24 Study Time: 09:55 Direct Billable Minutes: 116 Total Minutes procedure & reportin Diagnosis: Esophageal dysphagia R13.14 Referring Physician: Solange Moore Reason for Referral: Objectively assess swallow function, risk for aspiration, and determine recommendations for least restrictive diet textures and compensatory strategies to improve safety of swallow. Medical History: Katarina Hebert is a 73-year-old female with PMH of breast cancer (received adjuvant Radiation Therapy 07/21/2021 to 07/31/2021), obstructive sleep apnea, osteoarthritis, migraine cephalgia, hiatal hernia with gastroesophageal reflux, obesity, diabetes mellitus type 2, hypertension, chronic benzodiazepine use (Lorazepam 0.5 mg BID) and asthma who underwent a CT guided left total knee replacement on 07/04/[address] Bowen. She was transferred to the acute inpatient rehab unit at [facility] on 07/05/2024 for 3 hours of therapy daily to restore function/independence at or near her level prior to the recent surgery. She was referred for ST during stay due to coughing observed with food and drink. Pt has hx of dysphagia with MBSS 08/13/2022 revealing esophageal dysphagia and recommending Regular textures / Thin liquids with the following strategies and precautions: Small Bites - chew thoroughly, Small Sips, Slow Rate, Alternate bites/solids and sips/liquids - 1:2 ratio, Sitting upright, Remain sitting upright for 30 minutes after PO intake. No dysphagia therapy warranted and patient was referred for GI consult. EGD 03/25/2023 was significant for Ectopic gastric mucosa in the upper third of the esophagus, Tortuous esophagus, Moderate Schatzki ring - Dilated, Small hiatal hernia, Z-line irregular - 37 cm from the incisors - Biopsied, Gastritis - Biopsied, Normal second portion of the duodenum. BSE completed 07/07/2024 recommending Regular textures / Thin liquids - plans for repeat MBSS due to continued coughing with food and drink. Current Diet Ordered: Regular textures / Thin liquids Dentition: Natural Teeth and Missing Teeth Mental Status: WNL Respiratory Status: Oxygenating on Room Air Penetration-Aspiration Scale Penetration-Aspiration Scale: OBJECTIVE ASSESSMENT OF SWALLOW FUNCTION (QUANTITATIVE ? PER TRIAL): PENETRATION / ASPIRATION SCALE ([place]O): 1 = does not enter airway 2 = enters airway/above vocal folds/ejected 3 = enters airway/above vocal folds/not ejected 4 = enters airway/contacts vocal folds/ejected 5 = enters airway/contacts vocal folds/not ejected 6 = enters airway/below vocal folds/ejected 7 = enters airway/below vocal folds/not ejected despite effort 8 = enters airway/below vocal folds/no effort VIDEOFLOROSCOPIC SCALE SCORE ([place]): Grade I = aspiration of material that has penetrated into the laryngeal vestibule, intact cough reflex Grade II = aspiration <10% of the bolus, intact cough reflex Grade III = aspiration of <10% of the bolus, reduced cough reflex or aspiration of >10% of the bolus, intact cough reflex Grade IV = aspiration of >10% of the bolus, reduced cough reflex Penetration-Aspiration Scale Score Thin Liquid via teaspoon: Result: 1= does not enter airway Thin Liquid via teaspoon Trial 2: Result: 1= does not enter airway Thin Liquid via large single sip: cup: Result: 2= enter airway/above vocal folds/ejected Comment: Esophageal screen - Mild retention of barium in the lower esophagus with retrograde flow to the mid esophagus. [place] Thick Liquid via large single sip: cup: Result: 1= does not enter airway Pudding via teaspoon: Result: 1= does not enter airway Comment: Esophageal screen - Retention of pudding throughout the esophagus with some clearance through the LES with subsequent retrograde flow through the LES. Thin Liquid via single sip: straw: Result: 1= does not enter airway Comment: Esophageal screen - Liquid wash somewhat cleared pudding from esophagus. Retention of pudding in mid esophagus remained, even after a second liquid wash was provided. /4 Cookie: Result: 1= does not enter airway Comment: Esophageal screen - Retention of cookie in the mid to lower esophagus with retrograde flow. Thin Liquid via sequential sips:straw: Result: 2= enter airway/above vocal folds/ejected Comment: Esophageal screen - Sequential sips of thin liquids mostly cleared esophageal retention of cookie. Oral Phase Labial Seal: No Labial Escape Tongue Control During Bolus Hold: Posterior escape of less than half of bolus Bolus Preparation/Mastication: Timely and efficient chewing and mashing Bolus Transport/Lingual Motion: Delayed initiation of tongue motion Oral Residue: Residue collection on oral structures Pharyngeal Phase Initiation of Pharyngeal Swallow: Bolus head in pyriforms Soft Palate Elevation: No bolus between soft palate and pharyngeal wall Laryngeal Elevation: Comp. Superior move thyroid cart w/comp. apprx arytenoid cart-epig pet Anterior Hyoid Excursion: Complete anterior movement Epiglottic Movement: Complete inversion Laryngeal Vestibule Closure at Height of Swallow: Incomplete; narrow column of air/contrast in laryngeal vestibule Pharyngeal Stripping Wave: Present - diminished Pharyngoesophageal Segment Opening: Parital distension and partial duration; parital obstruction of flow Tongue Base Retraction: Narrow column of contrast between tongue base & post. pharyngeal wall Pharyngeal Residue: Majority of contrast within or on pharyngeal structures (Pudding required two swallows to clear - patient gagged on first swallow attempt, then mostly cleared the trial on the second swallow.) Esophageal Phase Esophageal Clearance: Esophageal retention w/ retrograde flow below pharyngoesophageal seg. Diagnosis/Impression Diagnosis: Pharyngoesophageal dysphagia R13.14 Impression: The oral phase of the swallow is grossly WNL. The pharyngeal phase is primarily marked by... -Mildly delayed swallow onset with thin liquids -Pudding required two swallows to clear from the oropharynx and pharynx. The patient gagged on first swallow attempt, then mostly cleared the trial on the second swallow. The patient presented with mildly decreased tongue base retraction, pharyngeal stripping wave, and UES opening/duration. -No aspiration observed. Trace laryngeal penetration of thin liquids, which fully ejected after the swallow. The esophageal phase is primarily marked by... -Retention of pudding throughout the esophagus with some clearance through the LES with subsequent retrograde flow through the LES. Liquid wash somewhat cleared pudding from esophagus. Retention of pudding in mid esophagus remained, even after a second liquid wash was provided. -Retention of cookie in the mid to lower esophagus with retrograde flow. Sequential sips of thin liquids mostly cleared esophageal retention of cookie. Recommendations Diet: Regular Textures and Thin Liquids Comment: If sensation of retention or reflux despite use of strategies, stop meal and resume at a later time. Compensatory Strategies: Small Bites, Small Sips, Slow Rate, Alternate bites/solids and sips/liquids (2-3 sips after every bite), Sitting upright and R emain sitting upright for 30 minutes after PO intake (60min) Supervision: Distant Supervision Recommend Repeat Modified Barium Swallow: No Need for Skilled Speech Therapy Services: Yes Comment: -Train the patient in use of strategies to decrease risk for aspiration and reflux aspiration. -Ongoing assessment of diet tolerance of recommended textures. -Train the patient in pharyngeal exercise program to improve tongue base retraction, pharyngeal contraction, and swallow onset (Le, effortful, Ivis). Recommended Referrals: GI Consult (No immediate GI consult recommended; however, TRAIN OPERATIONS SUPERVISOR encouraged the patient to routinely follow with silk screen printer.) Education Completed: 1. Described result of evaluation., 2. Pt understands evaluation & agrees with goals and treatment plan. and 7. Pt requires further education on strategies & risks. Status Active ST Patient: Active Contact Information [facility] Speech Therapy:: Sharon Berman M.A. [facility] OPERATIONS SUPERVISOR Speech-Language Pathologist [facility] [address] [place] [address] [email or web address] [phone]
[2024-07-10] MEDS: traMADol 50 MG Tablet PO ×2 (12:03→18:06)
--- NOTE | 2024-07-10 12:49 | CASEMGMT ---
Addendum entered by Elvira Fregoso 07/13/24 08:32: SW notified [facility] that pt's DC is postponed. Addendum entered by Elvira Fregoso 07/12/24 15:25: Received return VM from counselor - appointment scheduled for 07/18 at 1230. (Pippa Marcelino [phone]) Addendum entered by Elvira Fregoso 07/11/24 09:18: SW left VM with counselor, Pippa Marcelino, to schedule an appt at [facility]. Original Note: Social Work IDT met with patient and dtr for Team meeting. Discussed patient's progress in PT/OT/ST/SN. Educated to Medicare approval of 11 days with DC 07/16. IDT recommending HHC at [facility]. No DME needs identified. Pt and dtr agreeable and will return home with . SW offered list of skilled C providers with quality and resource data via [employer]. Pt/dtr denied stating pt used [facility] and would like to use at [facility]. SW to place referral. Dtr to transport. Dtr discussed pt's increase in anxiety and depression. adjusting medications and recommending counseling at [facility]. Pt states she attended counseling at [facility] with Pippa Marcelino. SW offered to schedule appt at [facility]. Pt agreeable. DEDRICK phoned referral to [facility] PT/OT/ST/SN. Plan: DC home with 07/16, [facility] PT/OT/ST/SN TRACEY Miranda
--- NOTE | 2024-07-10 15:34 | CHAPLAIN ---
Type of Pastoral Visit _x__ Initial Visit ___ Follow-up Visit ___ On-call Visit ___ General Patient Visit ___ Spiritual Assessment ___ Family Conference ___ Bereavement ___ Rapid Response ___ Code Blue ___ Other (describe below) Pastoral Care Referral From _x__ Patient ___ Family ___ Nurse ___ Physician ___ Public Records Officer ___ Cotton Agent ___ Other (describe below) Sacrament/Intervention _x__ Active listening ___ Anointing ___ Pentecostal ___ Bereavement ___ Communion ___ Heather exploration ___ ___ Life review _x__ Prayer ___ Reconciliation ___ Sacrament of Sick ___ Supportive presence ___ Wedding ___ Other (describe below) Pastoral Comments patient and a friend are in the room; pt is sitting up in the bed and states that she is getting along pretty well although not as fast as I would like; casual conversation, supportive presence, and discussion on her hobby of sewing; patient welcomed a prayer;
[2024-07-10 18:00] VITALS: BP 120/51; PULSE 78; RESP 16; TEMP 36.8; O2SAT 98
[2024-07-10] MEDS: traZODone 100 MG Tablet 200 MG PO (21:13)
[2024-07-10] MEDS: Sertraline 100 MG Tablet PO (21:13)
[2024-07-10] MEDS: busPIRone 5 MG Tablet PO (21:14)
[2024-07-11] MEDS: traMADol 50 MG Tablet PO ×4 (00:09→17:36)
--- NOTE | 2024-07-11 03:22 | NURSING ---
Reviewed and agree with Zackery MOREAU, documentation and assessment charting.
[2024-07-11 06:00] VITALS: BP 135/77; PULSE 74; RESP 18; TEMP 36.1; O2SAT 94
[2024-07-11] MEDS: Arthritis Pain Compound 60 CLICK TUBE TOPICAL ×3 (07:02→21:13)
[2024-07-11] MEDS: Acetaminophen 500 MG Tablet 1000 MG PO ×3 (07:02→21:19)
--- NOTE | 2024-07-11 07:09 | NURSING ---
Per order, Mepilex removed, left SHAMIKA per RN so patient can have shower this AM.
[2024-07-11] MEDS: Lactulose 20 GM/30 ML UDC 10 GM PO ×2 (08:14→21:20)
[2024-07-11] MEDS: APIXABAN 2.5 MG TABLET (WCH) PO ×2 (08:14→21:19)
[2024-07-11] MEDS: busPIRone 5 MG Tablet PO ×2 (08:14→21:20)
[2024-07-11] MEDS: Vitamin E 400 UNITS Capsule 800 UNITS PO (08:14)
[2024-07-11] MEDS: Lactobacillis Acidophilus 1 CAP PO (08:14)
[2024-07-11] MEDS: Pantoprazole Sodium 40 MG Tablet PO (08:14)
--- NOTE | 2024-07-11 09:47 | PCM.PROGNOTE ---
Subjective Subjective Afebrile VSS - Maintaining appropriate oxygen saturation on RA Oral intake - FOOD good FLUIDS good Discussed with nursing - no problems that need addressed. Slept well last night. Reviewed the THERAPY notes Medication list reviewed. Tolerating Buspar but, has only had a few doses. Pain is well controlled. Denies N/V/abd pain, diarrhea, constipation, CP, SOB and calf tenderness. Objective Data Objective Data Vital Signs: Vital Signs Temp Pulse Resp BP Pulse Ox O2 Del Method O2 Flow Rate 96.9 F L 74 18 135/77 H 94 Room Air 0 07/11/24 06:00 07/11/24 06:00 07/11/24 06:00 07/11/24 06:00 07/11/24 06:00 07/11/24 06:00 07/06/24 21:34 FiO2 21 07/07/24 08:36 Oxygen Flow Rate (L/min) 0 Oxygen Delivery Method Room Air Weight: 164 lb 0.383 oz Body Mass Index (BMI) 29.9 Intake & Output: Intake and Output for Last 24 Hours 07/09/24 07/10/24 07/11/24 23:59 23:59 23:59 Intake Total 1675 / 1675 1440 / 1680 780 / 780 Output Total 1775 / 1775 1400 / 1800 600 / 600 Balance -100 / -100 40 / -120 180 / 180 Lab / Micro Data 07/10/24 06:35 07/10/24 06:35 Labs: Laboratory Results - last 24 hr 07/10/24 06:35: Hemoglobin A1c 6.2 H Physical Exam Const alert, oriented x3 and no apparent distress Constitutional Narrative: sitting in the recliner at the bedside. Makes good eye contact with me. Smiling when ambulating in the bishop with PT. General Appearance: cooperative HEENT moist oral mucous membranes Resp normal respiratory effort and clear to auscultation bilaterally Cardio regular rate and regular rhythm Cardio Narrative: No ectopy GI normal to inspection, nondistended, normoactive bowel sounds, soft to palpation and non-tender Extremity no calf tenderness Skin General Skin Exam: no breakdown Rashes: no rashes Assessment & Plan Assessment/Plan (1) Physical debility: (2) Status post left knee replacement: (3) Acute blood loss as cause of postoperative anemia: (4) Hyponatremia: PLAN: Resolved (5) Hypophosphatemia: PLAN: resolved (6) Anxiety and depression: (7) MECCA (obstructive sleep apnea): PLAN: Plan 1. Continue therapy 2. continue Buspar 3. Recheck a HH later in the week. 4. Hemoocult stool Charges/Coding Visit Charges Inpatient E&M: 99680 Subs Hosp L1
[2024-07-11 16:57] VITALS: BP 138/76; PULSE 72; RESP 17; TEMP 36.6; O2SAT 98
[2024-07-11 21:00] VITALS: PULSE 75; RESP 16; O2SAT 97
[2024-07-11] MEDS: traZODone 100 MG Tablet 200 MG PO (21:19)
[2024-07-11] MEDS: Sertraline 100 MG Tablet PO (21:20)
[2024-07-12] MEDS: traMADol 50 MG Tablet PO ×2 (00:35→05:29)
[2024-07-12 05:24] VITALS: BP 130/60; PULSE 78; RESP 15; TEMP 36.6; O2SAT 96
[2024-07-12 05:25] VITALS: BMI 29.5
[2024-07-12] MEDS: Arthritis Pain Compound 60 CLICK TUBE TOPICAL (05:29)
[2024-07-12] MEDS: Acetaminophen 500 MG Tablet 1000 MG PO (05:29)
[2024-07-12] MEDS: Lactulose 20 GM/30 ML UDC 10 GM PO (08:04)
[2024-07-12] MEDS: busPIRone 5 MG Tablet PO (08:05)
[2024-07-12] MEDS: Pantoprazole Sodium 40 MG Tablet PO (08:05)
[2024-07-12] MEDS: APIXABAN 2.5 MG TABLET (WCH) PO (08:05)
[2024-07-12] MEDS: Vitamin E 400 UNITS Capsule 800 UNITS PO (08:05)
[2024-07-12] MEDS: Lactobacillis Acidophilus 1 CAP PO (08:05)
--- NOTE | 2024-07-12 10:06 | PN_ITS ---
Subjective Subjective Afebrile VSS - Maintaining appropriate oxygen saturation on RA Oral intake - FOOD mostly good. Occasionally has a meal that she only eats 25 to 49% but more often than not she ate 75 to 100%. FLUIDS good Discussed with nursing - no problems that need addressed. Slept well last night. Reviewed the THERAPY notes Medication list reviewed. She tells me that her pain is well controlled. We discussed transitioning from scheduled pain medication to PRN and she is OK with this. Tolerating Buspar with no adverse side effects. Feeling less anxious. Denies lightheadedness, chest pain, shortness of breath, cough, sore throat, nausea/vomiting/abdominal pain, diarrhea/constipation, dysuria and calf tenderness. She told me today that her adopted dtr is actually her great niece and they adopted when she was 10 months. The baby was addicted to narcotics at and she now has behavioral problems and gets very angry. Objective Data Objective Data Vital Signs: Vital Signs Temp Pulse Resp BP Pulse Ox O2 Del Method O2 Flow Rate 97.8 F 78 15 130/60 H 96 Room Air 0 07/12/24 05:24 07/12/24 05:24 07/12/24 05:24 07/12/24 05:24 07/12/24 05:24 07/12/24 05:24 07/06/24 21:34 FiO2 21 07/07/24 08:36 Oxygen Flow Rate (L/min) 0 Oxygen Delivery Method Room Air Weight: 160 lb 11.472 oz Body Mass Index (BMI) 29.5 Intake & Output: Intake and Output for Last 24 Hours 07/10/24 07/11/24 07/12/24 23:59 23:59 23:59 Intake Total 1440 / 1680 2120 / 2120 440 / 440 Output Total 1400 / 1800 1800 / 2000 650 / 650 Balance 40 / -120 320 / 120 -210 / -210 Lab / Micro Data 07/10/24 06:35 07/10/24 06:35 Micro: Microbiology 07/11/24 10:30 Stool Stool Occult Blood (ERNESTINA) - Final Physical Exam Const alert and no apparent distress Resp clear to auscultation bilaterally Cardio regular rate, regular rhythm and no gallops Cardio Narrative: No ectopy GI normal to inspection, nondistended, normoactive bowel sounds and soft to palpation GI Narrative: No guarding with palpation Extremity no calf tenderness Extremity Narrative: No ankle edema or edema of the hands. Skin General Skin Exam: no breakdown Rashes: no rashes Psych affect normal Psych Narrative: Does not seem anxious. Making good eye contact. Pleasant and appropriate. Assessment & Plan Assessment/Plan (1) Physical debility: (2) Status post left knee replacement: (3) Acute blood loss as cause of postoperative anemia: (4) Hyponatremia: PLAN: Resolved (5) Hypophosphatemia: PLAN: resolved (6) Type 2 diabetes mellitus: QUALIFIERS: Diabetes mellitus penitentiary insulin use: without associate juvenile court judge use Diabetes mellitus complication status: without complication Qualified Code(s): E11.9 - Type 2 diabetes mellitus without complications PLAN: Patient denies having diabetes mellitus however her hemoglobin A1c has been as high as 7 in the past. She is currently diet controlled. (7) Anxiety and depression: (8) MECCA (obstructive sleep apnea): PLAN: Plan 1. Continue therapy 2. Increase BuSpar to 5 mg 3 times daily which is a more therapeutic dose. 3. Consider a sleep study at [facility].......she has been diagnosed in the remote past with MECCA but, could not tolerate the mask......we discussed that there are many different types of masks now and maybe we could find one she could tolerate. 4. Change the Tramadol to PRN. 5. she will continue to follow up at [facility]. Charges/Coding Visit Charges Inpatient E&M: 15815 Subs Hosp L1
--- NOTE | 2024-07-12 13:13 | CT_ITS ---
We are attempting to reach an attending provider to discuss findings. An addendum with communication details will be sent when the communication is complete. INDICATION: sudden vision change R eye EXAMINATION: CT BRAIN WITHOUT CONTRAST, CTA HEAD, AND CTA NECK TECHNIQUE: Noncontrast axial images were obtained of the brain. Subsequently, routine carotid CT angiogram protocol was performed without and with IV contrast. In addition, images were obtained of the [employer] [place]. NASCET criteria using the distal ICAs for comparison were used for evaluation of stenoses. 3D reconstructions were reviewed. The protocol utilizes one or more of the following dose reduction techniques: automated exposure control, adjustment of mA and/or kV according to patient size,and/or use of iterative reconstruction technique. IV Contrast dosage and agent: 100 cc of Isovue-370 COMPARISON: Noncontrast head CT dated July 12, 2024 FINDINGS: --CT BRAIN WITHOUT CONTRAST: BRAIN PARENCHYMA: No intra- or extra-axial hemorrhage. No evidence of acute infarct. No intracranial mass or mass effect. There is preservation of the golden/white matter interface. Posterior fossa structures are unremarkable. CSF SPACES: Appropriate for age. No hydrocephalus. Basal cisterns are patent. CALVARIUM, SKULL BASE, PARANASAL SINUSES AND MASTOID AIR CELLS: Clear. No discrete lytic or blastic abnormalities. ASPECTS Score for Acute Strokes: 10 --CTA NECK: AORTIC ARCH AND BRANCHES: Normal anatomy, patent. RIGHT CCA: There are vascular calcifications No occlusion, significant stenosis or dissection. RIGHT ICA: There are vascular calcifications. No occlusion, significant stenosis or dissection. LEFT CCA: No occlusion, significant stenosis or dissection. LEFT ICA: There are vascular calcifications. No occlusion, significant stenosis or dissection. RIGHT VERTEBRAL ARTERY: No occlusion, significant stenosis or dissection. LEFT VERTEBRAL ARTERY: No occlusion, significant stenosis or dissection. NECK SOFT TISSUES: Unremarkable. --CTA HEAD: --Anterior circulation: ICAs: No significant stenosis at the intracranial/visualized segments. ACAs: No significant stenosis at the visualized segments. ACOM: Present. MCAs: No significant stenosis at the visualized segments. --Posterior circulation: PCOMs: Within normal limits. pattern clerk: No significant stenosis at the visualized segments. BASILAR ARTERY: No significant stenosis. VERTEBRAL ARTERIES: No significant stenosis at the intradural/visualized segments. No evidence of intracranial aneurysm or vascular malformation. CT/STROKE CTA Head AND Neck W/Con IMPRESSION: Within normal limits CT Brain, CTA Carotid, and CTA Brain. Electronically Signed: Radha Gonsales MD at 14:11 EDT ,
[2024-07-12 13:26] VITALS: BP 150/78; PULSE 81; RESP 16; O2SAT 97
--- NOTE | 2024-07-12 13:28 | CT_ITS ---
We are attempting to reach an attending provider to discuss findings. An addendum with communication details will be sent when the communication is complete. INDICATION: VISION LOSS EXAMINATION: CT BRAIN - CT Head Stroke Protocol W/O Contrast Injection TECHNIQUE: Multiple axial images were obtained of the head without intravenous contrast. The protocol utilizes one or more of the following dose reduction techniques: automated exposure control, adjustment of mA and/or kV according to patient size,and/or use of iterative reconstruction technique. IV Contrast dosage and agent: None. RADIATION DOSAGE (If Supplied By Facility): CTDIvol = ( ) mGy, DLP = ( ) mGycm COMPARISON: July 27, 2022 FINDINGS: BRAIN PARENCHYMA: No intra- or extra-axial hemorrhage. No evidence of acute infarct. No intracranial mass or mass effect. There is preservation of the golden/white matter interface. Posterior fossa structures are unremarkable. CSF SPACES: Appropriate for age. No hydrocephalus. Basal cisterns are patent. CALVARIUM, SKULL BASE, PARANASAL SINUSES AND MASTOID AIR CELLS: Clear. No discrete lytic or blastic abnormalities. ORBITS: Both globes, extraocular muscles, optic nerves and retrobulbar fat appear unremarkable. ASPECTS Score for Acute Strokes: 10 CT/STROKE Brain/Head without Cont IMPRESSION: No acute intracranial process. Electronically Signed: Radha Gonsales MD at 13:49 EDT ,
--- NOTE | 2024-07-12 13:33 | NURSING ---
pt c/o lt eye vision changes. describes as stringing floaters. Dr Moore made aware. Stroke alert called. Aspirin and CT head ordered. PB 150/78, HR 81, SPO2 98% RA. denies headache, N/V, N/T and pain.
--- NOTE | 2024-07-12 14:25 | PCM.DC.SUM ---
Providers Date of Admission: 07/05/24 Date of Discharge: 07/12/24 Primary Care Physician: Dr. Dwight Parnell DO Reason For Visit: LEFT TKA Diagnosis Discharge Diagnosis (1) Physical debility: Status: Acute Code(s): R53.81 - Other malaise (2) Status post left knee replacement: Status: Acute Code(s): Z96.652 - Presence of left artificial knee joint (3) Acute blood loss as cause of postoperative anemia: Status: Acute Code(s): D62 - Acute posthemorrhagic anemia (4) Hyponatremia: Status: Acute Code(s): E87.1 - Hypo-osmolality and hyponatremia Plan: Resolved (5) Hypophosphatemia: Status: Acute Code(s): E83.39 - Other disorders of phosphorus metabolism Plan: resolved (6) Anxiety and depression: Status: Chronic Code(s): F41.9 - Anxiety disorder, unspecified; F32.A - Depression, unspecified (7) MECCA (obstructive sleep apnea): Status: Chronic Code(s): G47.33 - Obstructive sleep apnea (adult) (pediatric) (8) Visual changes: Status: Acute Code(s): H53.9 - Unspecified visual disturbance Plan: Visual changes in the R eye. Sudden development of black strings in the R eye. Different than the floaters she has seen in the past. 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 Noncontrast CT brain negative for any acute changes. CTA of the head and neck per verbal report from radiology is normal. DC to the acute side of the hospital for TIA/Stroke eval with telemetry, ECHO, etc. Recent HGBA1C is 6.2. Recent lipid panel showed triglycerides of 129, total cholesterol of 117, LDL of 48 and an HDL of 43. She had an echocardiogram done at [facility] in April 2021. No hx of TIA or CVA. Denies a hx of MD or retinal detachment. Wears reading glasse. Plan 1. DC from rehab. 2. Admit to PCU for stroke W/U. Dr. Petit is accepting. will take back to acute rehab when she has completed the W/U for TIA/Stroke 3. Continue ASA 81 mg daily 4. Continue Eliquis 2.5 mg p.o. twice daily for DVT prophylaxis post left total knee replacement. Medications at Discharge Home Medications fluticasone propionate 50 mcg/actuation nasal spray,suspension 2 spray intranasal DAILY PRN Nasal Congestion 04/21/19 trazodone 100 mg tablet 200 mg PO HS SLEEP 30 days #60 tabs 10/14/21 vitamin E (dl, acetate) 450 mg (1,000 unit) capsule 900 mg PO DAILY SUPPLEMENT 09/22/23 omeprazole 40 mg capsule,delayed release 40 mg PO QAM GERD #90 caps 09/23/23 hydrochlorothiazide 12.5 mg tablet 12.5 mg PO DAILY HYPERTENSION #90 tabs 01/19/24 lorazepam 0.5 mg tablet (Ativan) 0.5 mg PO BID PRN anxiety #30 tabs 01/19/24 sertraline 100 mg tablet 100 mg PO QHS ANXIETY #90 tabs 01/19/24 tamoxifen 20 mg tablet 20 mg PO DAILY CANCER #90 tabs 03/21/24 Lactobacillus acidophilus 250 million cell capsule (Probiotic Acidophilus) 500 mmu cells PO DAILY SUPPLEMENT 06/14/24 cranberry-B.uyrgqpevv-Z-Sw phos 480 mg-20 mg-100 million cell tablet 1 tab PO DAILY SUPPLEMENT 06/14/24 vit C 30 mg-s.hidalgo 250 mg-celery seed 75 mg-grape seed extrt capsule (Tart Hidalgo) 1 cap PO DAILY SUPPLEMENT 06/14/24 acetaminophen 500 mg tablet 1,000 mg (2 x 500 mg) PO Q6H pain #90 tabs 07/05/24 apixaban 2.5 mg tablet (Eliquis) 2.5 mg PO BID clot prevention #28 tabs 07/05/24 oxycodone 5 mg tablet 5 - 15 mg (1 - 3 x 5 mg) PO Q4H PRN pain 7 days #60 tabs 07/05/24 Hospital Course Operations total knee replacement (left) Procedures None Summary of Care Provided Minutes Spent on Discharge: 40 Hospital Course: VERONICA ZULUAGA, is a 73 YO F with a PMH of breast cancer (with hx of L lumpectomy), obstructive sleep apnea (untreated - could not tlerate the mask), osteoarthritis (multiple joints), migraine cephalgia, hiatal hernia with gastroesophageal reflux, obesity, diabetes mellitus type 2 (diet controlled with recent hemoglobin A1c of 6.2) hypertension, anxiety/depression and asthma who underwent a CT guided left total knee replacement on 07/04/[address] Bowen. Post op she was placed on Eliquis 2.5 mg twice daily for DVT prophylaxis. She c/o severe pain on 07/05/24 and Oxycodone was increased to 15 mg every 4 hours PRN which she was taking every 4 hours. Postop hemoglobin was 9.1, down from 13.3 on 06/01/2024. HGBA1C is currently 6.2. Recent lipid panel showed normal triglycerides, LDL of 48 and an HDL of 43. She was transferred to the acute inpatient rehab unit at [facility] on 07/05/2024 for 3 hours of therapy daily to restore function/independence at or near her level prior to the recent surgery. At presentation to rehab she was very drowsy with some slurred speech. She could not stay awake while I was talking to her. Oxycodone was discontinued and she was started on tramadol 100 mg p.o. every 6 hours which controlled her pain but allowed her to remain alert and cooperative with therapy. She has a lot of stress in her life and has been very anxious on rehab. Lorazepam was discontinued because of its potential to cause addictions. She was started on BuSpar 5 mg twice daily and tolerated this well with some improvement in anxiety. This was increased to 3 times daily on the date of discharge. She has had no adverse reactions and she thinks her anxiety is improving. she has been doing quite well in therapy since the changes to the drug regimen. On 07/12 she suddenly developed black strings in the R eye....like a spider web. She had no visual field cuts and her NIHSS was 0. ASA 162 mg was ordered. A stroke alert was called and she was taken for a stat noncontrast CT brain which was negative for any acute pathology. CTA of the head and neck was within normal limits. Teleneurology was consulted. NIHSS was 0 at the time of the consultation. She had persistent visual changes. She denies cephalgia and also denied any weakness or sensory changes in the extremities. Speech was normal and she was not ataxic. She denied vertigo and also denied any swallowing difficulties. She is going to be admitted to the acute side of the hospital to complete a stroke W/U. Dr. Petit is the accepting physician. We will take her back on rehab when the W/U is completed. she has been under a lot of stress lately and was to have a meeting with a mental health worker this afternoon at 2:15 to sign papers to have her 15 YO adopted dtr admitted to a residential treatment cent for mental health problems. This could be a migraine equivalent. Physical Exam Const alert Constitutional Narrative: anxious. Having dry heaves prior to being taken to radiology. General Appearance: cooperative HEENT moist oral mucous membranes Eyes PERRL and EOMs intact bilaterally Eyes Narrative: no scleral icterus or conjunctival injection. No discharge from the eyes. Visual berry are intact. Neck No nuchal rigidity and no carotid bruits Resp normal respiratory effort and clear to auscultation bilaterally Resp Narrative: No conversational dyspnea. Effort and Inspection: Negative for tachypneic Cardio regular rate, regular rhythm, no murmurs, no rub and no gallops Cardio Narrative: No ectopy GI normal to inspection, nondistended, normoactive bowel sounds and soft to palpation GI Narrative: No guarding with palpation Extremity no calf tenderness Extremity Narrative: No ankle edema or edema of the hands. General Extremity: Negative for edema Skin General Skin Exam: no breakdown Rashes: no rashes Psych affect normal Psych Narrative: Does not seem anxious. Making good eye contact. Pleasant and appropriate. Weight / BMI Weight Weight: 160 lb 11.472 oz Body Mass Index (BMI) 29.5 ABG / Lab / Microbiology Data 07/10/24 06:35 07/10/24 06:35 Microbiology: Microbiology 07/11/24 10:30 Stool Stool Occult Blood (ERNESTINA) - Final Radiography Diagnostic Testing: Radiology Impression Head/Neck CTA 07/12/24 13:13 IMPRESSION: Within normal limits CT Brain, CTA Carotid, and CTA Brain. Electronically Signed: Radha Gonsales MD at 14:11 EDT , ADDENDUM: 07/12/24 7505 IMPRESSION: Within normal limits CT Brain, CTA Carotid, and CTA Brain. N.B. : The above Results were Read Back by Radha Gonsales MD to Solange Moore DO, and understanding confirmed on 07/12/2024 14:12:22 (ET). Electronically Signed: Radha Gonsales MD at 14:11 EDT , Brain CT 07/12/24 13:28 IMPRESSION: No acute intracranial process. Electronically Signed: Radha Gonsales MD at 13:49 EDT , ADDENDUM: 07/12/24 1400 IMPRESSION: No acute intracranial process. N.B. : The above Results were Read Back by Radha Gonsales MD to Solange Moore DO, and understanding confirmed on 07/12/2024 13:53:22 (ET). Electronically Signed: Radha Gonsales MD at 13:49 EDT , Meaningful Use Info Meaningful Use Meaningful Use Diagnoses (Choose all that apply): None applicable Ischemic Stroke Statin Dosing Therapy Reference: STATIN DOSE THERAPY REFERENCE: * Patients > 75 years receive moderate or high dose statin therapy. * Patients 75 years or YOUNGER should receive HIGH intensity statin dose unless contraindicated. You will be required to document reason for non-treatment if statin daily dose does not meet guidelines. HIGH DOSE STATIN THERAPY DAILY Atorvastatin > than or = to 40 mg Rosuvastatin > than or = to 20 mg Amlodipine + Atorvastatin > than or = to 2.5/40 mg Ezetimibe + Simvastatin 10/80 mg Simvastatin 80mg Discharge Plan Admission Admit Date/Time: 07/05/24 15:24 Attending Provider: Solange Moore Primary Care Provider: Dwight Parnell Discharge Orders/Prescriptions Prescriptions: No Action trazodone 100 mg tablet 200 mg PO HS 30 Days Qty: 60 sertraline 100 mg tablet 100 mg PO QHS Qty: 90 1RF hydrochlorothiazide 12.5 mg tablet 12.5 mg PO DAILY Qty: 90 3RF lorazepam [Ativan] 0.5 mg tablet 0.5 mg PO BID PRN (Reason: anxiety) Qty: 30 1RF omeprazole 40 mg capsule,delayed release(DR/EC) 40 mg PO QAM Qty: 90 3RF fluticasone propionate 9.9 ML spray,suspension 2 spray INTRANASAL DAILY PRN (Reason: Nasal Congestion) Rx Instructions: administer into each nostril vitamin E (dl, acetate) 450 mg (1,000 unit) capsule 900 mg PO DAILY Patient Comments: TAKE 1 CAPSULE BY MOUTH EVERY DAY cranberry-B.guhvjjmq-W-In phos 480 mg-20 mg- 100million cell tablet 1 tab PO DAILY Tart Hidalgo [id number] mg capsule 1 cap PO DAILY Probiotic Acidophilus 250 million cell capsule 500 mmu cells PO DAILY acetaminophen 500 mg tablet 1,000 mg PO Q6H Qty: 90 0RF oxycodone 5 mg tablet 5 - 15 mg PO Q4H PRN (Reason: pain) 7 Days Qty: 60 0RF Eliquis 2.5 mg tablet 2.5 mg PO BID Qty: 28 0RF tamoxifen 20 mg tablet 20 mg PO DAILY Qty: 90 3RF Referrals / Follow Up: Dwight Parnell DO [Primary Care Provider] - 07/19/24 9:00 am Femi Bowen DO [Med Staff - Active Staff] - 07/17/24 9:30 am Disposition Disposition (needs filled in before D/C Order can be placed): Home Health Service Charges/Coding Visit Charges Inpatient E&M: 60701 Disch Hosp >30min
[2024-07-13 17:28] VITALS: BP 151/75; PULSE 78; RESP 17; TEMP 36.6; O2SAT 98
[2024-07-13] MEDS: Atorvastatin Calcium 80 MG Tablet PO (20:38)
[2024-07-13] MEDS: traZODone 100 MG Tablet 200 MG PO (20:39)
[2024-07-13] MEDS: busPIRone 5 MG Tablet PO (20:39)
[2024-07-13] MEDS: Acetaminophen 500 MG Tablet 1000 MG PO (20:39)
[2024-07-13] MEDS: Sertraline 100 MG Tablet PO (20:39)
[2024-07-13] MEDS: APIXABAN 2.5 MG TABLET (WCH) PO (20:40)
[2024-07-14 05:45] VITALS: BP 166/81; PULSE 71; RESP 16; TEMP 36.6; O2SAT 95
[2024-07-14] MEDS: busPIRone 5 MG Tablet PO ×3 (05:49→22:13)
[2024-07-14] MEDS: Acetaminophen 500 MG Tablet 1000 MG PO ×3 (05:49→22:12)
[2024-07-14] MEDS: Vitamin E 400 UNITS Capsule 800 UNITS PO (07:59)
[2024-07-14] MEDS: APIXABAN 2.5 MG TABLET (WCH) PO ×2 (07:59→22:13)
[2024-07-14] MEDS: hydroCHLOROthiazide 12.5mg 12.5 MG PO (07:59)
[2024-07-14] MEDS: Aspirin 81 MG TAB.CHEW PO (07:59)
[2024-07-14] MEDS: Pantoprazole Sodium 40 MG Tablet PO (07:59)
--- NOTE | 2024-07-14 09:31 | CASEMGMT ---
Social Work Pt readmitted and DC remains as planned for 07/16. SW spoke with pt to confirm and pt agreeable. SW phoned [facility] to update. SOC 07/18. TRACEY MirandaW
--- NOTE | 2024-07-14 17:51 | PCM.PROGNOTE ---
Subjective Subjective Afebrile VSS -blood pressure since return to acute rehab on 07/13/2024 has ranged from 129/78 to 166/81. Blood pressure is very sensitive to any anxiety. Currently taking BuSpar 5 mg 3 times daily for anxiety. Maintaining appropriate oxygen saturation on RA Oral intake - FOOD good FLUIDS poor Discussed with nursing - no problems that need addressed. Slept well last night. Reviewed the THERAPY notes Medication list reviewed. The EMR from her stay on PCU was reviewed. Visual changes in the right eye completely resolved while she was on PCU. The echocardiogram showed an ejection fraction of 70% with no evidence of diastolic dysfunction and no wall motion abnormalities. The right ventricular size was normal with normal systolic function. There was no left atrial or right atrial enlargement. The bubble contrast study was negative for [id number] intra-atrial shunt. There was no significant valvular heart disease. Brain MRI showed no evidence of restricted diffusion to suggest acute ischemia. A 30-day event monitor was ordered prior to discharge from the acute hospital stay. TSH was normal. Hemoglobin is stable at 8.2. Velasquez tells me she is sleeping better at night. She thinks she may have a little blurring of vision in the right eye but the black strings have completely resolved. She denies eye pain. She also denies any discharge from her eye or itching. Denies cephalgia, lightheadedness, chest pain, palpitations, nausea/vomiting/abdominal pain, dysuria and calf tenderness. Pain in her left knee is well-controlled. Tolerating BuSpar with no abdominal complaints. Objective Data Objective Data Vital Signs: Vital Signs Temp Pulse Resp BP Pulse Ox O2 Del Method O2 Flow Rate 98 F 71 16 166/81 H 95 Room Air 0 07/14/24 05:45 07/14/24 05:45 07/14/24 05:45 07/14/24 05:45 07/14/24 05:45 07/14/24 05:45 07/06/24 21:34 FiO2 21 07/07/24 08:36 Oxygen Flow Rate (L/min) 0 Oxygen Delivery Method Room Air Weight: 160 lb 11.472 oz Body Mass Index (BMI) 29.5 Intake & Output: Intake and Output for Last 24 Hours 07/12/24 07/13/24 07/14/24 23:59 23:59 23:59 Intake Total 1000 / 1000 360 / 360 400 / 400 Output Total 800 / 800 1100 / 1100 800 / 800 Balance 200 / 200 -740 / -740 -400 / -400 Lab / Micro Data 07/10/24 06:35 07/10/24 06:35 Micro: Microbiology 07/11/24 10:30 Stool Stool Occult Blood (ERNESTINA) - Final Physical Exam Const alert, oriented x3 and no apparent distress Constitutional Narrative: Making good eye contact with me. Pleasant and seems calm. General Appearance: cooperative HEENT moist oral mucous membranes Eyes PERRL and EOMs intact bilaterally Eyes Narrative: No scleral icterus, no conjunctival injection, no discharge from the eyes and visual berry are intact with clear vision. Neck no carotid bruits Resp normal respiratory effort and clear to auscultation bilaterally Resp Narrative: No conversational dyspnea Effort and Inspection: Negative for tachypneic Cardio regular rate, regular rhythm, S1 normal heart sound, S2 normal heart sound, no murmurs, no rub and no gallops Cardio Narrative: No ectopy GI normal to inspection, nondistended, normoactive bowel sounds, soft to palpation and non-tender GI Narrative: No guarding with palpation Extremity no calf tenderness General Extremity: Negative for clubbing, cyanosis or edema Skin General Skin Exam: no breakdown Rashes: no rashes Wound Narrative: The left knee incision is intact with no edwina-incisional erythema, no discharge, no dehiscence and no significant swelling around the incision. The edema in the left knee has decreased considerably since admission to rehab. Neuro CN's II-XII intact bilaterally, no focal motor deficits and no sensory deficits noted Neuro Narrative: No visual field cuts NIHSS was completed prior to discharge and the score 0. Coordination / Balance: arlyxe-nc-tnde test normal and [id number] test normal Psych Psych Narrative: She is calm, making good eye contact and sleeping well at night. Appearance: appropriate Attitude: No agitated Activity / Motor Behavior: Negative for restless Assessment & Plan Assessment/Plan (1) Physical debility: (2) Status post left knee replacement: (3) Acute blood loss as cause of postoperative anemia: (4) Other acute postprocedural pain: (5) Anxiety and depression: (6) Visual changes: PLAN: Plan 1. Continue therapy 2. Suspect that the changes in the right eye were secondary to a migraine equivalent. Need to rule out ophthalmologic disease. Has a follow-up appointment with Dr. Lalit Pool. 3. 30-day event monitor at discharge to rule out paroxysmal atrial fibrillation 4. Continue BuSpar 5 mg p.o. twice daily and also continue counseling at [facility] post DC from rehab. Charges/Coding Visit Charges Inpatient E&M: 00456 Subs Hosp L1
[2024-07-14 18:00] VITALS: BP 138/69; PULSE 70; RESP 17; TEMP 36.2; O2SAT 96
[2024-07-14] MEDS: Sertraline 100 MG Tablet PO (22:13)
[2024-07-14] MEDS: traZODone 100 MG Tablet 200 MG PO (22:13)
[2024-07-14] MEDS: Atorvastatin Calcium 80 MG Tablet PO (22:13)
[2024-07-15 06:00] VITALS: BP 159/82; PULSE 80; RESP 18; TEMP 36.4; O2SAT 96
[2024-07-15] MEDS: busPIRone 5 MG Tablet PO ×3 (06:47→21:03)
[2024-07-15] MEDS: Acetaminophen 500 MG Tablet 1000 MG PO ×3 (06:47→21:01)
[2024-07-15] MEDS: hydroCHLOROthiazide 12.5mg 12.5 MG PO (08:58)
[2024-07-15] MEDS: APIXABAN 2.5 MG TABLET (WCH) PO ×2 (08:58→21:02)
[2024-07-15] MEDS: Aspirin 81 MG TAB.CHEW PO (08:58)
[2024-07-15] MEDS: Vitamin E 400 UNITS Capsule 800 UNITS PO (08:58)
[2024-07-15] MEDS: Pantoprazole Sodium 40 MG Tablet PO (08:58)
[2024-07-15] MEDS: traMADol 50 MG Tablet PO ×2 (10:37→23:45)
[2024-07-15 18:00] VITALS: BP 118/63; PULSE 79; RESP 16; TEMP 37.3; O2SAT 98
[2024-07-15] MEDS: Sertraline 100 MG Tablet PO (21:01)
[2024-07-15] MEDS: Atorvastatin Calcium 80 MG Tablet PO (21:02)
[2024-07-15] MEDS: traZODone 100 MG Tablet 200 MG PO (21:03)
[2024-07-15 22:00] VITALS: PULSE 80; RESP 16; O2SAT 98
[2024-07-16 06:37] VITALS: BP 132/68; PULSE 74; RESP 18; TEMP 36.4; O2SAT 96
[2024-07-16] MEDS: busPIRone 5 MG Tablet PO ×2 (06:38→12:52)
[2024-07-16] MEDS: Acetaminophen 500 MG Tablet 1000 MG PO ×2 (06:39→12:52)
--- NOTE | 2024-07-16 09:57 | DCINST_ITS ---
Discharge Instructions Diet Discharge Diet: Carb Control Diet Activity Discharge Activity: May Not Drive and Use Walker Weight Bearing Status: Full weight bearing Keep extremity elevated above heart level: Legs Dressing / Incision Call your doctor if your incision/area has: Continuous Slow Oozing, Sudden Increased Bleeding, Increased Pain/ Swelling, Increased Redness, Foul Smelling Discharge and Swelling at the incision site Call your doctor if you observe: Fever of 101 or Higher, Shortness of breath, Dizziness, Fainting spells, Swelling in the ankles, Chest pain, Calf discomfort and Uncontrolled pain Cleanse incision/area with: Soap & Water and - Follow Up Care Please Follow Up With: Femi Bowen, DO When: you will also need to follow up with Dr. Parnell and with Dr. Pool (coiler operator). Appts are listed later in this document. Test Results: Test results from this visit will be discussed in further detail at your follow- up appointment, if applicable. Pending Tests Upon Discharge: none Discharge Plan Admission Admit Date/Time: 07/05/24 15:24 Primary Reason for Your Visit: Debility due to TKA Attending Provider: Solange Moore Primary Care Provider: Dwight Parnell Instructions Patient Instructions: Caring for Your Incision, AFib, ED TIA: Transient Ischemic Attack Additional Instructions / Restrictions: 1. I do not know for sure why you had the sudden change in your vision while on rehab. You did not have a stroke and the symptoms totally resolved. I suspect the increased stress you have been having may have triggered a migraine. some people with migraines have neurologic deficits with migraines and can have stoke like symptoms. Migraines are caused by spasms in an artery in the brain. When the artery spasms it decreases the blood flow to the portion of the brain that the artery supplies and this can lead to stroke like symptoms. When the spasm is over the blood flow increases and the symptoms resolve. I think this is what happened but, it could have been a TIA (transient ischemic attack). Some people call these ministrokes and they can be a warning that you may be at risk for a stroke iin the future. I have given you some literature to read about TIA's. The third possibility is a problem with the eye. You will be seeing Dr. Lalit Pool on 07/21/24.......he is an eye doctor and he will make sure the eye is OK. Because we do not know what caused the visual change we need to look for causes of TIA. You will be getting a heart monitor to wear for a few weeks and after it is removed you will have an appt with a inspector handbag frames to discuss the results. The heart monitor will look for a problem with the rhythm of the heart called atrial fibrillation or A-fib. If you have intermittent atrial fibrillation this increases your risk for stroke. It is treatable. 2. Aspirin helps to prevent strokes so you will be taking a baby aspirin daily. you will also be taking a medication called Atorvastatin (also called Lipitor) which controls cholesterol and decreases stroke risk. Dr. Parnell will want to order a lipid profile and a lipid profile in 5-6 weeks. If in the end of the workup for TIA you have not had a suspected TIA you may be able to discontinue this medication because your cholesterol is not high. 3. When you get anxious your BP goes up. Uncontrolled high BP is a risk factor for stroke. You have been started on a medication called Buspar for anxiety. I recommend you continue counselling to learn how to control your anxiety better. When you get anxious the adrenaline in your body increases and this makes you BP go up and your heart rate go up. there is a type of BP medication called a beta kenyon that helps block the effects of adrenaline on the heart and vascular system. If your BP stays elevated following DC from rehab your doctor may want to consider placing you on a beta kenyon to BP down. I suggest if you do not have a BP cuff at home that you purchase one and take your BP a couple times a day. Write the time down and the result so that you have a record of your BP's to take to your next appt with Dr. Parnell. 4. Good luck to you [place]. I hope things calm down for you and everything works out with your adopted dtr. 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 God bless you. If you or your family have any questions after you leave rehab please do not hesitate t o call me. OFFICE: [phone] CELL: [phone] Discharge Orders/Prescriptions Prescriptions: New tramadol 50 mg Tablet 50 mg PO Q6H PRN PRN (Reason: Pain Score 1-10) 7 Days Qty: 28 0RF atorvastatin 40 mg tablet 40 mg PO QHS Qty: 30 0RF apixaban 2.5 mg tablet 2.5 mg PO BID Qty: 19 0RF Continued trazodone 100 mg tablet 200 mg PO HS 30 Days Qty: 60 sertraline 100 mg tablet 100 mg PO QHS Qty: 90 1RF hydrochlorothiazide 12.5 mg tablet 12.5 mg PO DAILY Qty: 90 3RF omeprazole 40 mg capsule,delayed release(DR/EC) 40 mg PO QAM Qty: 90 3RF fluticasone propionate 9.9 ML spray,suspension 2 spray INTRANASAL DAILY PRN (Reason: Nasal Congestion) Rx Instructions: administer into each nostril vitamin E (dl, acetate) 450 mg (1,000 unit) capsule 900 mg PO DAILY Patient Comments: TAKE 1 CAPSULE BY MOUTH EVERY DAY cranberry-[id number].[id number]-X-[id number] phos 480 mg-20 mg- 100million cell tablet 1 tab PO DAILY Tart Hidalgo [id number] mg capsule 1 cap PO DAILY Probiotic Acidophilus 250 million cell capsule 500 mmu cells PO DAILY buspirone 5 mg Tablet 5 mg PO TID Qty: 90 0RF tamoxifen 20 mg tablet 20 mg PO DAILY Qty: 90 3RF Rx Instructions: Restart on 07/26/24 aspirin 81 mg Tablet,Chewable 81 mg PO BREAKFAST Qty: 0 0RF Changed acetaminophen 500 mg tablet 1,000 mg PO Q6H PRN (Reason: pain) Qty: 90 0RF Rx Instructions: Take this every 6 hours NEEDED for pain 1-3. Discontinued oxycodone 5 mg tablet 5 - 15 mg PO Q4H PRN (Reason: pain) 7 Days Qty: 60 0RF atorvastatin 80 mg Tablet 80 mg PO QHS Qty: 0 0RF Eliquis 2.5 mg tablet 2.5 mg PO BID Qty: 28 0RF Rx Instructions: Once finish eliquis regimen per neurology transition to asa 81 mg daily only. Referrals / Follow Up: juana estrella [Other] - 09/12/24 7:15 am Dwight Parnell DO [Primary Care Provider] - 07/19/24 9:00 am Femi Bowen DO [Med Staff - Active Staff] - 07/17/24 9:30 am Lalit Pool MD [Med Staff - Active Staff] - 07/21/24 8:30 am Disposition Disposition (needs filled in before D/C Order can be placed): Home, Self Care
[2024-07-16] MEDS: hydroCHLOROthiazide 12.5mg 12.5 MG PO (09:58)
[2024-07-16] MEDS: Vitamin E 400 UNITS Capsule 800 UNITS PO (09:59)
[2024-07-16] MEDS: Pantoprazole Sodium 40 MG Tablet PO (09:59)
[2024-07-16] MEDS: APIXABAN 2.5 MG TABLET (WCH) PO (09:59)
[2024-07-16] MEDS: Aspirin 81 MG TAB.CHEW PO (09:59)
--- NOTE | 2024-07-16 10:45 | PCM.DC.SUM ---
Providers Date of Admission: 07/05/24 Date of Discharge: 07/16/24 Primary Care Physician: Dr. Dwight Parnell, DO tele-neurology Reason For Visit: LEFT TKA Diagnosis Discharge Diagnosis (1) Physical debility: Status: Acute Code(s): R53.81 - Other malaise (2) Status post left knee replacement: Status: Acute Code(s): Z96.652 - Presence of left artificial knee joint Plan: 07/04/[address] Bowen. I light of the possible TIA with visual changes will continue Eliquis for a total of 3 weeks post op and then DC. Pain is well controlled with Tramadol 50 mg Q6H PRN at DC. with Oxycodone she was quite obtunded, nodded off to sleep while I was talking with her and was not able to do therapy. She was transitioned to scheduled Tylenol and Tramadol and the next day did quite well with therapy and was very alert. (3) Acute blood loss as cause of postoperative anemia: Status: Acute Code(s): D62 - Acute posthemorrhagic anemia Plan: HGB is stable at 8.2 at the time of DC from rehab. Hemoccult stool was negative. (4) Hyponatremia: Status: Resolved Code(s): E87.1 - Hypo-osmolality and hyponatremia Plan: Resolved.....suspect related to chronic HCTZ therapy and poor oral intake post op due to severe pain. (5) Hypophosphatemia: Status: Resolved Code(s): E83.39 - Other disorders of phosphorus metabolism Plan: resolved (6) Anxiety and depression: Status: Chronic Code(s): F41.9 - Anxiety disorder, unspecified; F32.A - Depression, unspecified Plan: Anxiety was uncontrolled and she was having panic attacks and elevated BP'. She was started on Buspar 5 mg TID and she is tolerating this without any adverse reactions. she will continue counselling at [facility]. (7) MECCA (obstructive sleep apnea): Status: Inactive Code(s): G47.33 - Obstructive sleep apnea (adult) (pediatric) Plan: Overnight trending pulse ox was abnormal and had occasional hypoxemia with O2 sat < 89% but, no desaturation events lasting > 60 sec. Had CPAP in the past but, could not tolerate the mask. further work up deferred to PCP. (8) Visual changes: Status: Acute Code(s): H53.9 - Unspecified visual disturbance Plan: Visual changes in the R eye. Sudden development of black strings in the R eye. NIHSS was 0. Different than the floaters she has seen in the past. Has been a few years since she last saw her saw superintendent. Noncontrast CT brain negative for any acute changes. CTA of the head and neck per was normal. MRI showed no evidence of restricted diffusion to suggest acute ischemia. There were some age-related chronic changes. SX completely resolved. The event occurred just prior to a scheduled meeting with a SW to sign papers to have her adopted dtr sent to a residential facility for behavioral issues. She has a know hx of migraines and I suspect she may have had a migraine equivalent. Teleneurology was consulted and a stroke W/U was done. No AFIB while on telemetry. TTE showed an ejection fraction of 70% with no wall motion abnormalities and no evidence of diastolic dysfunction. No evidence of PFO/ASD. No significant valvular heart disease. Lipid panel, not on a statin, showed triglycerides of 129, LDL of 48 and HDL of 43. TSH was normal. Has a follow-up appointment with Dr. Lalit Pool from ophthalmology to assess for any ophthalmologic disease. She was placed on a statin and an aspirin daily. (9) Type 2 diabetes mellitus: Status: Chronic Code(s): E11.9 - Type 2 diabetes mellitus without complications Qualifiers: Diabetes mellitus complication status: without complication Diabetes mellitus termite technician insulin use: without termite technician use Qualified Code(s): E11.9 - Type 2 diabetes mellitus without complications Plan: Diet-controlled. Hemoglobin A1c was 6.2% but has been as high as 7% in the past. (10) Elevated blood pressure reading: Status: Acute Code(s): R03.0 - Elevated blood-pressure reading, without diagnosis of hypertension Plan: I suspect this is related to inadequate control of anxiety. She was started on BuSpar to help with anxiety and will continue counseling. If the blood pressure remains elevated would consider a beta-kenyon to decrease effects of adrenaline on the heart and vasculature. Medications at Discharge Home Medications fluticasone propionate 50 mcg/actuation nasal spray,suspension 2 spray intranasal DAILY PRN Nasal Congestion 04/21/19 trazodone 100 mg tablet 200 mg PO HS SLEEP 30 days #60 tabs 10/14/21 vitamin E (dl, acetate) 450 mg (1,000 unit) capsule 900 mg PO DAILY SUPPLEMENT 09/22/23 omeprazole 40 mg capsule,delayed release 40 mg PO QAM GERD #90 caps 09/23/23 hydrochlorothiazide 12.5 mg tablet 12.5 mg PO DAILY HYPERTENSION #90 tabs 01/19/24 sertraline 100 mg tablet 100 mg PO QHS ANXIETY #90 tabs 01/19/24 Lactobacillus acidophilus 250 million cell capsule (Probiotic Acidophilus) 500 mmu cells PO DAILY SUPPLEMENT 06/14/24 cranberry-B.qucqrnpvf-A-Xn phos 480 mg-20 mg-100 million cell tablet 1 tab PO DAILY SUPPLEMENT 06/14/24 vit C 30 mg-s.hidalgo 250 mg-celery seed 75 mg-grape seed extrt capsule (Tart Hidalgo) 1 cap PO DAILY SUPPLEMENT 06/14/24 aspirin 81 mg chewable tablet 81 mg PO BREAKFAST heart health #0 tabs 07/13/24 acetaminophen 500 mg tablet 1,000 mg (2 x 500 mg) PO Q6H PRN pain #90 tabs 07/16/24 apixaban 2.5 mg tablet 2.5 mg PO BID #19 tabs 07/16/24 atorvastatin 40 mg tablet 40 mg PO QHS #30 tabs 07/16/24 buspirone 5 mg tablet 5 mg PO TID anxiety #90 tabs 07/16/24 tamoxifen 20 mg tablet 20 mg PO DAILY CANCER #90 tabs 07/16/24 tramadol 50 mg tablet 50 mg PO Q6H PRN PRN Pain Score 1-10 7 days #28 tabs 07/16/24 Hospital Course Operations total knee replacement (07/04/[address] Femi Bowen) Procedures Transthoracic echo (Normal EF, no wall motion abnormalities, no diastolic dysfunction, no ASD/PFO/interatrial [id number] shunt.) Summary of Care Provided Minutes Spent on Discharge: 40 Hospital Course: VERONICA ZULUAGA, is a 73 YO F with a PMH of breast cancer, obstructive sleep apnea (untreated, could not tolerate the mask), osteoarthritis, migraine cephalgia, hiatal hernia with gastroesophageal reflux, dysphagia with hx of a Schatzki's ring and esophageal dilatation by Dr. Carpio), obesity, diabetes mellitus type 2 (diet-controlled), hypertension, depression/insomnia/severe anxiety and asthma who underwent a CT guided left total knee replacement on 07/04/[address] Bowen. Post op she was place on Eliquis for DVT prophylaxis. She c/o severe pain on 07/05/24 and Oxycodone was increased to 15 mg every 4 hours PRN which she has been taking every 4 hours. Postop hemoglobin was 9.1, down from 13.3 on 06/01/2024. She was transferred to the acute inpatient rehab unit at [facility] on 07/05/2024 for 3 hours of therapy daily to restore function/independence at or near her level prior to the recent surgery. At presentation to rehab she was overmedicated and obtunded. She could not stay awake to talk with me and she was unable to do therapy. Oxycodone was discontinued and she was started on Tramadol 100 mg q 6H and Scheduled Tylenol. She had good pain control with Tramadol and was very alert and able to do therapy the following day. Tramadol was gradually weaned and at the time of DC from rehab on 07/16/24 she is controlled with 50 mg of Tramadol Q 6H PRN. She was dehydrated at presentation to rehab and intake was very poor due to obtundation. She was hydrated. With hydration the hemoglobin dropped but has been stable between 8 and 8.5 for the remainder of her admission to rehab. Veronica was very anxious. she was not sleeping well at night, even with Trazodone. She was having some panic attacks. She did not want to take a potentially addictive medication such as Lorazepam (prescribed while on the acute side of the hospital). We started her on Buspar and she tolerated this with improvement in anxiety and no adverse side effects. She is in counselling at [facility] and will continue this at [place]. At the time of discharge she is sleeping well, has good appetite and intake and panic attacks have resolved. On 07/12/2024 she was to meet with someone to sign papers to have her adopted daughter sent to a residential facility for treatment of behavioral disorder. This was quite anxiety provoking for her. She has a history of migraines. Approximately 30 minutes prior to her scheduled meeting she complained of visual changes in the right eye only with black strings appearing in her vision. NIHSS was 0. She denied cephalgia. She told me she had floaters in the past but never anything like this. She was taken to CT scan and a stat noncontrast CT brain showed no acute findings. CTA of the neck and head was normal. Teleneurology was consulted and agreed with aspirin 81 mg daily and recommended admission to the acute side of the hospital for stroke workup. In addition to aspirin she was started on a statin. MRI of the brain was done and revealed no evidence of ischemic event. Transthoracic echocardiogram showed normal atrial size bilaterally, normal ejection fraction of 70%, no evidence of diastolic dysfunction, no significant valvular heart disease and the bubble contrast study was negative for ASD/PFO/right to left interatrial shunt. Lipid panel showed a LDL of 48 and an HDL of 43 and she was not on a statin at the time. Triglycerides were normal. Hemoglobin A1c was 6.2 and TSH was normal. She had no dysrhythmia while on telemetry. Her symptoms completely resolved. She was transferred back to acute rehab on 07/13/2024. She has a follow-up appointment with Dr. Lalit Pool for ophthalmologic evaluation. I suspect that she may have had a migraine equivalent that caused the visual changes however, cannot rule out TIA. Veronica did very well in therapy. At the time of discharge she is able to ascend/descend 8 steps with 2 handrails and 5 steps with 1 handrail at supervision level. She has ambulated up to 395 feet with a front wheeled walker at mod I. She is mod I with eating and supervision/set up for grooming. She is standby assist for bathing and lower body dressing but supervision/set up for upper body dressing. She is supervision/set up for toileting and toilet transfer. We are recommending supervision with tub/shower transfer for 1 to 2 weeks post discharge. Velasquez was discharged from acute rehab on 07/16/2024 to her home. She will have [facility] home health care for PT/OT at discharge. She has follow-up appointment scheduled with Dr. Bowen on 07/17/2024 at 9:[address] Dwight Parnell on 07/19/2024 at 9 AM. She also has an appointment with Dr. Lalit Pool for ophthalmologic evaluation on 07/21/2024 at 8:30 AM. Because of the visual changes of possible TIA she was continued on Eliquis for a total of 3 weeks postop. She will continue aspirin 81 mg daily and atorvastatin 40 mg nightly. She will need a liver panel and lipid panel in 5 to 6 weeks. Her LDL is 48 even without a statin. Blood pressure is better at discharge but still occasionally mildly to moderately elevated with increased anxiety. A 30-day event monitor was ordered to rule out atrial fibrillation as etiology of the possible TIA (vs amaurosis fugax versus migraine equivalent). Physical Exam Const alert, oriented x3 and no apparent distress Constitutional Narrative: Making good eye contact with me. Pleasant and seems calm. General Appearance: cooperative HEENT moist oral mucous membranes Eyes PERRL and EOMs intact bilaterally Eyes Narrative: No scleral icterus, no conjunctival injection, no discharge from the eyes and visual berry are intact with clear vision. Neck no carotid bruits Resp normal respiratory effort and clear to auscultation bilaterally Resp Narrative: No conversational dyspnea Effort and Inspection: Negative for tachypneic Cardio regular rate, regular rhythm, S1 normal heart sound, S2 normal heart sound, no murmurs, no rub and no gallops Cardio Narrative: No ectopy GI normal to inspection, nondistended, normoactive bowel sounds, soft to palpation and non-tender GI Narrative: No guarding with palpation Extremity no calf tenderness General Extremity: Negative for clubbing, cyanosis or edema Skin General Skin Exam: no breakdown Rashes: no rashes Wound Narrative: The left knee incision is intact with no edwina-incisional erythema, no discharge, no dehiscence and no significant swelling around the incision. The edema in the left knee has decreased considerably since admission to rehab. Neuro CN's II-XII intact bilaterally, no focal motor deficits and no sensory deficits noted Neuro Narrative: No visual field cuts NIHSS was completed prior to discharge and the score 0. Coordination / Balance: kqavju-ux-grnl test normal and uzom-kk-mrfc test normal Psych Psych Narrative: She is calm, making good eye contact and sleeping well at night. Appearance: appropriate Attitude: No agitated Activity / Motor Behavior: Negative for restless Weight / BMI Weight Weight: 160 lb 11.472 oz Body Mass Index (BMI) 29.5 ABG / Lab / Microbiology Data 07/10/24 06:35 07/10/24 06:35 Microbiology: Microbiology 07/11/24 10:30 Stool Stool Occult Blood (ERNESTINA) - Final D/C Instructions Discharge Diet: Carb Control Diet Weight Bearing Status: Full weight bearing Keep extremity elevated above heart level: Legs Call your doctor if your incision/area has: Continuous Slow Oozing, Sudden Increased Bleeding, Increased Pain/ Swelling, Increased Redness, Foul Smelling Discharge and Swelling at the incision site Call your doctor if you observe: Fever of 101 or Higher, Shortness of breath, Dizziness, Fainting spells, Swelling in the ankles, Chest pain, Calf discomfort and Uncontrolled pain Cleanse incision/area with: Soap & Water and - Pending Tests Upon Discharge: none Please Follow Up With: Femi Bowen DO When: you will also need to follow up with Dr. Parnell and with Dr. Pool (saw superintendent). Appts are listed later in this document. Meaningful Use Info Meaningful Use Meaningful Use Diagnoses (Choose all that apply): None applicable Ischemic Stroke Statin Dosing Therapy Reference: STATIN DOSE THERAPY REFERENCE: * Patients > 75 years receive moderate or high dose statin therapy. * Patients 75 years or YOUNGER should receive HIGH intensity statin dose unless contraindicated. You will be required to document reason for non-treatment if statin daily dose does not meet guidelines. HIGH DOSE STATIN THERAPY DAILY Atorvastatin > than or = to 40 mg Rosuvastatin > than or = to 20 mg Amlodipine + Atorvastatin > than or = to 2.5/40 mg Ezetimibe + Simvastatin 10/80 mg Simvastatin 80mg Discharge Plan Admission Admit Date/Time: 07/05/24 15:24 Primary Reason for Your Visit: Debility due to TKA Attending Provider: Solange Moore Primary Care Provider: Dwight Parnell Instructions Patient Instructions: Caring for Your Incision, AFib, ED TIA: Transient Ischemic Attack Additional Instructions / Restrictions: 1. I do not know for sure why you had the sudden change in your vision while on rehab. You did not have a stroke and the symptoms totally resolved. I suspect the increased stress you have been having may have triggered a migraine. some people with migraines have neurologic deficits with migraines and can have stoke like symptoms. Migraines are caused by spasms in an artery in the brain. When the artery spasms it decreases the blood flow to the portion of the brain that the artery supplies and this can lead to stroke like symptoms. When the spasm is over the blood flow increases and the symptoms resolve. I think this is what happened but, it could have been a TIA (transient ischemic attack). Some people call these ministrokes and they can be a warning that you may be at risk for a stroke iin the future. I have given you some literature to read about TIA's. The third possibility is a problem with the eye. You will be seeing Dr. Lalit Pool on 07/21/24.......he is an eye doctor and he will make sure the eye is OK. Because we do not know what caused the visual change we need to look for causes of TIA. You will be getting a heart monitor to wear for a few weeks and after it is removed you will have an appt with a regulatory leader to discuss the results. The heart monitor will look for a problem with the rhythm of the heart called atrial fibrillation or A-fib. If you have intermittent atrial fibrillation this increases your risk for stroke. It is treatable. 2. Aspirin helps to prevent strokes so you will be taking a baby aspirin daily. you will also be taking a medication called Atorvastatin (also called Lipitor) which controls cholesterol and decreases stroke risk. Dr. Parnell will want to order a lipid profile and a lipid profile in 5-6 weeks. If in the end of the workup for TIA you have not had a suspected TIA you may be able to discontinue this medication because your cholesterol is not high. 3. When you get anxious your BP goes up. Uncontrolled high BP is a risk factor for stroke. You have been started on a medication called Buspar for anxiety. I recommend you continue counselling to learn how to control your anxiety better. When you get anxious the adrenaline in your body increases and this makes you BP go up and your heart rate go up. there is a type of BP medication called a beta kenyon that helps block the effects of adrenaline on the heart and vascular system. If your BP stays elevated following DC from rehab your doctor may want to consider placing you on a beta kenyon to BP down. I suggest if you do not have a BP cuff at home that you purchase one and take your BP a couple times a day. Write the time down and the result so that you have a record of your BP's to take to your next appt with Dr. Parnell. 4. Good luck to you [place]. I hope things calm down for you and everything works out with your adopted dtr. 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 God bless you. If you or your family have any questions after you leave rehab please do not hesitate to call me. OFFICE: [phone] CELL: [phone] Discharge Orders/Prescriptions Prescriptions: New tramadol 50 mg Tablet 50 mg PO Q6H PRN PRN (Reason: Pain Score 1-10) 7 Days Qty: 28 0RF atorvastatin 40 mg tablet 40 mg PO QHS Qty: 30 0RF apixaban 2.5 mg tablet 2.5 mg PO BID Qty: 19 0RF Continued trazodone 100 mg tablet 200 mg PO HS 30 Days Qty: 60 sertraline 100 mg tablet 100 mg PO QHS Qty: 90 1RF hydrochlorothiazide 12.5 mg tablet 12.5 mg PO DAILY Qty: 90 3RF omeprazole 40 mg capsule,delayed release(DR/EC) 40 mg PO QAM Qty: 90 3RF fluticasone propionate 9.9 ML spray,suspension 2 spray INTRANASAL DAILY PRN (Reason: Nasal Congestion) Rx Instructions: administer into each nostril vitamin E (dl, acetate) 450 mg (1,000 unit) capsule 900 mg PO DAILY Patient Comments: TAKE 1 CAPSULE BY MOUTH EVERY DAY cranberry-B.hlxwkebw-R-Rg phos 480 mg-20 mg- 100million cell tablet 1 tab PO DAILY Tart Hidalgo [id number] mg capsule 1 cap PO DAILY Probiotic Acidophilus 250 million cell capsule 500 mmu cells PO DAILY buspirone 5 mg Tablet 5 mg PO TID Qty: 90 0RF tamoxifen 20 mg tablet 20 mg PO DAILY Qty: 90 3RF Rx Instructions: Restart on 07/26/24 aspirin 81 mg Tablet,Chewable 81 mg PO BREAKFAST Qty: 0 0RF Changed acetaminophen 500 mg tablet 1,000 mg PO Q6H PRN (Reason: pain) Qty: 90 0RF Rx Instructions: Take this every 6 hours NEEDED for pain 1-3. Discontinued oxycodone 5 mg tablet 5 - 15 mg PO Q4H PRN (Reason: pain) 7 Days Qty: 60 0RF atorvastatin 80 mg Tablet 80 mg PO QHS Qty: 0 0RF Eliquis 2.5 mg tablet 2.5 mg PO BID Qty: 28 0RF Rx Instructions: Once finish eliquis regimen per neurology transition to asa 81 mg daily only. Referrals / Follow Up: juana estrella [Other] - 09/12/24 7:15 am Dwight Parnell DO [Primary Care Provider] - 07/19/24 9:00 am Femi Bowen DO [Med Staff - Active Staff] - 07/17/24 9:30 am Lalit Pool MD [Med Staff - Active Staff] - 07/21/24 8:30 am Disposition Disposition (needs filled in before D/C Order can be placed): Home, Self Care Charges/Coding Visit Charges Inpatient E&M: 61533 Disch Hosp >30min
--- NOTE | 2024-07-16 13:25 | NURSING ---
Discharge instructions given and patient verbalized understanding.
== END 2024-07-16 13:28 | disposition home health service (06) | DRG 560 ==
PROVIDERS: Admitting Provider Internal Medicine; PCP Family Medicine; Referring Provider Internal Medicine; Visit Provider Internal Medicine
DX: Z47.1 Aftercare following joint replacement surgery (principal); E87.1 Hypo-osmolality and hyponatremia; D62 Acute posthemorrhagic anemia; G45.9 Transient cerebral ischemic attack, unspecified; C50.912 Malignant neoplasm of unspecified site of left female breast; K74.00 Hepatic fibrosis, unspecified; E11.9 Type 2 diabetes mellitus without complications; F32.A Depression, unspecified; I10 Essential (primary) hypertension; J45.40 Moderate persistent asthma, uncomplicated; K76.0 Fatty (change of) liver, not elsewhere classified; M17.0 Bilateral primary osteoarthritis of knee; G47.33 Obstructive sleep apnea (adult) (pediatric); K21.9 Gastro-esophageal reflux disease without esophagitis; F41.9 Anxiety disorder, unspecified; G43.909 Migraine, unspecified, not intractable, without status migrainosus; H53.8 Other visual disturbances; Z79.810 Long term (current) use of selective estrogen receptor modulators (SERMs); Z79.01 Long term (current) use of anticoagulants; Z96.652 Presence of left artificial knee joint; Z79.899 Other long term (current) drug therapy; F41.0 Panic disorder [episodic paroxysmal anxiety]; G47.00 Insomnia, unspecified
CPT/HCPCS: 36415; 70450; 70496; 70498; 74230; 80048; 80053; 80061; 80076; 82140; 82274; 82570; 83036; 83735; 84100; 84540; 85025; 85027; 92523; 92526; 92610; 92611; 94762; 97110; 97116; 97129; 97130; 97162; 97166; 97530; 97535; 97802; 97803; J7030; A4216

== ENCOUNTER 2024-07-12 14:34 | Observation (INO) | payer MEDICARE, OTHER, SELFPAY ==
--- NOTE | 2024-07-12 14:35 | MRI_ITS ---
INDICATION: sudden vision change rt eye. SUSPECTED STROKE. EXAMINATION: MRI - MR Brain W/O Contrast COMPARISON: Head CT same day. Findings: Multisequence multiplanar MRI images of the brain without contrast. Included is diffusion-weighted series with corresponding ADC map which demonstrate no evidence of restricted diffusion. There are periventricular areas of increased T2 and FLAIR signal most consistent with chronic periventricular white matter ischemic changes, other white matter disease is less likely. No significant volume loss. Midline anatomy and craniocervical junction appear unremarkable. No significant blooming artifact on gradient echo imaging. Vascular structures/flow-voids are unremarkable. Osseous structures are unremarkable. MRI/Brain without Contrast IMPRESSION: No evidence of restricted diffusion to suggest acute ischemia. Likely age-related chronic changes as above, without significant abnormality otherwise appreciated. Electronically Signed: Solomon Burns MD at 5:24 EDT ,
--- NOTE | 2024-07-12 14:38 | ECHOD_ITS ---
Reason For Study: TIA/CVA Procedure This was a 2D Doppler, Color Flow transthoracic echocardiogram. Patient was scanned in supine position during reflux assessment. Exam performed portable in patient room. Left Ventricle Normal LV size. The estimated ejection fraction is 70 %. No evidence for diastolic dysfunction. No regional wall motion abnormalities noted. Right Ventricle Normal RV size. Normal systolic function. Atria The left and right atria are normal. No doppler evidence for ASD. Bubble contrast study negative for right to left interatrial shunt. Mitral Valve There is no mitral valve stenosis. No mitral valve insufficiency. Tricuspid Valve There is no tricuspid stenosis. Unable to estimate RV systolic pressure due to insufficient tricuspid regurgitant envelope. Trivial tricuspid valve insufficiency. Aortic Valve Aortic sclerosis, no stenosis. There is no aortic stenosis. No aortic valve insufficiency. Pulmonic Valve There is no pulmonic valvular stenosis. No pulmonic valve insufficiency. Great Vessels Normal aortic root. Pericardium/Pleural No pericardial effusion. Medication Performed a rapid injection of agitated mix of 9 cc saline and 1cc air to assess for atrial septal defect. MMode/2D Measurements & Calculations LVIDd: 3.8 cm IVSd: 1.0 cm LVOT diam: 1.9 cm LVIDs: 2.6 cm LVPWd: 1.00 cm RVDd: 3.5 cm FS: 33.7 % LVOT area: 2.8 cm2 Ao root diam: 3.2 cm LAV(MOD-bp): 33.9 ml LVAd ap4: 23.2 cm2 LAV(MOD-bp) Indexed: 19.4 ml/m2 LVLd ap4: 7.2 cm LAV(MOD-sp2): 37.6 ml EDV(MOD-sp4): 62.8 ml LAV(MOD-sp4): 28.7 ml EDV(sp4-el): 63.7 ml LVAs ap4: 13.4 cm2 LVLs ap4: 5.9 cm ESV(MOD-sp4): 26.4 ml ESV(sp4-el): 26.1 ml EF(MOD-sp4): 58.0 % EF(sp4-el): 59.0 % LVAd ap2: 22.0 cm2 SV(MOD-sp4): 36.4 ml SV(MOD-sp2): 34.3 ml LVLd ap2: 7.1 cm EDV(MOD-sp2): 56.7 ml EDV(sp2-el): 58.1 ml LVAs ap2: 12.1 cm2 LVLs ap2: 5.5 cm ESV(MOD-sp2): 22.4 ml ESV(sp2-el): 22.4 ml EF(MOD-sp2): 60.5 % SV(sp4-el): 37.6 ml LA dimension(2D): 3.3 cm LA A4 area: 12.9 cm2 RA A4 area: 8.6 cm2 TAPSE: 2.1 cm Time Measurements MV dec time: 0.16 sec Doppler Measurements & Calculations MV E max avel: 82.4 cm/sec Lat Peak E' Avel: 13.7 cm/sec Med Peak E' Avel: 7.4 cm/sec MV A max avel: 91.8 cm/sec E/E' lat: 6.0 E/E' med: 11.1 MV E/A: 0.90 Ao V2 max: 144.3 cm/sec LV V1 max: 121.0 cm/sec MV dec slope: 501.6 cm/sec2 Ao max P.3 mmHg LV V1 max P.9 mmHg Ao V2 mean: 103.7 cm/sec LV V1 mean P.6 mmHg Ao mean P.9 mmHg LV V1 mean: 91.7 cm/sec Ao V2 VTI: 34.3 cm LV V1 VTI: 27.0 cm AV (velocity ratio): 0.79 DAY(I,D): 2.2 cm2 DAY(V,D): 2.3 cm2 SV(LVOT): 74.8 ml PA V2 max: 85.9 cm/sec TR max avel: 193.8 cm/sec PA max PG (full): 0.16 mmHg TR max P.0 mmHg ECHO/Echo Complete Interpretation Summary The estimated ejection fraction is 70 %. No evidence for diastolic dysfunction. Ordering Physician: aRmiro Petit Referring Physician: ANTONELLA LUO Performed By: Ellie, Rosalva, RDCS
[2024-07-12 14:40] VITALS: BMI 29.5
--- NOTE | 2024-07-12 14:40 | EKG12_ITS ---
Test Reason : ADMISSION Blood Pressure : / mmHG Vent. Rate : 079 BPM Atrial Rate : 079 BPM P-R Int : 168 ms QRS Dur : 088 ms QT Int : 374 ms P-R-T Axes : 032 006 044 degrees QTc Int : 428 ms Normal sinus rhythm Normal ECG When compared with ECG of 23-SEP-2023 08:43, No significant change was found Confirmed by DENIA LOPEZ, BENNY ([id number]), editor continuity and script JEAN PAUL CORREA ([id number]) on 07/14/2024 7:17:36 AM Referred By: Confirmed By:LEILA LOZA MD
--- NOTE | 2024-07-12 14:43 | PCM.HP.STD ---
[facility] - General General Date of Admission: 07/12/24 Date of Service: 07/12/24 Chief Complaint: Visual changes in the right eye, sudden development black string. [facility] Narrative VERONICA ZULUAGA, is a 73 F who was admitted directly from acute rehab after she developed sudden visual change in the right eye. She was in the rehab for right TKR. She felt like black string in the right eye different from the floaters she had in the past. She has seen heel sprayer first few years ago and was told not any concerning diagnosis. No other acute symptoms. This started about 1 PM and a stroke alert was called and patient was taken to CT scan. Patient was accompanied by attending Dr. Moore. Patient also has history of migraine headache, last attack was about more than 10 years. She said when she gets migraine attacks she feels some hot and cold sensation and nausea along with the headache. She further said trazodone at night is working good for migraine prophylaxis for last 20. In the radiology department, patient had CT head and CTA head and neck which did not show acute abnormality. Teleneurology consult was done and recommended no thrombolytics but admission to complete stroke workup. NIH stroke scale monitoring. Labs and EKG ordered. [facility] Medical History Bilateral knee pain History of colon polyps History of diverticulosis Grade I diastolic dysfunction Liver fibrosis Anxiety and depression Difficulty swallowing Post-menopausal Frequent UTI Dermatitis Wears glasses Cancer Migraine headache History of ulceration Non-smoker CPAP (continuous positive airway pressure) dependence Shortness of breath on exertion Hx of echocardiogram History of stress test Cardiology follow-up encounter Essential (primary) hypertension History of trigger finger Breast pain, right Abdominal bloating Eyelid myokymia Spondylolisthesis at L4-L5 level Trochanteric bursitis of right hip Vertigo Allergic rhinitis Chronic cough Hiatal hernia with gastroesophageal reflux Abnormal pulmonary function test Asthma, moderate persistent Pyelonephritis UTI (urinary tract infection) Home Medications ?Medication ?Instructions ?Recorded ?Last Taken ?Type fluticasone propionate 50 2 spray intranasal DAILY PRN Nasal 04/21/19 Unknown History mcg/actuation nasal Congestion spray,suspension trazodone 100 mg tablet 200 mg PO HS SLEEP 30 days #60 tabs 10/14/21 07/04/24 History vitamin E (dl, acetate) 450 mg 900 mg PO DAILY SUPPLEMENT 09/22/23 Unknown History (1,000 unit) capsule omeprazole 40 mg capsule,delayed 40 mg PO QAM GERD #90 caps 09/23/23 07/03/24 Rx release hydrochlorothiazide 12.5 mg tablet 12.5 mg PO DAILY HYPERTENSION #90 01/19/24 07/03/24 Rx tabs lorazepam 0.5 mg tablet (Ativan) 0.5 mg PO BID PRN anxiety #30 tabs 01/19/24 Unknown Rx sertraline 100 mg tablet 100 mg PO QHS ANXIETY #90 tabs 01/19/24 Unknown Rx tamoxifen 20 mg tablet 20 mg PO DAILY CANCER #90 tabs 03/21/24 06/14/24 Rx Lactobacillus acidophilus 250 500 mmu cells PO DAILY SUPPLEMENT 06/14/24 Unknown History million cell capsule (Probiotic Acidophilus) cranberry-B.zvztdepsj-X-Po phos 1 tab PO DAILY SUPPLEMENT 06/14/24 Unknown History 480 mg-20 mg-100 million cell tablet vit C 30 mg-s.hidalgo 250 mg-celery 1 cap PO DAILY SUPPLEMENT 06/14/24 Unknown History seed 75 mg-grape seed extrt capsule (Tart Hidalgo) acetaminophen 500 mg tablet 1,000 mg (2 x 500 mg) PO Q6H pain 07/05/24 Unknown Rx #90 tabs apixaban 2.5 mg tablet (Eliquis) 2.5 mg PO BID clot prevention #28 07/05/24 Unknown Rx tabs oxycodone 5 mg tablet 5 - 15 mg (1 - 3 x 5 mg) PO Q4H 07/05/24 Unknown Rx PRN pain 7 days #60 tabs Allergy/AdvReac Type Severity Reaction Status Date / Time nitrofurantoin (From Allergy Mild rash Verified 07/04/24 06:00 Macrobid) codeine phosphate (From AdvReac Vomiting Verified 07/04/24 06:00 Tylenol-Codeine) Family History Mother Cancer Diabetes Father Cancer Grandfather Diabetes Grandmother Glaucoma Surgical History Status post left knee replacement Status post right knee replacement Hx of partial mastectomy Hx of colonoscopy Status post trigger finger release Hx of shoulder surgery Hx of laparoscopy History of right hip replacement History of tubal ligation History of tonsillectomy History of cholecystectomy History of hysterectomy History of appendectomy Social History household members: spouse and other details: 1 adopted dtr and her son still living at home. housing: house number of children: 5 Smoking Status: Never smoker second hand exposure: No alcohol intake: never substance use type: does not use caffeine: Yes what type of physical activity do you participate in: none ROS ROS Narrative Constitutional: Reports fatigue and weakness. No fever. HEENT: Reports systems reviewed and no addt'l complaints, except as documented Respiratory/Chest: No acute shortness of breath or respiratory distress or wheezing. CVS: Denies chest pain or pressure. Denies chronic heart disease. Gastrointestinal: Denies coffee ground emesis, hematemesis or vomiting Genitourinary: Denies burning urination or new urinary tract symptoms Musculoskeletal: Left TKR in July 15. Right TKR September 2023. Denies acute joint pain. No acute injury Neurologic: As described in HPI History of migraine headache in remission skin: No ulcer. No rash Endocrinology: Reports systems reviewed and no addt'l complaints, except as documented Hematologic/Lymphatic: Reports systems reviewed and no addt'l complaints, except as documented Rest 14 ROS are negative except as mentioned in HPI Vital Signs Vital Signs Vital Signs: Weight Weight: 161 lb 2.526 oz Body Mass Index (BMI) 29.5 Physical Exam Narrative General: Alert, Oriented x3, Cooperative HEENT: Black string symptom in right eye/visual field better. Atraumatic, PERRLA, EOMI, Normocephalic Oral: Oral mucosa moist. No Gingival or Mucosal Lesions/ Ulcerations Neck: Supple, No JVD, Negative Carotid Bruits Chest wall/Lungs: Air entry diminished in bilateral lung bases. No crepitation/rhonchi Cardiovascular: Regular rate, Regular Rhythm, Normal S1, Normal S2, No M/G/R Abdomen: Bowel Sounds Present, Soft, Non Tender, Non-Distended : No dysuria. No renal angle tenderness. No suprapubic tenderness. Extremities: No edema, Capillary Refill Less than 3 Seconds Skin: Sutures and dressing intact and dry Musculoskeletal: Left TKR in July 15. Recovering well. No Tenderness to Palpation of Joints or Extremities Neurological: Cranial nerves II-XII grossly intact, DTR 2+/4. NIH stroke scale 0 Psych/Mental Status: Flat affect, anxious. Assessment & Plan Assessment/Plan (1) Visual changes: PLAN: Plan This 73-year-old female was directly admitted from acute rehab for stroke workup. 1. Right visual field acute change, black string, possible TIA rule out stroke: Patient is being admitted directly in PCU. NIH stroke scale 0. CT head and CT head and neck does not show acute abnormality. BP 150/70 PT, OT, speech therapy/swallow evaluation and management, nursing NIH stroke scale, BP and glucose monitoring and control as per stroke protocol. Recent A1c 6.2 on 07/10. Fasting profile shows LDL 48, HDL 43 on 07/06. TSH ordered tomorrow AM. MRI brain and 2D echo with bubble contrast study ordered 2. Acute physical debility due to left primary osteoarthritis status post left total knee arthroplasty, CT-guided robotic assisted on 07/04/2024: Patient had primary osteoarthritis of left knee and recalcitrant to treatment. Patient was recovering well in acute rehab 3. Acute blood loss postoperative anemia 4. DM type II: 5. 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 6. 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 Obstructive sleep apnea, does not wear CPAP/nonadherent: Does not wear oxygen at night. 8. Moderate persistent chronic asthma: No acute exacerbation. DuoNeb as needed as needed for shortness of breath. Incentive spirometry. DVT prophylaxis, high risk: Continue Eliquis 2.5 mg twice daily. Living will/advanced directive/end of life care: Patient does not have living will or advanced directive. Her is next to kin after discussion of benefits/risks procedures involved with full code, DNR CC arrest and DNR CC, the patient opted for full code. Patient does want artificial life support including intubation, tube feed, ventilator and/chest compression, central venous catheter, vasopressor and DC shock if needed Total time spent in [id number] encounter in discussion of advanced directive 17 minutes. Charges/Coding Visit Charges Inpatient E&M: 82039 Init Hosp L3 Procedures Hospitalists Procedures: 52584 Advncd Care Plan 30 Min
[2024-07-12 15:00] VITALS: BP 150/70; PULSE 80; RESP 18; TEMP 36.4; O2SAT 98
[2024-07-12 15:46] LABS: Hematocrit 26.1 % (37-47); Hemoglobin 8.5 g/dL (12.0-15.0); Mean Corp Hgb Conc 32.6 g/dL (32-36); Mean Corpuscular Hgb 29.4 pg (27.0-32.0); Mean Corpuscular Volume 90.3 fL (81-99); Mean Platelet Vol. 8.7 fl (6.2-12.0); Platelet Count 256 K/mm3 (150-450); RBC Distribution Width CV 13.1 % (11.6-14.6); RBC Distribution Width SD 42.9 fl (35.1-43.9); Red Blood Count 2.89 M/mm3 (4.2-5.4); White Blood Count 7.3 K/mm3 (4.4-11.0)
[2024-07-12 16:00] LABS: International Normalized Ratio 1.4; Prothrombin Time (Protime)PT. 16.6 SECONDS (11.7-14.9)
[2024-07-12 16:01] LABS: ALB/GLOB Ratio 0.7 RATIO (0.9-2.4); AST(SGOT) 19 U/L (15-37); Alanine Aminotransfer ALT/SGPT 20 U/L (13-56); Albumin, Serum 2.7 g/dL (3.2-5.0); Alkaline Phosphatase 41 U/L (45-117); Anion Gap 4 (5-15); BUN 8 mg/dL (7-18); BUN/Creat Ratio 8.9 RATIO (10-20); Calcium,Total 8.8 mg/dL (8.5-10.1); Chloride 103 mmol/L (98-107); EST Glomerular Filtration Rate 65 mL/min (>60); Est Glom Filt Rate - Afr Amer 79 mL/min (>60); Estimated Creatinine Clearance 52.89 ml/min; Globulin 3.7 g/dL (2.2-4.2); Glucose 137 mg/dL (74-106); Magnesium 2.1 mg/dL (1.6-2.6); Potassium 3.8 mmol/L (3.5-5.1); Protein, Total 6.4 g/dL (6.4-8.2); Sodium Level 136 mmol/L (136-145)
[2024-07-12] MEDS: 0.9% Normal Saline (1000mL) 1,000 ML 75 ML IV (16:41)
[2024-07-12 16:50] VITALS: O2SAT 98
[2024-07-12 16:56] VITALS: BMI 29.5
[2024-07-12] MEDS: LORazepam 0.5 MG Tablet PO (17:01)
[2024-07-12 17:16] LABS: Bedside Glucose 125 mg/dL (74-106)
[2024-07-12 18:49] LABS: Mucous, Urine 0 SEEN /hpf (<or=2+); Red Blood Cells-Urine 0 SEEN /hpf (0-5)
[2024-07-12 18:53] LABS: Color, Urine Yellow (Yellow); Glucose, Dipstick Normal (Normal); Ketone-Dipstick Negative (Negative); Leukocyte Esterase-Dipstick 100 /ul (Negative); Nitrite-Dipstick Negative (Negative); Occult Blood-Urine 10 /ul (Negative); Protein-Dipstick Negative (Negative); Urine Bilirubin Dipstick Negative (Negative); Urine Clarity Clear (Clear); Urine Urobilinogen Normal (Normal)
[2024-07-12 19:00] VITALS: BP 134/75; PULSE 79; RESP 18; TEMP 37.1; O2SAT 98
[2024-07-12 19:01] LABS: Bacteria RARE /hpf (None Seen); Squamous Epithelial Cells - UA 0-5 SEEN /hpf (5-10); White Blood Cells 5-10 SEEN /hpf (0-5)
[2024-07-12] MEDS: oxyCODONE 5 MG Tablet PO (20:18)
[2024-07-12] MEDS: Atorvastatin Calcium 80 MG Tablet PO (20:20)
[2024-07-12] MEDS: traZODone 100 MG Tablet 200 MG PO (20:25)
[2024-07-12] MEDS: Acetaminophen 500 MG Tablet 1000 MG PO (20:25)
[2024-07-12] MEDS: APIXABAN 2.5 MG TABLET (WCH) PO (20:29)
[2024-07-12] MEDS: Sertraline 100 MG Tablet PO (20:31)
[2024-07-12 20:51] VITALS: BP 147/77; PULSE 79; RESP 14; TEMP 37; O2SAT 97
[2024-07-12 21:42] VITALS: BP 147/77; PULSE 71; RESP 14; TEMP 37; O2SAT 97
[2024-07-12 23:15] VITALS: BP 130/68; PULSE 70; RESP 14; TEMP 36.8; O2SAT 97
[2024-07-12 23:56] LABS: Bedside Glucose 122 mg/dL (74-106)
[2024-07-13] VITALS (7 sets, daily range): BP systolic 129–148; BP diastolic 72–84; PULSE 70–79; RESP 14–16; TEMP 36.2–37; O2SAT 96–99; BMI 29.5; BMI 29.8
[2024-07-13] MEDS: Acetaminophen 500 MG Tablet 1000 MG PO ×2 (05:55→14:44)
[2024-07-13 06:16] LABS: Bedside Glucose 108 mg/dL (74-106)
--- NOTE | 2024-07-13 06:52 | PCM.PN.HOSP ---
Reason for Visit Reason for Visit: Diagnoses Unspecified visual disturbance (07/12/24) Objective Data Objective Data Vital Signs: Vital Signs Temp Pulse Resp BP Pulse Ox O2 Del Method 97.2 F L 79 14 148/84 H 97 Room Air 07/13/24 06:11 07/13/24 06:11 07/13/24 06:11 07/13/24 06:11 07/13/24 06:11 07/13/24 06:11 Oxygen Delivery Method Room Air Weight: 162 lb 0.636 oz Body Mass Index (BMI) 29.8 Intake & Output: Intake and Output for Last 24 Hours 07/11/24 07/12/24 07/13/24 23:59 23:59 23:59 Intake Total 740 / 740 1250 / 1250 Output Total 200 / 200 Balance 540 / 540 1250 / 1250 Lab / Micro Data 07/12/24 15:26 07/12/24 15:26 Labs: Laboratory Results - last 24 hr 07/12/24 15:26: WBC 7.3, RBC 2.89 L, Hgb 8.5 L, Hct 26.1 L, MCV 90.3, MCH 29.4, MCHC 32.6, RDW Std Deviation 42.9, RDW Coeff of Anju 13.1, Plt Count 256, MPV 8.7, PT 16.6 H, INR 1.4, Sodium 136, Potassium 3.8, Chloride 103, Carbon Dioxide 29.0, Anion Gap 4 L, BUN 8, Creatinine 0.90, Estim Creat Clear Calc 52.89, Est GFR (MDRD) Af Amer 79, Est GFR (MDRD) Non-Af 65, BUN/Creatinine Ratio 8.9 L, Glucose 137 H, Calcium 8.8, Magnesium 2.1, Total Bilirubin 0.30, AST 19, ALT 20, Alkaline Phosphatase 41 L, Total Protein 6.4, Albumin 2.7 L, Globulin 3.7, Albumin/Globulin Ratio 0.7 L 07/12/24 16:48: POC Glucose 125 H 07/12/24 18:04: Urine Color Yellow, Urine Clarity Clear, Urine pH 8.0, Ur Specific [place] 1.010, Urine Protein Negative, Urine Glucose (UA) Normal, Urine Ketones Negative, Urine Occult Blood 10 H, Urine Nitrite Negative, Urine Bilirubin Negative, Urine Urobilinogen Normal, Ur Leukocyte Esterase 100 H, Urine RBC 0 SEEN, Urine WBC 5-10 SEEN, Ur Squamous Epith Cells 0-5 SEEN, Urine Bacteria RARE, Urine Mucus 0 SEEN 07/12/24 23:22: POC Glucose 122 H 07/13/24 05:53: POC Glucose 108 H Radiography Diagnostic Testing: Radiology Impression Brain MRI 07/12/24 14:35 IMPRESSION: No evidence of restricted diffusion to suggest acute ischemia. Likely age-related chronic changes as above, without significant abnormality otherwise appreciated. Electronically Signed: Solomon Burns MD at 5:24 EDT , Assessment & Plan Assessment/Plan (1) Visual changes: PLAN: Plan This 73-year-old female was directly admitted from acute rehab for stroke workup. 1. Right visual field acute change, black string, possible TIA rule out stroke: Patient is being admitted directly in PCU. NIH stroke scale 0. CT head and CT head and neck does not show acute abnormality. BP 150/70 PT, OT, speech therapy/swallow evaluation and management, nursing NIH stroke scale, BP and glucose monitoring and control as per stroke protocol. Recent A1c 6.2 on 07/10. Fasting profile shows LDL 48, HDL 43 on 07/06. TSH ordered tomorrow AM. MRI brain and 2D echo with bubble contrast study ordered 2. Acute physical debility due to left primary osteoarthritis status post left total knee arthroplasty, CT-guided robotic assisted on 07/04/2024: Patient had primary osteoarthritis of left knee and recalcitrant to treatment. Patient was recovering well in acute rehab 3. Acute blood loss postoperative anemia 4. DM type II: 5. 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 6. 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 Obstructive sleep apnea, does not wear CPAP/nonadherent: Does not wear oxygen at night. 8. Moderate persistent chronic asthma: No acute exacerbation. DuoNeb as needed as needed for shortness of breath. Incentive spirometry. DVT prophylaxis, high risk: Continue Eliquis 2.5 mg twice daily. Living will/advanced directive/end of life care: Patient does not have living will or advanced directive. Her is next to kin after discussion of benefits/risks procedures involved with full code, DNR CC arrest and DNR CC, the patient opted for full code. Patient does want artificial life support including intubation, tube feed, ventilator and/chest compression, central venous catheter, vasopressor and DC shock if needed Total time spent in [id number] encounter in discussion of advanced directive 17 minutes.
[2024-07-13 07:14] LABS: Absolute Lymphocyte Count 1.05 X10^3/uL (0.83-4.51); Absolute Neutrophil Count 3.5 X10^3/uL (2.0-7.7); Basophil# 0.05 X10^3/uL; Basophil% 0.9 % (0-1); Eosinophil# 0.22 X10^3/uL; Eosinophils% 4.1 % (0-5); Hematocrit 25.1 % (37-47); Hemoglobin 8.2 g/dL (12.0-15.0); Lymphocyte # 1.05 X10^3/ul (0.83-4.51); Lymphocyte % 19.6 % (19-41); Mean Corp Hgb Conc 32.7 g/dL (32-36); Mean Corpuscular Hgb 29.9 pg (27.0-32.0); Mean Corpuscular Volume 91.6 fL (81-99); Mean Platelet Vol. 8.6 fl (6.2-12.0); Monocyte# 0.48 X10^3/uL; NRBC Flagged by Analyzer 0 % (0-5); Neutrophil # 3.51 X10^3/uL (2.7-7.7); Neutrophil % 65.5 % (47-70); Platelet Count 275 K/mm3 (150-450); RBC Distribution Width CV 13.2 % (11.6-14.6); RBC Distribution Width SD 43.4 fl (35.1-43.9); Red Blood Count 2.74 M/mm3 (4.2-5.4); White Blood Count 5.4 K/mm3 (4.4-11.0)
[2024-07-13 07:54] LABS: Anion Gap 6 (5-15); BUN 7 mg/dL (7-18); BUN/Creat Ratio 8.9 RATIO (10-20); Calcium,Total 8.5 mg/dL (8.5-10.1); Chloride 107 mmol/L (98-107); Creatinine, Serum 0.79 mg/dL (0.55-1.02); EST Glomerular Filtration Rate 76 mL/min (>60); Est Glom Filt Rate - Afr Amer 92 mL/min (>60); Estimated Creatinine Clearance 59.67 ml/min; Glucose 125 mg/dL (74-106); Potassium 3.5 mmol/L (3.5-5.1); Sodium Level 139 mmol/L (136-145)
[2024-07-13] MEDS: Pantoprazole Sodium 40 MG Tablet PO (08:07)
[2024-07-13] MEDS: Aspirin 81 MG TAB.CHEW PO (08:07)
[2024-07-13] MEDS: APIXABAN 2.5 MG TABLET (WCH) PO (08:07)
--- NOTE | 2024-07-13 09:03 | CASEMGMT ---
Addendum entered by Savannah Breaux 07/13/24 09:52: Patient has decided to return to [facility] Acute Rehab. SW notified physician. Plan: d/c back to [facility] Acute Rehab. Savannah CHACON Original Note: Physician would like to discharge patient today. Patient was in [facility] Acute Rehab and was scheduled to go home with home health 07-16. SW met with patient. Introduced self and role at [facility]. SW asked patient if she plans on going back to Acute Rehab or going home at discharge. Patient was not sure and was going to talk with family. SW will check back with patient. Savannah CHACON
[2024-07-13] MEDS: 0.9% Saline Lock 10 ML Syringe IV (11:37)
[2024-07-13 12:19] LABS: Bedside Glucose 148 mg/dL (74-106)
--- NOTE | 2024-07-13 13:27 | STROKE.CONS ---
Assessment and Plan: Stroke Assessment/Plan #transient R monocular visual scotoma- ddx includes amaurosis vs migraine vs primary opthalmologic process.. -recommend opthalmology consult to evaluate for primary ophthalmologic issue -ok to continue Eliquis for now. Once no longer needs Eliquis, can transition to ASA 81 daily. -start lipitor 40 daily - brain MRI with no evidence of ischemic stroke -no significant stenosis or LVO on CTA head/neck -fu TTE results, will need 30 day cardiac event monitor as an outpatient -LDL 48, HbA1c 6.2. Goal LDL<70, HbA1c<7 -BP goal:normotension -fu with PCP in 2 weeks, neurology in 4-6 weeks HPI Consult Data Date of Consult: 07/13/24 HPI Narrative HPI Narrative: 73 yo F w PMH migraine, HTN, DM, MECCA, breast cx, asthma ?admitted with acute R eye vision changes. At rehab for recent TKR. Noted a floater in R eye described as a black string.?Describes several threads in eye and was persistent for several hours. Scotoma was monocular. Has had floaters in the past but never this large. Denies associated pain. Vision now back to baseline. Brought to ED for stroke eval. CT/CTA were unremarkable. Seen by tele stroke and not a candidate for lytics due to recent Eliquis use after knee replacement. Denies weakness, numbness, slurred speech, prior stroke, gait instability. Denies any ADAM with this episode and states has not had migraine for year. Used to have visual aura with migrainein the past but different as with migraine typically sees squiggly lines and decreased acuity. [facility] Medical History Bilateral knee pain History of colon polyps History of diverticulosis Grade I diastolic dysfunction Liver fibrosis Anxiety and depression Difficulty swallowing Post-menopausal Frequent UTI Dermatitis Wears glasses Cancer Migraine headache History of ulceration Non-smoker CPAP (continuous positive airway pressure) dependence Shortness of breath on exertion Hx of echocardiogram History of stress test Cardiology follow-up encounter Essential (primary) hypertension History of trigger finger Breast pain, right Abdominal bloating Eyelid myokymia Spondylolisthesis at L4-L5 level Trochanteric bursitis of right hip Vertigo Allergic rhinitis Chronic cough Hiatal hernia with gastroesophageal reflux Abnormal pulmonary function test Asthma, moderate persistent Pyelonephritis UTI (urinary tract infection) Home Medications ?Medication ?Instructions ?Recorded ?Last Taken ?Type fluticasone propionate 50 2 spray intranasal DAILY PRN Nasal 04/21/19 Unknown History mcg/actuation nasal Congestion spray,suspension trazodone 100 mg tablet 200 mg PO HS SLEEP 30 days #60 tabs 10/14/21 07/04/24 History vitamin E (dl, acetate) 450 mg 900 mg PO DAILY SUPPLEMENT 09/22/23 Unknown History (1,000 unit) capsule omeprazole 40 mg capsule,delayed 40 mg PO QAM GERD #90 caps 09/23/23 07/03/24 Rx release hydrochlorothiazide 12.5 mg tablet 12.5 mg PO DAILY HYPERTENSION #90 01/19/24 07/03/24 Rx tabs sertraline 100 mg tablet 100 mg PO QHS ANXIETY #90 tabs 01/19/24 Unknown Rx tamoxifen 20 mg tablet 20 mg PO DAILY CANCER #90 tabs 03/21/24 06/14/24 Rx Lactobacillus acidophilus 250 500 mmu cells PO DAILY SUPPLEMENT 06/14/24 Unknown History million cell capsule (Probiotic Acidophilus) cranberry-B.xqlkdzuqx-K-Zy phos 1 tab PO DAILY SUPPLEMENT 06/14/24 Unknown History 480 mg-20 mg-100 million cell tablet vit C 30 mg-s.hidalgo 250 mg-celery 1 cap PO DAILY SUPPLEMENT 06/14/24 Unknown History seed 75 mg-grape seed extrt capsule (Tart Hidalgo) acetaminophen 500 mg tablet 1,000 mg (2 x 500 mg) PO Q6H pain 07/05/24 Unknown Rx #90 tabs oxycodone 5 mg tablet 5 - 15 mg (1 - 3 x 5 mg) PO Q4H 07/05/24 Unknown Rx PRN pain 7 days #60 tabs apixaban 2.5 mg tablet (Eliquis) 2.5 mg PO BID clot prevention #28 07/13/24 Unknown Rx tabs aspirin 81 mg chewable tablet 81 mg PO BREAKFAST #0 tabs 07/13/24 Unknown Rx atorvastatin 80 mg tablet 80 mg PO QHS #0 tabs 07/13/24 Unknown Rx buspirone 5 mg tablet 5 mg PO TID #0 tabs 07/13/24 Unknown Rx Allergy/AdvReac Type Severity Reaction Status Date / Time nitrofurantoin (From Allergy Mild rash Verified 07/04/24 06:00 Macrobid) codeine phosphate (From AdvReac Vomiting Verified 07/04/24 06:00 Tylenol-Codeine) Family History Mother Cancer Diabetes Father Cancer Grandfather Diabetes Grandmother Glaucoma Surgical History Status post left knee replacement Status post right knee replacement Hx of partial mastectomy Hx of colonoscopy Status post trigger finger release Hx of shoulder surgery Hx of laparoscopy History of right hip replacement History of tubal ligation History of tonsillectomy History of cholecystectomy History of hysterectomy History of appendectomy Social History household members: spouse and other details: 1 adopted dtr and her son still living at home. housing: house number of children: 5 Smoking Status: Never smoker second hand exposure: No alcohol intake: never substance use type: does not use caffeine: Yes what type of physical activity do you participate in: none Vital Signs Vital Signs Vital Signs: 07/12/24 15:00 07/12/24 16:50 07/12/24 17:04 Temperature 97.6 F L Temperature Source Temporal Pulse Rate 80 Respiratory Rate 18 Respiratory Effort Normal Non-Labored Respiratory Depth Normal Respiratory Pattern Normal Blood Pressure 150/70 H Blood Pressure Mean 96 Blood Pressure Source Monitor Blood Pressure Position Semi-Fowlers Blood Pressure Location Right Arm Pulse Ox 98 98 Oxygen Delivery Method Room Air Room Air Room Air 07/12/24 19:00 07/12/24 20:51 07/12/24 21:41 Temperature 98.8 F 98.6 F Temperature Source Temporal Temporal Pulse Rate 79 79 Respiratory Rate 18 14 Respiratory Effort Normal Non-Labored Respiratory Depth Normal Respiratory Pattern Normal Blood Pressure 134/75 H 147/77 H Blood Pressure Mean 94 100 Blood Pressure Source Monitor Monitor Blood Pressure Position Semi-Fowlers Semi-Fowlers Blood Pressure Location Right Arm Right Arm Pulse Ox 98 97 Oxygen Delivery Method Room Air Room Air Room Air 07/12/24 21:42 07/12/24 23:15 07/13/24 01:00 Temperature 98.6 F 98.3 F 98.3 F Temperature Source Temporal Temporal Temporal Pulse Rate 71 70 77 Respiratory Rate 14 14 14 Respiratory Effort Respiratory Depth Respiratory Pattern Blood Pressure 147/77 H 130/68 H 140/82 H Blood Pressure Mean 100 88 101 Blood Pressure Source Monitor Monitor Monitor Blood Pressure Position Semi-Fowlers Semi-Fowlers Semi-Fowlers Blood Pressure Location Right Arm Right Arm Right Arm Pulse Ox 97 97 97 Oxygen Delivery Method Room Air Room Air Room Air 07/13/24 02:00 07/13/24 04:00 07/13/24 06:11 Temperature 98.3 F 97.2 F L 97.2 F L Temperature Source Temporal Temporal Temporal Pulse Rate 77 79 79 Respiratory Rate 16 14 14 Respiratory Effort Respiratory Depth Respiratory Pattern Blood Pressure 145/72 H 148/84 H 148/84 H Blood Pressure Mean 96 105 105 Blood Pressure Source Monitor Monitor Monitor Blood Pressure Position Semi-Fowlers Semi-Fowlers Semi-Fowlers Blood Pressure Location Right Arm Right Arm Right Arm Pulse Ox 98 97 97 Oxygen Delivery Method Room Air Room Air Room Air 07/13/24 08:00 07/13/24 08:00 07/13/24 10:00 Temperature 98.6 F 98.2 F Temperature Source Oral Oral Pulse Rate 73 74 70 Respiratory Rate 15 14 15 Respiratory Effort Respiratory Depth Respiratory Pattern Blood Pressure 133/74 H 134/79 H 129/76 H Blood Pressure Mean 93 97 93 Blood Pressure Source Monitor Monitor Monitor Blood Pressure Position Semi-Fowlers Semi-Fowlers Semi-Fowlers Blood Pressure Location Right Arm Right Arm Right Arm Pulse Ox 96 98 99 Oxygen Delivery Method Room Air Room Air Room Air 07/13/24 10:00 Temperature Temperature Source Pulse Rate Respiratory Rate Respiratory Effort Normal Non-Labored Respiratory Depth Normal Respiratory Pattern Normal Blood Pressure Blood Pressure Mean Blood Pressure Source Blood Pressure Position Blood Pressure Location Pulse Ox Oxygen Delivery Method Room Air Weight Weight: 73.5 kg Body Mass Index (BMI) 29.8 EEG Results Procedure Details EEG Procedure Details: VERONICA ZULUAGA is a 73 year old F with a past medical history of , who presents for evaluation of Electroencephalogram on DATE at TIME NIHSS NIHSS Nursing Documentation NIHSS Nursing Documentation: NIHSS: Ischemic Stroke/TIA Start: 07/12/24 14:35 Text: For PCU Patients: NIH and Neuro Check every 4 Status: Complete hours, PRN and with change in RN caregiver. Freq: [id number] Protocol: Activity Type Activity Date Activity User E-sign Co-sign Detail Recorded Client Recorded Date Recorded By Document 07/13/24 09:54 TD [id number] 07/13/24 09:55 TD 07/13/24 09:54 NIH Stroke Scale [NIHSS] A score of 0 is normal or asymptomatic . Total possible score is 42. Inpatient: RN or Physician to activate a stroke alert for onset of new stroke symptoms or with NIHSS increase >/= 3 points. Following change in neurological status, NIHSS will be performed per physician order or more frequently PRN. -1a. Level of Consciousness Alert; keenly responsive -1b. LOC Questions Answers BOTH questions correctly. -1c. LOC Commands Performs both tasks correctly . -2. Best Gaze Normal -3. Visual No visual loss -4. Facial Palsy Normal symmetrical movements -5a. Left Arm No drift; arm holds 90 (or 45 ) degrees for full 10 seconds -5b. Right Arm No drift; arm holds 90 (or 45 ) degrees for full 10 seconds -6a. Left Leg No drift; leg holds 30-degree position for full 5 seconds -6b. Right Leg No drift; leg holds 30-degree position for full 5 seconds -7. Limb Ataxia Absent -8. Sensory Normal; no sensory loss -9. Best Language No aphasia; normal -10. Dysarthria Normal -11. Extinction and Inattention No abnormality -Total 0 Query Text:A score of 0 is normal or asymptomatic. Total possible score is 42 . ED: Notify Physician for NIHSS increase by > / = 3 points. Inpatient: RN or Physician to activate a stroke alert for NIHSS increase of > / = 3 points. Coma Scale [Assess] -Eye Opening Spontaneous -Motor Obeys Commands -Verbal Oriented [Total] -Coma Scale Total 15 Physical Exam Narrative MS: awake, alert, oriented x 3, follows commands, able to name, no aphasia, no dysarthria CN: VFF, EOMI , no facial weakness, nml facial sensation M:? Antigravity in all extremities, no drift S: nml to LT in all extremities C: no dysmetria Lab / Micro Data 07/13/24 06:48 07/13/24 06:48 Labs: Laboratory Results - last 24 hr 07/12/24 15:26: WBC 7.3, RBC 2.89 L, Hgb 8.5 L, Hct 26.1 L, MCV 90.3, MCH 29.4, MCHC 32.6, RDW Std Deviation 42.9, RDW Coeff of Anju 13.1, Plt Count 256, MPV 8.7, PT 16.6 H, INR 1.4, Sodium 136, Potassium 3.8, Chloride 103, Carbon Dioxide 29.0, Anion Gap 4 L, BUN 8, Creatinine 0.90, Estim Creat Clear Calc 52.89, Est GFR (MDRD) Af Amer 79, Est GFR (MDRD) Non-Af 65, BUN/Creatinine Ratio 8.9 L, Glucose 137 H, Calcium 8.8, Magnesium 2.1, Total Bilirubin 0.30, AST 19, ALT 20, Alkaline Phosphatase 41 L, Total Protein 6.4, Albumin 2.7 L, Globulin 3.7, Albumin/Globulin Ratio 0.7 L 07/12/24 16:48: POC Glucose 125 H 07/12/24 18:04: Urine Color Yellow, Urine Clarity Clear, Urine pH 8.0, Ur Specific Burchard 1.010, Urine Protein Negative, Urine Glucose (UA) Normal, Urine Ketones Negative, Urine Occult Blood 10 H, Urine Nitrite Negative, Urine Bilirubin Negative, Urine Urobilinogen Normal, Ur Leukocyte Esterase 100 H, Urine RBC 0 SEEN, Urine WBC 5-10 SEEN, Ur Squamous Epith Cells 0-5 SEEN, Urine Bacteria RARE, Urine Mucus 0 SEEN 07/12/24 23:22: POC Glucose 122 H 07/13/24 05:53: POC Glucose 108 H 07/13/24 06:48: WBC 5.4, RBC 2.74 L, Hgb 8.2 L, Hct 25.1 L, MCV 91.6, MCH 29.9, MCHC 32.7, RDW Std Deviation 43.4, RDW Coeff of Anju 13.2, Plt Count 275, MPV 8.6, Immature Gran % (Auto) 0.900, Neut % (Auto) 65.5, Lymph % (Auto) 19.6, Woodson % (Auto) 9.0, Eos % (Auto) 4.1, Baso % (Auto) 0.9, Absolute Neuts (auto) 3.5, Absolute Lymphs (auto) 1.05, Nucleated RBC % 0, Sodium 139, Potassium 3.5, Chloride 107, Carbon Dioxide 26.0, Anion Gap 6, BUN 7, Creatinine 0.79, Estim Creat Clear Calc 59.67, Est GFR (MDRD) Af Amer 92, Est GFR (MDRD) Non-Af 76, BUN/Creatinine Ratio 8.9 L, Glucose 125 H, Calcium 8.5, TSH 2.230 07/13/24 11:25: POC Glucose 148 H Imaging Radiology Impression Brain MRI 07/12/24 14:35 IMPRESSION: No evidence of restricted diffusion to suggest acute ischemia. Likely age-related chronic changes as above, without significant abnormality otherwise appreciated. Electronically Signed: Solomon Burns MD at 5:24 EDT , Echocardiogram 07/12/24 14:38 Interpretation Summary The estimated ejection fraction is 70 %. No evidence for diastolic dysfunction. Ordering Physician: Ramiro Petit Referring Physician: ANTONELLA LUO Performed By: Rosalva Argueta RDCS Active Medications Active Medications Active Medications: Current Medications Generic Name Dose Route Start Last Admin Trade Name Freq PRN Reason Stop Dose Admin Acetaminophen 650 mg 07/12/24 14:35 Acetaminophen 325 Mg Tablet PO Q4H PRN PRN Pain 1-10 Or Fever>99.6 Acetaminophen 1,000 mg 07/12/24 22:00 07/13/24 05:55 Acetaminophen 500 Mg Tablet PO 1,000 mg Q8 GRANT Administration Apixaban 2.5 mg 07/12/24 22:00 07/13/24 08:07 Apixaban 2.5 Mg Tablet (Wch) PO 2.5 mg BID GRANT Administration Aspirin 81 mg 07/13/24 08:00 07/13/24 08:07 Aspirin 81 Mg Tab.Chew PO 81 mg BREAKFAST GRANT Administration Atorvastatin Calcium 80 mg 07/12/24 22:00 07/12/24 20:20 Atorvastatin Calcium 80 Mg Tablet PO 80 mg QHS GRANT Administration Buspirone HCl 5 mg 07/13/24 14:00 Buspirone 5 Mg Tablet PO TID [facility] Fluticasone Propionate 2 spray 07/12/24 15:20 Fluticasone 0.05% 1 [place] Nasal.Sry NASAL DAILY PRN Nasal Congestion Glucagon 1 mg 07/12/24 15:26 Glucagon 1 Mg/Ml Syringe IM X1 PRN Hypoglycemia Protocol Hydralazine HCl 5 mg 07/12/24 14:35 Hydralazine 20 Mg/Ml Vial IV 07/13/24 14:35 Q30M PRN maintain BP parameters with HR <60 Hydrochlorothiazide 12.5 mg 07/13/24 10:00 07/13/24 10:34 Hydrochlorothiazide 12.5mg PO Not Given DAILY [facility] Protocol Dextrose 250 mls @ 0 mls/hr 07/12/24 15:26 Dextrose 10%-Water IV .Q0M PRN HYPOGLYCEMIA Protocol As Directed Insulin Human Lispro 0 unit 07/12/24 16:00 07/13/24 11:27 Insulin Lispro 100 Unit/Ml Insuln.Pen SC Not Given TIDAC [facility] Protocol Labetalol HCl 10 - 20 mg 07/12/24 14:35 Labetalol (Prefilled) 20 Mg/4 Ml IV 07/13/24 14:35 Q10M PRN PRN maintain BP parameters with HR >/=60 Oxycodone HCl 5 - 10 mg 07/12/24 15:20 07/12/24 20:18 Oxycodone 5 Mg Tablet PO 5 mg Q4H PRN Administration Pain Score 4-10 or Pre PT/OT Pantoprazole Sodium 40 mg 07/13/24 10:00 07/13/24 08:07 Pantoprazole Sodium 40 Mg Tablet PO 40 mg DAILY GRANT Administration Prochlorperazine Edisylate 5 mg 07/12/24 14:40 Prochlorperazine 10 Mg/2 Ml Vial IV Q4H PRN PRN Breakthrough Nausea/Vomiting Senna/Docusate Sodium 2 tablet 07/12/24 14:40 Senna/Docusate Sodium 1 Tablet PO BID PRN PRN Constipation Sertraline HCl 100 mg 07/12/24 22:00 07/12/24 20:31 Sertraline 100 Mg Tablet PO 100 mg QHS GRANT Administration Sodium Chloride 10 - 40 ml 07/12/24 14:42 07/13/24 11:37 0.9% Saline Lock 10 Ml Syringe IV 10 ml UD PRN Administration SALINE FLUSH Trazodone HCl 200 mg 07/12/24 22:00 07/12/24 20:25 Trazodone 100 Mg Tablet PO 200 mg HS GRANT Administration
--- NOTE | 2024-07-13 13:53 | PCM.DC ---
Discharge Instructions Diet Discharge Diet: 1800 Calorie Control Diet Activity Discharge Activity: - (Continue activity parameters initiated recently per Orthopedic surgery s/p recent L TKR.) Weight Bearing Status: Weight bearing as tolerated Keep extremity elevated above heart level: Operative Extremity Dressing / Incision Call your doctor if your incision/area has: Continuous Slow Oozing, Sudden Increased Bleeding, Increased Pain/ Swelling, Increased Redness, Foul Smelling Discharge and Swelling at the incision site Call your doctor if you observe: Fever of 101 or Higher, Shortness of breath, Dizziness, Swelling in the ankles, Chest pain, Increased palpitations (irregular heartbeat), Calf discomfort and Uncontrolled pain Additional Dressing/Incision Instructions:: Left knee s/p L TKR incisional care per Orthopedic surgery prior recommendations. Follow Up Care Test Results: Test results from this visit will be discussed in further detail at your follow-up appointment, if applicable. Discharge Plan Admission Admit Date/Time: 07/12/24 14:34 Primary Reason for Your Visit: Transient monocular visual scotoma, possibly TIA, amaurosis versus migraine Attending Provider: Tawnya Alatorre Primary Care Provider: Dwight Parnell Consulting Providers: Greg Do; Addison Johnson; Roxanne Enciso; Izzy Tsai; Olga Puga; José Haq; Roya Ayon; Jarod Butts; Mark Tripp; Alex Valdez; Ariadna Ferrell; Ambrocio Griffith; Gail Osorio; Mary Hernández; Marya Travis; Kendell Yang; Giovanny Kevin; Gary Alexander; Gale Dill; Torrey Hernandez; Rmairo Petit Instructions Additional Instructions / Restrictions: DISCHARGE INSTRUCTIONS/PLAN OF CARE: Transient vision changes/monocular visual scotoma possibly secondary to TIA, amaurosis versus migraine: --MRI brain without acute findings. --CTA head and neck without any significant stenosis or LVO. --Hemoglobin A1c 6.2 with encouraged continued aggressive lifestyle and diet changes. This level was discussed with acute rehab physician and at this time will defer oral regimen initiation but continued close outpatient follow-up. --Will plan follow-up with ophthalmology outpatient to evaluate vision more aggressively per neurology recommendation. --Will plan follow-up with neurology ideally in 4 to 6 weeks per teleneurology recommendation. --Discharge recommended medications at this time include Eliquis ONLY BUT ONCE OFF OF ELIQUIS THEN TRANSITION TO aspirin 81 mg daily, initiation and continuation of statin therapy as well as home hypertensive regimen with adjustments as needed. --Per neurology recommendations will initiate 30-day cardiac event monitor which may be initiated in acute rehab and transition to home. --Echocardiogram with with EF 70% with no evidence of any diastolic dysfunction or marked valvular disease. Discharge Orders/Prescriptions Prescriptions: New buspirone 5 mg Tablet 5 mg PO TID Qty: 0 0RF atorvastatin 80 mg Tablet 80 mg PO QHS Qty: 0 0RF aspirin 81 mg Tablet,Chewable 81 mg PO BREAKFAST Qty: 0 0RF Continued trazodone 100 mg tablet 200 mg PO HS 30 Days Qty: 60 sertraline 100 mg tablet 100 mg PO QHS Qty: 90 1RF hydrochlorothiazide 12.5 mg tablet 12.5 mg PO DAILY Qty: 90 3RF omeprazole 40 mg capsule,delayed release(DR/EC) 40 mg PO QAM Qty: 90 3RF fluticasone propionate 9.9 ML spray,suspension 2 spray INTRANASAL DAILY PRN (Reason: Nasal Congestion) Rx Instructions: administer into each nostril vitamin E (dl, acetate) 450 mg (1,000 unit) capsule 900 mg PO DAILY Patient Comments: TAKE 1 CAPSULE BY MOUTH EVERY DAY cranberry-B.faeghubt-U-Qu phos 480 mg-20 mg- 100million cell tablet 1 tab PO DAILY Tart Hidalgo [id number] mg capsule 1 cap PO DAILY Probiotic Acidophilus 250 million cell capsule 500 mmu cells PO DAILY acetaminophen 500 mg tablet 1,000 mg PO Q6H Qty: 90 0RF oxycodone 5 mg tablet 5 - 15 mg PO Q4H PRN (Reason: pain) 7 Days Qty: 60 0RF Eliquis 2.5 mg tablet 2.5 mg PO BID Qty: 28 0RF Rx Instructions: Once finish eliquis regimen per neurology transition to asa 81 mg daily only. tamoxifen 20 mg tablet 20 mg PO DAILY Qty: 90 3RF Discontinued lorazepam [Ativan] 0.5 mg tablet 0.5 mg PO BID PRN (Reason: anxiety) Qty: 30 1RF Other Ambulatory Orders: 30 Day Event Recorder Preventi (Routine) Timeframe: 1 Day Facility: [facility] [place] - Location: Cardiovascular Services Ordered By: Dr. Tawnya Alatorre Referrals / Follow Up: Dwight Parnell DO [Primary Care Provider] - (Follow-up within 1-2 days of Acute Rehab discharge to review admission/assure appropriate follow-up.) Patric Mcqueen MD [Non-Staff] - (Per Tele-neurology recommendation follow-up with neurology ideally in 4-6 weeks otherwise if unable may follow with first visit available.) Lalit Pool MD [Med Staff - Active Staff] - (Follow-up per Tele-neurology recommendation within 1 week for evaluation to be cautious, if not able to have 1 week follow-up then first immediate opening.) Femi Bowen DO [Med Staff - Active Staff] - (Continue to follow-up s/p L TKR as previously arranged.) Disposition Disposition (needs filled in before D/C Order can be placed): Inpatient Rehab Unit/Facility
--- NOTE | 2024-07-13 13:57 | DS.PCM_ITS ---
Providers Date of Admission: 07/12/24 Date of Discharge: 07/13/24 Primary Care Physician: Dr. Antoenlla Parnell, DO Consultations 07/12/24 14:35 Consult: Tele-Neurology Routine Consulting Provider: [facility] Reason for Consult: Acute Ischemic Stroke/TIA EMERGENT Consult: No MD Notified: Yes Date Notified: 07/12/24 Time Notified: 14:35 Method of Notification: Verbal Comments:: Follow-up after MRIs done Nursing Unit Staff Notify [facility] of Tele-Neurology Consult: Yes Reason For Visit: STROKE Diagnosis Discharge Diagnosis (1) Visual changes: Status: Acute Code(s): H53.9 - Unspecified visual disturbance Plan: DISCHARGE DIAGNOSES: #1. Transient right monocular visual scotoma, resolved with CVA ruled out secondary to possible TIA however more likely amaurosis versus migraine versus primary ophthalmologic process #2. Severe osteoarthritis with debility, adult failure to thrive status post recent left total knee replacement #3. History of recent anemia, acute blood loss postoperative on chronic #4. Diabetes mellitus type 2, diet controlled #5. 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 History of left sided invasive ductal carcinoma of the breast, considered in remission #7. Moderate persistent chronic asthma with allergic rhinitis #8. MECCA noncompliant with PAP therapy #9. Obesity #10. Chronic migraines #11. GERD #12. Anxiety Medications at Discharge Home Medications fluticasone propionate 50 mcg/actuation nasal spray,suspension 2 spray intranasal DAILY PRN Nasal Congestion 04/21/19 trazodone 100 mg tablet 200 mg PO HS SLEEP 30 days #60 tabs 10/14/21 vitamin E (dl, acetate) 450 mg (1,000 unit) capsule 900 mg PO DAILY SUPPLEMENT 09/22/23 omeprazole 40 mg capsule,delayed release 40 mg PO QAM GERD #90 caps 09/23/23 hydrochlorothiazide 12.5 mg tablet 12.5 mg PO DAILY HYPERTENSION #90 tabs 01/19/24 sertraline 100 mg tablet 100 mg PO QHS ANXIETY #90 tabs 01/19/24 tamoxifen 20 mg tablet 20 mg PO DAILY CANCER #90 tabs 03/21/24 Lactobacillus acidophilus 250 million cell capsule (Probiotic Acidophilus) 500 mmu cells PO DAILY SUPPLEMENT 06/14/24 cranberry-B.xlufxfeoh-Y-Iq phos 480 mg-20 mg-100 million cell tablet 1 tab PO DAILY SUPPLEMENT 06/14/24 vit C 30 mg-s.mobley 250 mg-celery seed 75 mg-grape seed extrt capsule (Tart Mobley) 1 cap PO DAILY SUPPLEMENT 06/14/24 acetaminophen 500 mg tablet 1,000 mg (2 x 500 mg) PO Q6H pain #90 tabs 07/05/24 oxycodone 5 mg tablet 5 - 15 mg (1 - 3 x 5 mg) PO Q4H PRN pain 7 days #60 tabs 07/05/24 apixaban 2.5 mg tablet (Eliquis) 2.5 mg PO BID clot prevention #28 tabs 07/13/24 aspirin 81 mg chewable tablet 81 mg PO BREAKFAST heart health #0 tabs 07/13/24 atorvastatin 80 mg tablet 80 mg PO QHS cholesterol #0 tabs 07/13/24 buspirone 5 mg tablet 5 mg PO TID anxiety #0 tabs 07/13/24 Hospital Course Operations None Procedures 2-D Echocardiogram and EKG Summary of Care Provided Minutes Spent on Discharge: 35 Hospital Course: The patient is a 73 y/o F w/ PMHx: Anxiety, Chronic anemia w/ recent acute blood loss anemia post-operatively, Severe OA s/p recent L TKR, Diabetes mellitus type 2, diet controlled, 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 Patient admitted to PCU to be cautious given concern for possible TIA, amaurosis versus migraine. Workup included CTA head neck without any significant stenosis or LVO. MRI of the brain eventually obtained which was noted to be negative for any acute stroke. Hemoglobin A1c noted to be 6.2 with encouraged continued diet and lifestyle changes noted to be diet controlled with discussion with rehab physician with preference to avoid adding any regimen at this time. Neurology consulted and followed with discharge planning per their recommendations to have ophthalmology follow-up outpatient as well as neurology follow-up in addition to 30-day event monitor which was also arranged. Echocardiogram with EF 74% with no evidence of any diastolic dysfunction or marked valvular disease. Upon discharge per the recommendation plan for Eliquis however once this is discontinued as this is status post recent left total knee replacement regimen for chemoprophylaxis then transition to daily baby aspirin with initiated and continued statin therapy. Given resolution and appropriate neurology evaluation discussed patient with acute rehab physician and patient was accepted and transitioned back to have ongoing therapies as had been previously arranged. DAY OF DISCHARGE PROGRESS NOTE: Subjective: Patient without acute event overnight per self and nursing report. Patient denies fever, chills, nausea, emesis, abdominal pain, chest pain or dyspnea. Patient agreeable to discharge back to acute rehab for ongoing therapies. Patient notes continued complete resolution of prior right eye vision changes. Patient will be discharged with follow-up with primary care physician, ophthalmology as well as neurology following transition out of acute rehab. Objective: T 98.4, heart rate 76, BP 129/78, respiratory rate 16, 96% on room air. Physical Examination: General: awake, alert, oriented x 3 and cooperative, seated upright in the PCU bedside chair, no acute distress, notes complete resolution still of right sided vision deficits Skin: normal color, no normal turgor, no icterus, no cyanosis except occasional stage ecchymoses, status post left total knee replacement with incision intact with no drainage. HEENT: AT/NC, EOMI, PERRLA, MMM, denied any abnormal vision changes. Lungs: CTA bilaterally, moderate effort, mild decrease BL bases, no rales, ronchi or wheezing; Heart: Regular rate and rhythm; no gallop, rub audible. Abdomen: soft, obese, NTTP, ND, normal BS. Extremities: no cyanosis, clubbing, or edema. Neurological: patient awake, alert, oriented as noted; cognitive function appears intact upon questioning, pupils equally reactive to light and accomodation; cranial nerves grossly normal, moving all 4 extremities although expected limitation left lower extremity given recent surgery, strength moderately globally decreased however this is expected given recent left total knee replacement. Psychiatric: affect appears normal, no acute evidence of depressive or anxiety feelings. Assessment and Plan: Please see hospital summary above. Weight / BMI Weight Weight: 162 lb 0.636 oz Body Mass Index (BMI) 29.8 ABG / Lab / Microbiology Data 08/22/24 06:48 07/13/24 06:48 Laboratory: Laboratory Results - last 24 hr 07/12/24 15:26: WBC 7.3, RBC 2.89 L, Hgb 8.5 L, Hct 26.1 L, MCV 90.3, MCH 29.4, MCHC 32.6, RDW Std Deviation 42.9, RDW Coeff of Anju 13.1, Plt Count 256, MPV 8.7, PT 16.6 H, INR 1.4, Sodium 136, Potassium 3.8, Chloride 103, Carbon Dioxide 29.0, Anion Gap 4 L, BUN 8, Creatinine 0.90, Estim Creat Clear Calc 52.89, Est GFR (MDRD) Af Amer 79, Est GFR (MDRD) Non-Af 65, BUN/Creatinine Ratio 8.9 L, G lucose 137 H, Calcium 8.8, Magnesium 2.1, Total Bilirubin 0.30, AST 19, ALT 20, Alkaline Phosphatase 41 L, Total Protein 6.4, Albumin 2.7 L, Globulin 3.7, A lbumin/Globulin Ratio 0.7 L 07/12/24 16:48: POC Glucose 125 H 07/12/24 18:04: Urine Color Yellow, Urine Clarity Clear, Urine pH 8.0, Ur Specific [place] 1.010, Urine Protein Negative, Urine Glucose (UA) Normal, Urine Ketones Negative, Urine Occult Blood 10 H, Urine Nitrite Negative, Urine Bilirubin Negative, Urine Urobilinogen Normal, Ur Leukocyte Esterase 100 H, Urine RBC 0 SEEN, Urine WBC 5-10 SEEN, Ur Squamous Epith Cells 0-5 SEEN, Urine Bacteria RARE, Urine Mucus 0 SEEN 07/12/24 23:22: POC Glucose 122 H 07/13/24 05:53: POC Glucose 108 H 07/13/24 06:48: WBC 5.4, RBC 2.74 L, Hgb 8.2 L, Hct 25.1 L, MCV 91.6, MCH 29.9, MCHC 32.7, RDW Std Deviation 43.4, RDW Coeff of Anju 13.2, Plt Count 275, MPV 8.6, Immature Gran % (Auto) 0.900, Neut % (Auto) 65.5, Lymph % (Auto) 19.6, [place] % (Auto) 9.0, Eos % (Auto) 4.1, Baso % (Auto) 0.9, Absolute Neuts (auto) 3.5, Absolute Lymphs (auto) 1.05, Nucleated RBC % 0, Sodium 139, Potassium 3.5, Chloride 107, Carbon Dioxide 26.0, Anion Gap 6, BUN 7, Creatinine 0.79, Estim Creat Clear Calc 59.67, Est GFR (MDRD) Af Amer 92, Est GFR (MDRD) Non-Af 76, B UN/Creatinine Ratio 8.9 L, Glucose 125 H, Calcium 8.5, TSH 2.230 07/13/24 11:25: POC Glucose 148 H Radiography Diagnostic Testing: Radiology Impression Brain MRI 07/12/24 14:35 IMPRESSION: No evidence of restricted diffusion to suggest acute ischemia. Likely age-related chronic changes as above, without significant abnormality otherwise appreciated. Electronically Signed: Solomon Burns MD at 5:24 EDT , Echocardiogram 07/12/24 14:38 Interpretation Summary The estimated ejection fraction is 70 %. No evidence for diastolic dysfunction. Ordering Physician: Ramiro Petit Referring Physician: ANTONELLA PARNELL Performed By: Rosalva Argueta, LAINEY D/C Instructions Discharge Diet: 1800 Calorie Control Diet Weight Bearing Status: Weight bearing as tolerated Keep extremity elevated above heart level: Operative Extremity Call your doctor if your incision/area has: Continuous Slow Oozing, Sudden Increased Bleeding, Increased Pain/ Swelling, Increased Redness, Foul Smelling Discharge and Swelling at the incision site Call your doctor if you observe: Fever of 101 or Higher, Shortness of breath, Dizziness, Swelling in the ankles, Chest pain, Increased palpitations (irregular heartbeat), Calf discomfort and Uncontrolled pain Additional Dressing/Incision Instructions: Left knee s/p L TKR incisional care per Orthopedic surgery prior recommendations. Meaningful Use Info Meaningful Use Meaningful Use Diagnoses (Choose all that apply): None applicable Ischemic Stroke Statin Dosing Therapy Reference: STATIN DOSE THERAPY REFERENCE: * Patients > 75 years receive moderate or high dose statin therapy. * Patients 75 years or YOUNGER should receive HIGH intensity statin dose unless contraindicated. You will be required to document reason for non-treatment if statin daily dose does not meet guidelines. HIGH DOSE STATIN THERAPY DAILY Atorvastatin > than or = to 40 mg Rosuvastatin > than or = to 20 mg Amlodipine + Atorvastatin > than or = to 2.5/40 mg Ezetimibe + Simvastatin 10/80 mg Simvastatin 80mg Discharge Plan Admission Admit Date/Time: 07/12/24 14:34 Primary Reason for Your Visit: Transient monocular visual scotoma, possibly TIA, amaurosis versus migraine Attending Provider: Tawnya Alatorre Primary Care Provider: Antonella Parnell Consulting Providers: Greg Do; Addison Johnson; Roxanne Enciso; Izzy Tsai; Olga Puga; José Haq; Roya Ayon; Jarod Butts; Mark Tripp; Alex Valdez; Ariadna Ferrell; Ambrocio Griffith; Gail Osorio; Mary Hernández; Marya Traviszat; Kendell Yang; Giovanny Kevin; Gary Alexander; Gale Dill; Torrey Hernandez; Ramiro Petit Instructions Additional Instructions / Restrictions: DISCHARGE INSTRUCTIONS/PLAN OF CARE: Transient vision changes/monocular visual scotoma possibly secondary to TIA, amaurosis versus migraine: --MRI brain without acute findings. --CTA head and neck without any significant stenosis or LVO. --Hemoglobin A1c 6.2 with encouraged continued aggressive lifestyle and diet changes. This level was discussed with acute rehab physician and at this time will defer oral regimen initiation but continued close outpatient follow-up. --Will plan follow-up with ophthalmology outpatient to evaluate vision more aggressively per neurology recommendation. --Will plan follow-up with neurology ideally in 4 to 6 weeks per teleneurology recommendation. --Discharge recommended medications at this time include Eliquis ONLY BUT ONCE OFF OF ELIQUIS THEN TRANSITION TO aspirin 81 mg daily, initiation and continuation of statin therapy as well as home hypertensive regimen with adjustments as needed. --Per neurology recommendations will initiate 30-day cardiac event monitor which may be initiated in acute rehab and transition to home. --Echocardiogram with with EF 70% with no evidence of any diastolic dysfunction or marked valvular disease. Discharge Orders/Prescriptions Prescriptions: New buspirone 5 mg Tablet 5 mg PO TID Qty: 0 0RF atorvastatin 80 mg Tablet 80 mg PO QHS Qty: 0 0RF aspirin 81 mg Tablet,Chewable 81 mg PO BREAKFAST Qty: 0 0RF Continued trazodone 100 mg tablet 200 mg PO HS 30 Days Qty: 60 sertraline 100 mg tablet 100 mg PO QHS Qty: 90 1RF hydrochlorothiazide 12.5 mg tablet 12.5 mg PO DAILY Qty: 90 3RF omeprazole 40 mg capsule,delayed release(DR/EC) 40 mg PO QAM Qty: 90 3RF fluticasone propionate 9.9 ML spray,suspension 2 spray INTRANASAL DAILY PRN (Reason: Nasal Congestion) Rx Instructions: administer into each nostril vitamin E (dl, acetate) 450 mg (1,000 unit) capsule 900 mg PO DAILY Patient Comments: TAKE 1 CAPSULE BY MOUTH EVERY DAY cranberry-B.hvujptzm-U-Fj phos 480 mg-20 mg- 100million cell tablet 1 tab PO DAILY Tart Mobley 19-170-14-75-20 mg capsule 1 cap PO DAILY Probiotic Acidophilus 250 million cell capsule 500 mmu cells PO DAILY acetaminophen 500 mg tablet 1,000 mg PO Q6H Qty: 90 0RF oxycodone 5 mg tablet 5 - 15 mg PO Q4H PRN (Reason: pain) 7 Days Qty: 60 0RF Eliquis 2.5 mg tablet 2.5 mg PO BID Qty: 28 0RF Rx Instructions: Once finish eliquis regimen per neurology transition to asa 81 mg daily only. tamoxifen 20 mg tablet 20 mg PO DAILY Qty: 90 3RF Discontinued lorazepam [Ativan] 0.5 mg tablet 0.5 mg PO BID PRN (Reason: anxiety) Qty: 30 1RF Other Ambulatory Orders: 30 Day Event Recorder Preventi (Routine) Timeframe: 1 Day Facility: [facility] - Location: Cardiovascular Services Ordered By: Dr. Tawnya Alatorre Referrals / Follow Up: Antonella Parnell DO [Primary Care Provider] - (Follow-up within 1-2 days of Acute Rehab discharge to review admission/assure appropriate follow-up.) Femi Bowen DO [Med Staff - Active Staff] - (Continue to follow-up s/p L TKR as previously arranged.) Patric Mcqueen MD [Non-Staff] - (Per Tele-neurology recommendation follow-up with neurology ideally in 4-6 weeks otherwise if unable may follow with first visit available.) Lalit Pool MD [Med Staff - Active Staff] - (Follow-up per Tele-neurology recommendation within 1 week for evaluation to be cautious, if not able to have 1 week follow-up then first immediate opening.) Disposition Disposition (needs filled in before D/C Order can be placed): Inpatient Rehab Unit/Facility Charges/Coding Visit Charges Inpatient E&M: 74437 Disch Hosp >30min
--- NOTE | 2024-07-13 14:17 | CASEMGMT ---
SW asked patient if she needed SW to call any family members to notify them of her discharge. Patient declined stating she will notify them. Plan: d/c back to [facility] Acute Rehab Unit. Savannah CHACON
[2024-07-13] MEDS: busPIRone 5 MG Tablet PO (15:00)
--- NOTE | 2024-07-13 15:32 | NURSING ---
Report called to Inpatient Rehab Unit. Went over all discharge needs with patient at bedside. Volunteer on way to room to transport patient to IR unit.
== END 2024-07-13 13:45 ==
PROVIDERS: Admitting Provider Internal Medicine; PCP Family Medicine; Visit Provider Family Medicine
DX: H53.411 Scotoma involving central area, right eye (principal); E11.9 Type 2 diabetes mellitus without complications; Z79.810 Long term (current) use of selective estrogen receptor modulators (SERMs); I10 Essential (primary) hypertension; Z79.01 Long term (current) use of anticoagulants; D62 Acute posthemorrhagic anemia; J45.40 Moderate persistent asthma, uncomplicated; Z96.651 Presence of right artificial knee joint; E66.9 Obesity, unspecified; K21.9 Gastro-esophageal reflux disease without esophagitis; G47.33 Obstructive sleep apnea (adult) (pediatric); M19.90 Unspecified osteoarthritis, unspecified site; Z79.899 Other long term (current) drug therapy; K75.81 Nonalcoholic steatohepatitis (NASH); K74.00 Hepatic fibrosis, unspecified
CPT/HCPCS: 36415; 70551; 80048; 80053; 81001; 82962; 83735; 84443; 85025; 85027; 85610; 92610; 93005; 93306; 94668; 94762; 96360; 96361; 97162; 97166; 97802; 99221; J7030; Q9957; A4216; G0378

== ENCOUNTER 2024-08-23 09:30 | Outpatient (RCR) | payer MEDICARE, OTHER, SELFPAY ==
--- NOTE | 2024-08-08 10:49 | HP.PTEVAL_ITS ---
Patient's Visit Information Visit Information Visit Information: VERONICA ZULUAGA is a 73 year old F referred to Physical Therapy by Dr. Femi Bowen DO with a diagnosis of L TKA 07/04/24. Date of Evaluation: 08/08/24 Physical Therapist: Eusebio Perez, DPT, OCS, CSCS Visit Plan Frequency: 2x /Week Duration: 2-4 Weeks Plan: 2x/week for 2-4 weeks(start 2), please teach aggressive strength for knees and hips and posture(think funcitonal BW for LE, mat for core and band for posture) and progress to I(hopefully in 4 visits) with pics. Also practice steps. IE: shown PKF stretch and step ups bottom step to add to current sink exercises form home health all 1x/day Subjective Subjective: Best frien with her today. L TKA 07/04/24, 5 weeks robotic TKA. Went well. had home PT after wards. Finished home PT last week. Pain level is around 2/10 most of time and does not get much word. Worse with sitting too long. HEP: currently sink 1x/day until tired, taking 30 minutes. Sleep is mostly OK, some nights can hurt but not bad. Not employed. Live with and son, basic ADLs all I. No regular exercises otherwise. Shops and sews as hobbies with her friend. Did some last week to 8 shops. Using cane to get around. Steps to get into house and are easy but not with L yet. Pain L knee: Pain Intensity (Out of 10): 1 Pain Intensity Range: 0 and 2 Objective Objective: Walks into PT mod I with cane with good gait pattern including flexion at swing on L and full knee extension at plant. Trasnfers chair and bed I, steps reciprocally today with one rail, some eccentric weakness on L but funcitonal. FGA taken without cane today. L quad 26#, HS 27# 15 inch girth L joint line, 17 at 6 inch sup, R is 14.5 inch at joint line AROM L knee 0-127 and R is 0-130 Good atellar mobility B. Hip aROM symmetrical and funcitonal, ankles WFL sensation LE WNL to gross light touch. Posture is good and upright while ambulating. 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 Rehabilitation Potential: Fair Anticipated Interventions Patient/Client Instruction: Educate patient on: Condition and Plan of Care For the Purpose of:: To decrease pain, To increase ROM, To improve muscle performance and motor function and To increase tolerance to activity/condition/position Therapeutic Exercise to Include: Strength training, Postural training and Active ROM For the Purpose of:: To decrease pain, To improve nutrient delivery to tissue and To improve muscle performance and motor function Text: Thank you for the opportunity to evaluate your patient. For Medicare and Medicare HMO plans, please review the plan of care and approve it. It will need to be FAXED BACK to us at [phone] for Medicare purposes. For Medicare only, by signing this I certify the plan of care. Please let me know if there are questions or concerns regarding this plan of care. Physician Signature: Date:
--- NOTE | 2024-08-23 10:15 | HP.PTDCSUM ---
Discharge Summary D/C summary: It has been my pleasure to treat VERONICA ZULUAGA referred by Dr. Femi Bowen DO, with the diagnosis of L TKA 07/04/24 for a total of 5 visit(s). Discharge Date: 08/23/24 Please see the following information for a summary of their discharge status. Subjective Subjective: Accomplished goals. Has done them at home a time or two and is challenged. Ready to be on own. Pain L knee: Pain Intensity (Out of 10): 4 Overall Improvement % Improvement: 60 Objective Objective/Function: steps reciprocal with one rail and no increase in pain today. Walking well adn without deficits, slight weakness L LE descnending steps but able to work on this at home and wishes to do so vs more therapy. Goals Goal 1:: i appropriate LE adn full body home ex program to limit future problems Goal Progress: Goal Met Goal 2:: steps reciprocally without rail Goal Progress: Goal Met Plan Plan: d/c to [facility] D/C Information Discharge Comments: Will continue via [facility] d/c sentence: If there are questions or concerns regarding this patient's physical therapy, please feel free to call me at [phone]. Thank you for the referral of this patient. Sincerely, Eusebio Perez, DPT, OCS, CSCS Balance/Gait/Functional tests Balance/Special Test Scores Functional Gait Assessment Score: 26 % Disability: 13.3400 WOMAC Total Score: 23 WOMAC Percentage: 73.8700 Improvement % Improvement: 60
== END 2024-08-23 19:00 | disposition home or self-care (01) ==
LOC: PT 09:30
PROVIDERS: PCP Family Medicine; Referring Provider Orthopaedic Surgery; Visit Provider Orthopaedic Surgery
DX: M17.0 Bilateral primary osteoarthritis of knee (principal); Z96.652 Presence of left artificial knee joint
CPT/HCPCS: 97110; 97161; 97530

== ENCOUNTER → 2025-04-03 | Outpatient (CLI) | payer MEDICARE, OTHER, SELFPAY ==
--- NOTE | 2025-04-03 08:31 | BI_ITS ---
EXAM: SCRN MAMM (CAD)W/PATRIC BILAT DATE: 04/03/2025 CLINICAL HISTORY: F, Age 74 y/o , ANNUAL SCREENING, H/O BREAST CANCER Personal history of breast cancer. Prior left lumpectomy. BREAST CANCER RISK ASSESSMENT: Not assessed. TECHNIQUE: Bilateral screening digital breast tomosynthesis with 2D and 3D images. Computer aided detection. COMPARISON: Prior exam(s) dated March 30, 2024.. FINDINGS: TISSUE DENSITY: The breast tissue is almost entirely fatty. Bilateral Breast Mammographic Findings: No significant masses, calcifications or other abnormalities are identified. Stable postoperative changes in the central lateral aspect of the left breast. Surgical clips are seen in the left axilla. BI/SCRN MAMM (CAD)W/PATRIC BILAT IMPRESSION: OVERALL FINAL ASSESSMENT: BIRADS 2 BENIGN FINDING RECOMMENDATION: Routine annual follow-up in 1 Year A letter with findings and recommendations will be mailed to the patient. Reading Location: [facility]
== END | disposition home or self-care (01) ==
LOC: OPBI 08:30
PROVIDERS: PCP Family Medicine; Referring Provider Student in an Organized Health Care Education/Training Program; Visit Provider Student in an Organized Health Care Education/Training Program
DX: Z12.31 Encounter for screening mammogram for malignant neoplasm of breast (principal); Z85.3 Personal history of malignant neoplasm of breast
CPT/HCPCS: 77063; 77067